=== PATIENT | female | born 1990 | race African-American/Black ===

== ENCOUNTER 2016-02-24 15:05 | Emergency (ER) | payer SELFPAY ==
--- NOTE | 2016-02-24 16:47 | ER Document Report ---
ED Medical Screen (RME) - General Chief Complaint: Lower Abdominal Pain Stated Complaint: MEDICATION REFILL Time seen by provider: 16:47 Mode of Arrival: Ambulatory Information source: Patient TRAVEL OUTSIDE OF THE [place] IN LAST 30 DAYS: No - HPI Patient complains to provider of: MED REFILLS Onset: Yesterday Onset/Duration: Sudden Context: STATES CIPRO, FLAGYL AND PERCOCET WERE STOLEN LAST NIGHT. THEY WERE HELPING. PT HERE FOR REFILLS. DID NOT CALL HER PCP, DR. ZAMUDIO FOR REFILLS. Quality of pain: Pressure Severity: Moderate Pain Level: 3 Associated Symptoms: Abdominal pain, Nausea, Vomiting Exacerbated by: Denies Relieved by: Denies Similar symptoms previously: Yes Recently seen / treated by doctor: Yes - Related Data Smoking: Non-smoker Frequency of alcohol use: None Drug Abuse: None Allergies/Adverse Reactions: iodine [Iodine] Allergy (Severe, Verified 02/24/16 15:18) throat swells peanut Allergy (Severe, Verified 02/24/16 15:18) rash Penicillins Allergy (Severe, Verified 02/24/16 15:18) throat swells Shellfish * [Shellfish] Allergy (Severe, Verified 02/24/16 15:18) Blisters hydrocodone Allergy (Verified 02/24/16 15:18) Pruritis Past Medical History - General Last Menstrual Period: 02/23/16 - Past Medical History Cardiac Medical History: Denies: Hx Congestive Heart Failure, Hx Coronary Artery Disease, Hx DVT, Hx Heart Attack, Hx Hypercholesterolemia, Hx Hypertension, Hx Pulmonary Embolism Pulmonary Medical History: Reports: Hx Asthma - inhalers Denies: Hx Bronchitis, Hx COPD, Hx Pneumonia Neurological Medical History: Denies: Hx Cerebrovascular Accident, Hx Seizures Endocrine Medical History: Denies: Hx Diabetes Mellitus Type 2, Hx Hyperthyroidism, Hx Hypothyroidism GI Medical History: Reports: Hx Diverticulitis. Denies: Hx Cirrhosis, Hx Hepatitis Musculoskeltal Medical History: Reports Hx Arthritis - RA Psychiatric Medical History: Reports: Hx Anxiety, Hx Bipolar Disorder, Hx Depression Infectious Medical History: Denies: Hx Hepatitis - Immunizations Immunizations up to date: Yes Hx Diphtheria, Pertussis, Tetanus Vaccination: Yes Physical Exam - Vital signs Vitals: Temp Pulse Resp BP Pulse Ox 98.4 F 108 H 18 143/79 H 100 02/24/16 15:12 02/24/16 15:12 02/24/16 15:12 02/24/16 15:12 02/24/16 15:12 Course - Vital Signs Vital signs: Temp Pulse Resp BP Pulse Ox 98.4 F 108 H 18 143/79 H 100 02/24/16 15:12 02/24/16 15:12 02/24/16 15:12 02/24/16 15:12 02/24/16 15:12
[2016-02-24 18:50] LABS: ABSOLUTE EOSINOPHILS # (AUTO) 0.1 10^3/uL (0.0-0.6); ABSOLUTE LYMPHOCYTES (AUTO) 2.4 10^3/uL (0.5-4.7); ABSOLUTE MONOCYTES (AUTO) 0.6 10^3/uL (0.1-1.4); ABSOLUTE NEUT (AUTO) 2.9 10^3/uL (1.7-8.2); BASOPHILS % (AUTO) 0.6 % (0-2); EOSINOPHILS % (AUTO) 0.9 % (0-6); HEMATOCRIT 30.6 % (36.0-47.0); HEMOGLOBIN 9.2 g/dL (12.0-15.5); LYMPHOCYTES % (AUTO) 39.4 % (13-45); MEAN CORPUSCULAR HGB CONC 30.2 g/dL (32.0-36.0); MONOCYTES % (AUTO) 10.5 % (3-13); RED BLOOD COUNT 4.87 10^6/uL (3.72-5.28); RED CELL DISTRIBUTION WIDTH 19.9 % (11.5-14.0); SEGMENTED NEUTROPHILS % (AUTO) 48.6 % (42-78)
[2016-02-24 19:11] LABS: ALANINE AMINOTRANSFERASE 49 U/L (9-52); ALBUMIN 3.7 g/dL (3.5-5.0); ALKALINE PHOSPHATASE 59 U/L (38-126); ANION GAP 7 (5-19); ASPARTATE AMINO TRANSFERASE 23 U/L (14-36); BILIRUBIN,TOTAL 0.5 mg/dL (0.2-1.3); BLOOD UREA NITROGEN 7 mg/dL (7-20); CALCIUM 9.2 mg/dL (8.4-10.2); CARBON DIOXIDE 28 mmol/L (22-30); CHLORIDE 104 mmol/L (98-107); CREATININE RESULT 0.72 mg/dL (0.52-1.25); GLUCOSE 72 mg/dL (75-110); LIPASE 43.8 U/L (23-300); POTASSIUM 4.1 mmol/L (3.6-5.0); SODIUM 139.3 mmol/L (137-145)
[2016-02-24 19:16] LABS: APPEARANCE,URINE SLIGHTLY-CLOUDY; BILIRUBIN,URINE NEGATIVE (NEGATIVE); GLUCOSE, URINE NEGATIVE (NEGATIVE); KETONES,URINE NEGATIVE (NEGATIVE); LEUKOCYTE ESTERASE,URINE LARGE (NEGATIVE); NITRITE,URINE NEGATIVE (NEGATIVE); PROTEIN,URINE NEGATIVE (NEGATIVE); URINE SPECIFIC GRAVITY 1.015
[2016-02-24 19:26] LABS: ANISOCYTOSIS 2+; HYPOCHROMASIA 3+; MICROCYTOSIS 3+; POIKILOCYTOSIS 1+; POLYCHROMASIA 1+
[2016-02-24 19:27] LABS: OVALOCYTES 1+; SCHISTOCYTES SLIGHT; TARGET CELLS 1+; TEAR DROP CELLS 1+
[2016-02-24 19:28] LABS: MEAN CORPUSCULAR VOLUME 63 fl (80-97)
[2016-02-24] MEDS ORDERED: NITROFURANTOIN MONOHYD/M-CRYST 100 MG CAPSULE PO ONE (19:38)
[2016-02-24] MEDS ORDERED: PHENAZOPYRIDINE HCL 200 MG TABLET PO ONE (19:38)
--- NOTE | 2016-02-24 19:38 | ER Document Report ---
ED General - General Chief Complaint: Lower Abdominal Pain Stated Complaint: MEDICATION REFILL Mode of Arrival: Ambulatory TRAVEL OUTSIDE OF THE [place] IN LAST 30 DAYS: No - HPI Onset: Last week Onset/Duration: Intermittent - 25-year-old female who presents to the emergency room today with approximately a one-week history of left lower quadrant discomfort she states that she does have a history of diverticulitis - Related Data Allergies/Adverse Reactions: iodine [Iodine] Allergy (Severe, Verified 02/24/16 15:18) throat swells peanut Allergy (Severe, Verified 02/24/16 15:18) rash Penicillins Allergy (Severe, Verified 02/24/16 15:18) throat swells Shellfish * [Shellfish] Allergy (Severe, Verified 02/24/16 15:18) Blisters hydrocodone Allergy (Verified 02/24/16 15:18) Pruritis Past Medical History - General Information source: Patient Last Menstrual Period: 02/23/16 - Social History Smoking Status: Current Every Day Smoker Cigarette use (# per day): Yes Chew tobacco use (# tins/day): No Frequency of alcohol use: None Drug Abuse: None Family History: Reviewed & Not Pertinent, Arthritis, CAD, DM, Hyperlipidemia, Hypertension Patient has suicidal ideation: No Patient has homicidal ideation: No - Past Medical History Cardiac Medical History: Denies: Hx Congestive Heart Failure, Hx Coronary Artery Disease, Hx DVT, Hx Heart Attack, Hx Hypercholesterolemia, Hx Hypertension, Hx Pulmonary Embolism Pulmonary Medical History: Reports: Hx Asthma - inhalers Denies: Hx Bronchitis, Hx COPD, Hx Pneumonia Neurological Medical History: Denies: Hx Cerebrovascular Accident, Hx Seizures Endocrine Medical History: Denies: Hx Diabetes Mellitus Type 2, Hx Hyperthyroidism, Hx Hypothyroidism GI Medical History: Reports: Hx Diverticulitis. Denies: Hx Cirrhosis, Hx Hepatitis Musculoskeltal Medical History: Reports Hx Arthritis - RA Psychiatric Medical History: Reports: Hx Anxiety, Hx Bipolar Disorder, Hx Depression Infectious Medical History: Denies: Hx Hepatitis - Immunizations Immunizations up to date: Yes Hx Diphtheria, Pertussis, Tetanus Vaccination: Yes Review of Systems - Review of Systems Constitutional: No symptoms reported EENT: No symptoms reported Cardiovascular: No symptoms reported Respiratory: No symptoms reported Gastrointestinal: No symptoms reported Genitourinary: No symptoms reported Female Genitourinary: No symptoms reported Musculoskeletal: No symptoms reported Skin: No symptoms reported Hematologic/Lymphatic: No symptoms reported Neurological/Psychological: No symptoms reported Physical Exam - Vital signs Vitals: Temp Pulse Resp BP Pulse Ox 98.4 F 108 H 18 143/79 H 100 02/24/16 15:12 02/24/16 15:12 02/24/16 15:12 02/24/16 15:12 02/24/16 15:12 Interpretation: Normal - General General appearance: Appears well, Alert - HEENT Head: Normocephalic, Atraumatic Eyes: Normal Pupils: PERRL - Respiratory Respiratory status: No respiratory distress Chest status: Nontender Breath sounds: Normal Chest palpation: Normal - Cardiovascular Rhythm: Regular Heart sounds: Normal auscultation Murmur: No - Abdominal Inspection: Normal Distension: No distension Bowel sounds: Normal Tenderness: Nontender Organomegaly: No organomegaly - Back Back: Normal, Nontender, CVA tenderness - Extremities General upper extremity: Normal inspection, Nontender, Normal color, Normal ROM , Normal temperature General lower extremity: Normal inspection, Nontender, Normal color, Normal ROM , Normal temperature, Normal weight bearing. No: Michael's sign - Neurological Neuro grossly intact: Yes Cognition: Normal Orientation: AAOx4 [place] Coma Scale Eye Opening: Spontaneous [place]ina Coma Scale Verbal: Oriented [place] Coma Scale Motor: Obeys Commands Lina Coma Scale Total: 15 Speech: Normal Motor strength normal: LUE, RUE, LLE, RLE Sensory: Normal - Psychological Associated symptoms: Normal affect, Normal mood - Skin Skin Temperature: Warm Skin Moisture: Dry Skin Color: Normal Course - Vital Signs Vital signs: Temp Pulse Resp BP Pulse Ox 98.4 F 108 H 18 143/79 H 100 02/24/16 15:12 02/24/16 15:12 02/24/16 15:12 02/24/16 15:12 02/24/16 15:12 - Laboratory Result Diagrams: 02/24/16 18:35 02/24/16 18:35 Laboratory results interpreted by me: 02/24/16 02/24/16 02/24/16 18:35 18:35 18:54 Hgb 9.2 L Hct 30.6 L MCV 63 L MCH 19.0 L MCHC 30.2 L RDW 19.9 H Glucose 72 L Urine Blood MODERATE H Urine Urobilinogen 2.0 H Ur Leukocyte Esterase LARGE H Discharge - Discharge Clinical Impression: UTI (urinary tract infection) Disposition: HOME, SELF-CARE Instructions: Nitrofurantoin ([facility]), Urinary Anesthetic Agent ([facility]), Urinary Tract Infection ([facility]) Additional Instructions: Follow-up with private doctor in 1 to 2 days for final radiology readings please return to the emergency room for any change worsening condition. Follow up with private M.D. for all other routine health care needs. Prescriptions: Nitrofurantoin/Nitrofuran Mac [Macrobid 100 mg Capsule] 1 tab PO BID #20 capsule Forms: Elevated Blood Pressure
[2016-02-24] MEDS ORDERED: TRAMADOL HCL 50 MG TABLET PO ONE (19:39)
[2016-02-24 19:50] VITALS: BP 132/90
== END 2016-02-24 19:50 | disposition home or self-care (01) ==
LOC: ER 15:05
DX: N39.0 Urinary tract infection, site not specified (principal); R10.32 Left lower quadrant pain; F17.210 Nicotine dependence, cigarettes, uncomplicated
CPT/HCPCS: 99282; 36415; 83690; 85025; 80053; 81001; 74022; J3490; J8499

== ENCOUNTER 2016-03-05 17:55 | Emergency (ER) | payer SELFPAY ==
--- NOTE | 2016-03-05 18:21 | ER Document Report ---
ED Medical Screen (RME) - General Stated Complaint: LEFT SIDE PAIN Mode of Arrival: Ambulatory Information source: Patient Notes: Patient presents to the ER with complaints of left-sided rib pain. She reports she's been coughing for one week and rib pain for the past 3 days. Denies fever vomiting diarrhea. Denies history of asthma COPD. Patient does smoke. I greeted and performed a rapid initial assessment of this patient. Comprehensive ED assessment and evaluation of the patient, analysis of test results and completion of the medical decision making process will be conducted by additional ED providers. TRAVEL OUTSIDE OF THE [place] IN LAST 30 DAYS: No - Related Data Allergies/Adverse Reactions: iodine [Iodine] Allergy (Severe, Verified 02/24/16 15:18) throat swells peanut Allergy (Severe, Verified 02/24/16 15:18) rash Penicillins Allergy (Severe, Verified 02/24/16 15:18) throat swells Shellfish * [Shellfish] Allergy (Severe, Verified 02/24/16 15:18) Blisters hydrocodone Allergy (Verified 02/24/16 15:18) Pruritis Past Medical History - Past Medical History Cardiac Medical History: Denies: Hx Congestive Heart Failure, Hx Coronary Artery Disease, Hx DVT, Hx Heart Attack, Hx Hypercholesterolemia, Hx Hypertension, Hx Pulmonary Embolism Pulmonary Medical History: Reports: Hx Asthma - inhalers Denies: Hx Bronchitis, Hx COPD, Hx Pneumonia Neurological Medical History: Denies: Hx Cerebrovascular Accident, Hx Seizures Endocrine Medical History: Denies: Hx Diabetes Mellitus Type 2, Hx Hyperthyroidism, Hx Hypothyroidism GI Medical History: Reports: Hx Diverticulitis. Denies: Hx Cirrhosis, Hx Hepatitis Musculoskeltal Medical History: Reports Hx Arthritis - RA Psychiatric Medical History: Reports: Hx Anxiety, Hx Bipolar Disorder, Hx Depression Infectious Medical History: Denies: Hx Hepatitis - Immunizations Immunizations up to date: Yes Hx Diphtheria, Pertussis, Tetanus Vaccination: Yes Physical Exam - Vital signs Vitals: Temp Pulse Resp BP Pulse Ox 98.0 F 87 20 120/81 100 03/05/16 18:03 03/05/16 18:03 03/05/16 18:03 03/05/16 18:03 03/05/16 18:03 Course - Vital Signs Vital signs: Temp Pulse Resp BP Pulse Ox 98.0 F 87 20 120/81 100 03/05/16 18:03 03/05/16 18:03 03/05/16 18:03 03/05/16 18:03 03/05/16 18:03
--- NOTE | 2016-03-05 18:58 | ER Document Report ---
ED General - General Chief Complaint: Rib Pain Stated Complaint: LEFT SIDE PAIN Mode of Arrival: Ambulatory Information source: Patient TRAVEL OUTSIDE OF THE [place] IN LAST 30 DAYS: No - HPI Onset: Other - Left lateral rib pain for approximately 3 weeks - Related Data Allergies/Adverse Reactions: iodine [Iodine] Allergy (Severe, Verified 02/24/16 15:18) throat swells peanut Allergy (Severe, Verified 02/24/16 15:18) rash Penicillins Allergy (Severe, Verified 02/24/16 15:18) throat swells Shellfish * [Shellfish] Allergy (Severe, Verified 02/24/16 15:18) Blisters hydrocodone Allergy (Verified 02/24/16 15:18) Pruritis Past Medical History - General Information source: Patient - Social History Smoking Status: Current Some Day Smoker Chew tobacco use (# tins/day): No Frequency of alcohol use: None Drug Abuse: None Family History: Reviewed & Not Pertinent, Arthritis, CAD, DM, Hyperlipidemia, Hypertension Patient has suicidal ideation: No Patient has homicidal ideation: No - Past Medical History Cardiac Medical History: Denies: Hx Congestive Heart Failure, Hx Coronary Artery Disease, Hx DVT, Hx Heart Attack, Hx Hypercholesterolemia, Hx Hypertension, Hx Pulmonary Embolism Pulmonary Medical History: Reports: Hx Asthma - inhalers Denies: Hx Bronchitis, Hx COPD, Hx Pneumonia Neurological Medical History: Denies: Hx Cerebrovascular Accident, Hx Seizures Endocrine Medical History: Denies: Hx Diabetes Mellitus Type 2, Hx Hyperthyroidism, Hx Hypothyroidism Renal/ Medical History: Denies: Hx Peritoneal Dialysis GI Medical History: Reports: Hx Diverticulitis. Denies: Hx Cirrhosis, Hx Hepatitis Musculoskeltal Medical History: Reports Hx Arthritis - RA Psychiatric Medical History: Reports: Hx Anxiety, Hx Bipolar Disorder, Hx Depression Infectious Medical History: Denies: Hx Hepatitis - Immunizations Immunizations up to date: Yes Hx Diphtheria, Pertussis, Tetanus Vaccination: Yes Review of Systems - Review of Systems Constitutional: No symptoms reported EENT: No symptoms reported Cardiovascular: No symptoms reported Respiratory: No symptoms reported Gastrointestinal: No symptoms reported Genitourinary: No symptoms reported Female Genitourinary: No symptoms reported Musculoskeletal: No symptoms reported Skin: No symptoms reported Hematologic/Lymphatic: No symptoms reported Neurological/Psychological: No symptoms reported Physical Exam - Vital signs Vitals: Temp Pulse Resp BP Pulse Ox 98.0 F 87 20 120/81 100 03/05/16 18:03 03/05/16 18:03 03/05/16 18:03 03/05/16 18:03 03/05/16 18:03 Interpretation: Normal - General General appearance: Appears well, Alert - HEENT Head: Normocephalic, Atraumatic Eyes: Normal Pupils: PERRL - Respiratory Respiratory status: No respiratory distress Chest status: Nontender Breath sounds: Normal Chest palpation: Normal - Cardiovascular Rhythm: Regular Heart sounds: Normal auscultation Murmur: No - Abdominal Inspection: Normal Distension: No distension Bowel sounds: Normal Tenderness: Nontender Organomegaly: No organomegaly - Back Back: Normal, Nontender - Extremities General upper extremity: Normal inspection, Nontender, Normal color, Normal ROM , Normal temperature General lower extremity: Normal inspection, Nontender, Normal color, Normal ROM , Normal temperature, Normal weight bearing. No: Michael's sign - Neurological Neuro grossly intact: Yes Cognition: Normal Orientation: AAOx4 [place] Coma Scale Eye Opening: Spontaneous Lina Coma Scale Verbal: Oriented [place] Coma Scale Motor: Obeys Commands Lina Coma Scale Total: 15 Speech: Normal Motor strength normal: LUE, RUE, LLE, RLE Sensory: Normal - Psychological Associated symptoms: Normal affect, Normal mood - Skin Skin Temperature: Warm Skin Moisture: Dry Skin Color: Normal Course - Vital Signs Vital signs: Temp Pulse Resp BP Pulse Ox 98.0 F 87 20 120/81 100 03/05/16 18:03 03/05/16 18:03 03/05/16 18:03 03/05/16 18:03 03/05/16 18:03 - Diagnostic Test Radiology reviewed: Reports reviewed Discharge - Discharge Clinical Impression: Bronchitis Disposition: HOME, SELF-CARE Additional Instructions: Follow-up with private doctor in 1 to 2 days for final radiology readings please return to the emergency room for any change worsening condition. Follow up with private M.D. for all other routine health care needs. Prescriptions: Naproxen Sodium [Naproxen Sodium ER] 500 mg PO Q12 PRN #20 tablet.sa PRN Reason:
[2016-03-05 19:02] VITALS: BP 137/94
== END 2016-03-05 19:10 | disposition home or self-care (01) ==
LOC: ER 17:55
DX: J40 Bronchitis, not specified as acute or chronic (principal); J45.909 Unspecified asthma, uncomplicated; R07.81 Pleurodynia; F17.200 Nicotine dependence, unspecified, uncomplicated; Z91.010 Allergy to peanuts; Z88.0 Allergy status to penicillin; Z91.013 Allergy to seafood; Z88.5 Allergy status to narcotic agent; Z88.3 Allergy status to other anti-infective agents
CPT/HCPCS: 99283

== ENCOUNTER 2016-05-21 21:22 | Observation (INO) | payer SELFPAY ==
--- NOTE | 2016-05-21 23:11 | ER Document Report ---
ED General - General Chief Complaint: Vaginal Bleeding Stated Complaint: BEEN ON PERIOD SINCE FIRST February Notes: Patient is a 26-year-old female presents with complaints of left knee pain. Patient says that she's had some gradual worsening pain in her left knee. She points to the medial aspect of her left knee. She says it's more when she bears weight. She does not murmur any injuries or trauma to the knee. No redness or swelling. No recent fevers or infections. Patient's second complaint is of having a prolonged menstrual period. She says she's had bleeding since February 21. She has been eating a lot of ice recently. She has felt a little bit more sleepy or tired than usual. She says she's make an appointment to see grain merchandiser. She tells me up front that she does not want a pelvic exam performed here because she wants to have it done by her physician when she sees him or her. TRAVEL OUTSIDE OF THE [place] IN LAST 30 DAYS: No - Related Data Allergies/Adverse Reactions: iodine [Iodine] Allergy (Severe, Verified 02/24/16 15:18) throat swells Penicillins Allergy (Severe, Verified 02/24/16 15:18) throat swells Shellfish * [Shellfish] Allergy (Severe, Verified 02/24/16 15:18) Blisters peanut Adverse Reaction (Severe, Verified 05/21/16 22:03) rash hydrocodone Adverse Reaction (Verified 05/21/16 22:03) Pruritis Past Medical History - Social History Smoking Status: Current Some Day Smoker Chew tobacco use (# tins/day): No Frequency of alcohol use: None Drug Abuse: None Family History: Reviewed & Not Pertinent, Arthritis, CAD, DM, Hyperlipidemia, Hypertension - Past Medical History Cardiac Medical History: Denies: Hx Congestive Heart Failure, Hx Coronary Artery Disease, Hx DVT, Hx Heart Attack, Hx Hypercholesterolemia, Hx Hypertension, Hx Pulmonary Embolism Pulmonary Medical History: Reports: Hx Asthma - inhalers Denies: Hx Bronchitis, Hx COPD, Hx Pneumonia Neurological Medical History: Denies: Hx Cerebrovascular Accident, Hx Seizures Endocrine Medical History: Denies: Hx Diabetes Mellitus Type 2, Hx Hyperthyroidism, Hx Hypothyroidism Renal/ Medical History: Denies: Hx Peritoneal Dialysis GI Medical History: Reports: Hx Diverticulitis. Denies: Hx Cirrhosis, Hx Hepatitis Musculoskeltal Medical History: Reports Hx Arthritis - RA Psychiatric Medical History: Reports: Hx Anxiety, Hx Bipolar Disorder, Hx Depression Infectious Medical History: Denies: Hx Hepatitis - Immunizations Immunizations up to date: Yes Hx Diphtheria, Pertussis, Tetanus Vaccination: Yes Review of Systems - Review of Systems Notes: My Normal Review Basic REVIEW OF SYSTEMS: CONSTITUTIONAL : Denies fever, chills, or sweats. Denies recent illness. EENT: Denies eye, ear, throat, or mouth pain or symptoms. Denies nasal or sinus congestion. RESPIRATORY: Denies cough, cold, or chest congestion. Denies shortness of breath, difficulty breathing, or wheezing. GASTROINTESTINAL: Denies abdominal pain. Denies nausea, vomiting, or diarrhea. Denies constipation. Last BM: GENITOURINARY: Denies difficulty urinating, painful urination, burning, frequency, or blood in urine. FEMALE GENITOURINARY: Prolonged menstrual bleeding MUSCULOSKELETAL: Left knee pain SKIN: Denies rash or skin lesions. HEMATOLOGIC : Denies easy bruising or bleeding. NEUROLOGICAL: Denies altered mental status or loss of consciousness. Denies headache. Denies weakness or paralysis or loss of use of either side. Denies problems with gait or speech. Denies sensory or motor loss.ssion. ALL OTHER SYSTEMS REVIEWED AND NEGATIVE. Physical Exam - Vital signs Vitals: Temp Pulse Resp BP Pulse Ox 98.8 F 118 H 16 149/94 H 100 05/21/16 21:44 05/21/16 21:44 05/21/16 21:44 05/21/16 21:44 05/21/16 21:44 - Notes Notes: General Appearance: Well nourished, alert, cooperative, no acute distress, no obvious discomfort. Well-appearing. Vitals: reviewed, See vital signs table. Eyes: PERRL, EOMI, Conjuctiva clear Mouth: No decreasd moisturexchange bilaterally. Heart: Normal rate, Regular rythm, No murmur, no rub Abdomen: Normal BS, soft, No rigidity, No abdominal tenderness, No guarding, no rebound, no abdominal masses, no organomegaly Pelvic exam: Small amount of blood in vaginal vault. Extremities: strength 5/5 in all extremities, good pulses in all extremities, mild pain to palpation of the medial aspect of the right knee. Remainder of knees nontender. His no swelling to the knee. Patient is able to keep the leg in full extension raise off the bed without difficulty. Warmth to the knee., no edema. Skin: warm, dry, appropriate color, no rash Neuro: speech clear, oriented x 3, normal affect, responds appropriately to questions. Course - Vital Signs Vital signs: Temp Pulse Resp BP Pulse Ox 98.8 F 118 H 16 149/94 H 100 05/21/16 21:44 05/21/16 21:44 05/21/16 21:44 05/21/16 21:44 05/21/16 21:44 - Laboratory Result Diagrams: 05/22/16 01:15 Laboratory results interpreted by me: 05/22/16 05/22/16 01:15 02:00 RBC 3.68 L Hgb 6.5 L Hct 22.1 L MCV 60 L MCH 17.6 L MCHC 29.3 L RDW 19.8 H Crossmatch See Detail - Transfer of Care Notes: 05/22/16 03:28 I did discuss the case with Dr. Baker, grain merchandiser, who agrees with the patient for further workup and treatment of her anemia and recurrent vaginal bleeding. I have ordered a ultrasound. She recommends Premarin. I have ordered this. I did speak with the patient is agreeable to admission and workup. Dictation of this chart was performed using voice recognition software; therefore, there may be some unintended grammatical errors. Discharge - Discharge Clinical Impression: Anemia, Vaginal bleeding Disposition: ADMITTED OBSERVATION Admitting Provider: [facility] Admitted: Post
[2016-05-22 01:29] LABS: ABSOLUTE BASOPHILS # (AUTO) 0.1 10^3/uL (0.0-0.2); ABSOLUTE EOSINOPHILS # (AUTO) 0.1 10^3/uL (0.0-0.6); ABSOLUTE LYMPHOCYTES (AUTO) 2.7 10^3/uL (0.5-4.7); ABSOLUTE MONOCYTES (AUTO) 0.5 10^3/uL (0.1-1.4); ABSOLUTE NEUT (AUTO) 3.3 10^3/uL (1.7-8.2); BASOPHILS % (AUTO) 1.5 % (0-2); EOSINOPHILS % (AUTO) 1.7 % (0-6); HEMATOCRIT 22.1 % (36.0-47.0); HGB HCT DIFFERENCE -2.6; LYMPHOCYTES % (AUTO) 40.4 % (13-45); MEAN CORPUSCULAR HEMOGLOBIN 17.6 pg (27.0-33.4); MEAN CORPUSCULAR HGB CONC 29.3 g/dL (32.0-36.0); MEAN CORPUSCULAR VOLUME 60 fl (80-97); MONOCYTES % (AUTO) 6.8 % (3-13); RED BLOOD COUNT 3.68 10^6/uL (3.72-5.28); RED CELL DISTRIBUTION WIDTH 19.8 % (11.5-14.0); SEGMENTED NEUTROPHILS % (AUTO) 49.6 % (42-78); WHITE BLOOD COUNT 6.7 10^3/uL (4.0-10.5)
[2016-05-22 01:49] LABS: ANISOCYTOSIS 2+; HYPOCHROMASIA 2+; MICROCYTOSIS 3+; OVALOCYTES 1+; POIKILOCYTOSIS 1+; POLYCHROMASIA SLIGHT; SCHISTOCYTES SLIGHT; TARGET CELLS 1+; TEAR DROP CELLS SLIGHT
[2016-05-22 01:50] LABS: PLATELET CLUMPS PRESENT
[2016-05-22 01:52] LABS: HEMOGLOBIN 6.5 g/dL (12.0-15.5)
[2016-05-22] MEDS ORDERED: NORMAL SALINE 250 ML IV PRN (01:54)
[2016-05-22] MEDS ORDERED: ESTROGENS,CONJUGATED 25 MG VIAL IV ONE (02:33)
[2016-05-22] MEDS ORDERED: IBUPROFEN 800 MG TABLET PO PRN (04:14)
[2016-05-22] MEDS ORDERED: ESTROGENS,CONJUGATED 25 MG VIAL ONE (04:18)
--- NOTE | 2016-05-22 08:00 | PDOC H&P ---
History of Present Illness Admission Date/PCP: 05/22/16 02:56 ARJUN ZAMUDIO DO Patient complains of: abnormal uterine bleeding History of Present Illness: KOBE WAYNE is a 26 year old female who states this mense has been ongoing for 4 months. Pt admits to being tired and dizzy. She has no pain in abd or pelvis. She has hx very heavy menses and was on ocp to control in the past. This is the first episode this bad Past Medical History LMP: 02/22/16 Cardiac Medical History: Denies: Congestive Heart Failure, Coronary Artery Disease, DVT, Myocardial Infarction, Hyperlipidema, Hypertension, Pulmonary Embolism Pulmonary Medical History: Reports: Asthma - inhalers Denies: Bronchitis, Chronic Obstructive Pulmonary Disease (COPD), Pneumonia Neurological Medical History: Denies: Seizures Endocrine Medical History: Denies: Diabetes Mellitus Type 2, Hyperthyroidism, Hypothyroidism GI Medical History: Reports: Diverticulitis Denies: Cirrhosis, Hepatitis Musculoskeltal Medical History: Reports: Arthritis - RA Psychiatric Medical History: Reports: Bipolar Disorder, Depression Social History Smoking Status: Current Some Day Smoker Frequency of Alcohol Use: None Hx Recreational Drug Use: No Drugs: None Hx Prescription Drug Abuse: No Family History Family History: Reviewed & Not Pertinent, Arthritis, CAD, DM, Hyperlipidemia, Hypertension Parental Family History Reviewed: Yes Children Family History Reviewed: Yes Sibling(s) Family History Reviewed.: Yes Medication/Allergy Home Medications: Albuterol Sulfate [Proair Respiclick] 1 puff PO 6XD PRN 12/19/15 Aripiprazole 10 mg PO DAILY 12/19/15 Ciprofloxacin HCl [Cipro 500 mg Tablet] 500 mg PO BID #10 tablet 12/19/15 Clonazepam [Klonopin] 0.5 mg PO Q12 12/19/15 Duloxetine HCl 30 mg PO DAILY 12/19/15 Epinephrine [Epipen 2-Lucio] 0.3 mg INJ PRN PRN 12/19/15 Fluticasone Propionate [Flonase Nasal [place] 50 Mcg/[place] 16 gm] 2 sprays IN DAILY 12/19/15 Ibuprofen [Motrin 800 mg Tablet] 800 mg PO TID 12/19/15 Metronidazole [Flagyl 500 mg Tablet] 500 mg PO Q6H #28 tablet 12/19/15 Oxycodone HCl/Acetaminophen [Percocet 5-325 mg Tablet] 1 tab PO ASDIR PRN #10 tablet 12/19/15 Nitrofurantoin/Nitrofuran Mac [Macrobid 100 mg Capsule] 1 tab PO BID #14 capsule 01/19/16 Oxycodone HCl/Acetaminophen [Percocet 5-325 mg Tablet] 1 - 2 tab PO Q4H PRN #10 tablet 01/19/16 Promethazine HCl [Phenergan 25 mg Tablet] 1 - 2 tab PO Q6H PRN #15 tablet Ciprofloxacin HCl [Cipro 500 mg Tablet] 500 mg PO BID #14 tablet 02/21/16 Metronidazole [Flagyl 500 mg Tablet] 500 mg PO Q6H #28 tablet 02/21/16 Oxycodone HCl/Acetaminophen [Percocet 10-325 Mg Tablet] 1 each PO Q4 PRN #24 tablet 02/21/16 Nitrofurantoin/Nitrofuran Mac [Macrobid 100 mg Capsule] 1 tab PO BID #20 capsule 02/24/16 Naproxen Sodium [Naproxen Sodium ER] 500 mg PO Q12 PRN #20 tablet.sa 03/05/16 Allergies/Adverse Reactions: iodine [Iodine] Allergy (Severe, Verified 02/24/16 15:18) throat swells Penicillins Allergy (Severe, Verified 02/24/16 15:18) throat swells Shellfish * [Shellfish] Allergy (Severe, Verified 02/24/16 15:18) Blisters peanut Adverse Reaction (Severe, Verified 05/21/16 22:03) rash hydrocodone Adverse Reaction (Verified 05/21/16 22:03) Pruritis Physical Exam - Physical Exam Vital Signs: Temp Pulse Resp BP Pulse Ox 98.1 F 88 16 132/70 H 99 05/22/16 07:10 05/22/16 07:10 05/22/16 07:10 05/22/16 07:10 05/22/16 07:10 Intake & Output 05/21/16 05/22/16 05/23/16 06:59 06:59 06:59 Intake Total 0 Balance 0 General appearance: PRESENT: no acute distress, cooperative Respiratory exam: PRESENT: clear to auscultation lissett Cardiovascular exam: PRESENT: RRR GI/Abdominal exam: PRESENT: normal bowel sounds, soft. ABSENT: distended, guarding, mass, organolmegaly, rebound, tenderness Result Impressions: Knee X-Ray 05/21/16 00:00 IMPRESSION: NEGATIVE STUDY OF THE LEFT KNEE. NO RADIOGRAPHIC EVIDENCE OF ACUTE INJURY. Transvaginal US 05/22/16 02:32 IMPRESSION: NORMAL TRANSVAGINAL PELVIC ULTRASOUND. Assessment & Plan - Diagnosis (1) Anemia Qualifiers: Iron deficiency anemia type: chronic blood loss Is this a current diagnosis for this admission?: Yes (2) Vaginal bleeding Is this a current diagnosis for this admission?: YesPlan: Single dose of premarin for now to decrease bleeding. if no relief, pt is npo for possible D&C. Transfusion ordered by ED.
[2016-05-22] MEDS ORDERED: ONDANSETRON 4 MG TAB.RAPDIS PO PRN (11:42)
[2016-05-22] MEDS ORDERED: FERROUS SULFATE 325 MG TABLET PO ONE (12:00)
[2016-05-22] MEDS: RINGERS SOLUTION,LACTATED 1,000 ML IV PRN ×2 (12:06→19:46)
[2016-05-22] MEDS ORDERED: MEDROXYPROGESTERONE ACET 10 MG TABLET PO ONE (12:30)
[2016-05-22 12:38] LABS: ABSOLUTE EOSINOPHILS # (AUTO) 0.1 10^3/uL (0.0-0.6); ABSOLUTE LYMPHOCYTES (AUTO) 2.4 10^3/uL (0.5-4.7); ABSOLUTE MONOCYTES (AUTO) 0.4 10^3/uL (0.1-1.4); ABSOLUTE NEUT (AUTO) 2.7 10^3/uL (1.7-8.2); BASOPHILS % (AUTO) 0.5 % (0-2); EOSINOPHILS % (AUTO) 1.7 % (0-6); HEMATOCRIT 27.3 % (36.0-47.0); HEMOGLOBIN 8.5 g/dL (12.0-15.5); HGB HCT DIFFERENCE -1.8; LYMPHOCYTES % (AUTO) 42.3 % (13-45); MEAN CORPUSCULAR HEMOGLOBIN 20.2 pg (27.0-33.4); MEAN CORPUSCULAR HGB CONC 31.1 g/dL (32.0-36.0); MONOCYTES % (AUTO) 7.7 % (3-13); RED CELL DISTRIBUTION WIDTH 24.2 % (11.5-14.0); SEGMENTED NEUTROPHILS % (AUTO) 47.8 % (42-78); WHITE BLOOD COUNT 5.7 10^3/uL (4.0-10.5)
[2016-05-22 12:45] LABS: PARTIAL THROMBOPLASTIN TIME 28.1 SEC (23.5-35.8); PROTHROMBIN TIME 13.3 SEC (11.4-15.4)
[2016-05-22 12:53] LABS: ANISOCYTOSIS 2+; HYPOCHROMASIA 3+; MICROCYTOSIS 3+; POLYCHROMASIA SLIGHT
[2016-05-22 12:54] LABS: OVALOCYTES 1+; POIKILOCYTOSIS 2+; TEAR DROP CELLS 1+
[2016-05-22 13:12] LABS: MEAN CORPUSCULAR VOLUME 65 fl (80-97)
[2016-05-22 13:29] LABS: FERRITIN 3.97 ng/mL (6.2-137.0)
--- NOTE | 2016-05-22 13:45 | PDOC CONSULTATION ---
Consultation Consult Date: 05/22/16 Attending physician:: BARBIE FAITH Consult reason:: Anemia, fatigue, bleeding History of Present Illness Admission Date/PCP: 05/22/16 02:56 ARJUN ZAMUDIO DO Patient complains of: Anemia, fatigue, bleeding History of Present Illness: 26 y/o F w/ longstanding hx of heavy menses, reviewed hospital records to 2010, has had multiple TVUS w/ no fibroids noted but heavy menses since onset of menarche, has been on OCPs in past but is concerned about wt gain with them. She has never had any surgeries or injuries. She had cbc done in ED was 6.5, MCV 60s, rest of labs unremarkable, received 2 units prbcs, repeat CBC after is 8.5 and appropriate. Iron studies, B12 levels and bleeding w/u now pending. Past Medical History Cardiac Medical History: Denies: Congestive Heart Failure, Coronary Artery Disease, DVT, Myocardial Infarction, Hyperlipidema, Hypertension, Pulmonary Embolism Pulmonary Medical History: Reports: Asthma Denies: Bronchitis, Chronic Obstructive Pulmonary Disease (COPD), Pneumonia Neurological Medical History: Denies: Seizures Endocrine Medical History: Denies: Diabetes Mellitus Type 2, Hyperthyroidism, Hypothyroidism GI Medical History: Reports: Diverticulitis Denies: Cirrhosis, Hepatitis Musculoskeltal Medical History: Reports: Arthritis - RA Psychiatric Medical History: Reports: Bipolar Disorder, Depression Hematology: Reports: Anemia Hematology History Note: Anemia: reviewed labs long standing microcytic anemia, hx of longstanding heavy menses, likely iron def Past Surgical History Past Surgical History: Reports: None Social History Smoking Status: Current Some Day Smoker Cigarettes Packs Per Day: 0.5 Number of Years Smokin Frequency of Alcohol Use: None Hx Recreational Drug Use: No Drugs: None Hx Prescription Drug Abuse: No Family History Family History: Reviewed & Not Pertinent, Arthritis, CAD, DM, Hyperlipidemia, Hypertension Parental Family History Reviewed: Yes Children Family History Reviewed: Yes Sibling(s) Family History Reviewed.: Yes Medication/Allergy Home Medications: No Home Medications 05/22/16 Allergies/Adverse Reactions: iodine [Iodine] Allergy (Severe, Verified 02/24/16 15:18) throat swells Penicillins Allergy (Severe, Verified 02/24/16 15:18) throat swells Shellfish * [Shellfish] Allergy (Severe, Verified 02/24/16 15:18) Blisters peanut Adverse Reaction (Severe, Verified 05/21/16 22:03) rash hydrocodone Adverse Reaction (Verified 05/21/16 22:03) Pruritis Review of Systems Constitutional: PRESENT: fatigue, weakness Cardiovascular: PRESENT: dyspnea on exertion Gastrointestinal: ABSENT: abdominal pain, constipation, diarrhea, hematemesis, hematochezia, nausea, vomiting Genitourinary: PRESENT: other - heavy menses Musculoskeletal: ABSENT: joint swelling Neurological: ABSENT: abnormal gait, abnormal speech, confusion, dizziness, focal weakness, syncope Physical Exam Vital Signs: Temp Pulse Resp BP Pulse Ox 98.5 F 74 20 123/72 100 05/22/16 11:25 05/22/16 11:25 05/22/16 11:25 05/22/16 11:25 05/22/16 11:25 Intake & Output 05/21/16 05/22/16 05/23/16 06:59 06:59 06:59 Intake Total 0 600 Balance 0 600 General appearance: PRESENT: no acute distress Eye exam: PRESENT: conjunctiva pale Mouth exam: PRESENT: other - OM pale Respiratory exam: PRESENT: clear to auscultation lissett. ABSENT: rales, rhonchi, wheezes Cardiovascular exam: PRESENT: RRR. ABSENT: diastolic murmur, rubs, systolic murmur GI/Abdominal exam: PRESENT: normal bowel sounds, soft. ABSENT: distended, guarding, mass, organolmegaly, rebound, tenderness Rectal exam: PRESENT: deferred Neurological exam: PRESENT: alert, awake, oriented to person, oriented to place , oriented to time, oriented to situation, CN II-XII grossly intact. ABSENT: motor sensory deficit Results Laboratory Results: 05/22/16 12:21 05/22/16 12:21 WBC 5.7 RBC 4.20 Hgb 8.5 L Hct 27.3 L MCV 65 L D MCH 20.2 L MCHC 31.1 L RDW 24.2 H Plt Count 347 Seg Neutrophils % 47.8 Lymphocytes % 42.3 Monocytes % 7.7 Eosinophils % 1.7 Basophils % 0.5 Absolute Neutrophils 2.7 Absolute Lymphocytes 2.4 Absolute Monocytes 0.4 Absolute Eosinophils 0.1 Absolute Basophils 0.0 Impressions: Knee X-Ray 05/21/16 00:00 IMPRESSION: NEGATIVE STUDY OF THE LEFT KNEE. NO RADIOGRAPHIC EVIDENCE OF ACUTE INJURY. Transvaginal US 05/22/16 02:32 IMPRESSION: NORMAL TRANSVAGINAL PELVIC ULTRASOUND. Assessment & Plan - Diagnosis (1) Anemia Qualifiers: Iron deficiency anemia type: chronic blood loss Is this a current diagnosis for this admission?: YesPlan: 2nd to heavy menses, we initiated iron, B12 and bleeding w/u, awaiting results, will give IV iron if ferritin is <100 as expected. Will need f/u as outpt and con't iron therapy and f./u of bleeding w/u which will take several days to come back (all w/u is send out testing). She would benefit from some sort of hormone manipulation as outpt ie: OCP, provera, depo shot, vs IUD? 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 - Time Time Spent: 50 to 70 Minutes Critical Time spent with patient: 25-34 minutes - Inpatient Certification Based on my medical assessment, after consideration of the patient's comorbidities, presenting symptoms, or acuity I expect that the services needed warrant INPATIENT care.: Yes I certify that my determination is in accordance with my understanding of Medicare's requirements for reasonable and necessary INPATIENT services [42 CFR 412.3e].: Yes Medical Necessity: Failure to Improve With Outpatient Therapy, Risk of Complication if Not Cared For in Hospital, Other - blood transfusion
[2016-05-22] MEDS: ACETAMINOPHEN 325 MG TABLET PO PRN (19:32)
[2016-05-23] MEDS: ACETAMINOPHEN 325 MG TABLET PO PRN (01:29)
[2016-05-23] MEDS ORDERED: FERUMOXYTOL (NESRD) 510 MG/17 ML VIAL IV ONE (08:00)
[2016-05-23] MEDS: RINGERS SOLUTION,LACTATED 1,000 ML IV PRN (08:12)
--- NOTE | 2016-05-23 09:58 | PDOC PROGRESS REPORT ---
Subjective Progress Note for:: 05/23/16 Subjective:: Pt feeling better. Vaginal Bleeding has resolved. was on low dose ocp in past which did not help Physical Exam - Physical Exam Vital Signs: Temp Pulse Resp BP Pulse Ox 98.1 F 59 L 20 108/54 L 100 05/23/16 08:10 05/23/16 08:10 05/23/16 08:10 05/23/16 08:10 05/23/16 08:10 Intake & Output 05/22/16 05/23/16 05/24/16 06:59 06:59 06:59 Intake Total 1000 Output Total 700 Balance 300 General appearance: PRESENT: no acute distress, cooperative Respiratory exam: PRESENT: clear to auscultation lissett Cardiovascular exam: PRESENT: RRR GI/Abdominal exam: PRESENT: normal bowel sounds, soft. ABSENT: distended, guarding, mass, organolmegaly, rebound, tenderness Extremities exam: PRESENT: full ROM. ABSENT: calf tenderness, clubbing, pedal edema Result Laboratory Results: 05/22/16 12:21 05/22/16 05/22/16 12:21 12:21 WBC 5.7 RBC 4.20 Hgb 8.5 L Hct 27.3 L MCV 65 L D MCH 20.2 L MCHC 31.1 L RDW 24.2 H Plt Count 347 Seg Neutrophils % 47.8 Lymphocytes % 42.3 Monocytes % 7.7 Eosinophils % 1.7 Basophils % 0.5 Absolute Neutrophils 2.7 Absolute Lymphocytes 2.4 Absolute Monocytes 0.4 Absolute Eosinophils 0.1 Absolute Basophils 0.0 Iron 103.3 TIBC 410 % Saturation 25 Ferritin 3.97 L Impressions: Knee X-Ray 05/21/16 00:00 IMPRESSION: NEGATIVE STUDY OF THE LEFT KNEE. NO RADIOGRAPHIC EVIDENCE OF ACUTE INJURY. Transvaginal US 05/22/16 02:32 IMPRESSION: NORMAL TRANSVAGINAL PELVIC ULTRASOUND. Assessment & Plan - Diagnosis (1) Anemia Qualifiers: Iron deficiency anemia type: chronic blood loss Is this a current diagnosis for this admission?: YesPlan: continue iron infusion as per Hematology. Labs still pending (2) Vaginal bleeding Is this a current diagnosis for this admission?: YesPlan: resolved for now. will give higher dose ocp on discharge - Inpatient Certification Based on my medical assessment, after consideration of the patient's comorbidities, presenting symptoms, or acuity I expect that the services needed warrant INPATIENT care.: Yes I certify that my determination is in accordance with my understanding of Medicare's requirements for reasonable and necessary INPATIENT services [42 CFR 412.3e].: Yes Medical Necessity: Need Close Monitoring Due to Risk of Patient Decompensation, Need For IV Fluids
[2016-05-23] MEDS ORDERED: MEDROXYPROGESTERONE ACET 10 MG TABLET PO SCH (10:00)
[2016-05-23] MEDS ORDERED: FERROUS SULFATE 325 MG TABLET PO SCH (10:00)
[2016-05-23] MEDS ORDERED: FERUMOXYTOL (NON-ESRD) 510 MG/NS 100 ML IV ONE ×2 (10:00)
--- NOTE | 2016-05-23 10:47 | PDOC PROGRESS REPORT ---
Subjective Progress Note for:: 05/23/16 Subjective:: Pt doing well this am, tolerated iron infusion well Physical Exam Vital Signs: Temp Pulse Resp BP Pulse Ox 98.1 F 59 L 20 108/54 L 100 05/23/16 08:10 05/23/16 08:10 05/23/16 08:10 05/23/16 08:10 05/23/16 08:10 Intake & Output 05/22/16 05/23/16 05/24/16 06:59 06:59 06:59 Intake Total 1000 Output Total 700 Balance 300 General appearance: PRESENT: no acute distress, well-developed, well-nourished Head exam: PRESENT: atraumatic, normocephalic Eye exam: PRESENT: conjunctiva pink, EOMI, PERRLA. ABSENT: scleral icterus Ear exam: PRESENT: normal external ear exam Mouth exam: PRESENT: moist, tongue midline Neck exam: ABSENT: carotid bruit, JVD, lymphadenopathy, thyromegaly Respiratory exam: PRESENT: clear to auscultation lissett. ABSENT: rales, rhonchi, wheezes Cardiovascular exam: PRESENT: RRR. ABSENT: diastolic murmur, rubs, systolic murmur Pulses: PRESENT: normal dorsalis pedis pul Vascular exam: PRESENT: normal capillary refill GI/Abdominal exam: PRESENT: normal bowel sounds, soft. ABSENT: distended, guarding, mass, organolmegaly, rebound, tenderness Rectal exam: PRESENT: deferred Extremities exam: PRESENT: full ROM. ABSENT: calf tenderness, clubbing, pedal edema Neurological exam: PRESENT: alert, awake, oriented to person, oriented to place , oriented to time, oriented to situation, CN II-XII grossly intact. ABSENT: motor sensory deficit Psychiatric exam: PRESENT: appropriate affect, normal mood. ABSENT: homicidal ideation, suicidal ideation Skin exam: PRESENT: dry, intact, warm. ABSENT: cyanosis, rash Results Laboratory Results: 05/22/16 12:21 05/22/16 05/22/16 12:21 12:21 WBC 5.7 RBC 4.20 Hgb 8.5 L Hct 27.3 L MCV 65 L D MCH 20.2 L MCHC 31.1 L RDW 24.2 H Plt Count 347 Seg Neutrophils % 47.8 Lymphocytes % 42.3 Monocytes % 7.7 Eosinophils % 1.7 Basophils % 0.5 Absolute Neutrophils 2.7 Absolute Lymphocytes 2.4 Absolute Monocytes 0.4 Absolute Eosinophils 0.1 Absolute Basophils 0.0 Iron 103.3 TIBC 410 % Saturation 25 Ferritin 3.97 L Impressions: Knee X-Ray 05/21/16 00:00 IMPRESSION: NEGATIVE STUDY OF THE LEFT KNEE. NO RADIOGRAPHIC EVIDENCE OF ACUTE INJURY. Transvaginal US 05/22/16 02:32 IMPRESSION: NORMAL TRANSVAGINAL PELVIC ULTRASOUND. Assessment & Plan - Diagnosis (1) Anemia Qualifiers: Iron deficiency anemia type: chronic blood loss Is this a current diagnosis for this admission?: YesPlan: Hb stable post tx, Iv iron given today. 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 - Time Time Spent with patient: 15-24 minutes Critical Time spent with patient: 15-24 minutes Anticipated discharge: Home
[2016-05-23 11:39] VITALS: BP 112/62
[2016-05-25 07:18] LABS: VON WILLEBRAND FACTOR ANTIGEN 186 % (50-200)
== END 2016-05-23 13:30 | disposition home or self-care (01) ==
LOC: ER 21:22 → EH 05-22 02:56 → UNDOADMOB 05-22 02:56 → EH 05-22 10:10 → 2S 05-22 11:28 → 2N 05-22 16:45
PROVIDERS: ADMIT Obstetrics & Gynecology; ATTEND Obstetrics & Gynecology
PROC: 3E033GC Introduction of Other Therapeutic Substance into Peripheral Vein, Percutaneous Approach (ICD-10-PCS; principal; 2016-05-21)
DX: N93.8 Other specified abnormal uterine and vaginal bleeding (principal); J45.909 Unspecified asthma, uncomplicated; D50.0 Iron deficiency anemia secondary to blood loss (chronic); F17.210 Nicotine dependence, cigarettes, uncomplicated
CPT/HCPCS: 99285; 96374; 86900; 86901; 36415; 85250; 36430; 85246; 86850; 82728; 83540; 83550; 84703; 85025; 85610; 85730; 86920; 85247; 73560; 76830; 93976; G0378 ×3; P9016; Q0138; S0119; J1410; J3490; J7120 ×2

== ENCOUNTER 2016-07-01 08:52 | Emergency (ER) | payer SELFPAY ==
[2016-07-01] MEDS ORDERED: DIPHENHYDRAMINE HCL 50 MG/ML VIAL IV ONE (09:20)
[2016-07-01] MEDS ORDERED: METHYLPREDNISOLONE INJ 125 MG/2 ML SDV IV ONE (09:20)
[2016-07-01] MEDS ORDERED: FAMOTIDINE INJ/PF 20 MG/2 ML SDV IV ONE ×2 (09:20→09:25)
--- NOTE | 2016-07-01 09:21 | ER Document Report ---
ED Medical Screen (RME) - General Mode of Arrival: Ambulatory Information source: Patient TRAVEL OUTSIDE OF THE [place] IN LAST 30 DAYS: No - HPI Patient complains to provider of: tongue swelling <LEO MENDEZ - Last Filed: 07/01/16 10:29> <SUZAN WEBSTER - Last Filed: 07/01/16 20:33> - General Chief Complaint: Swelling of Tongue Stated Complaint: POSSIBLE ALLERGIC REACTION,DIFFICULTY BREATHING Time Seen by Provider: 07/01/16 09:15 Notes: Patient presents with complaints of tongue swelling. Also complains of trouble swallowing, trouble mainlining salivations, complains of drooling, and an abscess on her tooth. Patient is not on medications. No family hx of angioedema. Patient has been here for face and hand swelling before. Patient denies lip swelling, sore throat. Patient last ate/drank yesterday. Non smoker , no alcohol, no drugs. (LEO MENDEZ) - Related Data Allergies/Adverse Reactions: iodine [Iodine] Allergy (Severe, Verified 07/01/16 09:11) throat swells Penicillins Allergy (Severe, Verified 07/01/16 09:11) throat swells Shellfish * [Shellfish] Allergy (Severe, Verified 07/01/16 09:11) Blisters peanut Adverse Reaction (Severe, Verified 07/01/16 09:11) rash hydrocodone Adverse Reaction (Verified 07/01/16 09:11) Pruritis Past Medical History - Social History Cigarette use (# per day): No Chew tobacco use (# tins/day): No Frequency of alcohol use: None Drug Abuse: None Family history: Reviewed & Not Pertinent - Past Medical History Cardiac Medical History: Denies: Hx Congestive Heart Failure, Hx Coronary Artery Disease, Hx DVT, Hx Heart Attack, Hx Hypercholesterolemia, Hx Hypertension, Hx Pulmonary Embolism Pulmonary Medical History: Reports: Hx Asthma Denies: Hx Bronchitis, Hx COPD, Hx Pneumonia Neurological Medical History: Denies: Hx Cerebrovascular Accident, Hx Seizures Endocrine Medical History: Denies: Hx Diabetes Mellitus Type 2, Hx Hyperthyroidism, Hx Hypothyroidism Renal/ Medical History: Denies: Hx Peritoneal Dialysis GI Medical History: Reports: Hx Diverticulitis. Denies: Hx Cirrhosis, Hx Hepatitis Musculoskeltal Medical History: Reports Hx Arthritis - RA Psychiatric Medical History: Reports: Hx Anxiety, Hx Bipolar Disorder, Hx Depression Infectious Medical History: Denies: Hx Hepatitis - Immunizations Immunizations up to date: Yes Hx Diphtheria, Pertussis, Tetanus Vaccination: Yes <LEO MENDEZ - Last Filed: 07/01/16 10:29> Review of Systems - Review of Systems EENT: See HPI, Mouth swelling <LEO MENDEZ - Last Filed: 07/01/16 10:29> Physical Exam - Vital signs Interpretation: Normal - HEENT Tympanic membrane: Normal Mouth/Lips: Angioedema, Other - gum growing on tongue right lower jaw between 1st and 3rd molar. Tongue edematous <LEO MENDEZ - Last Filed: 07/01/16 10:29> Course - Laboratory Result Diagrams: 07/01/16 09:37 07/01/16 09:37 <LEO MENDEZ - Last Filed: 07/01/16 10:29> - Laboratory Result Diagrams: 07/01/16 09:37 07/01/16 09:37 <SUZAN WEBSTER - Last Filed: 07/01/16 20:33> - Re-evaluation Re-evalutation: 07/01/16 09:33 patient upgraded to yellow, concerns of maintaining airway. (LEO MENDEZ) - Vital Signs Vital signs: Temp Pulse Resp BP Pulse Ox 98.4 F 74 18 134/80 H 97 07/01/16 08:56 07/01/16 08:56 07/01/16 15:01 07/01/16 15:01 07/01/16 15:01 - Laboratory Laboratory results interpreted by me: 07/01/16 09:37 WBC 10.9 H Hgb 10.3 L Hct 34.0 L MCV 75 L MCH 22.8 L MCHC 30.4 L RDW 29.3 H Doctor's Discharge <LEO MENDEZ - Last Filed: 07/01/16 10:29> <SUZAN WEBSTER - Last Filed: 07/01/16 20:33> - Discharge Clinical Impression: Angioedema Qualifiers: Encounter type: initial encounter Qualified Code(s): T78.3XXA - Angioneurotic edema, initial encounter Condition: Stable Disposition: HOME, SELF-CARE Instructions: Acute Allergic Reaction ([facility]), Angioedema ([facility]) Additional Instructions: Note: It is often difficult to distinguish between an acute allergic reaction and angioedema. The fact that you responded so well to today's medicine, points more to an allergic reaction. But given year history, angioedema still a possibility. 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 If you have any shortness of breath or swelling around the mouth, take the EpiPen and go right to the ER after that. Benadryl, prednisone and Pepcid for the next few days. Return to the ER for any problems. Prescriptions: Epinephrine [Epipen 2-Lucio] 0.3 mg IM ONCE PRN #2 ml PRN Reason: Famotidine [Pepcid 20 mg Tablet] 20 mg PO DAILY #12 tablet Prednisone [Deltasone 20 mg Tablet] 3 tab PO DAILY 5 Days Forms: Return to Work Referrals: BOWEN PAREKH MD [Primary Care Provider] - Follow up tomorrow Scribe Documentation - Scribe Written by Kerrie:: kerrie Schnieder, 07/01/16, 1029 acting as scribe for :: Sarah <LEO MENDEZ - Last Filed: 07/01/16 10:29>
[2016-07-01] MEDS ORDERED: EPINEPHRINE INJ/PF 1 MG/1 ML AMPULE IM ONE (09:22)
[2016-07-01] MEDS ORDERED: DIPHENHYDRAMINE HCL 50 MG/ML VIAL ONE (09:25)
[2016-07-01] MEDS ORDERED: METHYLPREDNISOLONE INJ 125 MG/2 ML SDV ONE (09:26)
[2016-07-01] MEDS ORDERED: EPINEPHRINE INJ/PF 1 MG/1 ML AMPULE ONE (09:26)
[2016-07-01] MEDS ORDERED: MAGNESIUM SULFATE/D5W 100 ML IV SCH (09:30)
[2016-07-01 10:06] LABS: ABSOLUTE BASOPHILS # (AUTO) 0.1 10^3/uL (0.0-0.2); ABSOLUTE EOSINOPHILS # (AUTO) 0.2 10^3/uL (0.0-0.6); ABSOLUTE LYMPHOCYTES (AUTO) 2.5 10^3/uL (0.5-4.7); ABSOLUTE NEUT (AUTO) 7.1 10^3/uL (1.7-8.2); BASOPHILS % (AUTO) 0.8 % (0-2); EOSINOPHILS % (AUTO) 1.5 % (0-6); HEMOGLOBIN 10.3 g/dL (12.0-15.5); HGB HCT DIFFERENCE -3.1; LYMPHOCYTES % (AUTO) 22.9 % (13-45); MEAN CORPUSCULAR HEMOGLOBIN 22.8 pg (27.0-33.4); MEAN CORPUSCULAR HGB CONC 30.4 g/dL (32.0-36.0); MEAN CORPUSCULAR VOLUME 75 fl (80-97); MONOCYTES % (AUTO) 9.5 % (3-13); RED BLOOD COUNT 4.54 10^6/uL (3.72-5.28); RED CELL DISTRIBUTION WIDTH 29.3 % (11.5-14.0); SEGMENTED NEUTROPHILS % (AUTO) 65.3 % (42-78); WHITE BLOOD COUNT 10.9 10^3/uL (4.0-10.5)
[2016-07-01 10:10] LABS: PROTHROMBIN TIME 13.4 SEC (11.4-15.4)
[2016-07-01 10:22] LABS: ALANINE AMINOTRANSFERASE 26 U/L (9-52); ALBUMIN 3.9 g/dL (3.5-5.0); ALKALINE PHOSPHATASE 68 U/L (38-126); ASPARTATE AMINO TRANSFERASE 33 U/L (14-36); BILIRUBIN,DIRECT 0.3 mg/dL (0.0-0.4); BILIRUBIN,TOTAL 0.5 mg/dL (0.2-1.3); BLOOD UREA NITROGEN 8 mg/dL (7-20); CALCIUM 9.1 mg/dL (8.4-10.2); CARBON DIOXIDE 28 mmol/L (22-30); CREATININE RESULT 0.71 mg/dL (0.52-1.25); GLUCOSE 99 mg/dL (75-110); POTASSIUM 3.7 mmol/L (3.6-5.0); SODIUM 140.8 mmol/L (137-145)
[2016-07-01 10:37] LABS: ANION GAP 10 (5-19); CHLORIDE 103 mmol/L (98-107)
[2016-07-01 10:41] LABS: ANISOCYTOSIS 3+; MICROCYTOSIS 1+; OVALOCYTES 1+; POIKILOCYTOSIS 2+; POLYCHROMASIA 1+; SCHISTOCYTES SLIGHT
[2016-07-01 10:42] LABS: TEAR DROP CELLS SLIGHT
[2016-07-01 10:43] LABS: HYPOCHROMASIA SLIGHT; TOXIC GRANULATION SLIGHT; TOXIC VACUOLATION PRESENT
--- NOTE | 2016-07-01 14:51 | ER Document Report ---
ED General - General Chief Complaint: Swelling of Tongue Stated Complaint: POSSIBLE ALLERGIC REACTION,DIFFICULTY BREATHING Time Seen by Provider: 07/01/16 09:15 Mode of Arrival: Ambulatory Information source: Patient Notes: This is a 26-year-old female with a history of episodes of extremity and facial swelling or presents with tongue swelling this morning. Patient denies any medicines. Patient denies any high blood pressure diabetes. TRAVEL OUTSIDE OF THE [place] IN LAST 30 DAYS: No - HPI Onset: Just prior to arrival Onset/Duration: Sudden Quality of pain: No pain Severity: None Pain Level: Denies Associated symptoms: denies: Chest pain, Fever, Shortness of breath Exacerbated by: Denies Relieved by: Denies Similar symptoms previously: No Recently seen / treated by doctor: No - Related Data Allergies/Adverse Reactions: iodine [Iodine] Allergy (Severe, Verified 07/01/16 09:11) throat swells Penicillins Allergy (Severe, Verified 07/01/16 09:11) throat swells Shellfish * [Shellfish] Allergy (Severe, Verified 07/01/16 09:11) Blisters peanut Adverse Reaction (Severe, Verified 07/01/16 09:11) rash hydrocodone Adverse Reaction (Verified 07/01/16 09:11) Pruritis Past Medical History - General Information source: Patient - Social History Smoking Status: Never Smoker Cigarette use (# per day): No Chew tobacco use (# tins/day): No Frequency of alcohol use: None Drug Abuse: None Lives with: Spouse/Significant other Family History: Reviewed & Not Pertinent, Arthritis, CAD, DM, Hyperlipidemia, Hypertension Patient has suicidal ideation: No Patient has homicidal ideation: No - Past Medical History Cardiac Medical History: Denies: Hx Congestive Heart Failure, Hx Coronary Artery Disease, Hx DVT, Hx Heart Attack, Hx Hypercholesterolemia, Hx Hypertension, Hx Pulmonary Embolism Pulmonary Medical History: Reports: Hx Asthma Denies: Hx Bronchitis, Hx COPD, Hx Pneumonia Neurological Medical History: Denies: Hx Cerebrovascular Accident, Hx Seizures Endocrine Medical History: Denies: Hx Diabetes Mellitus Type 2, Hx Hyperthyroidism, Hx Hypothyroidism Renal/ Medical History: Denies: Hx Peritoneal Dialysis GI Medical History: Reports: Hx Diverticulitis. Denies: Hx Cirrhosis, Hx Hepatitis Musculoskeltal Medical History: Reports Hx Arthritis - RA Psychiatric Medical History: Reports: Hx Anxiety, Hx Bipolar Disorder, Hx Depression Infectious Medical History: Denies: Hx Hepatitis - Immunizations Immunizations up to date: Yes Hx Diphtheria, Pertussis, Tetanus Vaccination: Yes Review of Systems - Review of Systems Constitutional: denies: Chills, Fever EENT: See HPI Cardiovascular: No symptoms reported Respiratory: See HPI Gastrointestinal: No symptoms reported Genitourinary: No symptoms reported Female Genitourinary: No symptoms reported Musculoskeletal: No symptoms reported Skin: No symptoms reported Hematologic/Lymphatic: No symptoms reported Neurological/Psychological: No symptoms reported Physical Exam - Vital signs Vitals: Temp Pulse Resp BP Pulse Ox 98.4 F 74 19 140/99 H 100 07/01/16 08:56 07/01/16 08:56 07/01/16 08:56 07/01/16 08:56 07/01/16 08:56 Notes: Physical exam: GENERAL: 26-year-old female, alert and oriented 3, no acute distress HEAD: Atraumatic, normocephalic. EYES: Pupils equal round and reactive to light, extraocular movements intact, sclera anicteric, conjunctiva are normal. ENT: TMs normal, nares patent, oropharynx reveals tongue swelling. She does not have stridor. Moist mucous membranes. Submental spaces and the neck is supple. There is no elevation of the buccal mucosa. NECK: Normal range of motion, supple without lymphadenopathy or JVD. LUNGS: Breath sounds clear to auscultation bilaterally and equal. No wheezes rales or rhonchi. HEART: Regular rate and rhythm without murmurs, rubs or gallops. ABDOMEN: Soft, normoactive bowel sounds. No tenderness to palpation. No guarding, no rebound. No masses appreciated. EXTREMITIES: Normal range of motion, no pitting or edema. No clubbing or cyanosis. NEUROLOGICAL: Cranial nerves II through XII grossly intact. Normal speech, normal gait. PSYCH: Normal mood, normal affect. SKIN: Warm, Dry, normal turgor, no rashes or lesions noted. Course - Re-evaluation Re-evalutation: 07/01/16 15:22 Patient was treated with IM epinephrine, IV Solu-Medrol, IV Pepcid, IV Benadryl , IV magnesium. She was observed several hours in the ER. Her symptoms significantly improved after a short period of time. She was observed longer and has not had any further recurrence. - Vital Signs Vital signs: Temp Pulse Resp BP Pulse Ox 98.4 F 74 18 134/80 H 97 07/01/16 08:56 07/01/16 08:56 07/01/16 15:01 07/01/16 15:01 07/01/16 15:01 - Laboratory Result Diagrams: 07/01/16 09:37 07/01/16 09:37 Laboratory results interpreted by me: 07/01/16 09:37 WBC 10.9 H Hgb 10.3 L Hct 34.0 L MCV 75 L MCH 22.8 L MCHC 30.4 L RDW 29.3 H Critical Care Note - Critical Care Note Total time excluding time spent on procedures (mins): 60 Discharge - Discharge Clinical Impression: Angioedema Qualifiers: Encounter type: initial encounter Qualified Code(s): T78.3XXA - Angioneurotic edema, initial encounter Condition: Stable Disposition: HOME, SELF-CARE Instructions: Angioedema ([facility]), Acute Allergic Reaction ([facility]) Additional Instructions: Note: It is often difficult to distinguish between an acute allergic reaction and angioedema. The fact that you responded so well to today's medicine, points more to an allergic reaction. But given year history, angioedema still a possibility. I would like you to follow-up with your primary care doctor: And get a referral to an drying rack changer. If you have any shortness of breath or swelling around the mouth, take the EpiPen and go right to the ER after that. Benadryl, prednisone and Pepcid for the next few days. Return to the ER for any problems. Prescriptions: Epinephrine [Epipen 2-Lucio] 0.3 mg IM ONCE PRN #2 ml PRN Reason: Famotidine [Pepcid 20 mg Tablet] 20 mg PO DAILY #12 tablet Prednisone [Deltasone 20 mg Tablet] 3 tab PO DAILY 5 Days Forms: Return to Work Referrals: BOWEN PAREKH MD [Primary Care Provider] - Follow up tomorrow
[2016-07-01 15:18] VITALS: BP 134/80
== END 2016-07-01 15:25 | disposition home or self-care (01) ==
LOC: ER 08:52
DX: T78.3XXA Angioneurotic edema, initial encounter (principal); R22.0 Localized swelling, mass and lump, head; R06.02 Shortness of breath
CPT/HCPCS: 99291; 96374; 96375; 36415; 84702; 85025; 85610; 80053; J2930; J3475; S0028

== ENCOUNTER 2016-08-01 22:59 | Day surgery (SDC) | payer SELFPAY ==
[2016-08-02 00:57] LABS: ABSOLUTE LYMPHOCYTES (AUTO) 1.4 10^3/uL (0.5-4.7); ABSOLUTE MONOCYTES (AUTO) 0.7 10^3/uL (0.1-1.4); ABSOLUTE NEUT (AUTO) 9.3 10^3/uL (1.7-8.2); BASOPHILS % (AUTO) 0.3 % (0-2); EOSINOPHILS % (AUTO) 0.4 % (0-6); HEMATOCRIT 36.1 % (36.0-47.0); HEMOGLOBIN 10.9 g/dL (12.0-15.5); HGB HCT DIFFERENCE -3.4; LYMPHOCYTES % (AUTO) 12.5 % (13-45); MEAN CORPUSCULAR HEMOGLOBIN 23.3 pg (27.0-33.4); MEAN CORPUSCULAR HGB CONC 30.3 g/dL (32.0-36.0); MEAN CORPUSCULAR VOLUME 77 fl (80-97); MONOCYTES % (AUTO) 6.2 % (3-13); RED BLOOD COUNT 4.69 10^6/uL (3.72-5.28); RED CELL DISTRIBUTION WIDTH 25.1 % (11.5-14.0); SEGMENTED NEUTROPHILS % (AUTO) 80.6 % (42-78); WHITE BLOOD COUNT 11.5 10^3/uL (4.0-10.5)
[2016-08-02 01:08] LABS: APPEARANCE,URINE SLIGHTLY-CLOUDY; BILIRUBIN,URINE NEGATIVE (NEGATIVE); GLUCOSE, URINE NEGATIVE (NEGATIVE); KETONES,URINE NEGATIVE (NEGATIVE); LEUKOCYTE ESTERASE,URINE NEGATIVE (NEGATIVE); NITRITE,URINE NEGATIVE (NEGATIVE); PROTEIN,URINE NEGATIVE (NEGATIVE); URINE SPECIFIC GRAVITY 1.026; UROBILINOGEN,URINE NEGATIVE mg/dL (<2.0)
[2016-08-02 01:13] LABS: ALANINE AMINOTRANSFERASE 43 U/L (9-52); ALBUMIN 4.2 g/dL (3.5-5.0); ALKALINE PHOSPHATASE 71 U/L (38-126); ANION GAP 12 (5-19); ASPARTATE AMINO TRANSFERASE 32 U/L (14-36); BILIRUBIN,DIRECT 0.4 mg/dL (0.0-0.4); BILIRUBIN,TOTAL 0.7 mg/dL (0.2-1.3); BLOOD UREA NITROGEN 9 mg/dL (7-20); CALCIUM 9.5 mg/dL (8.4-10.2); CARBON DIOXIDE 25 mmol/L (22-30); CHLORIDE 104 mmol/L (98-107); CREATININE RESULT 0.81 mg/dL (0.52-1.25); GLUCOSE 99 mg/dL (75-110); LIPASE 59.7 U/L (23-300); POTASSIUM 4.2 mmol/L (3.6-5.0); TOTAL PROTEIN 7.7 g/dL (6.3-8.2)
[2016-08-02 01:17] LABS: ANISOCYTOSIS 3+; HYPOCHROMASIA 1+; MICROCYTOSIS SLIGHT; POLYCHROMASIA SLIGHT
[2016-08-02 01:18] LABS: OVALOCYTES SLIGHT; POIKILOCYTOSIS SLIGHT; TARGET CELLS SLIGHT; TEAR DROP CELLS SLIGHT
[2016-08-02 01:19] LABS: PLATELET CLUMPS PRESENT
[2016-08-02 01:20] LABS: TOXIC GRANULATION SLIGHT
--- NOTE | 2016-08-02 02:09 | ER Document Report ---
ED GI/ - General Chief Complaint: Abdominal Pain Stated Complaint: ABDOMINAL PAIN Time Seen by Provider: 08/02/16 00:50 Notes: The patient is a 26-year-old female, past medical history diverticulitis, presents with worsening left and right lower quadrant abdominal pain and nausea for the past 2 days. She says that her pain feels similar to when she had diverticulitis. Last bowel movement was 4 days ago, which is not unusual for her. She denies vomiting, urinary symptoms, fevers, rash, flank pain, chest pain, shortness of breath or headache TRAVEL OUTSIDE OF THE [place] IN LAST 30 DAYS: No - Related Data Allergies/Adverse Reactions: iodine [Iodine] Allergy (Severe, Verified 07/01/16 09:11) throat swells Penicillins Allergy (Severe, Verified 07/01/16 09:11) throat swells Shellfish * [Shellfish] Allergy (Severe, Verified 07/01/16 09:11) Blisters peanut Adverse Reaction (Severe, Verified 07/01/16 09:11) rash hydrocodone Adverse Reaction (Verified 07/01/16 09:11) Pruritis Past Medical History - General Information source: Patient - Social History Smoking Status: Never Smoker Family History: Reviewed & Not Pertinent, Arthritis, CAD, DM, Hyperlipidemia, Hypertension Patient has suicidal ideation: No Patient has homicidal ideation: No - Past Medical History Cardiac Medical History: Denies: Hx Congestive Heart Failure, Hx Coronary Artery Disease, Hx DVT, Hx Heart Attack, Hx Hypercholesterolemia, Hx Hypertension, Hx Pulmonary Embolism Pulmonary Medical History: Reports: Hx Asthma Denies: Hx Bronchitis, Hx COPD, Hx Pneumonia Neurological Medical History: Denies: Hx Cerebrovascular Accident, Hx Seizures Endocrine Medical History: Denies: Hx Diabetes Mellitus Type 2, Hx Hyperthyroidism, Hx Hypothyroidism Renal/ Medical History: Denies: Hx Peritoneal Dialysis GI Medical History: Reports: Hx Diverticulitis. Denies: Hx Cirrhosis, Hx Hepatitis Musculoskeltal Medical History: Reports Hx Arthritis - RA Psychiatric Medical History: Reports: Hx Anxiety, Hx Bipolar Disorder, Hx Depression Infectious Medical History: Denies: Hx Hepatitis - Immunizations Immunizations up to date: Yes Hx Diphtheria, Pertussis, Tetanus Vaccination: Yes Review of Systems - Review of Systems Notes: REVIEW OF SYSTEMS: CONSTITUTIONAL: -fevers, -chills EENT: -eye pain, -difficulty swallowing, -nasal congestion CARDIOVASCULAR:-chest pain, -syncope. RESPIRATORY: -cough, -SOB GASTROINTESTINAL: +abdominal pain, +nausea, -vomiting, -diarrhea GENITOURINARY: -dysuria, -hematuria MUSCULOSKELETAL: -back pain, -neck pain SKIN: -rash or skin lesions. HEMATOLOGIC: -easy bruising or bleeding. LYMPHATIC: -swollen, enlarged glands. NEUROLOGICAL: -altered mental status or loss of consciousness, -headache, - neurologic symptoms PSYCHIATRIC: -anxiety, -depression. ALL OTHER SYSTEMS REVIEWED AND NEGATIVE. Physical Exam - Vital signs Vitals: Temp Pulse Resp BP Pulse Ox 97.7 F 66 18 120/76 100 08/01/16 23:17 08/01/16 23:17 08/01/16 23:17 08/01/16 23:17 08/01/16 23:17 - Notes Notes: PHYSICAL EXAMINATION: GENERAL: Well-appearing, well-nourished and in no acute distress. HEAD: Atraumatic, normocephalic. EYES: Pupils equal round and reactive to light, extraocular movements intact, sclera anicteric, conjunctiva are normal. ENT: nares patent, oropharynx clear without exudates. Moist mucous membranes. NECK: Normal range of motion, supple without lymphadenopathy LUNGS: Breath sounds clear to auscultation bilaterally and equal. No wheezes rales or rhonchi. HEART: Regular rate and rhythm without murmurs ABDOMEN: Soft, moderate RLQ and LLQ tenderness, normoactive bowel sounds. No guarding, no rebound. No masses appreciated. EXTREMITIES: Normal range of motion, no pitting or edema. No cyanosis. NEUROLOGICAL: Cranial nerves grossly intact. Normal speech, normal gait. Normal sensory and motor exams. PSYCH: Normal mood, normal affect. SKIN: Warm, Dry, normal turgor, no rashes or lesions noted. Course - Re-evaluation Re-evalutation: 08/02/16 02:53 Call from Radiology. Pt has acute appendicitis. 08/02/16 02:[address] Pak and will keep pt NPO, begin Cipro and Flagyl and he will be down to see patient. - Vital Signs Vital signs: Temp Pulse Resp BP Pulse Ox 97.7 F 66 18 120/76 100 08/01/16 23:17 08/01/16 23:17 08/01/16 23:17 08/01/16 23:17 08/01/16 23:17 - Laboratory Result Diagrams: 08/02/16 00:43 08/02/16 00:43 Laboratory results interpreted by me: 08/02/16 00:43 WBC 11.5 H Hgb 10.9 L MCV 77 L MCH 23.3 L MCHC 30.3 L RDW 25.1 H Seg Neutrophils % 80.6 H Lymphocytes % 12.5 L Absolute Neutrophils 9.3 H - Diagnostic Test Radiology reviewed: Image reviewed, Reports reviewed Radiology results interpreted by me: CT A/P: Acute appendicitis Discharge - Discharge Clinical Impression: Acute appendicitis Qualifiers: Acute appendicitis type: with generalized peritonitis Qualified Code(s): K35.2 - Acute appendicitis with generalized peritonitis Condition: Stable Disposition: ADMITTED INPATIENT Admitting Provider: Surgicalist - [facility] Unit Admitted: Surgical Floor
[2016-08-02] MEDS ORDERED: KETOROLAC TROMETHAMINE INJ/PF 30 MG/1 ML SDV IV ONE (02:55)
[2016-08-02] MEDS ORDERED: MORPHINE SULFATE 10 MG/ML INJ IV ONE (02:56)
[2016-08-02] MEDS ORDERED: ONDANSETRON HCL INJ/PF 4 MG/2 ML SDV IV ONE (02:56)
[2016-08-02] MEDS ORDERED: METRONIDAZOLE 500 MG/NS RTU 100 ML IV ONE (02:58)
[2016-08-02] MEDS ORDERED: CIPROFLOXACIN 400 MG/D5W RTU 200 ML IV ONE (02:58)
[2016-08-02] MEDS ORDERED: NORMAL SALINE 1000 ML 1,000 ML IV ONE (03:00)
--- NOTE | 2016-08-02 03:00 | RADIOLOGY REPORT (SQ) ---
EXAM DESCRIPTION: CT ABD/PELVIS WITH IV ONLY COMPLETED DATE/TIME: 08/02/2016 2:32 am REASON FOR STUDY: LLQ pain, Hx diverticulitis COMPARISON: 12/19/2015 TECHNIQUE: CT scan of the abdomen and pelvis performed using helical scanning technique with dynamic intravenous contrast injection. No oral contrast. Images reviewed with lung, soft tissue, and bone windows. Reconstructed coronal and sagittal MPR images reviewed. Delayed images for evaluation of the urinary system also acquired. All images stored on PACS. All CT scanners at this facility use dose modulation, iterative reconstruction, and/or weight based d osing when appropriate to reduce radiation dose to as low as reasonably achievable (ALARA). [facility]: Dose Right [facility]: CareDose [facility]: Dose Right [facility]: Teradose 4D [facility]: ticketstreet CONTRAST TYPE AND DOSE: 100 Isovue 370. Creatinine 0.8 RENAL FUNCTION: As above RADIATION DOSE: 2,251. LIMITATIONS: None. FINDINGS: LOWER CHEST: No significant findings. No nodules or infiltrates. LIVER: Normal size. No masses or dilated ducts. SPLEEN: Normal size. No focal lesions. PANCREAS: No masses. No significant calcifications. No adjacent inflammation or peripancreatic fluid collections. Pancreatic duct not dilated. GALLBLADDER: No identified stones by CT criteria. No inflammatory changes to suggest cholecystitis. ADRENAL GLANDS: No significant masses or asymmetry. RIGHT KIDNEY AND URETER: No solid masses. No significant calcifications. No hydronephrosis or hyd roureter. LEFT KIDNEY AND URETER: No solid masses. No significant calcifications. No hydronephrosis or hydr oureter. AORTA AND VESSELS: No aneurysm. No dissection. Renal arteries, SMA, celiac without stenosis. RETROPERITONEUM: No retroperitoneal adenopathy, hemorrhage or masses. BOWEL AND PERITONEAL CAVITY: No masses or inflammatory changes. No free fluid or peritoneal masses. APPENDIX: 1.4 cm diameter, fluid-filled, 0.5 cm mural thickening, 0.2 cm appendicolith, and mild erika stinct adjacent fat. PELVIS: No mass or free fluid. Normal bladder. ABDOMINAL WALL: No masses. No hernias. BONES: No significant or acute findings. OTHER: No other significant finding. IMPRESSION: Acute appendicitis. COMMENT: This report was called to JANET HINKLE MD at02:51 on 08/02/2016. TECHNICAL DOCUMENTATION: JOB ID: [id number] Quality ID # [id number]: Final reports with documentation of one or more dose reduction techniques (e.g., Au tomated exposure control, adjustment of the mA and/or kV according to patient size, use of iterative reconstruction technique) 2010 [employer]- All Rights Reserved
[2016-08-02] MEDS ORDERED: BUPIVACAINE HCL 0.25 % INJ/PF (2.5 MG/1 ML) 30 ML VIAL ONE (07:53)
--- NOTE | 2016-08-02 08:08 | HISTORY AND PHYSICAL E ---
History and Physical NAME: KOBE WAYNE : 1990 AGE: 26Y ADMITTED: 08/02/2016 ROOM: 211 CHIEF COMPLAINT: Abdominal pain. HISTORY OF PRESENT ILLNESS: This is a 26-year-old female who complained of periumbilical pains around 2 days ago. The pains moved to the left lower quadrant the next day and associated with nausea. Yesterday the pains were more on the right lower quadrant and went to the Emergency Room, where a CAT scan of the abdomen revealed an acute appendicitis. She denies any fever or chills. Admits to having constipation. No diarrhea. No vomiting. No chills nor fever. PAST HISTORY: Unremarkable. SOCIAL HISTORY: Used to smoke but stopped the past several months. Denies alcohol use or drug use. FAMILY HISTORY: Noncontributory. ALLERGIES: None known. PHYSICAL EXAMINATION: A 26-year-old female alert and oriented, complaining of abdominal pains. She claimed her pains were 5/5 when she came in last night and had took pain medications and this morning her pain is about 2/5. She is 5 feet 6 inches tall and weighs 320 pounds. HEENT: Neck is supple, no thyromegaly. LUNGS: Clear. HEART: Regular size and rhythm. ABDOMEN: Soft with tenderness in the left lower quadrant and more tender in the right lower quadrant. Some rebound tenderness on the right lower quadrant. EXTREMITIES: No edema. LABORATORY DATA: Her white count is 11.5 and afebrile. IMPRESSION: Acute appendicitis. PLAN: Started IV antibiotics and IV fluids for laparoscopic appendectomy today. DICTATING PHYSICIAN: FILI MONAE M.D. [id number] PHY#: [id number] ID: [id number] JOB#: [id number] ACCT: [id number] cc:FILI MONAE M.D. >
[2016-08-02] MEDS ORDERED: FENTANYL CITRATE INJ/PF 250 MCG/5 ML AMPULE ONE (08:35)
[2016-08-02] MEDS ORDERED: ACETAMINOPHEN 100 ML IV ONE (08:36)
[2016-08-02] MEDS ORDERED: MIDAZOLAM 2 MG/2 ML INJ ONE (08:36)
[2016-08-02] MEDS ORDERED: PROPOFOL INJ 200 MG/20 ML VIAL IV ONE (08:36)
[2016-08-02] MEDS ORDERED: MORPHINE SULFATE 10 MG/ML INJ ONE (08:37)
--- NOTE | 2016-08-02 10:13 | Operative Report ---
Operative Report DATE OF SURGERY: 08/02/16 PREOPERATIVE DIAGNOSIS: Acute appendicitis OPERATION: Laparoscopic appendectomy SURGEON: MARGARITO OSBORNE ANESTHESIA: GA TISSUE REMOVED OR ALTERED: Appendix COMPLICATIONS: None ESTIMATED BLOOD LOSS: Minimal INTRAOPERATIVE FINDINGS: See below see below below PROCEDURE: The patient was taken to the preop holding area the main operating room and general anesthesia was induced. A Awan catheter was inserted. Minimal urinary output was encountered. The abdomen was exposed, prepped draped sterile fashion. Surgical plan and surgical timeout conducted. A supraumbilical vertical incision was made with a knife, Veress needle was inserted peritoneal cavity, pneumoperitoneum was established. Veress needle was removed, 5 mm port was inserted a 5 mm flexible scope was inserted. Under direct visualization a supraumbilical 5 mm port was inserted and a 12 mm left lower quadrant port was inserted. Findings were significant for purulent discharge in the pelvis. The appendix was acutely inflamed without rupture.. Findings are significant for acute appendicitis, possible suppurative without phlegmon. Patient was placed in the work slight Trendelenburg position. The appendix and mesoappendix were milked into the wound using blunt dissection. The findings were significant also for a fairly normal appendix proximally towards the base. A suitable site for opening of the mesoappendix adjacent to the base was accomplished with the dissector. We then brought onto the field the Ethicon 45 mm Endo stapler, blue load. This was deployed at the base of the appendix thereby amputating the appendix. We then mobilized the mesoappendix and took it with a second firing of the 45 mm stapler. The specimen was placed in Endobag and brought the patient to the left lower quadrant port site after removing the port. We performed localized irrigation of the right lower quadrant and pelvis using saline. Staple line was intact along the cecum and a photo taken. We checked for bleeding and a port insertion site and there was none. No hematoma the abdominal wall and no evidence of visceral injury during port insertion This point felt the operation was complete. All ports removed under direct visualization, pneumoperitoneum evacuated, and wounds closed with 3-0 Vicryl benzoin and Steri-Strips Patient tolerated procedure well, extubated and taken to recovery in stable condition. Soft exam.
[2016-08-02] MEDS ORDERED: SUCCINYLCHOLINE CHLORIDE INJ 200 MG/10 ML VIAL ONE (11:33)
[2016-08-02] MEDS ORDERED: LIDOCAINE 2% INJ-PF (20 MG/ML) 10 ML AMPUL ONE (11:33)
[2016-08-02] MEDS ORDERED: NEOSTIGMINE METHYLSULFATE 10 MG/10 ML VIAL ONE (11:33)
[2016-08-02] MEDS ORDERED: DEXAMETHASONE SOD PHOSPHATE INJ 4 MG/1 ML VIAL ONE (11:33)
[2016-08-02] MEDS ORDERED: ROCURONIUM BROMIDE INJ 50 MG/5 ML VIAL IV ONE (11:33)
[2016-08-02] MEDS ORDERED: METOCLOPRAMIDE HCL INJ/PF 10 MG/2 ML SDV ONE (11:33)
[2016-08-02] MEDS ORDERED: ONDANSETRON HCL INJ/PF 4 MG/2 ML SDV ONE (11:33)
[2016-08-02] MEDS ORDERED: GLYCOPYRROLATE INJ 0.4 MG/2 ML VIAL ONE (11:33)
[2016-08-02] MEDS: MORPHINE SULFATE 10 MG/ML INJ IV PRN ×2 (12:37→17:08)
[2016-08-02 17:01] VITALS: BP 124/77
--- NOTE | 2016-08-04 14:23 | DISCHARGE SUMMARY E ---
Discharge Summary NAME: KOBE WAYNE : 1990 AGE: 26Y ADMITTED: 08/02/2016 DISCHARGED: 08/02/2016 REASON FOR ADMISSION: Acute appendicitis. SUMMARY OF HOSPITALIZATION: The patient is a 26-year-old, morbidly obese female who presented to the emergency department complaining of acute onset of abdominal pain. She was evaluated in the emergency department and found to have findings consistent with acute appendicitis on CT scanning. Surgery was consulted. The patient was admitted to the surgicalist service for definitive management. The patient was taken to the operating room by Dr. Rothman where she underwent laparoscopic appendectomy. She was found to have evidence of acute appendicitis and her path report returned showing acute suppurative appendicitis. The patient tolerated the procedure well, without complications, was taken to the floor. There, her diet was advanced, tolerated well and later that afternoon, she was felt ready for discharge home. FINAL DIAGNOSES: 1. Acute suppurative appendicitis status post laparoscopic appendectomy, Dr. Rothman. 2. Morbid obesity. DISPOSITION: The patient is discharged home to care of her family. Follow up with Dr. Rothman in approximately 1 to 2 weeks at [facility], take Percocet p.r.n. pain. DICTATING PHYSICIAN: MARGARITO ROTHMAN M.D. [id number] PHY#: [id number] ID: [id number] JOB#: [id number] ACCT: [id number] cc:Sebastian DELGADILLO M.D. >
== END 2016-08-02 17:22 | disposition home or self-care (01) ==
LOC: ER 22:59 → EH 08-02 03:14 → OROUT 08-02 03:14 → UNDOADMIN 08-02 03:14 → 2N 08-02 06:31 → EH 08-02 06:31 → UNDODISIN 08-02 17:22 → OROUT 08-02 17:22
PROVIDERS: ATTEND Surgery
PROC: 0DTJ4ZZ Resection of Appendix, Percutaneous Endoscopic Approach (ICD-10-PCS; principal; 2016-08-02 08:15)
DX: K35.80 Unspecified acute appendicitis (principal); J45.909 Unspecified asthma, uncomplicated; M19.90 Unspecified osteoarthritis, unspecified site; E66.01 Morbid (severe) obesity due to excess calories; F17.210 Nicotine dependence, cigarettes, uncomplicated; D64.9 Anemia, unspecified; Z68.42 Body mass index [BMI] 45.0-49.9, adult; Z79.51 Long term (current) use of inhaled steroids
CPT/HCPCS: 99285; 36415; 87040; 83690; 85025; 81025; 80053; 81001; 88304 ×2; 74177; 44970; J2250; J3490 ×2; J1100; J3010; J1885; J2765; J2270; J0330; J2405; J2704; J0131; 840

== ENCOUNTER 2016-08-12 03:22 | Observation (INO) | payer SELFPAY ==
[2016-08-12] MEDS ORDERED: DIPHENHYDRAMINE HCL 50 MG/ML VIAL IV ONE (04:12)
[2016-08-12] MEDS ORDERED: EPINEPHRINE INJ/PF 1 MG/1 ML AMPULE IM ONE (04:12)
[2016-08-12] MEDS ORDERED: METHYLPREDNISOLONE INJ 125 MG/2 ML SDV IV ONE (04:13)
[2016-08-12] MEDS ORDERED: FAMOTIDINE INJ/PF 20 MG/2 ML SDV IV ONE (04:13)
--- NOTE | 2016-08-12 04:16 | ER Document Report ---
ED Allergic Reaction <NADIYA CLARKE - Last Filed: 08/12/16 09:05> - General TRAVEL OUTSIDE OF THE [place] IN LAST 30 DAYS: No <LAYAKYLE GARCIA - Last Filed: 08/12/16 19:30> - General Chief Complaint: Allergic Reaction Stated Complaint: LIP SWELLING Time Seen by Provider: 08/12/16 04:08 Notes: Patient is a 26-year-old female that comes emergency department for chief complaint of lip swelling that started this afternoon, she states she took a Benadryl, fell asleep, woke up and noticed it was worse. She states she has had similar symptoms very recently with additional tongue swelling, states she was seen here about a month ago, treated with antihistamines, epinephrine, etc. and had resolution of her symptoms. She denies any daily medications other than a couple of days ago taking Toradol after her appendix was removed. Past medical history of asthma. LMP within the past month. (KYLE ROTH) - Related Data Allergies/Adverse Reactions: iodine [Iodine] Allergy (Severe, Verified 07/01/16 09:11) throat swells Penicillins Allergy (Severe, Verified 07/01/16 09:11) throat swells Shellfish * [Shellfish] Allergy (Severe, Verified 07/01/16 09:11) Blisters peanut Adverse Reaction (Severe, Verified 07/01/16 09:11) rash hydrocodone Adverse Reaction (Verified 07/01/16 09:11) Pruritis Home Medications: Current Home Medications No Home Medications 08/12/16 [History] Past Medical History - General Information source: Patient - Social History Smoking Status: Never Smoker Frequency of alcohol use: None Drug Abuse: None Lives with: Family Family History: Reviewed & Not Pertinent, Arthritis, CAD, DM, Hyperlipidemia, Hypertension Patient has suicidal ideation: No Patient has homicidal ideation: No - Past Medical History Cardiac Medical History: Denies: Hx Congestive Heart Failure, Hx Coronary Artery Disease, Hx DVT, Hx Heart Attack, Hx Hypercholesterolemia, Hx Hypertension, Hx Pulmonary Embolism Pulmonary Medical History: Reports: Hx Asthma Denies: Hx Bronchitis, Hx COPD, Hx Pneumonia Neurological Medical History: Denies: Hx Cerebrovascular Accident, Hx Seizures Endocrine Medical History: Denies: Hx Diabetes Mellitus Type 2, Hx Hyperthyroidism, Hx Hypothyroidism Renal/ Medical History: Denies: Hx Peritoneal Dialysis GI Medical History: Reports: Hx Diverticulitis. Denies: Hx Cirrhosis, Hx Hepatitis Musculoskeltal Medical History: Reports Hx Arthritis - RA Psychiatric Medical History: Reports: Hx Anxiety, Hx Bipolar Disorder, Hx Depression Infectious Medical History: Denies: Hx Hepatitis Past Surgical History: Reports: Hx Appendectomy - Immunizations Immunizations up to date: Yes Hx Diphtheria, Pertussis, Tetanus Vaccination: Yes <KYLE ROTH - Last Filed: 08/12/16 19:30> Review of Systems - Review of Systems Constitutional: No symptoms reported EENT: See HPI Cardiovascular: No symptoms reported Respiratory: No symptoms reported Gastrointestinal: No symptoms reported Genitourinary: No symptoms reported Female Genitourinary: No symptoms reported Musculoskeletal: No symptoms reported Skin: No symptoms reported Hematologic/Lymphatic: No symptoms reported Neurological/Psychological: No symptoms reported <TUEKYLE GARCIA - Last Filed: 08/12/16 19:30> Physical Exam - Vital signs Interpretation: Normal - General General appearance: Appears well In distress: None - HEENT Head: Normocephalic, Atraumatic Eyes: Normal Conjunctiva: Normal Extraocular movements intact: Yes Eyelashes: Normal Pupils: PERRL Ears: Normal Mouth/Lips: Angioedema - lower lip swelling, worse on the left side, minimal upper lip swelling Pharynx: Normal. No: Uvular edema, Potential airway comprom. Neck: Normal - Respiratory Respiratory status: No respiratory distress Chest status: Nontender Breath sounds: Normal Chest palpation: Normal - Cardiovascular Rhythm: Regular. No: Tachycardia Heart sounds: Normal auscultation, S1 appreciated, S2 appreciated Murmur: No - Abdominal Inspection: Normal Distension: No distension Bowel sounds: Normal Tenderness: Nontender. No: Tender - Back Back: Normal, Nontender - Extremities General upper extremity: Normal inspection, Nontender, Normal color, Normal ROM , Normal temperature General lower extremity: Normal inspection, Nontender, Normal color, Normal ROM , Normal temperature, Normal weight bearing. No: Michael's sign - Neurological Neuro grossly intact: Yes Cognition: Normal Orientation: AAOx4 Lina Coma Scale Eye Opening: Spontaneous Lina Coma Scale Verbal: Oriented [place] Coma Scale Motor: Obeys Commands Lina Coma Scale Total: 15 Speech: Normal Motor strength normal: LUE, RUE, LLE, RLE Sensory: Normal - Psychological Associated symptoms: Normal affect, Normal mood - Skin Skin Temperature: Warm Skin Moisture: Dry Skin Color: Normal <KYLE ROTH - Last Filed: 08/12/16 19:30> - Vital signs Vitals: Temp Pulse Resp BP Pulse Ox 97.8 F 103 H 18 136/95 H 100 08/12/16 03:26 08/12/16 03:26 08/12/16 03:26 08/12/16 03:26 08/12/16 03:26 Course - Laboratory Result Diagrams: 08/12/16 05:45 <NADIYA CLARKE - Last Filed: 08/12/16 09:05> - Laboratory Result Diagrams: 08/12/16 05:45 <KYLE ROTH - Last Filed: 08/12/16 19:30> - Re-evaluation Re-evalutation: 08/12/16 09:07 swelling to lips is not any better or worse at this time, Patient denies any difficulty breathing or swallowing her saliva, swelling to the tongue or airway that she feels. She states the swelling feels the same as when she came in. FFP was just finished approximately 10 minutes ago and no improvement at this time. Dr. Gonzalez, hospitalist agrees to admit patient for angioedema of the lips at this time. (NADIYA CLARKE) Patient with swollen lips, however no tongue involvement, no difficulty swallowing, no difficulty breathing or wheezing. Because of previous history I did discuss treatment for allergic reaction versus treatment for angioedema. Because of success recently in treating with epinephrine and antihistamines, patient was given a disease along with Solu-Medrol. Patient was monitored closely, reevaluated twice, noted to have no improvement. After this decision was made to treat patient with fresh frozen plasma for treatment of angioedema. Discussed with Dr. Sol. Patient states agreement with this plan. Lab work will be sent. 08/12/16 07:10 Introduced to Selma Clarke PA-C at bedside. (KYLE ROTH) - Vital Signs Vital signs: Temp Pulse Resp BP Pulse Ox 97.8 F 100 18 126/72 H 99 08/12/16 15:06 08/12/16 15:49 08/12/16 15:06 08/12/16 15:06 08/12/16 15:06 - Laboratory Laboratory results interpreted by me: 08/12/16 05:45 Hgb 10.7 L Hct 35.0 L MCV 76 L MCH 23.3 L MCHC 30.5 L RDW 22.9 H Plt Count 485 H Discharge - Discharge Admitting Provider: Hospitalist Unit Admitted: IMCU <NADIYA CLARKE - Last Filed: 08/12/16 09:05> <KYLE ROTH - Last Filed: 08/12/16 19:30> - Discharge Clinical Impression: Angioedema of lips Qualifiers: Encounter type: initial encounter Qualified Code(s): T78.3XXA - Angioneurotic edema, initial encounter Condition: Stable Disposition: ADMITTED OBSERVATION
[2016-08-12] MEDS ORDERED: NORMAL SALINE 250 ML IV PRN ×2 (05:42)
[2016-08-12 06:03] LABS: ABSOLUTE BASOPHILS # (AUTO) 0.1 10^3/uL (0.0-0.2); ABSOLUTE EOSINOPHILS # (AUTO) 0.1 10^3/uL (0.0-0.6); ABSOLUTE LYMPHOCYTES (AUTO) 2.9 10^3/uL (0.5-4.7); ABSOLUTE MONOCYTES (AUTO) 0.9 10^3/uL (0.1-1.4); ABSOLUTE NEUT (AUTO) 6.4 10^3/uL (1.7-8.2); BASOPHILS % (AUTO) 0.5 % (0-2); EOSINOPHILS % (AUTO) 1.2 % (0-6); HEMOGLOBIN 10.7 g/dL (12.0-15.5); HGB HCT DIFFERENCE -2.9; LYMPHOCYTES % (AUTO) 27.9 % (13-45); MEAN CORPUSCULAR HEMOGLOBIN 23.3 pg (27.0-33.4); MEAN CORPUSCULAR HGB CONC 30.5 g/dL (32.0-36.0); MEAN CORPUSCULAR VOLUME 76 fl (80-97); MONOCYTES % (AUTO) 8.7 % (3-13); RED BLOOD COUNT 4.59 10^6/uL (3.72-5.28); RED CELL DISTRIBUTION WIDTH 22.9 % (11.5-14.0); SEGMENTED NEUTROPHILS % (AUTO) 61.7 % (42-78); WHITE BLOOD COUNT 10.4 10^3/uL (4.0-10.5)
[2016-08-12 06:09] LABS: PROTHROMBIN TIME 12.9 SEC (11.4-15.4)
[2016-08-12 06:10] LABS: PARTIAL THROMBOPLASTIN TIME 33.1 SEC (23.5-35.8)
[2016-08-12] MEDS ORDERED: ONDANSETRON HCL INJ/PF 4 MG/2 ML SDV IV PRN (10:19)
[2016-08-12] MEDS ORDERED: DIPHENHYDRAMINE HCL 50 MG/ML VIAL IV SCH (10:30)
--- NOTE | 2016-08-12 10:37 | PDOC H&P ---
History of Present Illness Admission Date/PCP: 08/12/16 09:17 History of Present Illness: KOBE WAYNE is a 26 year old female with a past medical history of divertiulosis and asthma with a recent admission for for acute appendicitis status post appendectomy who presents with a one-day history of lower lip swelling. Patient reports that she was taking Toradol at home and that last evening she had some soup. She reports that she is quite careful given her food allergies to avoid peanuts and shellfish. She reports then that she began having some lip swelling. Patient has received in the emergency department FFP , epinephrine, Solu-Medrol, and Pepcid and continues to have ongoing lip swelling however it is not increasing in size. Patient reports an episode of tongue swelling approximately 1 month ago. I did review the ER visit at which time patient was responsive to steroids and discharged from the emergency department. Patient also reports intermittent episodes of hand and foot swelling. There is no family history of C1 esterase deficiency. Patient reports no chyt-lse-xcywigd medications and denies any other prescription medications at this time. She is referred to hospital service for angioedema. Past Medical History Cardiac Medical History: Denies: Congestive Heart Failure, Coronary Artery Disease, DVT, Myocardial Infarction, Hyperlipidema, Hypertension, Pulmonary Embolism Pulmonary Medical History: Reports: Asthma Denies: Bronchitis, Chronic Obstructive Pulmonary Disease (COPD), Pneumonia Neurological Medical History: Denies: Seizures Endocrine Medical History: Denies: Diabetes Mellitus Type 2, Hyperthyroidism, Hypothyroidism GI Medical History: Reports: Diverticulitis Denies: Cirrhosis, Hepatitis Psychiatric Medical History: Reports: Bipolar Disorder, Depression Hematology: Reports: Anemia Past Surgical History Past Surgical History: Reports: Appendectomy Social History Lives with: Family Smoking Status: Never Smoker Frequency of Alcohol Use: None Hx Recreational Drug Use: No Drugs: None Hx Prescription Drug Abuse: No - Advance Directive Resuscitation Status: Full Code Surrogate healthcare decision maker:: Mother, surrogate decision-maker Family History Family History: Reviewed & Not Pertinent, Arthritis, CAD, DM, Hyperlipidemia, Hypertension Parental Family History Reviewed: Yes Children Family History Reviewed: Yes Sibling(s) Family History Reviewed.: Yes Medication/Allergy Home Medications: No Home Medications 08/12/16 Allergies/Adverse Reactions: iodine [Iodine] Allergy (Severe, Verified 07/01/16 09:11) throat swells Penicillins Allergy (Severe, Verified 07/01/16 09:11) throat swells Shellfish * [Shellfish] Allergy (Severe, Verified 07/01/16 09:11) Blisters peanut Adverse Reaction (Severe, Verified 07/01/16 09:11) rash hydrocodone Adverse Reaction (Verified 07/01/16 09:11) Pruritis Review of Systems Constitutional: ABSENT: chills, fever(s), headache(s), weight gain, weight loss Eyes: ABSENT: visual disturbances Ears: ABSENT: hearing changes Nose, Mouth, and Throat: PRESENT: as per HPI Cardiovascular: ABSENT: chest pain, dyspnea on exertion, edema, orthropnea, palpitations Respiratory: ABSENT: cough, hemoptysis Gastrointestinal: ABSENT: abdominal pain, constipation, diarrhea, hematemesis, hematochezia, nausea, vomiting Genitourinary: ABSENT: dysuria, hematuria Musculoskeletal: ABSENT: joint swelling Integumentary: ABSENT: rash, wounds Neurological: ABSENT: abnormal gait, abnormal speech, confusion, dizziness, focal weakness, syncope Psychiatric: ABSENT: anxiety, depression, homidical ideation, suicidal ideation Endocrine: ABSENT: cold intolerance, heat intolerance, polydipsia, polyuria Hematologic/Lymphatic: ABSENT: easy bleeding, easy bruising Physical Exam Vital Signs: Temp Pulse Resp BP Pulse Ox 98.3 F 91 17 134/88 H 100 08/12/16 08:52 08/12/16 08:52 08/12/16 10:00 08/12/16 08:52 08/12/16 10:00 General appearance: PRESENT: mild distress, morbidly obese, well-developed, well -nourished Head exam: PRESENT: atraumatic, normocephalic Eye exam: PRESENT: conjunctiva pink, EOMI, PERRLA. ABSENT: scleral icterus Ear exam: PRESENT: normal external ear exam Mouth exam: PRESENT: moist, tongue midline, other - lower left labial swelling Neck exam: ABSENT: JVD, lymphadenopathy, thyromegaly, tracheal deviation Respiratory exam: PRESENT: clear to auscultation lissett, symmetrical, unlabored. ABSENT: crackles, rales, rhonchi, tachypnea, wheezes Cardiovascular exam: PRESENT: RRR, +S1, +S2. ABSENT: diastolic murmur, gallop, rubs, systolic murmur Pulses: PRESENT: normal dorsalis pedis pul Vascular exam: PRESENT: normal capillary refill GI/Abdominal exam: PRESENT: normal bowel sounds, soft. ABSENT: distended, guarding, mass, organolmegaly, rebound, tenderness Rectal exam: PRESENT: deferred Extremities exam: PRESENT: full ROM. ABSENT: calf tenderness, clubbing, pedal edema Neurological exam: PRESENT: alert, awake, oriented to person, oriented to place , oriented to time, oriented to situation, CN II-XII grossly intact. ABSENT: motor sensory deficit Psychiatric exam: PRESENT: appropriate affect, normal mood. ABSENT: homicidal ideation, suicidal ideation Skin exam: PRESENT: dry, intact, warm. ABSENT: cyanosis, rash Results Laboratory Results: 04/01/15 08/12/16 08/12/16 02:45 05:45 05:45 WBC 10.4 Hgb 10.7 L Hct 35.0 L Plt Count 485 H Serum HCG, Qual NEGATIVE Rheumatoid Factor NEGATIVE Assessment & Plan - Diagnosis (1) Angioedema of lips Qualifiers: Encounter type: initial encounter Qualified Code(s): T78.3XXA - Angioneurotic edema, initial encounter Is this a current diagnosis for this admission?: YesPlan: Concern at this time for C1 esterase deficiency. We will send a C1 esterase level. Place patient on Solu-Medrol 125 IV every 6, Pepcid, and scheduled Benadryl. Will place patient on clear liquids and monitor on IMCU. (2) Anemia Qualifiers: Iron deficiency anemia type: chronic blood loss Is this a current diagnosis for this admission?: YesPlan: Data chronic blood loss anemia due to heavy menses. (3) Morbid obesity with BMI of 50.0-59.9, adult Is this a current diagnosis for this admission?: YesPlan: Consult - Time Time Spent: 30 to 50 Minutes Medications reviewed and adjusted accordingly: Yes Anticipated discharge: Home Within: within 48 hours, within 72 hours - Inpatient Certification Based on my medical assessment, after consideration of the patient's comorbidities, presenting symptoms, or acuity I expect that the services needed warrant INPATIENT care.: Yes I certify that my determination is in accordance with my understanding of Medicare's requirements for reasonable and necessary INPATIENT services [42 CFR 412.3e].: Yes Medical Necessity: Risk of Complication if Not Cared For in Hospital Post Hospital Care: D/C Assisted Living Coordinator Documentation
[2016-08-12] MEDS: METHYLPREDNISOLONE INJ 125 MG/2 ML SDV IV SCH ×3 (11:16→23:19)
[2016-08-12] MEDS: FAMOTIDINE INJ/PF 20 MG/2 ML SDV IV SCH (22:01)
[2016-08-13] MEDS: METHYLPREDNISOLONE INJ 125 MG/2 ML SDV IV SCH (06:04)
[2016-08-13] MEDS: FAMOTIDINE INJ/PF 20 MG/2 ML SDV IV SCH (10:06)
[2016-08-13 11:29] VITALS: BP 117/71
--- NOTE | 2016-08-15 17:14 | PDOC DISCHARGE SUMMARY ---
General - Admit/Disc Date/PCP Admission Date/Primary Care Provider: 08/12/16 09:17 Discharge Date: 08/13/16 - Discharge Diagnosis (1) Angioedema of lips Is this a current diagnosis for this admission?: Yes (2) Anemia Is this a current diagnosis for this admission?: Yes (3) Morbid obesity with BMI of 50.0-59.9, adult Is this a current diagnosis for this admission?: Yes - Additional Information Resuscitation Status: Full Code Discharge Diet: Cardiac Discharge Activity: Activity As Tolerated, Balance Activity w/Rest Home Medications: Diphenhydramine HCl [Benadryl 25 mg Capsule] 1 cap PO Q6 #12 pkg 08/13/16 Famotidine [Pepcid 20 mg Tablet] 20 mg PO DAILY #12 tablet 08/13/16 Methylprednisolone [Medrol Dosepack (4 mg/Tab) 21 Tab/Dosepak] 4 mg PO ASDIR PRN #21 tab.ds.pk 08/13/16 History of Present Illness History of Present Illness: KOBE WAYNE is a 26 year old female with a past medical history of divertiulosis and asthma with a recent admission for for acute appendicitis status post appendectomy who presents with a one-day history of lower lip swelling. Patient reports that she was taking Toradol at home and that last evening she had some soup. She reports that she is quite careful given her food allergies to avoid peanuts and shellfish. She reports then that she began having some lip swelling. Patient has received in the emergency department FFP , epinephrine, Solu-Medrol, and Pepcid and continues to have ongoing lip swelling however it is not increasing in size. Patient reports an episode of tongue swelling approximately 1 month ago. I did review the ER visit at which time patient was responsive to steroids and discharged from the emergency department. Patient also reports intermittent episodes of hand and foot swelling. There is no family history of C1 esterase deficiency. Patient reports no iyoo-hpm-ntoicmd medications and denies any other prescription medications at this time. She is referred to hospital service for angioedema. Hospital Course Hospital Course: The following day, her lip had returned to normal. Patient was advised to avoid NSAIDs and to follow with PCP for results of C1 esterase testing. Given pepcid, medrol dose pack, and benadryl. Physical Exam Vital Signs: Temp Pulse Resp BP Pulse Ox 98.5 F 69 16 117/71 100 08/13/16 11:23 08/13/16 11:23 08/13/16 11:23 08/13/16 07:33 08/13/16 11:23 Exam: GENERAL: No acute distress, morbidly obese HEENT: Conjunctiva clear, nonicteric, moist mucous membranes, no JVD RESPIRATORY: CTAB CARDIAC: Regular rate and rhythm, no murmurs/gallops/rubs--limited by body habitus ABDOMEN: Soft, nondistended, nontender, positive bowel sounds, no rebound, no guarding EXTREMETIES: trace bilateral lower extremity edema NEUROLOGIC: Alert, oriented to person/place/time, CN's grossly intact, no focal deficits SKIN: Large abdominal pannus without erythema PSYCH: Normal mood, normal affect Results Laboratory Results: 08/12/16 08/12/16 08/12/16 05:45 05:45 05:45 Hgb 10.7 L INR 0.91 Serum HCG, Qual NEGATIVE C1 Esterase Inhibitor 08/12/16 11:03 Hgb INR Serum HCG, Qual C1 Esterase Inhibitor 35 Qualifiers PATEINT BEING DISCHARGED WITH ANY OF THE FOLLOWING DIAGNOSIS?: No Plan Time Spent: Less than 30 Minutes
== END 2016-08-13 12:36 | disposition home or self-care (01) ==
LOC: ER 03:22 → EH 09:17 → OBSVTOIN 10:19 → INTOOBSV 10:19 → 3W 14:41
PROVIDERS: ADMIT Family Medicine; ATTEND Family Medicine
DX: T78.3XXA Angioneurotic edema, initial encounter (principal); X58.XXXA Exposure to other specified factors, initial encounter; D50.0 Iron deficiency anemia secondary to blood loss (chronic); N92.0 Excessive and frequent menstruation with regular cycle; E66.01 Morbid (severe) obesity due to excess calories; Z68.43 Body mass index [BMI] 50.0-59.9, adult; Z90.49 Acquired absence of other specified parts of digestive tract; Z88.0 Allergy status to penicillin; Z91.013 Allergy to seafood; Z88.6 Allergy status to analgesic agent; Z91.041 Radiographic dye allergy status; Z91.010 Allergy to peanuts; Z87.09 Personal history of other diseases of the respiratory system; Z87.19 Personal history of other diseases of the digestive system
CPT/HCPCS: 96376; 99285; 96372; 96374; 96375; 86900; 86901; 36415; 36430; 86870; 86850; 84703; 85025; 85610; 85730; 86160; G0378 ×3; P9017; J1200 ×2; J0171; J2930 ×2; J3490 ×2; S0028 ×2

== ENCOUNTER 2016-09-28 07:46 | Emergency (ER) | payer SELFPAY ==
[2016-09-28 08:55] LABS: APPEARANCE,URINE CLOUDY; BILIRUBIN,URINE NEGATIVE (NEGATIVE); GLUCOSE, URINE NEGATIVE (NEGATIVE); KETONES,URINE NEGATIVE (NEGATIVE); LEUKOCYTE ESTERASE,URINE NEGATIVE (NEGATIVE); NITRITE,URINE NEGATIVE (NEGATIVE); PROTEIN,URINE 100 mg/dL (NEGATIVE); URINE SPECIFIC GRAVITY 1.029; UROBILINOGEN,URINE NEGATIVE mg/dL (<2.0)
[2016-09-28 08:58] LABS: ABSOLUTE EOSINOPHILS # (AUTO) 0.1 10^3/uL (0.0-0.6); ABSOLUTE LYMPHOCYTES (AUTO) 1.6 10^3/uL (0.5-4.7); ABSOLUTE MONOCYTES (AUTO) 0.5 10^3/uL (0.1-1.4); ABSOLUTE NEUT (AUTO) 1.6 10^3/uL (1.7-8.2); BASOPHILS % (AUTO) 0.9 % (0-2); EOSINOPHILS % (AUTO) 2.2 % (0-6); HEMATOCRIT 32.9 % (36.0-47.0); HEMOGLOBIN 10.4 g/dL (12.0-15.5); HGB HCT DIFFERENCE -1.7; LYMPHOCYTES % (AUTO) 42.5 % (13-45); MEAN CORPUSCULAR HEMOGLOBIN 23.7 pg (27.0-33.4); MEAN CORPUSCULAR HGB CONC 31.6 g/dL (32.0-36.0); MEAN CORPUSCULAR VOLUME 75 fl (80-97); MONOCYTES % (AUTO) 12.8 % (3-13); RED BLOOD COUNT 4.39 10^6/uL (3.72-5.28); RED CELL DISTRIBUTION WIDTH 18.9 % (11.5-14.0); SEGMENTED NEUTROPHILS % (AUTO) 41.6 % (42-78); WHITE BLOOD COUNT 3.9 10^3/uL (4.0-10.5)
[2016-09-28 09:12] LABS: ALANINE AMINOTRANSFERASE 39 U/L (9-52); ALKALINE PHOSPHATASE 55 U/L (38-126); ANION GAP 7 (5-19); ASPARTATE AMINO TRANSFERASE 28 U/L (14-36); BILIRUBIN,DIRECT 0.3 mg/dL (0.0-0.4); BILIRUBIN,TOTAL 0.6 mg/dL (0.2-1.3); BLOOD UREA NITROGEN 10 mg/dL (7-20); CALCIUM 9.3 mg/dL (8.4-10.2); CARBON DIOXIDE 25 mmol/L (22-30); CHLORIDE 106 mmol/L (98-107); CREATININE RESULT 0.68 mg/dL (0.52-1.25); GLUCOSE 99 mg/dL (75-110); POTASSIUM 4.4 mmol/L (3.6-5.0); SODIUM 138.4 mmol/L (137-145); TOTAL PROTEIN 7.1 g/dL (6.3-8.2)
--- NOTE | 2016-09-28 10:03 | RADIOLOGY REPORT (SQ) ---
EXAM DESCRIPTION: ACUTE ABDOMEN SERIES COMPLETED DATE/TIME: 09/28/2016 9:51 am REASON FOR STUDY: abdominal pain LLQ COMPARISON: CT abdomen and pelvis 01/18/2015, 08/02/2016 Three-way abdomen series 02/24/2016 NUMBER OF VIEWS: Three views. TECHNIQUE: Frontal chest, supine abdomen and upright abdomen radiographic images acquired. LIMITATIONS: Morbidly obese patient FINDINGS: CHEST: Lungs clear of infiltrates. FREE AIR: None. No abnormal gas collections. BOWEL GAS PATTERN: Nonobstructive pattern. No dilated loops or air fluid levels. CALCIFICATIONS: No suspicious calcifications. HARDWARE: None in the abdomen. SOFT TISSUES: No gross mass or suggestion of organomegaly. BONES: No acute fracture. No worrisome bone lesions. OTHER: No other significant finding. IMPRESSION: NO RADIOGRAPHIC EVIDENCE FOR ACUTE ABDOMINAL DISEASE. TECHNICAL DOCUMENTATION: JOB ID: [id number] [employer]- All Rights Reserved
[2016-09-28] MEDS ORDERED: ACETAMINOPHEN 325 MG TABLET PO ONE (10:22)
--- NOTE | 2016-09-28 10:55 | RADIOLOGY REPORT (SQ) ---
EXAM DESCRIPTION: U/S NON OB PEL TV W/DOPPLER COMPLETED DATE/TIME: 09/28/2016 10:31 am REASON FOR STUDY: vaginal bleeding LMP uncertain. COMPARISON: None. TECHNIQUE: Dynamic and static grayscale images acquired of the pelvis via transvaginal approach and recorded on PACS. Additional selected color Doppler and spectral images recorded. LIMITATIONS: None. FINDINGS: UTERUS: Contour normal. No mass. ENDOMETRIAL STRIPE: The endometrium is heterogeneous in the lower uterine segment and cervix. CERVIX: No nabothian cysts. RIGHT OVARY: No abnormal masses. RIGHT OVARY DOPPLER: Normal arterial vascular flow without evidence for torsion. LEFT OVARY: No abnormal masses. LEFT OVARY DOPPLER: Normal arterial vascular flow without evidence for torsion. FREE FLUID: None noted. OTHER: No other significant finding. MEASUREMENTS: UTERUS: 7.7 x 4.1 x 3.6 cm. ENDOMETRIAL STRIPE: 6 mm. RIGHT OVARY: 3.6 x 2.1 x 2.9 cm. LEFT OVARY: 3.2 x 2.5 x 2.4 cm. IMPRESSION: The endometrium is prominent in the lower uterine segment cervix and quite heterogeneous in appearance with the junction between the endometrium and myometrium indistinct. The findings are concerning for adenomyosis. TECHNICAL DOCUMENTATION: JOB ID: [id number] [employer]- All Rights Reserved
[2016-09-28] MEDS ORDERED: MEDROXYPROGESTERONE ACET 10 MG TABLET PO ONE (11:16)
--- NOTE | 2016-09-28 11:22 | ER Document Report ---
ED GI/ - General Chief Complaint: Abdominal Pain Stated Complaint: ABDOMINAL PAIN Time Seen by Provider: 09/28/16 07:56 Notes: Patient is a 26-year-old female presents emergency department complaining of vaginal bleeding for 4 weeks. Patient states that she has a similar presentation such as this requiring hospital admission and blood transfusions in May of this year. Patient states that she only sees her COURTESY CLERK once a year for regular follow-up and Pap smear. Patient states that she has previously been put on control multiple times but states that it does not work for her and denies taking it currently. Patient otherwise states she is sexually active with one partner and denies any vaginal discharge, pelvic pain. Admits to intermittent pelvic cramping which she states is gotten better since she started passing heavy clots. Otherwise she denies any dizziness, lightheadedness, nausea, vomiting, diarrhea or constipation. Past medical history significant for appendectomy 2 months ago. Patient having regular bowel movement tolerating p.o. without any difficulty. TRAVEL OUTSIDE OF THE [place] IN LAST 30 DAYS: No - Related Data Allergies/Adverse Reactions: iodine [Iodine] Allergy (Severe, Verified 09/28/16 07:49) throat swells Penicillins Allergy (Severe, Verified 09/28/16 07:49) throat swells Shellfish * [Shellfish] Allergy (Severe, Verified 09/28/16 07:49) Blisters peanut Adverse Reaction (Severe, Verified 09/28/16 07:49) rash hydrocodone Adverse Reaction (Verified 09/28/16 07:49) Pruritis Home Medications: Current Home Medications Epinephrine [Epipen 2-Lucio] 1 insert DAILY PRN 09/28/16 [History] Past Medical History - Social History Smoking Status: Former Smoker Frequency of alcohol use: None Drug Abuse: None Family History: Reviewed & Not Pertinent, Arthritis, CAD, DM, Hyperlipidemia, Hypertension Patient has suicidal ideation: No Patient has homicidal ideation: No - Past Medical History Cardiac Medical History: Denies: Hx Congestive Heart Failure, Hx Coronary Artery Disease, Hx DVT, Hx Heart Attack, Hx Hypercholesterolemia, Hx Hypertension, Hx Pulmonary Embolism Pulmonary Medical History: Reports: Hx Asthma Denies: Hx Bronchitis, Hx COPD, Hx Pneumonia Neurological Medical History: Denies: Hx Cerebrovascular Accident, Hx Seizures Endocrine Medical History: Denies: Hx Diabetes Mellitus Type 2, Hx Hyperthyroidism, Hx Hypothyroidism Renal/ Medical History: Denies: Hx Peritoneal Dialysis GI Medical History: Reports: Hx Diverticulitis. Denies: Hx Cirrhosis, Hx Hepatitis Musculoskeltal Medical History: Reports Hx Arthritis - RA Psychiatric Medical History: Reports: Hx Anxiety, Hx Bipolar Disorder, Hx Depression Infectious Medical History: Denies: Hx Hepatitis Past Surgical History: Reports: Hx Appendectomy - Immunizations Immunizations up to date: Yes Hx Diphtheria, Pertussis, Tetanus Vaccination: Yes Review of Systems - Review of Systems Constitutional: No symptoms reported Gastrointestinal: See HPI Genitourinary: See HPI Female Genitourinary: See HPI -: Yes All other systems reviewed and negative Physical Exam - Vital signs Vitals: Temp Pulse Resp BP Pulse Ox 98.3 F 65 20 119/78 99 09/28/16 07:52 09/28/16 07:52 09/28/16 07:52 09/28/16 07:52 09/28/16 07:52 - Notes Notes: PHYSICAL EXAM GENERAL: Alert, interacts well. HEAD: Normocephalic, atraumatic. EYES: Pupils equal, round, and reactive to light. Extraocular movements intact. ENT: Oral mucosa moist, tongue midline. NECK: Full range of motion. Supple. Trachea midline. LUNGS: Clear to auscultation bilaterally, no wheezes, rales, or rhonchi. No respiratory distress. HEART: Regular rate and rhythm. No murmurs, gallops, or rubs. ABDOMEN: Soft, nondistended, nontender. No guarding, rebound, or rigidity.. Bowel sounds present in all 4 quadrants. FEMALE : Normal external exam. No evidence of lesions, lacerations, bruising or vesicles. Speculum exam normal cervix closed. No evidence of vaginal discharge with odor. No evidence of lesions. Moderate dark blood within the vaginal vault. bimanual exam normal no cervical motion tenderness. No adnexal mass or adnexal tenderness. EXTREMITIES: Moves all 4 extremities spontaneously. No edema, radial and dorsalis pedis pulses 2/4 bilaterally. No cyanosis. NEUROLOGICAL: Alert and oriented x4. Normal speech. PSYCH: Normal affect, normal mood. SKIN: Warm, dry, normal turgor. No rashes or lesions noted. Course - Re-evaluation Re-evalutation: 09/28/16 11:19 Patient is a 26-year-old female who is hemodynamically stable, no acute distress afebrile. H&H is stable without any evidence of new onset anemia. Patient tolerating p.o. without any difficulty. Ultrasound shows evidence for concerns of endometriosis. Case discussed with patient's COURTESY CLERK Dr. [facility]. He recommends starting her on Provera and have her follow-up this week. Plan discussed with patient who is agreeable. Stable for discharge home After performing a Medical Screening Examination, I estimate there is LOW risk for ACUTE APPENDICITIS, BOWEL OBSTRUCTION, ACUTE CHOLECYSTITIS, PERFORATED DIVERTICULITIS, INCARCERATED HERNIA, PANCREATITIS, PELVIC INFLAMMATORY DISEASE, PERFORATED ULCER, ECTOPIC , or TUBO-OVARIAN ABSCESS, thus I consider the discharge disposition reasonable. Also, there is no evidence or peritonitis , sepsis, or toxicity. I have reevaluated this patient multiple times and no significant life threatening changes are noted. The patient and I have discussed the diagnosis and risks, and we agree with discharging home with close follow-up with the understanding that symptoms and presentations can change. We also discussed returning to the Emergency Department immediately if new or worsening symptoms occur. We have discussed the symptoms which are most concerning (e.g., bloody stool, fever, changing or worsening pain, vomiting) that necessitate immediate return. - Vital Signs Vital signs: Temp Pulse Resp BP Pulse Ox 98.3 F 58 L 18 137/77 H 99 09/28/16 07:52 09/28/16 10:42 09/28/16 08:05 09/28/16 10:42 09/28/16 07:52 - Laboratory Result Diagrams: 09/28/16 08:41 09/28/16 08:41 Laboratory results interpreted by me: 09/28/16 09/28/16 08:20 08:41 WBC 3.9 L Hgb 10.4 L Hct 32.9 L MCV 75 L MCH 23.7 L MCHC 31.6 L RDW 18.9 H Seg Neutrophils % 41.6 L Absolute Neutrophils 1.6 L Urine Protein 100 H Urine Blood LARGE H - Diagnostic Test Radiology reviewed: Image reviewed, Reports reviewed Discharge - Discharge Clinical Impression: Menorrhagia with irregular cycle Condition: Good Disposition: HOME, SELF-CARE Additional Instructions: Dr. Lico Parsons [address], [place] [address] [phone] Please follow up with your OBGYN this week VAGINAL BLEEDING: You are having an episode of abnormal bleeding. Causes of abnormal vaginal bleeding can include miscarriage or tubal , tumors such as cancer or benign fibroids, medication effects, or hormone imbalance. Testing can eliminate unsuspected , tumors, or infection as a cause. "Dysfunctional uterine bleeding" is due to hormone imbalance, and is especially common at times when the normal cycle is disturbed -- whether by recent , use of control pills or hormones, or impending menopause. If the bleeding is innocent, most commonly a short course of hormones is given to restore the uterus to normal. Sometimes, the normal menstrual cycle corrects itself naturally. Sometimes , brief hormone therapy, or even a D&C is required. Your physician will advise you. Treatment for anemia may be required if bleeding is severe. You should rest and avoid intercourse until the bleeding is controlled. Call the doctor or return for re-examination if you feel faint, have increasing pain, or have a major increase in the amount of bleeding. NORMAL EXAM AND WORKUP: At this time, except for vaginal bleeding, your examination and workup show no significant abnormality. No significant abnormal physical findings were noted. All laboratory, EKG, and imaging (x-ray, CT scans, ultrasound) studies that were ordered show no significant abnormality. Although your examination and all studies that were ordered showed no significant abnormal finding, there are no examinations and no studies that are 100% accurate. There is always the possibility that some abnormality could exist and not be detected with physical examination or within the limits and capabilities of laboratory and other studies. You should return or follow up as you were instructed on your visit today for further evaluation if your symptoms do not resolve. PROVERA: Provera (medroxyprogesterone) is usually used to stop excessive uterine bleeding or to regulate the periods. Provera is a form of progesterone, the hormone that stimulates the uterus lining to mature during the second half of your cycle. High doses of Provera can usually stop uterine bleeding. It's most useful for the abnormal bleeding that occurs when periods are irregular, such as around menopause. Provera usually isn't helpful for bleeding that occurs after Depo-Provera or Norplant. There is often another heavy "period" when you finish the Provera. Afterwards, the periods usually return to normal within a month or two. Contact your doctor if bleeding becomes more severe, or if you develop abdominal pain, lightheadedness, fever, or other new symptoms. FOLLOW-UP CARE: If you have been referred to a physician for follow-up care, call the physician s office for an appointment as you were instructed or within the next two days. If you experience worsening or a significant change in your symptoms (very heavy bleeding with large clots of blood, passage of tissue, more severe abdominal / pelvic pain or cramping, feeling faint or severe weakness, fever, etc.), notify the physician immediately or return to the Emergency Department at any time for re-evaluation. Prescriptions: Medroxyprogesterone Acet [Provera 10 Mg Tablet] 10 mg PO DAILY #10 tablet Forms: Return to Work
[2016-09-28 12:10] VITALS: BP 122/78
== END 2016-09-28 11:55 | disposition home or self-care (01) ==
LOC: ER 07:46
DX: N92.1 Excessive and frequent menstruation with irregular cycle (principal); R10.2 Pelvic and perineal pain; Z88.0 Allergy status to penicillin; Z91.013 Allergy to seafood; Z91.010 Allergy to peanuts; Z87.891 Personal history of nicotine dependence
CPT/HCPCS: 99284; 36415; 84702; 85025; 80053; 81001; 74022; 76830; 93976; J3490

== ENCOUNTER 2016-11-10 13:56 | Emergency (ER) | payer SELFPAY ==
--- NOTE | 2016-11-10 16:33 | ER Document Report ---
ED Flu Like - General Chief Complaint: Flu Symptoms Stated Complaint: CHEST CONGESTION Time Seen by Provider: 11/10/16 16:29 Notes: Patient reports cough congestion mild abdominal pain as well as left hip and left knee pain. This is been going on for several days. It is intermittent. Nothing makes it better or worse. There is no significant radiation of the pain. No fever or chills. The pain has been mild to moderate and is an aching sensation. TRAVEL OUTSIDE OF THE [place] IN LAST 30 DAYS: No - Related Data Allergies/Adverse Reactions: iodine [Iodine] Allergy (Severe, Verified 11/10/16 14:18) throat swells Penicillins Allergy (Severe, Verified 11/10/16 14:18) throat swells Shellfish * [Shellfish] Allergy (Severe, Verified 11/10/16 14:18) Blisters peanut Adverse Reaction (Severe, Verified 11/10/16 14:18) rash hydrocodone Adverse Reaction (Verified 11/10/16 14:18) Pruritis Past Medical History - General Information source: Patient - Social History Smoking Status: Current Every Day Smoker Chew tobacco use (# tins/day): No Frequency of alcohol use: None Drug Abuse: None Family History: Reviewed & Not Pertinent, Arthritis, CAD, DM, Hyperlipidemia, Hypertension - Past Medical History Cardiac Medical History: Denies: Hx Congestive Heart Failure, Hx Coronary Artery Disease, Hx DVT, Hx Heart Attack, Hx Hypercholesterolemia, Hx Hypertension, Hx Pulmonary Embolism Pulmonary Medical History: Reports: Hx Asthma Denies: Hx Bronchitis, Hx COPD, Hx Pneumonia Neurological Medical History: Denies: Hx Cerebrovascular Accident, Hx Seizures Endocrine Medical History: Denies: Hx Diabetes Mellitus Type 2, Hx Hyperthyroidism, Hx Hypothyroidism Renal/ Medical History: Denies: Hx Peritoneal Dialysis GI Medical History: Reports: Hx Diverticulitis. Denies: Hx Cirrhosis, Hx Hepatitis Musculoskeltal Medical History: Reports Hx Arthritis - RA Psychiatric Medical History: Reports: Hx Anxiety, Hx Bipolar Disorder, Hx Depression Infectious Medical History: Denies: Hx Hepatitis Past Surgical History: Reports: Hx Appendectomy - Immunizations Immunizations up to date: Yes Hx Diphtheria, Pertussis, Tetanus Vaccination: Yes Review of Systems - Review of Systems Constitutional: Malaise. denies: Chills, Fever Cardiovascular: denies: Chest pain, Palpitations Respiratory: Cough. denies: Short of breath -: Yes All other systems reviewed and negative Physical Exam - Vital signs Vitals: Temp Pulse Resp BP Pulse Ox 98.5 F 89 20 146/83 H 100 11/10/16 14:16 11/10/16 14:16 11/10/16 14:16 11/10/16 14:16 11/10/16 14:16 Interpretation: Hypertensive - General General appearance: Appears well, Alert - HEENT Head: Normocephalic, Atraumatic Eyes: Normal Pupils: PERRL - Respiratory Respiratory status: No respiratory distress Chest status: Nontender Breath sounds: Normal Chest palpation: Normal - Cardiovascular Rhythm: Regular Heart sounds: Normal auscultation Murmur: No - Abdominal Inspection: Normal Distension: No distension Bowel sounds: Normal Tenderness: Nontender Organomegaly: No organomegaly - Back Back: Normal, Nontender - Extremities General upper extremity: Normal inspection, Nontender, Normal color, Normal ROM , Normal temperature General lower extremity: Normal inspection, Nontender, Normal color, Normal ROM , Normal temperature, Normal weight bearing. No: Michael's sign - Neurological Neuro grossly intact: Yes Cognition: Normal Orientation: AAOx4 Lina Coma Scale Eye Opening: Spontaneous [place]ina Coma Scale Verbal: Oriented [place] Coma Scale Motor: Obeys Commands Lina Coma Scale Total: 15 Speech: Normal Motor strength normal: LUE, RUE, LLE, RLE Sensory: Normal - Psychological Associated symptoms: Normal affect, Normal mood - Skin Skin Temperature: Warm Skin Moisture: Dry Skin Color: Normal Course - Vital Signs Vital signs: Temp Pulse Resp BP Pulse Ox 98.5 F 89 20 146/83 H 100 11/10/16 14:16 11/10/16 14:16 11/10/16 14:16 11/10/16 14:16 11/10/16 14:16 Discharge - Discharge Clinical Impression: URI (upper respiratory infection) Condition: Stable Disposition: HOME, SELF-CARE Instructions: Upper Respiratory Illness ([facility]) Additional Instructions: Please follow-up with your primary care physician as soon as possible Prescriptions: Doxycycline Hyclate 100 mg PO BID #14 capsule Forms: Return to Work
[2016-11-10 16:44] VITALS: BP 140/88
== END 2016-11-10 16:44 | disposition home or self-care (01) ==
LOC: ER 13:56
DX: J06.9 Acute upper respiratory infection, unspecified (principal); R09.89 Other specified symptoms and signs involving the circulatory and respiratory systems; R10.9 Unspecified abdominal pain; M25.552 Pain in left hip; M25.562 Pain in left knee; F17.200 Nicotine dependence, unspecified, uncomplicated
CPT/HCPCS: 99283

== ENCOUNTER 2016-12-07 10:14 | Emergency (ER) | payer SELFPAY ==
[2016-12-07] MEDS ORDERED: DIPHENHYDRAMINE HCL 50 MG/ML VIAL IV ONE (11:00)
[2016-12-07] MEDS ORDERED: EPINEPHRINE INJ/PF 1 MG/1 ML AMPULE IM ONE (11:00)
[2016-12-07] MEDS ORDERED: FAMOTIDINE INJ/PF 20 MG/2 ML SDV IV ONE (11:00)
[2016-12-07] MEDS ORDERED: METHYLPREDNISOLONE INJ 125 MG/2 ML SDV IV ONE (11:00)
--- NOTE | 2016-12-07 11:04 | ER Document Report ---
ED Allergic Reaction - General Chief Complaint: Allergic Reaction Stated Complaint: TONGUE AND THROAT SWELLING Time Seen by Provider: 12/07/16 10:46 Mode of Arrival: Ambulatory Information source: Patient Notes: Patient states that she woke up around 8 AM and noticed swelling to the left side of her tongue. Patient states initially she had some sore throat tenderness to the left posterior pharynx and difficulty breathing. Patient states that the breathing symptoms resolved but she is noticed continued increase in swelling to the left side of her tongue. Patient states she has had intermittent problems with swelling to the tongue, lips hands off and on in the past although has not received any formal diagnosis. Patient denies any new foods, medications, or detergents. TRAVEL OUTSIDE OF THE [place] IN LAST 30 DAYS: No - HPI Onset: This morning Onset/Duration: Worse Quality of pain: No pain Pain Level: Denies Swelling: Tongue Similar symptoms previously: Yes Recently seen / treated by doctor: No - Related Data Allergies/Adverse Reactions: iodine [Iodine] Allergy (Severe, Verified 12/07/16 10:20) throat swells Penicillins Allergy (Severe, Verified 12/07/16 10:20) throat swells Shellfish * [Shellfish] Allergy (Severe, Verified 12/07/16 10:20) Blisters peanut Adverse Reaction (Severe, Verified 12/07/16 10:20) rash hydrocodone Adverse Reaction (Verified 12/07/16 10:20) Pruritis Past Medical History - General Information source: Patient - Social History Smoking Status: Former Smoker Frequency of alcohol use: Occasional Drug Abuse: None Occupation: None Lives with: Family Family History: Reviewed & Not Pertinent, Arthritis, CAD, DM, Hyperlipidemia, Hypertension - Past Medical History Cardiac Medical History: Denies: Hx Congestive Heart Failure, Hx Coronary Artery Disease, Hx DVT, Hx Heart Attack, Hx Hypercholesterolemia, Hx Hypertension, Hx Pulmonary Embolism Pulmonary Medical History: Reports: Hx Asthma Denies: Hx Bronchitis, Hx COPD, Hx Pneumonia EENT Medical History: Reports: Other - Angioedema Neurological Medical History: Denies: Hx Cerebrovascular Accident, Hx Seizures Endocrine Medical History: Denies: Hx Diabetes Mellitus Type 2, Hx Hyperthyroidism, Hx Hypothyroidism Renal/ Medical History: Denies: Hx Peritoneal Dialysis GI Medical History: Reports: Hx Diverticulitis. Denies: Hx Cirrhosis, Hx Hepatitis Musculoskeltal Medical History: Reports Hx Arthritis - RA Psychiatric Medical History: Reports: Hx Anxiety, Hx Bipolar Disorder, Hx Depression Infectious Medical History: Denies: Hx Hepatitis Past Surgical History: Reports: Hx Appendectomy - Immunizations Immunizations up to date: Yes Hx Diphtheria, Pertussis, Tetanus Vaccination: Yes Review of Systems - Review of Systems Constitutional: No symptoms reported EENT: Other - Left side tongue swelling. denies: Throat swelling Cardiovascular: No symptoms reported. denies: Chest pain, Syncope, Dizziness Respiratory: No symptoms reported. denies: Cough, Short of breath Gastrointestinal: No symptoms reported. denies: Nausea, Vomiting Genitourinary: No symptoms reported Female Genitourinary: No symptoms reported Musculoskeletal: No symptoms reported. denies: Joint swelling Skin: No symptoms reported. denies: Rash Hematologic/Lymphatic: No symptoms reported Neurological/Psychological: No symptoms reported Physical Exam - Vital signs Vitals: Temp Pulse BP Pulse Ox 98.7 F 64 120/76 99 12/07/16 10:19 12/07/16 10:19 12/07/16 10:19 12/07/16 10:19 - General General appearance: Appears well, Alert In distress: None - HEENT Head: Normocephalic Eyes: Normal Nasal: Normal Mouth/Lips: Angioedema - Patient with left sided lingual swelling, patient able to talk without difficulty no posterior pharynx swelling Mucous membranes: Normal Pharynx: Normal. No: Tonsillar hypertrophy, Uvular edema, Potential airway comprom. Neck: Normal, Supple. No: Lymphadenopathy - Respiratory Respiratory status: No respiratory distress Chest status: Nontender Breath sounds: Normal. No: Rales, Rhonchi, Stridor, Wheezing Chest palpation: Normal - Cardiovascular Rhythm: Regular Heart sounds: S1 appreciated, S2 appreciated Murmur: No - Back Back: Normal, Nontender - Extremities General upper extremity: Normal inspection, Normal ROM. No: Edema General lower extremity: Normal inspection, Normal ROM. No: Edema - Neurological Neuro grossly intact: Yes Cognition: Normal [place] Coma Scale Eye Opening: Spontaneous [place] Coma Scale Verbal: Oriented Lina Coma Scale Motor: Obeys Commands [place] Coma Scale Total: 15 - Psychological Associated symptoms: Normal affect, Normal mood - Skin Skin Temperature: Warm Skin Moisture: Dry Skin Color: Normal Course - Re-evaluation Re-evalutation: 12/07/16 11:[address] Oliveira regarding patient diagnostic evaluation and management. Advises obtaining basic labs including CBC without differential as well as coags. 12/07/16 11:54 Patient reports that she feels as though her swelling is starting to decrease. Patient without any objective increase in swelling. Patient able to speak without difficulty. 12/07/16 13:43 Swelling to left side of tongue has almost completely resolved. Patient denies any difficulty breathing or swallowing. Speech clear. Patient is hoping to be discharged home. 12/07/16 14:17 Patient states that she is ready to be discharged. Consult with Dr. Oliveira who agrees with discharge plan of care at this time. Patient without any concern for airway compromise at this time. Discussed worsening symptoms that patient is to return immediately for or to call 911 for. Patient verbalized understanding. - Vital Signs Vital signs: Temp Pulse Resp BP Pulse Ox 98.4 F 74 18 128/71 H 100 12/07/16 14:15 12/07/16 14:15 12/07/16 14:15 12/07/16 14:15 12/07/16 14:15 - Laboratory Result Diagrams: 12/07/16 11:17 12/07/16 11:17 Laboratory results interpreted by me: 12/07/16 11:17 Hgb 11.4 L MCV 73 L MCH 23.0 L MCHC 31.5 L RDW 19.9 H Labs- Entire Visit 12/07/16 12/07/16 12/07/16 11:17 11:17 11:17 WBC 4.8 RBC 4.94 Hgb 11.4 L Hct 36.0 MCV 73 L MCH 23.0 L MCHC 31.5 L RDW 19.9 H Plt Count 406 PT 13.1 INR 0.93 Sodium 141.7 Potassium 5.0 Chloride 103 Carbon Dioxide 27 Anion Gap 12 BUN 10 Creatinine 0.69 Est GFR ( Amer) > 60 Est GFR (Non-Af Amer) > 60 Glucose 87 Calcium 9.9 Total Bilirubin 0.8 Direct Bilirubin 0.4 Indirect Bilirubin Not Reportable Neonat Total Bilirubin Not Reportable AST 25 ALT 24 Alkaline Phosphatase 56 Total Protein 7.3 Albumin 4.2 Discharge - Discharge Clinical Impression: Mild tongue swelling Condition: Stable Disposition: HOME, SELF-CARE Instructions: Angioedema ([facility]), Use of Diphenhydramine, Epinephrine, Steroid Medication Additional Instructions: Return immediately for any new or worsening symptoms Followup with your primary care provider, call tomorrow to make a followup appointment Continue to take Benadryl and Pepcid [id number] as directed to help with your symptoms Call 911 if you start to have worsening swelling, difficulty breathing or difficulty swallowing. Prescriptions: Epinephrine [Epipen 2-Lucio] 0.3 mg IM ASDIR PRN #1 unit PRN Reason: Famotidine [Pepcid 20 mg Tablet] 20 mg PO BID #12 tablet Prednisone [Deltasone 20 mg Tablet] 3 tab PO DAILY 4 Days tablet Referrals: BOWEN PAREKH MD [HONORARY] - Follow up tomorrow
[2016-12-07 11:32] LABS: HEMOGLOBIN 11.4 g/dL (12.0-15.5); HGB HCT DIFFERENCE -1.8; MEAN CORPUSCULAR HGB CONC 31.5 g/dL (32.0-36.0); MEAN CORPUSCULAR VOLUME 73 fl (80-97); RED BLOOD COUNT 4.94 10^6/uL (3.72-5.28); RED CELL DISTRIBUTION WIDTH 19.9 % (11.5-14.0); WHITE BLOOD COUNT 4.8 10^3/uL (4.0-10.5)
[2016-12-07 11:36] LABS: PROTHROMBIN TIME 13.1 SEC (11.4-15.4)
[2016-12-07 11:55] LABS: ALANINE AMINOTRANSFERASE 24 U/L (9-52); ALBUMIN 4.2 g/dL (3.5-5.0); ALKALINE PHOSPHATASE 56 U/L (38-126); ANION GAP 12 (5-19); ASPARTATE AMINO TRANSFERASE 25 U/L (14-36); BILIRUBIN,DIRECT 0.4 mg/dL (0.0-0.4); BILIRUBIN,TOTAL 0.8 mg/dL (0.2-1.3); BLOOD UREA NITROGEN 10 mg/dL (7-20); CALCIUM 9.9 mg/dL (8.4-10.2); CARBON DIOXIDE 27 mmol/L (22-30); CHLORIDE 103 mmol/L (98-107); CREATININE RESULT 0.69 mg/dL (0.52-1.25); GLUCOSE 87 mg/dL (75-110); SODIUM 141.7 mmol/L (137-145); TOTAL PROTEIN 7.3 g/dL (6.3-8.2)
[2016-12-07 14:20] VITALS: BP 128/71
== END 2016-12-07 14:29 | disposition home or self-care (01) ==
LOC: ER 10:14
DX: T78.3XXA Angioneurotic edema, initial encounter (principal); J45.909 Unspecified asthma, uncomplicated; Z88.0 Allergy status to penicillin; Z91.013 Allergy to seafood; Z87.891 Personal history of nicotine dependence
CPT/HCPCS: 99283; 96374; 96375; 36415; 85027; 85610; 80053; J1200; J0171; J2930; S0028

== ENCOUNTER 2017-01-09 10:46 | Emergency (ER) | payer SELFPAY ==
[2017-01-09] MEDS ORDERED: NORMAL SALINE 1000 ML 1,000 ML IV ONE (11:26)
[2017-01-09] MEDS ORDERED: KETOROLAC TROMETHAMINE INJ/PF 30 MG/1 ML SDV IV ONE (11:27)
--- NOTE | 2017-01-09 11:29 | ER Document Report ---
ED Medical Screen (RME) - General Chief Complaint: Abdominal Pain Stated Complaint: ABDOMINAL PAIN Time Seen by Provider: 01/09/17 11:26 Mode of Arrival: Wheelchair Information source: Patient TRAVEL OUTSIDE OF THE [place] IN LAST 30 DAYS: No - HPI Patient complains to provider of: abd pain Onset: This morning - pt. states she has h/o diverticulitis and had had severe abdominal pain since early this am. Had a BM [employer] LEAD[employer] but that has not improved the pain - Related Data Allergies/Adverse Reactions: iodine [Iodine] Allergy (Severe, Verified 01/09/17 10:58) throat swells Penicillins Allergy (Severe, Verified 01/09/17 10:58) throat swells Shellfish * [Shellfish] Allergy (Severe, Verified 01/09/17 10:58) Blisters peanut Adverse Reaction (Severe, Verified 01/09/17 10:58) rash hydrocodone Adverse Reaction (Verified 01/09/17 10:58) Pruritis Past Medical History - Social History Chew tobacco use (# tins/day): No Frequency of alcohol use: None Drug Abuse: None Family history: Reviewed & Not Pertinent - Past Medical History Cardiac Medical History: Denies: Hx Congestive Heart Failure, Hx Coronary Artery Disease, Hx DVT, Hx Heart Attack, Hx Hypercholesterolemia, Hx Hypertension, Hx Pulmonary Embolism Pulmonary Medical History: Reports: Hx Asthma Denies: Hx Bronchitis, Hx COPD, Hx Pneumonia Neurological Medical History: Denies: Hx Cerebrovascular Accident, Hx Seizures Endocrine Medical History: Denies: Hx Diabetes Mellitus Type 2, Hx Hyperthyroidism, Hx Hypothyroidism Renal/ Medical History: Denies: Hx Peritoneal Dialysis GI Medical History: Reports: Hx Diverticulitis. Denies: Hx Cirrhosis, Hx Hepatitis Musculoskeltal Medical History: Reports Hx Arthritis - RA Psychiatric Medical History: Reports: Hx Anxiety, Hx Bipolar Disorder, Hx Depression Infectious Medical History: Denies: Hx Hepatitis Past Surgical History: Reports: Hx Appendectomy - Immunizations Immunizations up to date: Yes Hx Diphtheria, Pertussis, Tetanus Vaccination: Yes History of Influenza Vaccine for 11/2016 - 04/2017 Season: No Physical Exam - Vital signs Vitals: Temp Pulse Resp BP Pulse Ox 98.4 F 54 L 16 141/89 H 100 01/09/17 10:57 01/09/17 10:57 01/09/17 10:57 01/09/17 10:57 01/09/17 10:57 Course - Vital Signs Vital signs: Temp Pulse Resp BP Pulse Ox 98.4 F 54 L 16 141/89 H 100 01/09/17 10:57 01/09/17 10:57 01/09/17 10:57 01/09/17 10:57 01/09/17 10:57
[2017-01-09 12:11] LABS: ABSOLUTE BASOPHILS # (AUTO) 0.1 10^3/uL (0.0-0.2); ABSOLUTE EOSINOPHILS # (AUTO) 0.1 10^3/uL (0.0-0.6); ABSOLUTE MONOCYTES (AUTO) 0.6 10^3/uL (0.1-1.4); ABSOLUTE NEUT (AUTO) 1.9 10^3/uL (1.7-8.2); BASOPHILS % (AUTO) 1.4 % (0-2); HEMATOCRIT 32.5 % (36.0-47.0); HEMOGLOBIN 10.1 g/dL (12.0-15.5); HGB HCT DIFFERENCE -2.2; LYMPHOCYTES % (AUTO) 43.4 % (13-45); MEAN CORPUSCULAR HEMOGLOBIN 22.6 pg (27.0-33.4); MEAN CORPUSCULAR VOLUME 73 fl (80-97); MONOCYTES % (AUTO) 12.7 % (3-13); RED BLOOD COUNT 4.46 10^6/uL (3.72-5.28); SEGMENTED NEUTROPHILS % (AUTO) 40.5 % (42-78); WHITE BLOOD COUNT 4.7 10^3/uL (4.0-10.5)
[2017-01-09 12:18] LABS: APPEARANCE,URINE SLIGHTLY-CLOUDY; BILIRUBIN,URINE NEGATIVE (NEGATIVE); GLUCOSE, URINE NEGATIVE (NEGATIVE); KETONES,URINE NEGATIVE (NEGATIVE); LEUKOCYTE ESTERASE,URINE NEGATIVE (NEGATIVE); NITRITE,URINE NEGATIVE (NEGATIVE); PROTEIN,URINE NEGATIVE (NEGATIVE); URINE SPECIFIC GRAVITY 1.034
--- NOTE | 2017-01-09 13:04 | RADIOLOGY REPORT (SQ) ---
EXAM DESCRIPTION: ACUTE ABDOMEN SERIES COMPLETED DATE/TIME: 01/09/2017 12:45 pm REASON FOR STUDY: abd pain COMPARISON: 09/28/2016. NUMBER OF VIEWS: Three views. TECHNIQUE: Frontal chest, supine abdomen and upright/decubitus abdomen radiographic images acquired. LIMITATIONS: None. FINDINGS: CHEST: Lungs clear of infiltrates. FREE AIR: None. No abnormal gas collections. BOWEL GAS PATTERN: Nonobstructive pattern. No dilated loops or air fluid levels. CALCIFICATIONS: No suspicious calcifications. HARDWARE: None in the abdomen. SOFT TISSUES: No gross mass or suggestion of organomegaly. BONES: No acute fracture. No worrisome bone lesions. OTHER: No other significant finding. IMPRESSION: NO RADIOGRAPHIC EVIDENCE FOR ACUTE ABDOMINAL DISEASE. TECHNICAL DOCUMENTATION: JOB ID: [id number] [employer]- All Rights Reserved
[2017-01-09] MEDS ORDERED: MAG HYDROX/AL HYDROX/SIMETH SUSP 30 ML UDCUP PO ONE (13:19)
[2017-01-09] MEDS ORDERED: LIDOCAINE 2% VISCOUS SOLN 20 ML UDCUP PO ONE (13:19)
[2017-01-09] MEDS ORDERED: METOCLOPRAMIDE HCL ORAL SOLN 10 MG/10 ML UDCUP PO ONE (13:19)
[2017-01-09 13:36] LABS: ALANINE AMINOTRANSFERASE 37 U/L (9-52); ALBUMIN 3.9 g/dL (3.5-5.0); ALKALINE PHOSPHATASE 79 U/L (38-126); ANION GAP 11 (5-19); ASPARTATE AMINO TRANSFERASE 19 U/L (14-36); BILIRUBIN,DIRECT 0.2 mg/dL (0.0-0.4); BILIRUBIN,TOTAL 0.4 mg/dL (0.2-1.3); BLOOD UREA NITROGEN 12 mg/dL (7-20); CARBON DIOXIDE 23 mmol/L (22-30); CHLORIDE 108 mmol/L (98-107); GLUCOSE 87 mg/dL (75-110); LIPASE 62.8 U/L (23-300); POTASSIUM 4.4 mmol/L (3.6-5.0); SODIUM 141.7 mmol/L (137-145); TOTAL PROTEIN 6.6 g/dL (6.3-8.2)
--- NOTE | 2017-01-09 14:35 | ER Document Report ---
ED General - General Chief Complaint: Abdominal Pain Stated Complaint: ABDOMINAL PAIN Time Seen by Provider: 01/09/17 11:26 Mode of Arrival: Wheelchair TRAVEL OUTSIDE OF THE [place] IN LAST 30 DAYS: No - HPI Patient complains to provider of: Burning abdominal pain Notes: Patient coming in for burning abdominal pain points to the epigastric and left upper quadrant. Patient states worse when eating. Patient states ongoing since 1:00 this morning. Patient denies any fevers chills nausea vomiting diarrhea denies any constipation. States patient states had a normal bowel movement today. Denies any abdominal trauma. Patient states past surgical history is only positive for recent appendix being removed. Patient is resting comfortably upon my evaluation per - Related Data Allergies/Adverse Reactions: iodine [Iodine] Allergy (Severe, Verified 01/09/17 10:58) throat swells Penicillins Allergy (Severe, Verified 01/09/17 10:58) throat swells Shellfish * [Shellfish] Allergy (Severe, Verified 01/09/17 10:58) Blisters peanut Adverse Reaction (Severe, Verified 01/09/17 10:58) rash hydrocodone Adverse Reaction (Verified 01/09/17 10:58) Pruritis Past Medical History - General Information source: Patient - Social History Smoking Status: Former Smoker Chew tobacco use (# tins/day): No Frequency of alcohol use: None Drug Abuse: None Family History: Reviewed & Not Pertinent, Arthritis, CAD, DM, Hyperlipidemia, Hypertension Patient has suicidal ideation: No Patient has homicidal ideation: No - Past Medical History Cardiac Medical History: Denies: Hx Congestive Heart Failure, Hx Coronary Artery Disease, Hx DVT, Hx Heart Attack, Hx Hypercholesterolemia, Hx Hypertension, Hx Pulmonary Embolism Pulmonary Medical History: Reports: Hx Asthma Denies: Hx Bronchitis, Hx COPD, Hx Pneumonia Neurological Medical History: Denies: Hx Cerebrovascular Accident, Hx Seizures Endocrine Medical History: Denies: Hx Diabetes Mellitus Type 2, Hx Hyperthyroidism, Hx Hypothyroidism Renal/ Medical History: Denies: Hx Peritoneal Dialysis GI Medical History: Reports: Hx Diverticulitis. Denies: Hx Cirrhosis, Hx Hepatitis Musculoskeltal Medical History: Reports Hx Arthritis - RA Psychiatric Medical History: Reports: Hx Anxiety, Hx Bipolar Disorder, Hx Depression Infectious Medical History: Denies: Hx Hepatitis Past Surgical History: Reports: Hx Appendectomy - Immunizations Immunizations up to date: Yes Hx Diphtheria, Pertussis, Tetanus Vaccination: Yes Review of Systems - Review of Systems Constitutional: No symptoms reported EENT: No symptoms reported Cardiovascular: No symptoms reported Respiratory: No symptoms reported Gastrointestinal: Abdominal pain Genitourinary: No symptoms reported Female Genitourinary: No symptoms reported Musculoskeletal: No symptoms reported Skin: No symptoms reported Hematologic/Lymphatic: No symptoms reported Neurological/Psychological: No symptoms reported Physical Exam - Vital signs Vitals: Temp Pulse Resp BP Pulse Ox 98.4 F 54 L 16 141/89 H 100 01/09/17 10:57 01/09/17 10:57 01/09/17 10:57 01/09/17 10:57 01/09/17 10:57 Interpretation: Normal - General General appearance: Appears well, Alert - HEENT Head: Normocephalic, Atraumatic Eyes: Normal Pupils: PERRL - Respiratory Respiratory status: No respiratory distress Chest status: Nontender Breath sounds: Normal Chest palpation: Normal - Cardiovascular Rhythm: Regular Heart sounds: Normal auscultation Murmur: No - Abdominal Inspection: Normal, Morbidly Obese Distension: No distension Bowel sounds: Normal Tenderness: Nontender Organomegaly: No organomegaly - Back Back: Normal, Nontender - Extremities General upper extremity: Normal inspection, Nontender, Normal color, Normal ROM , Normal temperature General lower extremity: Normal inspection, Nontender, Normal color, Normal ROM , Normal temperature, Normal weight bearing. No: Michael's sign - Neurological Neuro grossly intact: Yes Cognition: Normal Orientation: AAOx4 Mercer Coma Scale Eye Opening: Spontaneous Mercer Coma Scale Verbal: Oriented Mercer Coma Scale Motor: Obeys Commands Mercer Coma Scale Total: 15 Speech: Normal Motor strength normal: LUE, RUE, LLE, RLE Sensory: Normal - Psychological Associated symptoms: Normal affect, Normal mood - Skin Skin Temperature: Warm Skin Moisture: Dry Skin Color: Normal Course - Re-evaluation Re-evalutation: 01/09/17 14:34 The patient presents with abdominal pain without signs of peritonitis or other life-threatening or serious etiology. The patient appears stable for discharge and has been instructed to return immediately if the symptoms worsen in any way , or in 8-12hr if not improved for re-evaluation. The patient has been instructed to return if the symptoms worsen or change in any way. Patient complaining of epigastric left upper quadrant abdominal burning with food more likely underlying gastritis. Patient will be treated with Carafate Pepcid and Bentyl. Patient will be discharged home to follow-up with her PCP. - Vital Signs Vital signs: Temp Pulse Resp BP Pulse Ox 98.4 F 54 L 16 141/89 H 100 01/09/17 10:57 01/09/17 10:57 01/09/17 10:57 01/09/17 10:57 01/09/17 10:57 - Laboratory Result Diagrams: 01/09/17 11:48 01/09/17 12:50 Laboratory results interpreted by me: 01/09/17 01/09/17 01/09/17 11:48 12:00 12:50 Hgb 10.1 L Hct 32.5 L MCV 73 L MCH 22.6 L MCHC 31.0 L RDW 20.0 H Seg Neutrophils % 40.5 L Chloride 108 H Urine Urobilinogen 2.0 H Urine Ascorbic Acid 40 H Discharge - Discharge Clinical Impression: Abdominal pain Qualifiers: Abdominal location: unspecified location Qualified Code(s): R10.9 - Unspecified abdominal pain Condition: Good Disposition: HOME, SELF-CARE Instructions: Abdominal Pain ([facility]), Gastritis ([facility]) Additional Instructions: Please follow-up with your primary care provider. Your laboratory studies today did not show any signs of significant pathology. Your pain is more likely underlying gastritis however highly recommend following with a GI specialist for further testing. We will treat you today with omeprazole and Carafate and Bentyl. Prescriptions: Dicyclomine HCl [Bentyl 20 mg Tablet] 20 mg PO QID #20 tablet Omeprazole 20 mg PO DAILY #20 capsule. Sucralfate [Carafate 1 gm Tablet] 1 gm PO ACHS #120 tablet Referrals: BOWEN PAREKH MD [Primary Care Provider] - Follow up as needed
[2017-01-09] MEDS ORDERED: DICYCLOMINE HCL INJ 20 MG/2 ML AMPULE IM ONE (15:14)
[2017-01-09 15:24] VITALS: BP 142/84
== END 2017-01-09 15:25 | disposition home or self-care (01) ==
LOC: ER 10:46
DX: R10.9 Unspecified abdominal pain (principal); R10.13 Epigastric pain; R10.12 Left upper quadrant pain; Z87.891 Personal history of nicotine dependence
CPT/HCPCS: 99284; 96372; 36415; 83690; 85025; 81025; 80053; 81001; 74022; J0500; J3490

== ENCOUNTER 2017-01-25 10:29 | Emergency (ER) | payer SELFPAY ==
[2017-01-25] MEDS ORDERED: OXYCODONE-ACETAMINOPHEN 5-325 MG TABLET PO ONE (11:45)
[2017-01-25 12:20] LABS: APPEARANCE,URINE SLIGHTLY-CLOUDY; BILIRUBIN,URINE NEGATIVE (NEGATIVE); GLUCOSE, URINE NEGATIVE (NEGATIVE); KETONES,URINE NEGATIVE (NEGATIVE); LEUKOCYTE ESTERASE,URINE TRACE (NEGATIVE); NITRITE,URINE NEGATIVE (NEGATIVE); PROTEIN,URINE NEGATIVE (NEGATIVE); URINE SPECIFIC GRAVITY 1.024; UROBILINOGEN,URINE NEGATIVE mg/dL (<2.0)
[2017-01-25 12:34] LABS: RBC,URINE RARE /HPF; WBC,URINE RARE /HPF
[2017-01-25 12:35] LABS: BACTERIA,URINE 2+ /HPF
[2017-01-25 13:17] LABS: ABSOLUTE BASOPHILS # (AUTO) 0.1 10^3/uL (0.0-0.2); ABSOLUTE EOSINOPHILS # (AUTO) 0.1 10^3/uL (0.0-0.6); ABSOLUTE LYMPHOCYTES (AUTO) 2.4 10^3/uL (0.5-4.7); ABSOLUTE MONOCYTES (AUTO) 0.5 10^3/uL (0.1-1.4); ABSOLUTE NEUT (AUTO) 2.2 10^3/uL (1.7-8.2); EOSINOPHILS % (AUTO) 2.7 % (0-6); HEMATOCRIT 36.3 % (36.0-47.0); HEMOGLOBIN 11.2 g/dL (12.0-15.5); HGB HCT DIFFERENCE -2.7; LYMPHOCYTES % (AUTO) 45.1 % (13-45); MEAN CORPUSCULAR HEMOGLOBIN 22.1 pg (27.0-33.4); MEAN CORPUSCULAR HGB CONC 30.8 g/dL (32.0-36.0); MEAN CORPUSCULAR VOLUME 72 fl (80-97); MONOCYTES % (AUTO) 9.4 % (3-13); RED BLOOD COUNT 5.05 10^6/uL (3.72-5.28); RED CELL DISTRIBUTION WIDTH 19.9 % (11.5-14.0); SEGMENTED NEUTROPHILS % (AUTO) 41.8 % (42-78); WHITE BLOOD COUNT 5.3 10^3/uL (4.0-10.5)
[2017-01-25 13:50] LABS: ALANINE AMINOTRANSFERASE 42 U/L (9-52); ALBUMIN 4.1 g/dL (3.5-5.0); ALKALINE PHOSPHATASE 68 U/L (38-126); ANION GAP 10 (5-19); ASPARTATE AMINO TRANSFERASE 28 U/L (14-36); BILIRUBIN,DIRECT 0.3 mg/dL (0.0-0.4); BILIRUBIN,TOTAL 0.6 mg/dL (0.2-1.3); BLOOD UREA NITROGEN 8 mg/dL (7-20); CALCIUM 8.9 mg/dL (8.4-10.2); CARBON DIOXIDE 28 mmol/L (22-30); CHLORIDE 103 mmol/L (98-107); CREATININE RESULT 0.74 mg/dL (0.52-1.25); GLUCOSE 85 mg/dL (75-110); POTASSIUM 3.8 mmol/L (3.6-5.0); SODIUM 141.2 mmol/L (137-145); TOTAL PROTEIN 7.2 g/dL (6.3-8.2)
[2017-01-25] MEDS ORDERED: DIPHENHYDRAMINE HCL 50 MG/ML VIAL IV ONE (13:53)
--- NOTE | 2017-01-25 14:59 | RADIOLOGY REPORT (SQ) ---
EXAM DESCRIPTION: CT ABD/PELVIS WITH IV ORAL COMPLETED DATE/TIME: 01/25/2017 2:46 pm REASON FOR STUDY: low abd pain, rectal bleeding COMPARISON: 08/02/2016. TECHNIQUE: CT scan of the abdomen and pelvis performed with intravenous and oral contrast using evangelina nayeli scanning technique with dynamic intravenous contrast injection. Images reviewed with lung, soft t issue, and bone windows. Reconstructed coronal and sagittal MPR images reviewed. Delayed images for e valuation of the urinary system also acquired. All images stored on PACS. All CT scanners at this facility use dose modulation, iterative reconstruction, and/or weight based d osing when appropriate to reduce radiation dose to as low as reasonably achievable (ALARA). [facility]: Dose Right [facility]: CareDose [facility]: Dose Right [facility]: Teradose 4D [facility]: Preo CONTRAST TYPE AND DOSE: contrast/concentration: Isovue 370.00 mg/ml; Total Contrast Delivered: 100.0 ml; Total Saline Delivered: 70.1 ml RENAL FUNCTION: BUN 8 creatinine 0.74. RADIATION DOSE: . LIMITATIONS: None. FINDINGS: LOWER CHEST: No significant findings. No nodules or infiltrates. LIVER: Normal size. No masses. No dilated ducts. SPLEEN: Normal size. No focal lesions. PANCREAS: No masses. No significant calcifications. No adjacent inflammation or peripancreatic fluid collections. Pancreatic duct not dilated. GALLBLADDER: No identified stones by CT criteria. No inflammatory changes to suggest cholecystitis. ADRENAL GLANDS: No significant masses or asymmetry. RIGHT KIDNEY AND URETER: No solid masses. No significant calcification. No hydronephrosis or hydroure ter. LEFT KIDNEY AND URETER: No solid masses. No significant calcification. No hydronephrosis or hydrouret er. AORTA AND VESSELS: No aneurysm. No dissection. Renal arteries, SMA, celiac without stenosis. RETROPERITONEUM: No retroperitoneal adenopathy, hemorrhage or masses. BOWEL AND PERITONEAL CAVITY: No obstruction. No visualized masses. No free fluid. No inflammatory ch anges or thickening of bowel wall. APPENDIX: Surgically absent. PELVIS: No significant masses. Normal bladder. No free fluid. ABDOMINAL WALL: No masses. No hernias. BONES: No significant or acute findings. OTHER: No other significant finding. IMPRESSION: NO SIGNIFICANT OR ACUTE FINDINGS IN THE ABDOMEN OR PELVIS. TECHNICAL DOCUMENTATION: JOB ID: [id number] Quality ID # [id number]: Final reports with documentation of one or more dose reduction techniques (e.g., Au tomated exposure control, adjustment of the mA and/or kV according to patient size, use of iterative reconstruction technique) 2010 [email or web address]- All Rights Reserved
--- NOTE | 2017-01-25 15:31 | ER Document Report ---
ED GI Bleed / Rectal Pain - General Chief Complaint: Rectal Bleeding Stated Complaint: ABDOMINAL PAIN Time Seen by Provider: 01/25/17 11:32 Mode of Arrival: Ambulatory Information source: Patient Notes: Patient is a 26-year-old female who presents to the ER today for lower abdominal pain 3 days. Patient also complains of 1 day of bright red blood per rectum. Patient states that initially she just thought that she was on her period, however she started having bright red blood with bowel movements. she denies nausea, vomiting, diarrhea, abnormal vaginal discharge, dysuria. She states she does have a history of diverticulitis but denies that the pain is mostly on the left side. She states that it distributes across the lower abdomen evenly. TRAVEL OUTSIDE OF THE [place] IN LAST 30 DAYS: No - Related Data Allergies/Adverse Reactions: iodine [Iodine] Allergy (Severe, Verified 01/09/17 10:58) throat swells Penicillins Allergy (Severe, Verified 01/09/17 10:58) throat swells Shellfish * [Shellfish] Allergy (Severe, Verified 01/09/17 10:58) Blisters peanut Adverse Reaction (Severe, Verified 01/09/17 10:58) rash hydrocodone Adverse Reaction (Verified 01/09/17 10:58) Pruritis Past Medical History - General Information source: Patient - Social History Smoking Status: Unknown if Ever Smoked Chew tobacco use (# tins/day): No Frequency of alcohol use: None Drug Abuse: None Family History: Reviewed & Not Pertinent, Arthritis, CAD, DM, Hyperlipidemia, Hypertension Patient has suicidal ideation: No Patient has homicidal ideation: No - Past Medical History Cardiac Medical History: Denies: Hx Congestive Heart Failure, Hx Coronary Artery Disease, Hx DVT, Hx Heart Attack, Hx Hypercholesterolemia, Hx Hypertension, Hx Pulmonary Embolism Pulmonary Medical History: Reports: Hx Asthma Denies: Hx Bronchitis, Hx COPD, Hx Pneumonia Neurological Medical History: Denies: Hx Cerebrovascular Accident, Hx Seizures Endocrine Medical History: Denies: Hx Diabetes Mellitus Type 2, Hx Hyperthyroidism, Hx Hypothyroidism Renal/ Medical History: Denies: Hx Peritoneal Dialysis GI Medical History: Reports: Hx Diverticulitis. Denies: Hx Cirrhosis, Hx Hepatitis Musculoskeltal Medical History: Reports Hx Arthritis - RA Psychiatric Medical History: Reports: Hx Anxiety, Hx Bipolar Disorder, Hx Depression Infectious Medical History: Denies: Hx Hepatitis Past Surgical History: Reports: Hx Appendectomy - Immunizations Immunizations up to date: Yes Hx Diphtheria, Pertussis, Tetanus Vaccination: Yes Review of Systems - Review of Systems Constitutional: No symptoms reported EENT: No symptoms reported Cardiovascular: No symptoms reported Respiratory: No symptoms reported Gastrointestinal: See HPI Genitourinary: No symptoms reported Female Genitourinary: No symptoms reported Musculoskeletal: No symptoms reported Skin: No symptoms reported Hematologic/Lymphatic: No symptoms reported Neurological/Psychological: No symptoms reported Physical Exam - Vital signs Vitals: Temp Pulse Resp BP Pulse Ox 98.5 F 85 19 146/89 H 99 01/25/17 11:29 01/25/17 11:29 01/25/17 11:29 01/25/17 11:29 01/25/17 11:29 - Notes Notes: PHYSICAL EXAMINATION: GENERAL: Well-appearing and in no acute distress. HEAD: Atraumatic, normocephalic. EYES: Pupils equal round and reactive to light, extraocular movements intact, sclera anicteric, conjunctiva are normal. NECK: Normal range of motion, supple without lymphadenopathy LUNGS: CTAB and equal. No wheezes rales or rhonchi. HEART: Regular rate and rhythm without murmurs ABDOMEN: Soft, mild hypogastric, right lower quadrant and left lower quadrant tenderness. No guarding, no rebound BACK: no vertebral tenderness, normal ROM GI/: no CVA tenderness rectal: normal tone, internal and external hemorrhoids noted, no obvious blood on exam EXTREMITIES: Normal range of motion, no pitting edema. No cyanosis. NEUROLOGICAL: Cranial nerves grossly intact. Normal sensory/motor exams. PSYCH: Normal mood, normal affect. SKIN: Warm, Dry, normal turgor, no rashes or lesions noted Course - Re-evaluation Re-evalutation: 01/25/17 17:30 Lab work is unremarkable including a normal white blood cell count, urinalysis negative for infection, rectal exam does reveal internal and external hemorrhoids, CT of the abdomen with IV contrast was negative for any acute pathology. Patient's vital signs are all normal here. I will treat patient for hemorrhoids with hydrocortisone suppository and provide her hyoscyamine for abdominal pain. She is here in the ER a lot for abdominal pain, I believe this may be her chronic abdominal pain. - Vital Signs Vital signs: Temp Pulse Resp BP Pulse Ox 97.6 F 61 20 121/61 100 01/25/17 16:03 01/25/17 16:03 01/25/17 16:03 01/25/17 16:03 01/25/17 16:03 - Laboratory Result Diagrams: 01/25/17 13:00 01/25/17 13:00 Laboratory results interpreted by me: 01/25/17 01/25/17 12:00 13:00 Hgb 11.2 L MCV 72 L MCH 22.1 L MCHC 30.8 L RDW 19.9 H Seg Neutrophils % 41.8 L Lymphocytes % 45.1 H Urine Blood SMALL H Ur Leukocyte Esterase TRACE H Discharge - Discharge Clinical Impression: Internal hemorrhoids Abdominal pain Qualifiers: Abdominal location: lower abdomen, unspecified Qualified Code(s): R10.30 - Lower abdominal pain, unspecified Condition: Stable Disposition: HOME, SELF-CARE Additional Instructions: Return immediately for any new or worsening symptoms. Follow up with primary care provider, call tomorrow to make followup appointment. Prescriptions: Hydrocortisone Acetate 25 mg RC BID #28 supp.rect Hyoscyamine [Cystospaz] 0.15 mg PO Q4 PRN #15 tablet PRN Reason: Referrals: BOWEN PAREKH MD [Primary Care Provider] - Follow up as needed
[2017-01-25] MEDS ORDERED: HYOSCYAMINE SULFATE 0.125 MG TABLET PO ONE (15:47)
[2017-01-25 16:06] VITALS: BP 121/61
== END 2017-01-25 16:05 | disposition home or self-care (01) ==
LOC: ER 10:29
DX: R10.30 Lower abdominal pain, unspecified (principal); R10.813 Right lower quadrant abdominal tenderness; K64.8 Other hemorrhoids; R10.814 Left lower quadrant abdominal tenderness; K64.4 Residual hemorrhoidal skin tags; K62.5 Hemorrhage of anus and rectum; J45.909 Unspecified asthma, uncomplicated; Z87.19 Personal history of other diseases of the digestive system; Z88.0 Allergy status to penicillin; Z91.013 Allergy to seafood; Z90.49 Acquired absence of other specified parts of digestive tract
CPT/HCPCS: 99284; 96374; 36415; 84703; 85025; 80053; 81001; 74177; J1200; J3490

== ENCOUNTER 2017-04-17 15:18 | Emergency (ER) | payer SELFPAY ==
[2017-04-17 15:24] VITALS: BP 144/92
[2017-04-17] MEDS ORDERED: NORMAL SALINE 1000 ML 1,000 ML IV ONE (16:10)
--- NOTE | 2017-04-17 16:19 | ER Document Report ---
ED Medical Screen (RME) - General Chief Complaint: Abdominal Pain Stated Complaint: ABDOMINAL PAIN Time Seen by Provider: 04/17/17 15:56 Mode of Arrival: Ambulatory Information source: Patient Notes: 26 y.o female with a PMHx of dysmenorrhea presents to the ED with pelvic pain for the past 2 days. Pt reports that she has had her period since February 06 and normally has irregular cycles but not usualy this long. She states that she goes through 1 1/2 bags of large pads a day. She reports taking Iron for her prolonged bleeding. She denies any dysuria, concerns for infection or possibility of . TRAVEL OUTSIDE OF THE [place] IN LAST 30 DAYS: No - Related Data Allergies/Adverse Reactions: iodine [Iodine] Allergy (Severe, Verified 04/17/17 16:00) throat swells Penicillins Allergy (Severe, Verified 04/17/17 16:00) throat swells Shellfish * [Shellfish] Allergy (Severe, Verified 04/17/17 16:00) Blisters peanut Adverse Reaction (Severe, Verified 04/17/17 16:00) rash hydrocodone Adverse Reaction (Verified 04/17/17 16:00) Pruritis Past Medical History - General Information source: Patient Last Menstrual Period: 2016 to present - Social History Chew tobacco use (# tins/day): No Frequency of alcohol use: None Drug Abuse: None Family history: Reviewed & Not Pertinent - Past Medical History Cardiac Medical History: Denies: Hx Congestive Heart Failure, Hx Coronary Artery Disease, Hx DVT, Hx Heart Attack, Hx Hypercholesterolemia, Hx Hypertension, Hx Pulmonary Embolism Pulmonary Medical History: Reports: Hx Asthma Denies: Hx Bronchitis, Hx COPD, Hx Pneumonia Neurological Medical History: Denies: Hx Cerebrovascular Accident, Hx Seizures Endocrine Medical History: Denies: Hx Diabetes Mellitus Type 2, Hx Hyperthyroidism, Hx Hypothyroidism Renal/ Medical History: Denies: Hx Peritoneal Dialysis GI Medical History: Reports: Hx Diverticulitis. Denies: Hx Cirrhosis, Hx Hepatitis Musculoskeltal Medical History: Reports Hx Arthritis - RA Psychiatric Medical History: Reports: Hx Anxiety, Hx Bipolar Disorder, Hx Depression Infectious Medical History: Denies: Hx Hepatitis Past Surgical History: Reports: Hx Appendectomy - Immunizations Immunizations up to date: Yes Hx Diphtheria, Pertussis, Tetanus Vaccination: Yes History of Influenza Vaccine for 11/2016 - 04/2017 Season: No Review of Systems - Review of Systems Gastrointestinal: Abdominal pain - Pelvic pain Genitourinary: See HPI. denies: Dysuria Female Genitourinary: See HPI, Heavy/abnormal periods - more than baseline. denies: Physical Exam - Vital signs Vitals: Temp Pulse Resp BP Pulse Ox 98.6 F 111 H 16 144/92 H 100 04/17/17 15:23 04/17/17 15:23 04/17/17 15:23 04/17/17 15:23 04/17/17 15:23 - General General appearance: Alert In distress: None - Respiratory Respiratory status: No respiratory distress - Neurological Neuro grossly intact: Yes Cognition: Normal Orientation: AAOx4 - Psychological Associated symptoms: Normal affect, Normal mood - Skin Skin Temperature: Warm Skin Moisture: Dry Skin Color: Normal Course - Vital Signs Vital signs: Temp Pulse Resp BP Pulse Ox 98.6 F 84 18 144/92 H 100 04/17/17 15:23 04/17/17 16:15 04/17/17 16:15 04/17/17 15:23 04/17/17 16:15 Scribe Documentation - Scribe Written by Scribe:: Kassandra Fairbanks, [place] 04/17/17 [id number] acting as scribe for :: Donny
[2017-04-17 17:04] LABS: ABSOLUTE BASOPHILS # (AUTO) 0.1 10^3/uL (0.0-0.2); ABSOLUTE EOSINOPHILS # (AUTO) 0.2 10^3/uL (0.0-0.6); ABSOLUTE LYMPHOCYTES (AUTO) 2.2 10^3/uL (0.5-4.7); ABSOLUTE MONOCYTES (AUTO) 0.6 10^3/uL (0.1-1.4); ABSOLUTE NEUT (AUTO) 2.8 10^3/uL (1.7-8.2); BASOPHILS % (AUTO) 1.4 % (0-2); EOSINOPHILS % (AUTO) 3.3 % (0-6); HEMATOCRIT 31.5 % (36.0-47.0); HEMOGLOBIN 9.5 g/dL (12.0-15.5); LYMPHOCYTES % (AUTO) 37.8 % (13-45); MEAN CORPUSCULAR HEMOGLOBIN 21.1 pg (27.0-33.4); MEAN CORPUSCULAR HGB CONC 30.2 g/dL (32.0-36.0); MEAN CORPUSCULAR VOLUME 70 fl (80-97); MONOCYTES % (AUTO) 10.1 % (3-13); PLATELET COUNT 487 10^3/uL (150-450); RED CELL DISTRIBUTION WIDTH 19.2 % (11.5-14.0); SEGMENTED NEUTROPHILS % (AUTO) 47.4 % (42-78); TOTAL CELLS COUNTED % (AUTO) 100 %; WHITE BLOOD COUNT 5.8 10^3/uL (4.0-10.5)
[2017-04-17 17:22] LABS: ALANINE AMINOTRANSFERASE 35 U/L (9-52); ALBUMIN 3.9 g/dL (3.5-5.0); ALKALINE PHOSPHATASE 61 U/L (38-126); ANION GAP 12 (5-19); ASPARTATE AMINO TRANSFERASE 22 U/L (14-36); BILIRUBIN,DIRECT 0.4 mg/dL (0.0-0.4); BILIRUBIN,TOTAL 0.5 mg/dL (0.2-1.3); BLOOD UREA NITROGEN 10 mg/dL (7-20); CALCIUM 9.1 mg/dL (8.4-10.2); CARBON DIOXIDE 26 mmol/L (22-30); CHLORIDE 101 mmol/L (98-107); GLUCOSE 81 mg/dL (75-110); POTASSIUM 4.2 mmol/L (3.6-5.0); SODIUM 138.9 mmol/L (137-145); TOTAL PROTEIN 6.8 g/dL (6.3-8.2)
--- NOTE | 2017-04-17 17:47 | ER Document Report ---
ED GI/ - General Chief Complaint: Abdominal Pain Stated Complaint: ABDOMINAL PAIN Time Seen by Provider: 04/17/17 15:56 Mode of Arrival: Ambulatory Notes: The patient is a 26-year-old female, past medical history menomettorrhagia, presents with 2 months of heavy vaginal bleeding saying she is soaking through 1.5 packs of large pads a day. She has seen her embedded software architect and was started on OCPs without much relief of her symptoms. She is taking iron pills also. Patient denies syncope, lightheadedness, dysuria, flank pain, fevers, vaginal discharge, chest pain or shortness of breath. TRAVEL OUTSIDE OF THE [place] IN LAST 30 DAYS: No - Related Data Allergies/Adverse Reactions: iodine [Iodine] Allergy (Severe, Verified 04/17/17 16:00) throat swells Penicillins Allergy (Severe, Verified 04/17/17 16:00) throat swells Shellfish * [Shellfish] Allergy (Severe, Verified 04/17/17 16:00) Blisters peanut Adverse Reaction (Severe, Verified 04/17/17 16:00) rash hydrocodone Adverse Reaction (Verified 04/17/17 16:00) Pruritis Past Medical History - General Information source: Patient Last Menstrual Period: 2016 to present - Social History Smoking Status: Former Smoker Chew tobacco use (# tins/day): No Frequency of alcohol use: None Drug Abuse: None Family History: Reviewed & Not Pertinent, Arthritis, CAD, DM, Hyperlipidemia, Hypertension Patient has suicidal ideation: No Patient has homicidal ideation: No - Past Medical History Cardiac Medical History: Denies: Hx Congestive Heart Failure, Hx Coronary Artery Disease, Hx DVT, Hx Heart Attack, Hx Hypercholesterolemia, Hx Hypertension, Hx Pulmonary Embolism Pulmonary Medical History: Reports: Hx Asthma Denies: Hx Bronchitis, Hx COPD, Hx Pneumonia Neurological Medical History: Denies: Hx Cerebrovascular Accident, Hx Seizures Endocrine Medical History: Denies: Hx Diabetes Mellitus Type 2, Hx Hyperthyroidism, Hx Hypothyroidism Renal/ Medical History: Denies: Hx Peritoneal Dialysis GI Medical History: Reports: Hx Diverticulitis. Denies: Hx Cirrhosis, Hx Hepatitis Musculoskeltal Medical History: Reports Hx Arthritis - RA Psychiatric Medical History: Reports: Hx Anxiety, Hx Bipolar Disorder, Hx Depression Infectious Medical History: Denies: Hx Hepatitis Past Surgical History: Reports: Hx Appendectomy - Immunizations Immunizations up to date: Yes Hx Diphtheria, Pertussis, Tetanus Vaccination: Yes Review of Systems - Review of Systems Notes: REVIEW OF SYSTEMS: CONSTITUTIONAL: -fevers, -chills EENT: -eye pain, -difficulty swallowing, -nasal congestion CARDIOVASCULAR: -chest pain, -syncope. RESPIRATORY: -cough, -SOB GASTROINTESTINAL: -nausea, -vomiting, -diarrhea GENITOURINARY: -dysuria, -hematuria, +vaginal bleeding and crampiness MUSCULOSKELETAL: -back pain, -neck pain SKIN: -rash or skin lesions. HEMATOLOGIC: -easy bruising or bleeding. LYMPHATIC: -swollen, enlarged glands. NEUROLOGICAL: -altered mental status or loss of consciousness, -headache, - neurologic symptoms PSYCHIATRIC: -anxiety, -depression. ALL OTHER SYSTEMS REVIEWED AND NEGATIVE. Physical Exam - Vital signs Vitals: Temp Pulse Resp BP Pulse Ox 98.6 F 111 H 16 144/92 H 100 04/17/17 15:23 04/17/17 15:23 04/17/17 15:23 04/17/17 15:23 04/17/17 15:23 - Notes Notes: PHYSICAL EXAMINATION: GENERAL: Well-appearing, well-nourished and in no acute distress. HEAD: Atraumatic, normocephalic. EYES: Pupils equal round and reactive to light, extraocular movements intact, sclera anicteric, conjunctiva are normal. ENT: nares patent, oropharynx clear without exudates. Moist mucous membranes. NECK: Normal range of motion, supple without lymphadenopathy LUNGS: Breath sounds clear to auscultation bilaterally and equal. No wheezes rales or rhonchi. HEART: Regular rate and rhythm without murmurs ABDOMEN: Soft, nontender, normoactive bowel sounds. No guarding, no rebound. No masses appreciated. EXTREMITIES: Normal range of motion, no pitting or edema. No cyanosis. NEUROLOGICAL: Cranial nerves grossly intact. Normal speech, normal gait. Normal sensory and motor exams. PSYCH: Normal mood, normal affect. SKIN: Warm, Dry, normal turgor, no rashes or lesions noted. Course - Re-evaluation Re-evalutation: Patient is hemodynamically stable. Hemoglobin is 9.5 and she does not require any blood transfusion at this time. She has already been following with gynecology for these symptoms and has already tried OCPs without much relief. 04/17/17 17:[address] Connors (Truck Driver Instructor customer operations intern) and he recommends TXA 1300 mg 3 times daily for the next 5 days and follow-up at her embedded software architect. - Vital Signs Vital signs: Temp Pulse Resp BP Pulse Ox 98.6 F 84 18 144/92 H 100 04/17/17 15:23 04/17/17 16:15 04/17/17 16:15 04/17/17 15:23 04/17/17 16:15 - Laboratory Result Diagrams: 04/17/17 16:49 04/17/17 16:49 Laboratory results interpreted by me: 04/17/17 16:49 Hgb 9.5 L Hct 31.5 L MCV 70 L MCH 21.1 L MCHC 30.2 L RDW 19.2 H Plt Count 487 H Discharge - Discharge Clinical Impression: Dysmenorrhea Condition: Stable Additional Instructions: VAGINAL BLEEDING: You are having an episode of abnormal bleeding. Causes of abnormal vaginal bleeding can include miscarriage or tubal , tumors such as cancer or benign fibroids, medication effects, or hormone imbalance. Testing can eliminate unsuspected , tumors, or infection as a cause. "Dysfunctional uterine bleeding" is due to hormone imbalance, and is especially common at times when the normal cycle is disturbed -- whether by recent , use of control pills or hormones, or impending menopause. If the bleeding is innocent, most commonly a short course of hormones is given to restore the uterus to normal. Sometimes, the normal menstrual cycle corrects itself naturally. Sometimes , brief hormone therapy, or even a D&C is required. Your physician will advise you. Treatment for anemia may be required if bleeding is severe. You should rest and avoid intercourse until the bleeding is controlled. Call the doctor or return for re-examination if you feel faint, have increasing pain, or have a major increase in the amount of bleeding. NORMAL EXAM AND WORKUP: At this time, except for vaginal bleeding, your examination and workup show no significant abnormality. No significant abnormal physical findings were noted. All laboratory, EKG, and imaging (x-ray, CT scans, ultrasound) studies that were ordered show no significant abnormality. Although your examination and all studies that were ordered showed no significant abnormal finding, there are no examinations and no studies that are 100% accurate. There is always the possibility that some abnormality could exist and not be detected with physical examination or within the limits and capabilities of laboratory and other studies. You should return or follow up as you were instructed on your visit today for further evaluation if your symptoms do not resolve. FOLLOW-UP CARE: If you have been referred to a physician for follow-up care, call the physician s office for an appointment as you were instructed or within the next two days. If you experience worsening or a significant change in your symptoms (very heavy bleeding with large clots of blood, passage of tissue, more severe abdominal / pelvic pain or cramping, feeling faint or severe weakness, fever, etc.), notify the physician immediately or return to the Emergency Department at any time for re-evaluation. OBSTETRIC-GYNECOLOGIC (OB-HEAD FIELD HOCKEY COACH) PHYSICIANS IN ASSUMPTION: [facility] [address], [place] [phone] [facility] [address] [place] [address] [phone] Prescriptions: Tranexamic Acid [Lysteda] 1,300 mg PO TID 5 Days tablet Forms: Elevated Blood Pressure Referrals: ALHAJI OSULLIVAN MD [ACTIVE STAFF] - Follow up as needed
[2017-04-17] MEDS ORDERED: NAPROXEN 250 MG TABLET PO ONE (17:59)
[2017-04-17 18:29] LABS: APPEARANCE,URINE SLIGHTLY-CLOUDY; BILIRUBIN,URINE NEGATIVE (NEGATIVE); COLOR,URINE YELLOW; GLUCOSE, URINE NEGATIVE (NEGATIVE); KETONES,URINE NEGATIVE (NEGATIVE); LEUKOCYTE ESTERASE,URINE NEGATIVE (NEGATIVE); NITRITE,URINE NEGATIVE (NEGATIVE); PROTEIN,URINE 30 mg/dL (NEGATIVE); URINE SPECIFIC GRAVITY 1.026
== END 2017-04-17 19:02 | disposition home or self-care (01) ==
LOC: ER 15:18
DX: N94.6 Dysmenorrhea, unspecified (principal); R10.9 Unspecified abdominal pain; Z87.891 Personal history of nicotine dependence
CPT/HCPCS: 36415; 80053; 81001; 84703; 85025; 99284

== ENCOUNTER 2017-05-12 07:05 | Emergency (ER) | payer SELFPAY ==
[2017-05-12 07:13] VITALS: BP 114/71
[2017-05-12 08:02] LABS: APPEARANCE,URINE CLEAR; BILIRUBIN,URINE NEGATIVE (NEGATIVE); COLOR,URINE YELLOW; GLUCOSE, URINE NEGATIVE (NEGATIVE); KETONES,URINE NEGATIVE (NEGATIVE); LEUKOCYTE ESTERASE,URINE NEGATIVE (NEGATIVE); NITRITE,URINE NEGATIVE (NEGATIVE); PROTEIN,URINE NEGATIVE (NEGATIVE); URINE SPECIFIC GRAVITY 1.018; UROBILINOGEN,URINE NEGATIVE mg/dL (<2.0)
--- NOTE | 2017-05-12 08:02 | ER Document Report ---
ED General - General Chief Complaint: Pelvic Pain Stated Complaint: ABDOMINAL PAIN Time Seen by Provider: 05/12/17 07:22 Mode of Arrival: Ambulatory Information source: Patient, Relative - sister TRAVEL OUTSIDE OF THE [place] IN LAST 30 DAYS: No - HPI Notes: 26-year-old female presents today with complaints of right-sided, left- sided abdominal pain along with pelvic pain that started yesterday. Patient reports pain is constant, feels like pressure. Reports she has experienced it. Since January 27, 2017, reports she regularly has menorrhagia. Is not in any form of control or hormone therapy. Reports she was sexually active on January 27, denies being sexually active since that time. Patient states she did not have protected sex when she last had intercourse. Has not tried any bnep-ind-daygxgi medication for this pain. Reports pain is 6 out of 10, throbbing achy. Patient reports she has a history of diverticulitis 2 years ago and had an appendectomy last year. Denies any fevers or chills. Denies fevers, chills, chest pain,palpitations, shortness of breath, dyspnea, nausea , vomiting, diarrhea, hematuria,blurred vision, double vision, loss of vision, speech changes, LH, dizziness, syncope, headaches, wheezing, ST, URI, neck pain , weakness, bowel or bladder dysfunction, saddle anesthesia, numbness or tingling in bilateral upper or lower extremities equally, muscle paralysis, weakness in bilateral upper or lower extremities equally or rash. Denies IV drug use. - Related Data Allergies/Adverse Reactions: iodine [Iodine] Allergy (Severe, Verified 05/12/17 07:06) throat swells Penicillins Allergy (Severe, Verified 05/12/17 07:06) throat swells Shellfish * [Shellfish] Allergy (Severe, Verified 05/12/17 07:06) Blisters peanut Adverse Reaction (Severe, Verified 05/12/17 07:06) rash hydrocodone Adverse Reaction (Verified 05/12/17 07:06) Pruritis Past Medical History - General Information source: Patient, Relative - sister - Social History Smoking Status: Unknown if Ever Smoked Family History: Reviewed & Not Pertinent, Arthritis, CAD, DM, Hyperlipidemia, Hypertension Patient has suicidal ideation: No Patient has homicidal ideation: No - Past Medical History Cardiac Medical History: Denies: Hx Congestive Heart Failure, Hx Coronary Artery Disease, Hx DVT, Hx Heart Attack, Hx Hypercholesterolemia, Hx Hypertension, Hx Pulmonary Embolism Pulmonary Medical History: Reports: Hx Asthma Denies: Hx Bronchitis, Hx COPD, Hx Pneumonia Neurological Medical History: Denies: Hx Cerebrovascular Accident, Hx Seizures Endocrine Medical History: Denies: Hx Diabetes Mellitus Type 2, Hx Hyperthyroidism, Hx Hypothyroidism Renal/ Medical History: Denies: Hx Peritoneal Dialysis GI Medical History: Reports: Hx Diverticulitis. Denies: Hx Cirrhosis, Hx Hepatitis Musculoskeltal Medical History: Reports Hx Arthritis - RA Psychiatric Medical History: Reports: Hx Anxiety, Hx Bipolar Disorder, Hx Depression Infectious Medical History: Denies: Hx Hepatitis Past Surgical History: Reports: Hx Appendectomy - Immunizations Immunizations up to date: Yes Hx Diphtheria, Pertussis, Tetanus Vaccination: Yes Review of Systems - Review of Systems Notes: REVIEW OF SYSTEMS: CONSTITUTIONAL : Denies fever, chills, or sweats. Denies recent illness. EENT: Denies eye, ear, throat, or mouth pain or symptoms. Denies nasal or sinus congestion or discharge. Denies throat, tongue, or mouth swelling or difficulty swallowing. CARDIOVASCULAR: Denies chest pain. Denies palpitations or racing or irregular heart beat. Denies ankle edema. RESPIRATORY: Denies cough, cold, or chest congestion. Denies shortness of breath, difficulty breathing, or wheezing. GASTROINTESTINAL: + RUQ and LUQ pain. enies abdominal pain or distention. Denies nausea, vomiting, or diarrhea. Denies blood in vomitus, stools, or per rectum. Denies black, tarry stools. Denies constipation. GENITOURINARY: Denies difficulty urinating, painful urination, burning, frequency, blood in urine, or discharge. FEMALE GENITOURINARY: + pelvic pain. Denies vaginal bleeding, heavy or abnormal periods, irregular periods. Denies vaginal discharge or odor. MUSCULOSKELETAL: Denies back or neck pain or stiffness. Denies joint pain or swelling. SKIN: Denies rash, lesions or sores. HEMATOLOGIC : Denies easy bruising or bleeding. LYMPHATIC: Denies swollen, enlarged glands. NEUROLOGICAL: Denies confusion or altered mental status. Denies passing out or loss of consciousness. Denies dizziness or lightheadedness. Denies headache. Denies weakness or paralysis or loss of use of either side. Denies problems with gait or speech. Denies sensory loss, numbness, or tingling. Denies seizures. PSYCHIATRIC: Denies anxiety or stress. Denies depression, suicidal ideation, or homicidal ideation. ALL OTHER SYSTEMS REVIEWED AND NEGATIVE. PHYSICAL EXAMINATION: GENERAL: Well-appearing, well-nourished and in no acute distress. HEAD: Atraumatic, normocephalic. EYES: Pupils equal round and reactive to light, extraocular movements intact, conjunctiva are normal. ENT: Nares patent, oropharynx clear without exudates. Moist mucous membranes. NECK: Normal range of motion, supple without lymphadenopathy LUNGS: Breath sounds clear to auscultation bilaterally and equal. No wheezes rales or rhonchi. HEART: Regular rate and rhythm without murmurs ABDOMEN: Bowel sounds heard in all quadrants. Soft, nondistended abdomen. Tenderness to right lower quadrant and left lower quadrant on palpation, no rebound tenderness noticed, no CVA tenderness bilaterally. Suprapubic pain noted. No guarding, no rebound. No masses appreciated. Female Musculoskeletal: Normal range of motion, no pitting or edema. No cyanosis. NEUROLOGICAL: Cranial nerves grossly intact. Normal speech, normal gait. Normal sensory, motor exams PSYCH: Normal mood, normal affect. SKIN: Warm, Dry, normal turgor, no rashes or lesions noted. Dictation was performed using [employer] voice recognition software Physical Exam - Vital signs Vitals: Temp Pulse Resp BP Pulse Ox 99.2 F 95 18 114/71 100 05/12/17 07:13 05/12/17 07:13 05/12/17 07:13 05/12/17 07:13 05/12/17 07:13 Course - Re-evaluation Re-evalutation: 05/12/17 16:12 Appearing 26-year-old afebrile female presents today with complaints of right- sided, left-sided lower abdominal pain as well as pelvic pain. BC negative for any leukocytosis, patient does have anemia. CBC negative for any renal or hepatic dysfunction, electrolytes are within normal range. Urinalysis does show hematuria, no leukocytosis, urine was negative. Patient was negative for any Chlamydia gonorrhea. Wet mount does show the patient has bacterial vaginosis. Transvaginal ultrasound was normal, no noted ovarian cysts or torsion bilaterally. No free fluid. Endometrium is 15 mm in thickness , this could be the reason why patient was having prolonged menorrhagia. Patient still is bleeding lightly, this can explain his hematuria. CT abdomen pelvis with oral contrast find any acute findings. No diverticulitis, no hydronephrosis no masses, no cholecystitis, no noted calcifications no free fluid, appendix has been removed. Discussed with patient that her Flagyl, do not drink while taking this medication as this can make her very sick. Discussed with patient that she does need to follow-up with her QUANTITATIVE ASSOCIATE and possible hormone therapy. Likely her abdominal pain is related to menstruation however explained to patient to return to the emergency room if she is experiencing any but if not limited to Denies fevers, chills, chest pain, palpitations, shortness of breath, dyspnea, nausea, vomiting, diarrhea, worsening abdominal pain, hematuria,blurred vision, double vision, loss of vision, speech changes, LH, dizziness, syncope, headaches, bowel or bladder dysfunction, saddle anesthesia, numbness or tingling in bilateral upper or lower extremities equally, muscle paralysis, weakness in bilateral upper or lower extremities equally or rash. All questions and concerns answered by this provider. Patient verbalized understanding of plan of care and agreed with plan of care. Patient discharged home without incident. - Vital Signs Vital signs: Temp Pulse Resp BP Pulse Ox 99.2 F 95 18 114/71 100 05/12/17 07:13 05/12/17 07:13 05/12/17 07:45 05/12/17 07:13 05/12/17 07:13 - Laboratory Result Diagrams: 05/12/17 10:45 05/12/17 10:45 Laboratory results interpreted by me: 05/12/17 05/12/17 07:40 10:45 Hgb 10.2 L Hct 34.0 L MCV 70 L MCH 20.9 L MCHC 29.9 L RDW 19.7 H Urine Blood LARGE H Discharge - Discharge Clinical Impression: BV (bacterial vaginosis), Pelvic pain Condition: Good Disposition: HOME, SELF-CARE Instructions: Toradol Injection ([facility]), Ob-Bandage Wrapping Machine Operator Doctors, Pelvic Pain ([facility]), Metronidazole ([facility]), Abdominal Pain ([facility]) Additional Instructions: Vaginosis, Bacterial Your exam shows you have bacterial vaginosis. This condition is due to an overgrowth of bacteria in the vagina. Symptoms may include vaginal itching or pain, a smelly discharge, and sometimes burning with urination. Normally this is not transmitted by sexual contact. Vaginosis can be treated with oral or topical antibiotics. Metronidazole ( Flagyl) pills are usually effective. Topical vaginal creams include Cleocin and Metro-Gel. You should avoid sexual contact until your symptoms are all better. Call the doctor if you develop pelvic pain, fever, or problems with urination, or if you don't improve as expected. Pelvic Pain There are many causes of pain in the pelvic area. The cause could be the tubes, ovaries, uterus, intestines, appendix, pelvic muscles and connective tissue, or the urinary tract. The cause of your pelvic pain is not clear. However, it seems safe to treat you outside the hospital. If the pain sounds like a temporary problem, we sometimes wait to see if it goes away. Other patients may need additional tests, such as pelvic ultrasound or cultures. Conditions may change. Call us or come back for reexamination if any problems occur, such as: (1) Pain that becomes more severe, steady, or becomes concentrated in one specific area. Also, pain that is more severe with movement or coughing. (2) Vomiting that persists or becomes more frequent. (3) Blood in the vomitus, urine, or bowel movements. Blood in the stool may have a tarry or black appearance. (4) Shaking chills or fever greater than 100 degrees. (5) The abdomen becomes more distended or swollen. (6) Bowel movements cease. (7) Heavy vaginal bleeding. Abdominal Pain There are many causes of abdominal pain. Pain can mean a serious problem requiring surgery (such as appendicitis). It can also be an innocent problem that goes away on its own (such as a viral infection). Often, time must pass to determine the cause of pain. The physician does not feel that hospitalization is necessary, at present. Things may change within the next 24 hours. Call the doctor or come back for re- examination if any problems occur, such as: (1) Pain that becomes more severe, steady, or becomes concentrated in one specific area. Also, pain that is more severe with movement or coughing. (2) Vomiting that persists or becomes more frequent. (3) Blood in the vomitus, urine, or bowel movements. Blood in the stool may have a tarry or black appearance. (4) Shaking chills or fever greater than 100 degrees F. (5) The abdomen becomes more distended or swollen. (6) Bowel movements cease. (7) Failure to improve as expected. Abdominal CT and pelvis and transvaginal ultrasound negative for any acute findings. I am unsure what is causing her abdominal pain pelvic pain at this time. We did find that you have bacterial vaginosis. Follow-up up with QUANTITATIVE ASSOCIATE and primary care provider within 3 days. Take medication as directed. Return to the emergency room if you experience any worsening symptoms such as fever, nausea, vomiting, worsening abdominal pain,diarrhea, vaginal bleeding, pelvic pain, etc. Return immediately for any new or worsening symptoms. Follow up with primary care provider, call tomorrow to make followup appointment. Prescriptions: Metronidazole [Flagyl] 500 mg PO BID #14 tablet Forms: Return to Work Referrals: FRANKIE RAMON MD [ACTIVE STAFF] - Follow up in 3-5 days ELIANE BURCIAGA MD [NO LOCAL MD] - Follow up in 3-5 days
[2017-05-12] MEDS ORDERED: KETOROLAC TROMETHAMINE INJ/PF 30 MG/1 ML SDV IV ONE (09:51)
--- NOTE | 2017-05-12 09:58 | RADIOLOGY REPORT (SQ) ---
EXAM DESCRIPTION: U/S NON-OB PELVIS TV W/O DOP COMPLETED DATE/TIME: 05/12/2017 9:49 am REASON FOR STUDY: Acute pelvic pain x 1 day COMPARISON: CT abdomen pelvis 01/25/2017 Pelvic ultrasound 09/28/2016, 05/22/2016 TECHNIQUE: Dynamic and static grayscale images acquired of the pelvis via transvaginal approach and recorded on PACS. Additional selected color Doppler and spectral images recorded. LIMITATIONS: None. FINDINGS: UTERUS: Contour normal. No mass. Uterus measures 8 x 4 x 4 cm in size. ENDOMETRIAL STRIPE: No focal or generalized thickening. No masses. Endometrium 15 mm in thickness. CERVIX: Closed. Multiple small nabothian cysts. RIGHT OVARY: No abnormal masses. Right ovary 3.3 x 2.5 x 2.4 cm in size RIGHT OVARY DOPPLER: Normal arterial vascular flow without evidence for torsion. LEFT OVARY: No abnormal masses. Left ovary 3.3 x 2.3 x 1.9 cm in size LEFT OVARY DOPPLER: Normal arterial vascular flow without evidence for torsion. FREE FLUID: None noted. OTHER: No other significant finding. IMPRESSION: NORMAL TRANSVAGINAL PELVIC ULTRASOUND. TECHNICAL DOCUMENTATION: JOB ID: [id number] [employer]- All Rights Reserved Reading location - IP/workstation name: [email or web address]
[2017-05-12 10:12] LABS: EPITHELIALS (WET MOUNT) 3+ EPITHELIALS SEEN; WBCS (WET MOUNT) RARE WBCS SEEN; YEAST (WET MOUNT) NO YEAST SEEN
[2017-05-12 10:13] LABS: T.VAGINALIS (WET MOUNT) COULD NOT PERFORM
[2017-05-12] MEDS ORDERED: KETOROLAC TROMETHAMINE 60 MG/2 ML SDV IM ONE (10:48)
[2017-05-12 10:57] LABS: ABSOLUTE BASOPHILS # (AUTO) 0.1 10^3/uL (0.0-0.2); ABSOLUTE EOSINOPHILS # (AUTO) 0.1 10^3/uL (0.0-0.6); ABSOLUTE LYMPHOCYTES (AUTO) 1.7 10^3/uL (0.5-4.7); ABSOLUTE MONOCYTES (AUTO) 0.4 10^3/uL (0.1-1.4); ABSOLUTE NEUT (AUTO) 2.9 10^3/uL (1.7-8.2); BASOPHILS % (AUTO) 1.3 % (0-2); EOSINOPHILS % (AUTO) 2.2 % (0-6); HEMOGLOBIN 10.2 g/dL (12.0-15.5); LYMPHOCYTES % (AUTO) 32.2 % (13-45); MEAN CORPUSCULAR HEMOGLOBIN 20.9 pg (27.0-33.4); MEAN CORPUSCULAR HGB CONC 29.9 g/dL (32.0-36.0); MEAN CORPUSCULAR VOLUME 70 fl (80-97); MONOCYTES % (AUTO) 8.3 % (3-13); PLATELET COUNT 427 10^3/uL (150-450); RED BLOOD COUNT 4.85 10^6/uL (3.72-5.28); RED CELL DISTRIBUTION WIDTH 19.7 % (11.5-14.0); TOTAL CELLS COUNTED % (AUTO) 100 %; WHITE BLOOD COUNT 5.2 10^3/uL (4.0-10.5)
[2017-05-12 11:23] LABS: ALANINE AMINOTRANSFERASE 32 U/L (9-52); ALBUMIN 4.1 g/dL (3.5-5.0); ALKALINE PHOSPHATASE 58 U/L (38-126); ANION GAP 8 (5-19); ASPARTATE AMINO TRANSFERASE 17 U/L (14-36); BILIRUBIN,DIRECT 0.3 mg/dL (0.0-0.4); BILIRUBIN,TOTAL 0.3 mg/dL (0.2-1.3); BLOOD UREA NITROGEN 10 mg/dL (7-20); CALCIUM 9.4 mg/dL (8.4-10.2); CARBON DIOXIDE 26 mmol/L (22-30); CHLORIDE 104 mmol/L (98-107); GLUCOSE 92 mg/dL (75-110); POTASSIUM 4.5 mmol/L (3.6-5.0); SODIUM 138.2 mmol/L (137-145); TOTAL PROTEIN 7.3 g/dL (6.3-8.2)
--- NOTE | 2017-05-12 11:28 | RADIOLOGY REPORT (SQ) ---
EXAM DESCRIPTION: CT ABD/PELVIS ORAL ONLY COMPLETED DATE/TIME: 05/12/2017 11:00 am REASON FOR STUDY: RLQ, LLQ pain, sudden onset COMPARISON: 01/25/2017 TECHNIQUE: CT scan of the abdomen and pelvis performed without intravenous or oral contrast. Images reviewed with lung, soft tissue, and bone windows. Reconstructed coronal and sagittal MPR images revi ewed. All images stored on PACS. All CT scanners at this facility use dose modulation, iterative reconstruction, and/or weight based d osing when appropriate to reduce radiation dose to as low as reasonably achievable (ALARA). [facility]: Dose Right [facility]: CareDose [facility]: Dose Right [facility]: Teradose 4D [facility]: [employer] RADIATION DOSE: CT Rad equipment meets quality standard of care and radiation dose reduction techniq ues were employed. CTDIvol: 21.1 mGy. DLP: 1177 mGy-cm.mGy. LIMITATIONS: None. FINDINGS: LOWER CHEST: No significant findings. No nodules or infiltrates. NON-CONTRASTED LIVER, SPLEEN, ADRENALS: Evaluation limited by lack of IV contrast. No identified sign ificant masses. PANCREAS: No masses. No peripancreatic inflammatory changes. GALLBLADDER: No identified stones by CT criteria. No inflammatory changes to suggest cholecystitis. RIGHT KIDNEY AND URETER: No suspicious masses. Assessment limited by lack of IV contrast. No signif icant calcifications. No hydronephrosis or hydroureter. LEFT KIDNEY AND URETER: No suspicious masses. Assessment limited by lack of IV contrast. No signifi cant calcifications. No hydronephrosis or hydroureter. AORTA AND RETROPERITONEUM: No aneurysm. No retroperitoneal masses or adenopathy. BOWEL AND PERITONEAL CAVITY: No obvious masses or inflammatory changes. No free fluid. APPENDIX: Surgically absent. PELVIS, BLADDER, AND ABDOMINAL WALL:No abnormal masses. No free fluid. Bladder normal. BONES: No significant findings. OTHER: No other significant finding. IMPRESSION: NO SIGNIFICANT OR ACUTE PROCESS IN THE ABDOMEN OR PELVIS. COMMENT: Quality ID # [id number]: Final reports with documentation of one or more dose reduction techniques (e.g., Automated exposure control, adjustment of the mA and/or kV according to patient size, use of iterative reconstruction technique) TECHNICAL DOCUMENTATION: JOB ID: [id number] [employer]- All Rights Reserved Reading location - IP/workstation name: [email or web address]
[2017-05-12 11:40] LABS: CHLAM PCR NOT DETECTED (NOT DETECT); GON PCR NOT DETECTED (NOT DETECT)
== END 2017-05-12 12:26 | disposition home or self-care (01) ==
LOC: ER 07:05
DX: N76.0 Acute vaginitis (principal); B96.89 Other specified bacterial agents as the cause of diseases classified elsewhere; R10.2 Pelvic and perineal pain; R10.10 Upper abdominal pain, unspecified; Z88.0 Allergy status to penicillin; Z88.6 Allergy status to analgesic agent; Z91.010 Allergy to peanuts; Z91.013 Allergy to seafood
CPT/HCPCS: 99284; 96372; 36415; 87210; 85025; 81025; 80053; 81001; 87491; 87591; 76830; 74176; J1885

== ENCOUNTER 2017-06-25 09:14 | Observation (INO) | payer SELFPAY ==
[2017-06-25] MEDS ORDERED: DIPHENHYDRAMINE HCL 50 MG/ML VIAL IV ONE ×2 (10:00→12:39)
[2017-06-25] MEDS ORDERED: METHYLPREDNISOLONE INJ 125 MG/2 ML SDV IV ONE (10:00)
[2017-06-25] MEDS ORDERED: FAMOTIDINE INJ/PF 20 MG/2 ML SDV IV ONE (10:01)
--- NOTE | 2017-06-25 10:02 | ER Document Report ---
ED General - General Chief Complaint: Lip Swelling Stated Complaint: LIP SWELLING Time Seen by Provider: 06/25/17 09:40 Notes: 27-year-old female patient emergency department chief complaint of swelling to the lips and tongue. Patient states that she has had this happen multiple times. Has been hospitalized for it. Has never had to be intubated. Denies any use of medications. Does have significant allergies including iodine, penicillin, shellfish, peanuts and hydrocodone. Denies any difficulty breathing at this time. No difficulty swallowing. No chest pain. No other issues. Last time this happened it was swelling of her hands but has had swelling of the face in the past. TRAVEL OUTSIDE OF THE [place] IN LAST 30 DAYS: No - HPI Onset: Just prior to arrival - Related Data Allergies/Adverse Reactions: iodine [Iodine] Allergy (Severe, Verified 06/25/17 09:17) throat swells Penicillins Allergy (Severe, Verified 06/25/17 09:17) throat swells Shellfish * [Shellfish] Allergy (Severe, Verified 06/25/17 09:17) Blisters peanut Adverse Reaction (Severe, Verified 06/25/17 09:17) rash hydrocodone Adverse Reaction (Verified 06/25/17 09:17) Pruritis Past Medical History - General Information source: Patient - Social History Smoking Status: Never Smoker Cigarette use (# per day): No Frequency of alcohol use: None Drug Abuse: None Lives with: Family Family History: Reviewed & Not Pertinent, Arthritis, CAD, DM, Hyperlipidemia, Hypertension Patient has suicidal ideation: No Patient has homicidal ideation: No - Past Medical History Cardiac Medical History: Denies: Hx Congestive Heart Failure, Hx Coronary Artery Disease, Hx DVT, Hx Heart Attack, Hx Hypercholesterolemia, Hx Hypertension, Hx Pulmonary Embolism Pulmonary Medical History: Reports: Hx Asthma Denies: Hx Bronchitis, Hx COPD, Hx Pneumonia Neurological Medical History: Denies: Hx Cerebrovascular Accident, Hx Seizures Endocrine Medical History: Denies: Hx Diabetes Mellitus Type 2, Hx Hyperthyroidism, Hx Hypothyroidism Renal/ Medical History: Denies: Hx Peritoneal Dialysis GI Medical History: Reports: Hx Diverticulitis. Denies: Hx Cirrhosis, Hx Hepatitis Musculoskeltal Medical History: Reports Hx Arthritis - RA Psychiatric Medical History: Reports: Hx Anxiety, Hx Bipolar Disorder, Hx Depression Infectious Medical History: Denies: Hx Hepatitis Past Surgical History: Reports: Hx Appendectomy - Immunizations Immunizations up to date: Yes Hx Diphtheria, Pertussis, Tetanus Vaccination: Yes Review of Systems - Review of Systems Constitutional: No symptoms reported EENT: See HPI, Other - Facial edema, facial swelling, lip swelling Cardiovascular: No symptoms reported Respiratory: No symptoms reported Gastrointestinal: No symptoms reported Genitourinary: No symptoms reported Female Genitourinary: No symptoms reported Musculoskeletal: No symptoms reported Skin: No symptoms reported Hematologic/Lymphatic: No symptoms reported Neurological/Psychological: No symptoms reported Physical Exam - Vital signs Vitals: Resp Pulse Ox 17 100 06/25/17 09:34 06/25/17 09:34 Interpretation: Normal - General General appearance: Appears well, Alert - HEENT Head: Normocephalic, Atraumatic Eyes: Normal Pupils: PERRL Mouth/Lips: Angioedema, Other - Significant angioedema noted to the right side of the face and jaw as well as lower lip and half of the upper lip. No obvious edema noted to the tongue. Neck: Normal - Respiratory Respiratory status: No respiratory distress Chest status: Nontender Breath sounds: Normal Chest palpation: Normal - Cardiovascular Rhythm: Regular Heart sounds: Normal auscultation Murmur: No - Abdominal Inspection: Normal Distension: No distension Bowel sounds: Normal Tenderness: Nontender Organomegaly: No organomegaly - Back Back: Normal, Nontender - Extremities General upper extremity: Normal inspection, Nontender, Normal color, Normal ROM , Normal temperature General lower extremity: Normal inspection, Nontender, Normal color, Normal ROM , Normal temperature, Normal weight bearing. No: Michael's sign - Neurological Neuro grossly intact: Yes Cognition: Normal Orientation: AAOx4 Lina Coma Scale Eye Opening: Spontaneous Lina Coma Scale Verbal: Oriented Lina Coma Scale Motor: Obeys Commands Lina Coma Scale Total: 15 Speech: Normal Motor strength normal: LUE, RUE, LLE, RLE Sensory: Normal - Psychological Associated symptoms: Normal affect, Normal mood - Skin Skin Temperature: Warm Skin Moisture: Dry Skin Color: Normal Course - Re-evaluation Re-evalutation: 06/25/17 10:58 Patient has very obvious angioedema. Uncertain etiology. Will order some IgE testing on her which will obviously not come back immediately. Will give Solu- Medrol, Benadryl and Pepcid IV and reassess. 06/25/17 11:00 Review of previous labs show no significant deficiency of C1 esterase 06/25/17 13:45 Patient is not getting any better but not getting any worse at this time will consult with hospitalist for admission because I feel uncomfortable discharging her with excessively swollen lips. 06/25/17 13:45 Altered hospitalist, Dr. Montano. Will accept for admission at this time. - Vital Signs Vital signs: Temp Pulse Resp BP Pulse Ox 98.4 F 114 H 15 116/64 100 06/25/17 09:40 06/25/17 09:40 06/25/17 13:00 06/25/17 11:46 06/25/17 13:00 - Laboratory Result Diagrams: 06/25/17 09:37 06/25/17 09:37 Laboratory results interpreted by me: 06/25/17 09:37 Hgb 10.9 L Hct 35.7 L MCV 70 L MCH 21.4 L MCHC 30.5 L RDW 20.5 H Plt Count 465 H Seg Neutrophils % 33.6 L Lymphocytes % 50.9 H Critical Care Note - Critical Care Note Total time excluding time spent on procedures (mins): 35 Comments: Angioedema of the face and mouth, intravenous drug management. Discharge - Discharge Clinical Impression: Angioedema Qualifiers: Encounter type: initial encounter Qualified Code(s): T78.3XXA - Angioneurotic edema, initial encounter Condition: Good Disposition: ADMITTED OBSERVATION Admitting Provider: Hospitalist - [facility] Admitted: Telemetry
[2017-06-25 10:44] LABS: ABSOLUTE BASOPHILS # (AUTO) 0.1 10^3/uL (0.0-0.2); ABSOLUTE EOSINOPHILS # (AUTO) 0.2 10^3/uL (0.0-0.6); ABSOLUTE LYMPHOCYTES (AUTO) 2.8 10^3/uL (0.5-4.7); ABSOLUTE MONOCYTES (AUTO) 0.6 10^3/uL (0.1-1.4); ABSOLUTE NEUT (AUTO) 1.8 10^3/uL (1.7-8.2); BASOPHILS % (AUTO) 1.1 % (0-2); EOSINOPHILS % (AUTO) 3.5 % (0-6); HEMATOCRIT 35.7 % (36.0-47.0); HEMOGLOBIN 10.9 g/dL (12.0-15.5); LYMPHOCYTES % (AUTO) 50.9 % (13-45); MEAN CORPUSCULAR HEMOGLOBIN 21.4 pg (27.0-33.4); MEAN CORPUSCULAR HGB CONC 30.5 g/dL (32.0-36.0); MEAN CORPUSCULAR VOLUME 70 fl (80-97); MONOCYTES % (AUTO) 10.9 % (3-13); PLATELET COUNT 465 10^3/uL (150-450); RED BLOOD COUNT 5.09 10^6/uL (3.72-5.28); RED CELL DISTRIBUTION WIDTH 20.5 % (11.5-14.0); SEGMENTED NEUTROPHILS % (AUTO) 33.6 % (42-78); TOTAL CELLS COUNTED % (AUTO) 100 %; WHITE BLOOD COUNT 5.4 10^3/uL (4.0-10.5)
[2017-06-25 10:46] LABS: ALANINE AMINOTRANSFERASE 31 U/L (9-52); ALBUMIN 4.1 g/dL (3.5-5.0); ALKALINE PHOSPHATASE 60 U/L (38-126); ANION GAP 11 (5-19); ASPARTATE AMINO TRANSFERASE 27 U/L (14-36); BILIRUBIN,DIRECT 0.4 mg/dL (0.0-0.4); BILIRUBIN,TOTAL 0.6 mg/dL (0.2-1.3); BLOOD UREA NITROGEN 14 mg/dL (7-20); CALCIUM 9.8 mg/dL (8.4-10.2); CARBON DIOXIDE 26 mmol/L (22-30); CHLORIDE 104 mmol/L (98-107); GLUCOSE 97 mg/dL (75-110); POTASSIUM 4.5 mmol/L (3.6-5.0); SODIUM 140.8 mmol/L (137-145); TOTAL PROTEIN 7.2 g/dL (6.3-8.2)
[2017-06-25] MEDS ORDERED: CETIRIZINE 10 MG TABLET PO ONE (14:35)
[2017-06-25] MEDS ORDERED: ENOXAPARIN SODIUM INJ 40 MG/0.4 ML DISP.SYRIN SUBCUT ONE (16:00)
[2017-06-25] MEDS ORDERED: FAMOTIDINE INJ/PF 20 MG/2 ML SDV IV SCH (18:00)
[2017-06-25] MEDS: DIPHENHYDRAMINE HCL 50 MG/ML VIAL IV PRN ×2 (18:12→22:10)
--- NOTE | 2017-06-25 18:44 | HISTORY AND PHYSICAL E ---
History and Physical NAME: KOBE WAYNE : 1990 AGE: 27Y ADMITTED: 06/25/2017 ROOM: 331 CODE STATUS: Full code. PRIMARY CARE PROVIDER: Dr. Benoit. CHIEF COMPLAINT: Mouth swelling. HISTORY OF PRESENT ILLNESS: The patient is a 27-year-old -British female with a past medical history of super morbid obesity and multiple presentations for angioedema. The patient presented to the emergency department with a chief complaint of mouth swelling, that also included her lips and tongue. The patient stated that this happens multiple times in the past. She has had an EpiPen, however, at this time she is in-between primary care providers and will not be able to see her new provider for a week. The patient stated that she has been hospitalized for observation in the past but has never required intubation, has never been on an Epi drip. The symptoms appear to be controlled with what sounds to be H1 and H2 receptor blockers as well as classical antihistamines. Regardless, the patient denies any new medication use, no new foods. Denies iodine, penicillin, shellfish, peanuts, or hydrocodone. However, the patient is having a very difficult time given a 24 hour diet recall. At this time the patient denies any difficulty breathing. Denied wheezing. No difficulty swallowing. The patient denies any chest pain. The patient states that in the past it has gotten severe enough that both hands will swell as well as her entire face. However, that is not the case at this time. While in the emergency department the patient did receive a large dose of Benadryl as well as IV famotidine and a 1 time dose of Solu-Medrol. PAST MEDICAL HISTORY: 1. Asthma. 2. Prior presentations and admissions for angioedema. PAST SURGICAL HISTORY: Appendectomy. ALLERGIES: 1. IODINE. 2. PENICILLIN. 3. SHELLFISH. 4. PEANUTS. 5. HYDROCODONE. HOME MEDICATIONS: None. SOCIAL HISTORY: The patient currently resides at home. The patient's surrogate decision maker is her sibling, Selena Harding who may be reached at [phone]. The patient has no history of tobacco use or alcohol or illicit drug use. The patient is engaged. She denies having any children. The patient is employed at [employer] but denies any recent exposures at work. FAMILY MEDICAL HISTORY: The patient's father is alive without any medical problems, he is asthmatic. The patient's mother has coronary artery disease as well as hypertension. The patient does have 1 sister who is reported to be healthy. No children. REVIEW OF SYSTEMS: CONSTITUTIONAL: The patient denies any fevers, chills. No dizziness, weakness, loss of appetite. INTEGUMENTARY: The patient denies any diaphoresis, rashes, bruising, itching. HEENT: Denies any vision change, hearing loss, nasal drainage. Denies any headache. No sore throat. The patient does not feel as if her throat is closing. CARDIOVASCULAR: No chest pain, edema, but does admit to heart palpitations. RESPIRATORY: Denies any cough, sputum production, or hemoptysis. Denies any wheezing or shortness of breath. GASTROINTESTINAL: Denies any nausea, vomiting, diarrhea, abdominal pain, bloody hematemesis, constipation, melena, or hematochezia. GENITOURINARY: Denies any hematuria, polyuria, or dysuria. MUSCULOSKELETAL: The patient denies any joint pain. NEUROLOGIC: No seizures, tremors, or loss of consciousness. HEMATOLOGIC: Denies any pretty bleeding, easy bruising. ENDOCRINE: Denies any recent weight changes. PSYCHIATRIC: Denies any suicidal or homicidal ideation. The rest of the review of the other organ systems is negative. PHYSICAL EXAMINATION: GENERAL: On examination the patient is a well-developed, morbidly obese 27-year-old -British female who is awake, alert. She oriented to person, place, time, and situation. She is verbal, conversational. Does not appear to be in any acute distress. VITAL SIGNS: Temperature is 98.4, pulse 76, respirations 21, blood pressure 129/91, oxygen saturation is 100% on room air. SKIN: Warm and dry, no rash. She is not diaphoretic. HEENT: Pupils equal, round, reactive to light and accommodation. Conjunctivae are pink. Sclerae are nonicteric. There are no mouth lesions. The patient's uvula does not appear to be edematous neither does her tongue. Edema is involved with the patient's lower lip and chin. No evidence of Humberto's angina. NECK: No palpable lymphadenopathy or thyromegaly. CARDIOVASCULAR: Heart is regular. There is no murmur or rub. CHEST: Clear, symmetrical, unlabored. No wheezing. ABDOMEN: Obese, soft, unable to appreciate for organomegaly given body habitus. EXTREMITIES: No clubbing, cyanosis, edema. No peripheral signs of embolization. Two plus pedal pulses are noted bilaterally. PSYCHIATRIC: Appropriate affect, pleasant mood. DIAGNOSTICS: Lab values are as follows - hematology obtained of ; WBC 5.4, hemoglobin 10.9, hematocrit is 35.7, platelet count is 165,000. Chemistry obtained on 06/25/2017; sodium is 140, potassium 4.5, chloride is 104, carbon dioxide 26, BUN 14, creatinine 0.67, glucose 97, calcium is 9.8, bilirubin 0.6, AST 27, ALT 31, alk-phos 60, total protein 7.2, albumin 4.1. IMPRESSION AND PLAN: 1. Angioedema, uncertain of what the patient's trigger is at this point. Will observe the patient in telemetry and will cover with H1 and H2 receptor blockers as well as steroids. The patient's symptoms do appear improved. The patient is aware to alert nursing staff if she should develop wheezing, difficulty swallowing, and so forth. 2. Morbid obesity with a BMI 54. Have highly encouraged weight reduction. 3. Asthma. The patient is not on any long-term control medications. This does appear to be only intermittent. The patient has no evidence of wheezing at this time, but will monitor. CODE STATUS: The patient is a full code. DISPOSITION: Depending on the patient's symptomatology and diagnostic findings will reevaluate in the a.m. for discharge. Will be observed the patient on continuous telemetry as the patient's expected length of stay should not surpass 2 midnights. TIME SPENT: On this admission including assessment, plan, physical examination, patient education, review of previous records, and family meeting is 50 minutes. DICTATING PHYSICIAN: ENMANUEL CABAN NP [id number] PHY#: [id number] ID: [id number] JOB#: [id number] ACCT: [id number] cc:BRIDGETT CRUMP M.D. >
[2017-06-25 20:44] VITALS: BP 119/64
[2017-06-25] MEDS ORDERED: METHYLPREDNISOLONE INJ 40 MG/1 ML SDV IV SCH (22:00)
[2017-06-26] MEDS ORDERED: CETIRIZINE 10 MG TABLET PO SCH (10:00)
[2017-06-26] MEDS ORDERED: ENOXAPARIN SODIUM INJ 40 MG/0.4 ML DISP.SYRIN SUBCUT SCH (10:00)
== END 2017-06-25 22:55 | disposition left against medical advice (07) ==
LOC: ER 09:14 → EH 14:01 → UNDOADMOB 14:01 → 3S 16:06
PROVIDERS: ADMIT Family Medicine; ATTEND Family Medicine
DX: T78.3XXA Angioneurotic edema, initial encounter (principal); E66.01 Morbid (severe) obesity due to excess calories; Z68.43 Body mass index [BMI] 50.0-59.9, adult; J45.909 Unspecified asthma, uncomplicated; Z88.5 Allergy status to narcotic agent; Z88.0 Allergy status to penicillin; Z91.013 Allergy to seafood; Z91.010 Allergy to peanuts; Z91.041 Radiographic dye allergy status; Z90.49 Acquired absence of other specified parts of digestive tract
CPT/HCPCS: 96376; 99284; 96374; 96375; 36415; 85025; 80053; 86003 ×33; 82785; J1200; J2920; J2930; J1650; J3490; S0028

== ENCOUNTER 2017-06-27 22:33 | Emergency (ER) | payer SELFPAY ==
[2017-06-28 00:07] VITALS: BP 145/94
[2017-06-28] MEDS ORDERED: PREDNISONE 20 MG TABLET PO ONE (00:57)
--- NOTE | 2017-06-28 00:57 | ER Document Report ---
ED General - General Chief Complaint: Allergy Symptoms Stated Complaint: ALLERGIC REACTION Time Seen by Provider: 06/27/17 23:58 Mode of Arrival: Ambulatory Information source: Patient, [facility] Records Notes: 27-year-old female history of multiple episodes of swelling of hands, ness, lips, tongue presents with complaitns othat her tongue is swollen. pt states she has difficulty breahting, but is able ot breath with no difficulty. pt denies having seen crm solution architect. pt denies nay nausea vomiting. TRAVEL OUTSIDE OF THE [place] IN LAST 30 DAYS: No - HPI Onset: Just prior to arrival Onset/Duration: Sudden Quality of pain: No pain Severity: Mild Pain Level: Denies Associated symptoms: Other Exacerbated by: Denies Relieved by: Denies Similar symptoms previously: Yes Recently seen / treated by doctor: Yes - Related Data Allergies/Adverse Reactions: iodine [Iodine] Allergy (Severe, Verified 06/28/17 00:25) throat swells Penicillins Allergy (Severe, Verified 06/28/17 00:25) throat swells Shellfish * [Shellfish] Allergy (Severe, Verified 06/28/17 00:25) Blisters peanut Adverse Reaction (Severe, Verified 06/28/17 00:25) rash hydrocodone Adverse Reaction (Verified 06/28/17 00:25) Pruritis Past Medical History - Social History Smoking Status: Never Smoker Cigarette use (# per day): No Chew tobacco use (# tins/day): No Smoking Education Provided: No Family History: Reviewed & Not Pertinent, Arthritis, CAD, DM, Hyperlipidemia, Hypertension Patient has suicidal ideation: No Patient has homicidal ideation: No - Past Medical History Cardiac Medical History: Denies: Hx Congestive Heart Failure, Hx Coronary Artery Disease, Hx DVT, Hx Heart Attack, Hx Hypercholesterolemia, Hx Hypertension, Hx Pulmonary Embolism Pulmonary Medical History: Reports: Hx Asthma Denies: Hx Bronchitis, Hx COPD, Hx Pneumonia Neurological Medical History: Denies: Hx Cerebrovascular Accident, Hx Seizures Endocrine Medical History: Denies: Hx Diabetes Mellitus Type 2, Hx Hyperthyroidism, Hx Hypothyroidism Renal/ Medical History: Denies: Hx Peritoneal Dialysis GI Medical History: Reports: Hx Diverticulitis. Denies: Hx Cirrhosis, Hx Hepatitis Musculoskeltal Medical History: Reports Hx Arthritis - RA Psychiatric Medical History: Reports: Hx Anxiety, Hx Bipolar Disorder, Hx Depression Infectious Medical History: Denies: Hx Hepatitis Past Surgical History: Reports: Hx Appendectomy - Immunizations Immunizations up to date: Yes Hx Diphtheria, Pertussis, Tetanus Vaccination: Yes Review of Systems - Review of Systems Notes: REVIEW OF SYSTEMS: CONSTITUTIONAL : Denies fever, chills, or sweats. Denies recent illness. EENT: Admits to tongue swelling CARDIOVASCULAR: Denies chest pain. Denies palpitations or racing or irregular heart beat. Denies ankle edema. RESPIRATORY: Denies cough, cold, or chest congestion. Denies shortness of breath, difficulty breathing, or wheezing. GASTROINTESTINAL: Denies abdominal pain or distention. Denies nausea, vomiting , or diarrhea. Denies blood in vomitus, stools, or per rectum. Denies black, tarry stools. Denies constipation. GENITOURINARY: Denies difficulty urinating, painful urination, burning, frequency, blood in urine, or discharge. FEMALE GENITOURINARY: Denies vaginal bleeding, heavy or abnormal periods, irregular periods. Denies vaginal discharge or odor. MUSCULOSKELETAL: Denies back or neck pain or stiffness. Denies joint pain or swelling. SKIN: Denies rash, lesions or sores. HEMATOLOGIC : Denies easy bruising or bleeding. LYMPHATIC: Denies swollen, enlarged glands. NEUROLOGICAL: Denies confusion or altered mental status. Denies passing out or loss of consciousness. Denies dizziness or lightheadedness. Denies headache. Denies weakness or paralysis or loss of use of either side. Denies problems with gait or speech. Denies sensory loss, numbness, or tingling. Denies seizures. PSYCHIATRIC: Denies anxiety or stress. Denies depression, suicidal ideation, or homicidal ideation. ALL OTHER SYSTEMS REVIEWED AND NEGATIVE. PHYSICAL EXAMINATION: GENERAL: Well-appearing, well-nourished and in no acute distress. HEAD: Atraumatic, normocephalic. EYES: Pupils equal round and reactive to light, extraocular movements intact, conjunctiva are normal. ENT: Nares patent, oropharynx clear without exudates. Moist mucous membranes. NECK: Normal range of motion, supple without lymphadenopathy LUNGS: Breath sounds clear to auscultation bilaterally and equal. No wheezes rales or rhonchi. HEART: Regular rate and rhythm without murmurs ABDOMEN: Soft, nontender, nondistended abdomen. No guarding, no rebound. No masses appreciated. Female : deferred Musculoskeletal: Normal range of motion, no pitting or edema. No cyanosis. NEUROLOGICAL: Cranial nerves grossly intact. Normal speech, normal gait. Normal sensory, motor exams PSYCH: Normal mood, normal affect. SKIN: Warm, Dry, normal turgor, no rashes or lesions noted. Dictation was performed using [employer] voice recognition software Physical Exam - Vital signs Vitals: Temp Pulse Resp BP Pulse Ox 98.2 F 84 18 145/94 H 99 06/27/17 22:43 06/27/17 22:43 06/27/17 22:43 06/27/17 22:43 06/27/17 22:43 Course - Re-evaluation Re-evalutation: 06/28/17 02:19 Patient's examination is quite benign, his tongue is not edematous, there is no signs of a edema no respiratory distress no stridor no difficulty breathing, airway is patent, patient will be given medications for allergic reaction but will be given more importantly follow-up with crm solution architect for further testing care Patient wishes to be discharged immediately After performing a Medical Screening Examination, I estimate there is LOW risk for AIRWAY COMPROMISE, ANAPHYLAXIS, CELLULITIS, EPIGLOTTIS, or NECROTIZING FASCIITIS, thus I consider the discharge disposition reasonable. Also, there is no evidence or peritonitis, sepsis, or toxicity. I have reevaluated this patient multiple times and no significant life threatening changes are noted. The patient and I have discussed the diagnosis and risks, and we agree with discharging home with close follow-up with the understanding that symptoms and presentations can change. We also discussed returning to the Emergency Department immediately if new or worsening symptoms occur. We have discussed the symptoms which are most concerning (e.g., difficulty breathing or swallowing , fever, changing or worsening pain) that necessitate immediate return. - Vital Signs Vital signs: Temp Pulse Resp BP Pulse Ox 98.2 F 82 20 145/94 H 98 06/27/17 22:43 06/28/17 00:25 06/28/17 00:25 06/27/17 22:43 06/28/17 00:25 Discharge - Discharge Clinical Impression: Allergic reaction Qualifiers: Encounter type: initial encounter Qualified Code(s): T78.40XA - Allergy, unspecified, initial encounter Condition: Stable Disposition: HOME, SELF-CARE Instructions: Acute Allergic Reaction ([facility]) Prescriptions: Epinephrine [Epipen 2-Lucio] 0.3 mg IM ASDIR PRN #1 packet PRN Reason: Famotidine [Pepcid 20 mg Tablet] 20 mg PO DAILY #5 tablet Prednisone [Deltasone 20 mg Tablet] 3 tab PO DAILY 5 Days tablet [facility] - Follow up as needed
== END 2017-06-28 01:05 | disposition home or self-care (01) ==
LOC: ER 22:33
DX: T78.40XA Allergy, unspecified, initial encounter (principal); M79.89 Other specified soft tissue disorders; X58.XXXA Exposure to other specified factors, initial encounter; J45.909 Unspecified asthma, uncomplicated; Z88.0 Allergy status to penicillin; Z91.013 Allergy to seafood
CPT/HCPCS: 99283; J7512

== ENCOUNTER 2017-07-12 11:22 | Emergency (ER) | payer SELFPAY ==
--- NOTE | 2017-07-12 11:50 | ER Document Report ---
ED General - General Chief Complaint: Urinary Frequency Stated Complaint: URINARY ISSUE Time Seen by Provider: 07/12/17 11:40 Notes: 27-year-old female here with complaints of urinary frequency that started yesterday evening and has been persistent up to now. She has also had some intermittent bilateral hand numbness and blurry vision lasting 1-2 seconds before complete resolution. Of note, she is taking a new medication prednisone for "idiopathic angioedema". She denies any history of diabetes. She has not had increased thirst or appetite. She denies dysuria or fevers chills back/ abdominal/flank pain nausea vomiting. TRAVEL OUTSIDE OF THE [place] IN LAST 30 DAYS: No - Related Data Allergies/Adverse Reactions: iodine [Iodine] Allergy (Severe, Verified 07/12/17 11:29) throat swells Penicillins Allergy (Severe, Verified 07/12/17 11:29) throat swells Shellfish * [Shellfish] Allergy (Severe, Verified 07/12/17 11:29) Blisters peanut Adverse Reaction (Severe, Verified 07/12/17 11:29) rash hydrocodone Adverse Reaction (Verified 07/12/17 11:29) Pruritis Past Medical History - Social History Smoking Status: Unknown if Ever Smoked Family History: Reviewed & Not Pertinent, Arthritis, CAD, DM, Hyperlipidemia, Hypertension - Past Medical History Cardiac Medical History: Denies: Hx Congestive Heart Failure, Hx Coronary Artery Disease, Hx DVT, Hx Heart Attack, Hx Hypercholesterolemia, Hx Hypertension, Hx Pulmonary Embolism Pulmonary Medical History: Reports: Hx Asthma Denies: Hx Bronchitis, Hx COPD, Hx Pneumonia Neurological Medical History: Denies: Hx Cerebrovascular Accident, Hx Seizures Endocrine Medical History: Denies: Hx Diabetes Mellitus Type 2, Hx Hyperthyroidism, Hx Hypothyroidism Renal/ Medical History: Denies: Hx Peritoneal Dialysis GI Medical History: Reports: Hx Diverticulitis. Denies: Hx Cirrhosis, Hx Hepatitis Musculoskeltal Medical History: Reports Hx Arthritis - RA Psychiatric Medical History: Reports: Hx Anxiety, Hx Bipolar Disorder, Hx Depression Infectious Medical History: Denies: Hx Hepatitis Past Surgical History: Reports: Hx Appendectomy - Immunizations Immunizations up to date: Yes Hx Diphtheria, Pertussis, Tetanus Vaccination: Yes Review of Systems - Review of Systems Notes: See history of present illness for pertinent positive review of systems; otherwise all review of systems have been reviewed and are negative Physical Exam - Vital signs Vitals: Temp Pulse Resp BP Pulse Ox 98.8 F 85 20 136/89 H 100 07/12/17 11:29 07/12/17 11:29 07/12/17 11:07/12/17 11:07/12/17 11:29 - Notes Notes: PHYSICAL EXAMINATION: GENERAL: Well-appearing and in no acute distress. HEAD: Atraumatic, normocephalic. EYES: Pupils equal round and reactive to light, extraocular movements intact, sclera anicteric, conjunctiva are normal. ENT: nares patent, oropharynx clear without exudates. Moist mucous membranes. NECK: Normal range of motion, supple without lymphadenopathy LUNGS: CTAB and equal. No wheezes rales or rhonchi. HEART: Regular rate and rhythm without murmurs ABDOMEN: Soft, no tenderness. No facial grimacing/wincing upon palpation. No guarding, no rebound. EXTREMITIES: Normal range of motion, no pitting edema. No cyanosis. NEUROLOGICAL: Cranial nerves grossly intact. Normal sensory/motor exams left upper/lower extremity. Normal sensory exam right upper/lower extremity. Right upper/lower extremity 4+/5 strength (patient states this is baseline for her for many years). Peripheral tremors both hands (patient states this is baseline for her for many years) PSYCH: Normal mood, normal affect. SKIN: Warm, Dry, normal turgor, no rashes or lesions noted Course - Re-evaluation Re-evalutation: 07/12/17 13:01 MEDICAL DECISION MAKING: Urinalysis shows some leukocyte esterase and bacteria but UPT negative Will prescribe Macrobid and instructed follow-up PCP next day or few Patient understands and agrees to the plan of care - Vital Signs Vital signs: Temp Pulse Resp BP Pulse Ox 98.8 F 85 20 136/89 H 100 07/12/17 11:29 07/12/17 11:29 07/12/17 11:29 07/12/17 11:29 07/12/17 11:29 - Laboratory Laboratory results interpreted by me: 07/12/17 07/12/17 11:43 11:48 POC Glucose 117 H Ur Leukocyte Esterase TRACE H Discharge - Discharge Clinical Impression: Bacteriuria Condition: Good Disposition: HOME, SELF-CARE Additional Instructions: You were seen in the emergency department at [facility]. Finish the antibiotics for the bacteria in the urine. Please followup with your primary physician in the next few days for further management/evaluation. Please return to the emergency department for worsening of symptoms or any symptom that you deem to be concerning or life-threatening. Thank you for allowing us to be part of your care. Prescriptions: Nitrofurantoin/Nitrofuran Mac [Macrobid 100 mg Capsule] 1 tab PO BID #20 capsule
[2017-07-12 12:06] LABS: APPEARANCE,URINE SLIGHTLY-CLOUDY; BILIRUBIN,URINE NEGATIVE (NEGATIVE); COLOR,URINE YELLOW; GLUCOSE, URINE NEGATIVE (NEGATIVE); KETONES,URINE NEGATIVE (NEGATIVE); LEUKOCYTE ESTERASE,URINE TRACE (NEGATIVE); NITRITE,URINE NEGATIVE (NEGATIVE); PROTEIN,URINE NEGATIVE (NEGATIVE); URINE SPECIFIC GRAVITY 1.015; UROBILINOGEN,URINE NEGATIVE mg/dL (<2.0)
[2017-07-12 13:16] VITALS: BP 135/87
== END 2017-07-12 13:10 | disposition home or self-care (01) ==
LOC: ER 11:22
DX: R82.71 Bacteriuria (principal); R35.0 Frequency of micturition; H53.8 Other visual disturbances; R20.0 Anesthesia of skin; Z88.0 Allergy status to penicillin; Z88.6 Allergy status to analgesic agent; Z91.010 Allergy to peanuts; Z91.013 Allergy to seafood
CPT/HCPCS: 81001; 81025; 82962; 99283

== ENCOUNTER 2017-08-02 02:41 | Emergency (ER) | payer SELFPAY ==
[2017-08-02] MEDS ORDERED: DEXAMETHASONE SOD PHOS INJ 10 MG/1 ML VIAL IM ONE (03:23)
[2017-08-02] MEDS ORDERED: RANITIDINE HCL SYRUP 150 MG/10 ML UDCUP PO ONE (03:23)
[2017-08-02] MEDS ORDERED: DIPHENHYDRAMINE HCL 25 MG/10 ML UDC PO ONE (03:23)
--- NOTE | 2017-08-02 03:23 | ER Document Report ---
ED ENT - General Mode of Arrival: Ambulatory Information source: Patient TRAVEL OUTSIDE OF THE [place] IN LAST 30 DAYS: No - HPI Patient complains to provider of: Throat problem Onset: This evening - APPROX. 11 PM Onset/Duration: Sudden Quality of pain: Other - PRESSURE & SWELLING SENSATION Severity: Moderate Context: Allergies - ABOVE, Other - H/O ANGIOEDEMA. denies: Injury, Recent Illness Location of pain: Throat Associated symptoms: Difficulty swallowing, Sore throat. denies: Drooling, Face swelling, Hoarse voice Similar symptoms previously: No Recently seen / treated by doctor: No <COLBY REDD - Last Filed: 08/02/17 04:29> <TESSY SOL - Last Filed: 08/02/17 06:32> - General Chief Complaint: Sore Throat Stated Complaint: THROAT PAIN Time Seen by Provider: 08/02/17 03:07 - Related Data Allergies/Adverse Reactions: iodine [Iodine] Allergy (Severe, Verified 07/12/17 11:29) throat swells Penicillins Allergy (Severe, Verified 07/12/17 11:29) throat swells Shellfish * [Shellfish] Allergy (Severe, Verified 07/12/17 11:29) Blisters peanut Adverse Reaction (Severe, Verified 07/12/17 11:29) rash hydrocodone Adverse Reaction (Verified 07/12/17 11:29) Pruritis Past Medical History - General Information source: Patient - Social History Smoking Status: Never Smoker Cigarette use (# per day): No Chew tobacco use (# tins/day): No Frequency of alcohol use: Occasional Drug Abuse: None Lives with: Family Family History: Reviewed & Not Pertinent, Arthritis, CAD, DM, Hyperlipidemia, Hypertension Patient has suicidal ideation: No Patient has homicidal ideation: No - Past Medical History Cardiac Medical History: Denies: Hx Congestive Heart Failure, Hx Coronary Artery Disease, Hx DVT, Hx Heart Attack, Hx Hypercholesterolemia, Hx Hypertension, Hx Pulmonary Embolism Pulmonary Medical History: Reports: Hx Asthma Denies: Hx Bronchitis, Hx COPD, Hx Pneumonia EENT Medical History: Reports: Other - OROFACIAL ANGIOEDEMA, SEVERAL TIMES Neurological Medical History: Denies: Hx Cerebrovascular Accident, Hx Seizures Endocrine Medical History: Denies: Hx Diabetes Mellitus Type 2, Hx Hyperthyroidism, Hx Hypothyroidism Renal/ Medical History: Denies: Hx Peritoneal Dialysis GI Medical History: Reports: Hx Diverticulitis. Denies: Hx Cirrhosis, Hx Hepatitis Musculoskeltal Medical History: Reports Hx Arthritis - RA Psychiatric Medical History: Reports: Hx Anxiety, Hx Bipolar Disorder, Hx Depression Infectious Medical History: Denies: Hx Hepatitis Past Surgical History: Reports: Hx Appendectomy - Immunizations Immunizations up to date: Yes Hx Diphtheria, Pertussis, Tetanus Vaccination: Yes <AMBERBANDARCOLBY HO - Last Filed: 08/02/17 04:29> Review of Systems - Review of Systems Constitutional: No symptoms reported EENT: See HPI Cardiovascular: No symptoms reported Respiratory: No symptoms reported Gastrointestinal: No symptoms reported Genitourinary: No symptoms reported Female Genitourinary: denies: Musculoskeletal: No symptoms reported Skin: No symptoms reported. denies: Rash Neurological/Psychological: No symptoms reported <CRISTOGEORGIACOLBY Filed: 08/02/17 04:29> Physical Exam - Vital signs Interpretation: Hypertensive. No: Tachycardic, Tachypneic, Febrile - General General appearance: Appears well, Alert In distress: None - HEENT Head: Normocephalic Eyes: Normal Conjunctiva: Normal Ears: Normal Nasal: Normal Mouth/Lips: Normal Mucous membranes: Normal Pharynx: Normal. No: Erythema, Tonsillar hypertrophy, Uvular edema, Potential airway comprom. Neck: Other - ABUNDANT ADIPOSE TISSUE - Respiratory Respiratory status: No respiratory distress Breath sounds: Normal - Cardiovascular Rhythm: Regular Heart sounds: Normal auscultation Murmur: No - Abdominal Inspection: Morbidly Obese - Extremities General upper extremity: Normal inspection General lower extremity: Normal inspection - Neurological Neuro grossly intact: Yes Cognition: Normal Orientation: AAOx4 - Psychological Associated symptoms: Normal affect, Normal mood - Skin Skin Temperature: Warm Skin Moisture: Dry Skin Color: Normal Skin Turgor: Elastic Skin irregularity: negative: Rash <CRISTOGEORGIACOLBY - Last Filed: 08/02/17 04:29> - Vital signs Vitals: Temp Pulse Resp BP Pulse Ox 98.2 F 95 18 147/104 H 100 08/02/17 02:46 08/02/17 02:46 08/02/17 02:46 08/02/17 02:46 08/02/17 02:46 Course <IVANIACOLBY Last Filed: 08/02/17 04:29> - Laboratory Result Diagrams: 08/02/17 04:37 08/02/17 04:37 <TESSY SOL - Last Filed: 08/02/17 06:32> - Re-evaluation Re-evalutation: 08/02/17 04:29 Patient states she is about the same subjectively. Examination is unchanged. Discussed results of plain film radiographs. Inquired about history of allergy to iodine and shellfish, patient states she has had intravenous contrast in the past with no problem after being premedicated. Contrasted CT scan of the neck has been ordered. Patient care transferred to Dr. Sol. (COLBY REDD) 08/02/17 05:45 Reevaluate the patient. Patient's throat looks fine on exam. She says she X feels much improved. She looks well. She denies any itching or any medications. Her blood is hemolyzed. Patient says he does not want to go through any further blood sticks. She is 27 years old without any other chronic medical problems other than obesity. She says she sees her doctor and her yearly basis and has blood work done and her kidney function is always normal. We will not put her through repeat lab draw to check her kidney function as there is no reason to think that would be abnormal at this time. We will go forward with the CT scan. Patient is agreeable to this plan. 08/02/17 06:31 Patient clinically looks well and she has no difficulty breathing and no stridor and says that clinically she feels much improved. CT scan does show some pharyngitis with a little bit of phlegmonous changes. There is no abscess. I will place her on antibiotic. She still received Decadron. I informed the patient even though she is feeling better she must have a low threshold to return to ER immediately if she feels like she is having recurrence of swelling, difficulty breathing, difficulty swallowing, or she feels unwell. Patient agrees with plan will be discharged home. Dictation of this chart was performed using voice recognition software; therefore, there may be some unintended grammatical errors. (TESSY SOL) - Vital Signs Vital signs: Temp Pulse Resp BP Pulse Ox 98.2 F 95 18 147/104 H 100 08/02/17 02:46 08/02/17 02:46 08/02/17 02:46 08/02/17 02:46 08/02/17 02:46 - Laboratory Laboratory results interpreted by me: 08/02/17 04:37 Hgb 11.3 L Hct 35.5 L MCV 74 L MCH 23.5 L MCHC 31.7 L RDW 23.8 H Discharge <COLBY REDD - Last Filed: 08/02/17 04:29> <TESSY SOL - Last Filed: 08/02/17 06:32> - Discharge Clinical Impression: Dysphagia Qualifiers: Dysphagia type: unspecified Qualified Code(s): R13.10 - Dysphagia, unspecified Pharyngitis Qualifiers: Pharyngitis/tonsillitis etiology: unspecified etiology Qualified Code(s): J02.9 - Acute pharyngitis, unspecified Condition: Good Disposition: HOME, SELF-CARE Additional Instructions: Please take the antibiotics as prescribed. Please follow up with your doctor in 2-3 days for close reevaluation. you must return to the ER immediately if you develop recurrence of sensation of throat swelling, any difficulty breathing, difficulty swallowing, fevers, or feel unwell. Prescriptions: Clindamycin HCl 300 mg PO ASDIR #56 capsule Forms: Return to Work
[2017-08-02] MEDS ORDERED: RANITIDINE HCL SYRUP 150 MG/10 ML UDCUP ONE (03:57)
--- NOTE | 2017-08-02 04:01 | RADIOLOGY REPORT (SQ) ---
EXAM DESCRIPTION: XR NECK SOFT TISSUE COMPLETED DATE/TME: 08/02/2017 03:25 CLINICAL HISTORY: 27 years, Female, DYSPHAGIA, H/O ANGIOEDEMA COMPARISON: None. FINDINGS: 2 views of the neck soft tissues. Normal epiglottis. No ballooning of the hypopharynx. Mild prominence of the prevertebral soft tissues. No air identified. Mild steepling of the subglottic airway. No acute osseous abnormalities. IMPRESSION: 1. Mild prominence of the prevertebral/retropharyngeal soft tissues. This is a nonspecific finding but could be related to inflammatory or infectious abnormalities in the neck soft tissues. 2. Mild steepling of the subglottic airway. This is a nonspecific finding and can be seen with tracheobronchitis or other causes of airway inflammation. 2011 [employer]- All Rights Reserved
[2017-08-02 05:05] LABS: ABSOLUTE BASOPHILS # (AUTO) 0.1 10^3/uL (0.0-0.2); ABSOLUTE EOSINOPHILS # (AUTO) 0.2 10^3/uL (0.0-0.6); ABSOLUTE LYMPHOCYTES (AUTO) 2.6 10^3/uL (0.5-4.7); ABSOLUTE MONOCYTES (AUTO) 0.5 10^3/uL (0.1-1.4); EOSINOPHILS % (AUTO) 2.7 % (0-6); HEMATOCRIT 35.5 % (36.0-47.0); HEMOGLOBIN 11.3 g/dL (12.0-15.5); LYMPHOCYTES % (AUTO) 40.8 % (13-45); MEAN CORPUSCULAR HEMOGLOBIN 23.5 pg (27.0-33.4); MEAN CORPUSCULAR HGB CONC 31.7 g/dL (32.0-36.0); MEAN CORPUSCULAR VOLUME 74 fl (80-97); PLATELET COUNT 416 10^3/uL (150-450); RED CELL DISTRIBUTION WIDTH 23.8 % (11.5-14.0); SEGMENTED NEUTROPHILS % (AUTO) 47.5 % (42-78); TOTAL CELLS COUNTED % (AUTO) 100 %; WHITE BLOOD COUNT 6.4 10^3/uL (4.0-10.5)
--- NOTE | 2017-08-02 06:19 | RADIOLOGY REPORT (SQ) ---
EXAM DESCRIPTION: CT NECK CHEST WITH IV CONTRAST COMPLETED DATE/TME: 08/02/2017 04:23 CLINICAL HISTORY: 27 years, Female, DYSPHAGIA, RETROPHARYNGEAL FULLNESS ON PLAIN FILM COMPARISON: None. TECHNIQUE: Axial CT images of the neck soft tissues obtained following the uncomplicated intravenous administration of 75 mL Isovue-300. Coronal and sagittal reformatted images available DLP: 846.86mGycm All CT scanners at this facility use dose modulation, iterative reconstruction, and/or weight based dosing when appropriate to reduce radiation dose to as low as reasonably achievable (ALARA). [facility]: Dose Right [facility]: CareDose [facility]: Dose Right [facility]: Teradose 4D [facility]: CausePlay FINDINGS: Visualized orbits and globes are unremarkable. Minimal mucosal thickening of the left maxillary sinus. The remaining paranasal sinuses are well aerated. No facial bone fracture identified. The parotid and submandibular glands are unremarkable. No definite cervical lymphadenopathy. No definite abnormality of the carotid arteries or jugular veins. The tongue base is symmetric. Mild prominence of the faucial tonsils. Decreased density and thickening of the retropharyngeal soft tissues. No well-circumscribed fluid collection identified. No abnormalities in the parapharyngeal space. No abnormalities in the visceral space. Visualized thyroid gland is unremarkable. Visualized lung apices are clear. No acute abnormalities of the visualized cervical spine. Visualized aortic arch demonstrates no definite abnormalities. Great vessels have normal anatomic configuration IMPRESSION: 1. Findings suggestive of tonsillitis with adjacent inflammatory phlegmon/cellulitis of the retropharyngeal space. No well-circumscribed fluid collection to suggest abscess formation. 2. Tonsillar enlargement produces narrowing of the oropharynx. Edema of the retropharyngeal soft tissues produces mass effect on the hypopharynx and subglottic airway. TECHNICAL DOCUMENTATION: Quality ID # 436: Final reports with documentation of one or more dose reduction techniques (e.g., Automated exposure control, adjustment of the mA and/or kV according to patient size, use of iterative reconstruction technique) 2010 [employer]- All Rights Reserved
[2017-08-02] MEDS ORDERED: CLINDAMYCIN HCL 150 MG CAPSULE PO ONE (06:25)
[2017-08-02 06:34] VITALS: BP 130/95
[2017-08-02 06:34] LABS: ALANINE AMINOTRANSFERASE 35 U/L (9-52); ALBUMIN 3.9 g/dL (3.5-5.0); ALKALINE PHOSPHATASE 87 U/L (38-126); ANION GAP 9 (5-19); ASPARTATE AMINO TRANSFERASE 53 U/L (14-36); BILIRUBIN,DIRECT 0.2 mg/dL (0.0-0.4); BILIRUBIN,TOTAL 0.3 mg/dL (0.2-1.3); BLOOD UREA NITROGEN 11 mg/dL (7-20); CALCIUM 9.5 mg/dL (8.4-10.2); CARBON DIOXIDE 26 mmol/L (22-30); CHLORIDE 107 mmol/L (98-107); GLUCOSE 124 mg/dL (75-110); SODIUM 141.9 mmol/L (137-145); TOTAL PROTEIN 7.1 g/dL (6.3-8.2)
== END 2017-08-02 06:48 | disposition home or self-care (01) ==
LOC: ER 02:41
DX: R13.10 Dysphagia, unspecified (principal); J02.9 Acute pharyngitis, unspecified; E66.9 Obesity, unspecified; Z88.0 Allergy status to penicillin; Z91.010 Allergy to peanuts; Z91.013 Allergy to seafood
CPT/HCPCS: 99284; 96372; 36415; 85025; 80053; 70360; 70491; J3490 ×2; J1100

== ENCOUNTER 2017-08-16 07:51 | Observation (INO) | payer SELFPAY ==
[2017-08-16] MEDS ORDERED: METHYLPREDNISOLONE INJ 125 MG/2 ML SDV IV ONE (08:09)
[2017-08-16] MEDS ORDERED: DIPHENHYDRAMINE HCL 50 MG/ML VIAL IV ONE ×2 (08:09→10:23)
[2017-08-16] MEDS ORDERED: FAMOTIDINE INJ/PF 20 MG/2 ML SDV IV ONE (08:09)
--- NOTE | 2017-08-16 08:10 | ER Document Report ---
ED Allergic Reaction - General Chief Complaint: Lip Swelling Stated Complaint: FACIAL SWELLING Time Seen by Provider: 08/16/17 08:09 Mode of Arrival: Ambulatory Information source: Patient Notes: 27-year-old female with does not take any medications has intermittent episodes of angioedema of the lips and face with itching, onset 530 this morning.. Last episode was July 15. Has not taken any Benadryl. No chest pain shortness of breath or wheezing. No recent illness. No mouth pain. TRAVEL OUTSIDE OF THE [place] IN LAST 30 DAYS: No - Related Data Allergies/Adverse Reactions: iodine [Iodine] Allergy (Severe, Verified 07/12/17 11:29) throat swells Penicillins Allergy (Severe, Verified 07/12/17 11:29) throat swells Shellfish * [Shellfish] Allergy (Severe, Verified 07/12/17 11:29) Blisters peanut Adverse Reaction (Severe, Verified 07/12/17 11:29) rash hydrocodone Adverse Reaction (Verified 07/12/17 11:29) Pruritis Past Medical History - General Information source: Patient - Social History Smoking Status: Former Smoker Frequency of alcohol use: None Drug Abuse: None Lives with: Family Family History: Reviewed & Not Pertinent, Arthritis, CAD, DM, Hyperlipidemia, Hypertension Pulmonary Medical History: Reports: Hx Asthma GI Medical History: Reports: Hx Diverticulitis Musculoskeltal Medical History: Reports Hx Arthritis - RA Psychiatric Medical History: Reports: Hx Anxiety, Hx Bipolar Disorder, Hx Depression Past Surgical History: Reports: Hx Appendectomy - Immunizations Immunizations up to date: Yes Hx Diphtheria, Pertussis, Tetanus Vaccination: Yes Review of Systems - Review of Systems Constitutional: No symptoms reported EENT: See HPI Cardiovascular: No symptoms reported Respiratory: No symptoms reported Gastrointestinal: No symptoms reported Genitourinary: No symptoms reported Female Genitourinary: No symptoms reported Musculoskeletal: No symptoms reported Skin: No symptoms reported Hematologic/Lymphatic: No symptoms reported Neurological/Psychological: No symptoms reported Physical Exam - Vital signs Vitals: Temp Pulse Resp BP Pulse Ox 98.8 F 80 16 143/98 H 100 08/16/17 07:58 08/16/17 07:58 08/16/17 07:58 08/16/17 07:58 08/16/17 07:58 Interpretation: Normal - Notes Notes: Obese - General General appearance: Appears well, Alert - HEENT Head: Normocephalic, Atraumatic, Other - non tender swelling right mid to lower cheek/jaw Eyes: Normal Pupils: PERRL Mouth/Lips: Angioedema - right lower lip mostly Mucous membranes: Other - No edema, no dental abscess, no swelling under the tongue, no tongue swelling Pharynx: Normal - No edema Neck: Normal - Respiratory Respiratory status: No respiratory distress Chest status: Nontender Breath sounds: Normal Chest palpation: Normal - Cardiovascular Rhythm: Regular Heart sounds: Normal auscultation Murmur: No - Abdominal Inspection: Normal Distension: No distension Bowel sounds: Normal Tenderness: Nontender Organomegaly: No organomegaly - Back Back: Normal, Nontender - Extremities General upper extremity: Normal inspection, Nontender, Normal color, Normal ROM , Normal temperature General lower extremity: Normal inspection, Nontender, Normal color, Normal ROM , Normal temperature, Normal weight bearing. No: Michael's sign - Neurological Neuro grossly intact: Yes Cognition: Normal Orientation: AAOx4 [place] Coma Scale Eye Opening: Spontaneous Lina Coma Scale Verbal: Oriented Lina Coma Scale Motor: Obeys Commands Lina Coma Scale Total: 15 Speech: Normal Motor strength normal: LUE, RUE, LLE, RLE Sensory: Normal - Psychological Associated symptoms: Normal affect, Normal mood - Skin Skin Temperature: Warm Skin Moisture: Dry Skin Color: Normal Course - Re-evaluation Re-evalutation: 08/16/17 09:12 No itching and the swelling is slightly decreased. 08/16/17 10:23 Patient states her cheek is gone down but she feels like the right side of her lip is getting a little bit bigger. No swelling to the tongue. Patient has someone that can drive her home and I will give her 25 mg of Benadryl IV. She does not feel sleepy. 08/16/17 10:37 08/16/17 10:49 Dr. Childs/Goldie Keane will admit the patient to telemetry observation. - Vital Signs Vital signs: Temp Pulse Resp BP Pulse Ox 98.8 F 80 15 128/93 H 100 08/16/17 07:58 08/16/17 07:58 08/16/17 10:31 08/16/17 10:31 08/16/17 10:31 Discharge - Discharge Clinical Impression: Angioedema Condition: Stable Disposition: ADMITTED OBSERVATION Admitting Provider: Hospitalist Unit Admitted: Telemetry Additional Instructions: Return to the emergency room if symptoms worsen Take Benadryl 50 mg every 4-6 hours for several days Take Pepcid 20 mg twice a day for several days Steroids for 2 more days Prescriptions: Famotidine [Pepcid 20 mg Tablet] 20 mg PO BID #12 tablet Prednisone [Deltasone 20 mg Tablet] 40 mg PO DAILY #8 tablet Referrals: JANETTE HILL NP [Primary Care Provider] - Follow up as needed
[2017-08-16 11:29] LABS: ABSOLUTE BASOPHILS # (AUTO) 0.1 10^3/uL (0.0-0.2); ABSOLUTE EOSINOPHILS # (AUTO) 0.1 10^3/uL (0.0-0.6); ABSOLUTE LYMPHOCYTES (AUTO) 2.4 10^3/uL (0.5-4.7); ABSOLUTE MONOCYTES (AUTO) 0.6 10^3/uL (0.1-1.4); ABSOLUTE NEUT (AUTO) 2.3 10^3/uL (1.7-8.2); BASOPHILS % (AUTO) 1.2 % (0-2); EOSINOPHILS % (AUTO) 1.7 % (0-6); HEMATOCRIT 36.9 % (36.0-47.0); HEMOGLOBIN 11.2 g/dL (12.0-15.5); LYMPHOCYTES % (AUTO) 43.2 % (13-45); MEAN CORPUSCULAR HEMOGLOBIN 23.2 pg (27.0-33.4); MEAN CORPUSCULAR HGB CONC 30.3 g/dL (32.0-36.0); MEAN CORPUSCULAR VOLUME 77 fl (80-97); MONOCYTES % (AUTO) 11.4 % (3-13); PLATELET COUNT 454 10^3/uL (150-450); RED BLOOD COUNT 4.82 10^6/uL (3.72-5.28); RED CELL DISTRIBUTION WIDTH 24.4 % (11.5-14.0); SEGMENTED NEUTROPHILS % (AUTO) 42.5 % (42-78); TOTAL CELLS COUNTED % (AUTO) 100 %; WHITE BLOOD COUNT 5.5 10^3/uL (4.0-10.5)
[2017-08-16 11:34] LABS: ANION GAP 8 (5-19); BLOOD UREA NITROGEN 8 mg/dL (7-20); C-REACTIVE PROTEIN 5.7 mg/L (<10.0); CALCIUM 9.1 mg/dL (8.4-10.2); CARBON DIOXIDE 25 mmol/L (22-30); CHLORIDE 107 mmol/L (98-107); GLUCOSE 105 mg/dL (75-110); POTASSIUM 4.6 mmol/L (3.6-5.0); SODIUM 139.6 mmol/L (137-145)
[2017-08-16] MEDS: METHYLPREDNISOLONE INJ 40 MG/1 ML SDV IV SCH ×3 (11:42→23:00)
[2017-08-16 11:44] LABS: ANISOCYTOSIS 3+; HYPOCHROMASIA SLIGHT; OVALOCYTES 1+; PLATELET COMMENT INCREASED; POIKILOCYTOSIS 1+
[2017-08-16] MEDS: DIPHENHYDRAMINE HCL 50 MG/ML VIAL IV PRN ×2 (17:21→21:55)
--- NOTE | 2017-08-16 17:44 | PDOC H&P ---
History of Present Illness Admission Date/PCP: 08/16/17 11:12 JANETTE HILL NP Patient complains of: ANGIOEDEMA History of Present Illness: KOBE WAYNE is a 27 year old female who presented to the hospital with angioedema. She states she woke up this morning at 0530 and noted swelling to her R lip and R cheek. The patient denied shortness of breath, difficulty swallowing, dysarthria, dysphagia, or difficulty managing secretions. Of note, the patient frequently visits the ED for the same complaint (approximately 12 times per year) and she was treated 2 weeks ago for tonsillitis (states she completed the course of antibiotics). PMH includes asthma Upon evaluation in the ED, the R side of her lower lip is swollen and the sift tissue of her R cheek is swollen. There is no evidence of tonsillitis, no oral abscess. Lungs clear to auscultation. Vital signs stable. Treated with Solumedrol 125mg IV, Pepcid 20mg IV, and Benadryl 50mg IV. The swelling subsided for a few hours, but the patient began to experience rebound swelling within 4 hours of treatment. Plan to admit overnight for airway observation. Past Medical History Cardiac Medical History: Denies: Congestive Heart Failure, Coronary Artery Disease, DVT, Myocardial Infarction, Hyperlipidema, Hypertension, Pulmonary Embolism Pulmonary Medical History: Reports: Asthma Denies: Bronchitis, Chronic Obstructive Pulmonary Disease (COPD), Pneumonia Neurological Medical History: Denies: Seizures Endocrine Medical History: Denies: Diabetes Mellitus Type 2, Hyperthyroidism, Hypothyroidism GI Medical History: Reports: Diverticulitis Denies: Cirrhosis, Hepatitis Musculoskeltal Medical History: Reports: Arthritis - RA Psychiatric Medical History: Reports: Bipolar Disorder, Depression Hematology: Reports: Anemia Past Surgical History Past Surgical History: Reports: Appendectomy, Other - ASTHMA Social History Information Source: Patient Lives with: Family Smoking Status: Never Smoker Frequency of Alcohol Use: Occasional Hx Recreational Drug Use: No Drugs: None Hx Prescription Drug Abuse: No - Advance Directive Resuscitation Status: Full Code Family History Family History: Reviewed & Not Pertinent, Arthritis, CAD, DM, Hyperlipidemia, Hypertension Parental Family History Reviewed: Yes Children Family History Reviewed: Yes Sibling(s) Family History Reviewed.: Yes Medication/Allergy Home Medications: No Home Medications 08/16/17 Allergies/Adverse Reactions: iodine [Iodine] Allergy (Severe, Verified 07/12/17 11:29) throat swells Penicillins Allergy (Severe, Verified 07/12/17 11:29) throat swells Shellfish * [Shellfish] Allergy (Severe, Verified 07/12/17 11:29) Blisters peanut Adverse Reaction (Severe, Verified 07/12/17 11:29) rash hydrocodone Adverse Reaction (Verified 07/12/17 11:29) Pruritis Review of Systems All systems: reviewed and no additional remarkable complaints except as stated Physical Exam Vital Signs: Temp Pulse Resp BP Pulse Ox 97.4 F 96 18 136/74 H 100 08/16/17 15:10 08/16/17 15:10 08/16/17 15:10 08/16/17 15:10 08/16/17 15:34 Intake & Output 08/15/17 08/16/17 08/17/17 06:59 06:59 06:59 Weight 151.7 kg General appearance: PRESENT: no acute distress Eye exam: PRESENT: conjunctiva pink, PERRLA Mouth exam: PRESENT: moist, tongue midline, other - LIP SWELLING. R CHEEK SWELLING. NO ABSCESS Teeth exam: ABSENT: poor dentation Throat exam: ABSENT: tonsillar erythema, tonsillar exudate Neck exam: PRESENT: full ROM Respiratory exam: PRESENT: clear to auscultation lissett, symmetrical, unlabored Cardiovascular exam: PRESENT: +S1, +S2 Pulses: PRESENT: normal radial pulses, normal dorsalis pedis pul GI/Abdominal exam: PRESENT: normal bowel sounds, soft. ABSENT: tenderness Rectal exam: PRESENT: deferred Extremities exam: PRESENT: full ROM Musculoskeletal exam: PRESENT: ambulatory, full ROM Neurological exam: PRESENT: alert, awake, oriented to person, oriented to place , oriented to time, oriented to situation Psychiatric exam: PRESENT: appropriate affect Skin exam: PRESENT: dry, intact Results Status: Imported from PACS Assessment & Plan - Diagnosis (1) Angioedema Qualifiers: Encounter type: initial encounter Qualified Code(s): T78.3XXA - Angioneurotic edema, initial encounter Is this a current diagnosis for this admission?: Yes Plan: Patient presents with angioedema, specifically to R lip and R cheek No airway compromise No difficulty managing oral secretions Treated in the ER with benadryl, soluMedrol, and pepcid Continue scheduled soluMedrol, PRN benadryl, and scheduled pepcid Plan to discharge tomorrow - Time Time Spent: 30 to 50 Minutes Medications reviewed and adjusted accordingly: Yes Anticipated discharge: Home Within: within 24 hours - Inpatient Certification Based on my medical assessment, after consideration of the patient's comorbidities, presenting symptoms, or acuity I expect that the services needed warrant INPATIENT care.: Yes I certify that my determination is in accordance with my understanding of Medicare's requirements for reasonable and necessary INPATIENT services [42 CFR 412.3e].: Yes Medical Necessity: Risk of Complication if Not Cared For in Hospital - Plan Summary Plan Summary: ADMIT FOR OBSERVATION. NO PLAN FOR IMAGING AT THIS TIME
[2017-08-16] MEDS: FAMOTIDINE INJ/PF 20 MG/2 ML SDV IV SCH (21:59)
[2017-08-17] MEDS: DIPHENHYDRAMINE HCL 50 MG/ML VIAL IV PRN ×3 (02:42→15:47)
[2017-08-17 05:36] VITALS: BP 112/52
[2017-08-17] MEDS: METHYLPREDNISOLONE INJ 40 MG/1 ML SDV IV SCH ×2 (05:41→11:50)
[2017-08-17] MEDS ORDERED: IBUPROFEN 800 MG TABLET PO PRN (08:14)
[2017-08-17] MEDS: FAMOTIDINE INJ/PF 20 MG/2 ML SDV IV SCH (10:22)
== END 2017-08-17 16:57 | disposition home or self-care (01) ==
LOC: ER 07:51 → EH 11:12 → 5 16:46
PROVIDERS: ADMIT Internal Medicine; ATTEND Internal Medicine
DX: T78.3XXA Angioneurotic edema, initial encounter (principal); M06.9 Rheumatoid arthritis, unspecified; Z87.891 Personal history of nicotine dependence; Z88.5 Allergy status to narcotic agent; Z88.0 Allergy status to penicillin; Z91.013 Allergy to seafood; Z91.010 Allergy to peanuts; Z90.49 Acquired absence of other specified parts of digestive tract
CPT/HCPCS: 96376; 99284; 96374; 96375; 36415 ×2; 85025; 86160; 86140; 80048; J1200 ×2; J2920 ×2; J2930; S0028 ×2

== ENCOUNTER 2017-08-21 11:01 | Inpatient (IN) | payer SELFPAY ==
[2017-08-21] MEDS ORDERED: FAMOTIDINE INJ/PF 20 MG/2 ML SDV IV ONE ×2 (11:11)
[2017-08-21] MEDS ORDERED: DIPHENHYDRAMINE HCL 50 MG/ML VIAL IV ONE (11:11)
[2017-08-21] MEDS ORDERED: METHYLPREDNISOLONE INJ 125 MG/2 ML SDV IV ONE (11:11)
[2017-08-21] MEDS ORDERED: EPINEPHRINE INJ/PF 1 MG/1 ML AMPULE IM ONE (11:15)
--- NOTE | 2017-08-21 11:32 | ER Document Report ---
ED Allergic Reaction - General Chief Complaint: Allergic Reaction Stated Complaint: POSSIBLE ALLERGIC REACTION Time Seen by Provider: 08/21/17 11:10 Mode of Arrival: Ambulatory Information source: Patient Notes: Patient presents complaining of swelling of her tongue that started this morning around 930. Patient denies any new foods medications or detergents. Patient is currently on a taper dose of prednisone for angioedema. Patient states that she only took 20 mg of prednisone today. Patient states she was recently discharged on the for similar symptoms. TRAVEL OUTSIDE OF THE [place] IN LAST 30 DAYS: No - HPI Onset: This morning - 930 Onset/Duration: Worse Quality of pain: No pain Identified cause: No Swelling: Tongue Associated symptoms: None Similar symptoms previously: Yes Recently seen / treated by doctor: Yes - Related Data Allergies/Adverse Reactions: iodine [Iodine] Allergy (Severe, Verified 07/12/17 11:29) throat swells Penicillins Allergy (Severe, Verified 07/12/17 11:29) throat swells Shellfish * [Shellfish] Allergy (Severe, Verified 07/12/17 11:29) Blisters peanut Adverse Reaction (Severe, Verified 07/12/17 11:29) rash hydrocodone Adverse Reaction (Verified 07/12/17 11:29) Pruritis Past Medical History - General Information source: Patient - Social History Smoking Status: Never Smoker Frequency of alcohol use: None Drug Abuse: None Lives with: Family Family History: Reviewed & Not Pertinent, Arthritis, CAD, DM, Hyperlipidemia, Hypertension - Medical History Medical History: Other - Angioedema - Past Medical History Cardiac Medical History: Denies: Hx Congestive Heart Failure, Hx Coronary Artery Disease, Hx DVT, Hx Heart Attack, Hx Hypercholesterolemia, Hx Hypertension, Hx Pulmonary Embolism Pulmonary Medical History: Reports: Hx Asthma Denies: Hx Bronchitis, Hx COPD, Hx Pneumonia Neurological Medical History: Denies: Hx Cerebrovascular Accident, Hx Seizures Endocrine Medical History: Denies: Hx Diabetes Mellitus Type 2, Hx Hyperthyroidism, Hx Hypothyroidism Renal/ Medical History: Denies: Hx Peritoneal Dialysis GI Medical History: Reports: Hx Diverticulitis, Hx Gastroesophageal Reflux Disease. Denies: Hx Cirrhosis, Hx Hepatitis Musculoskeltal Medical History: Reports Hx Arthritis - RA Psychiatric Medical History: Reports: Hx Anxiety, Hx Bipolar Disorder, Hx Depression Infectious Medical History: Denies: Hx Hepatitis Past Surgical History: Reports: Hx Appendectomy, Other - ASTHMA - Immunizations Immunizations up to date: Yes Hx Diphtheria, Pertussis, Tetanus Vaccination: Yes Review of Systems - Review of Systems Constitutional: No symptoms reported. denies: Fever, Recent illness EENT: Difficulty swallowing, Other - Tongue swelling. denies: Throat swelling Cardiovascular: No symptoms reported. denies: Chest pain, Dizziness Respiratory: No symptoms reported. denies: Cough, Short of breath Gastrointestinal: No symptoms reported. denies: Abdominal pain, Nausea, Vomiting Genitourinary: No symptoms reported. denies: Dysuria Female Genitourinary: No symptoms reported. denies: Musculoskeletal: No symptoms reported. denies: Back pain, Neck pain Skin: No symptoms reported. denies: Rash Hematologic/Lymphatic: No symptoms reported Neurological/Psychological: No symptoms reported Physical Exam - Vital signs Vitals: Temp Pulse Resp Pulse Ox 98.5 F 83 20 100 08/21/17 11:05 08/21/17 11:05 08/21/17 11:05 08/21/17 11:05 - General General appearance: Appears well, Alert In distress: Mild - HEENT Head: Normocephalic Eyes: Normal Conjunctiva: Normal Ears: Normal Nasal: Normal Mouth/Lips: Angioedema - tongue swelling Mucous membranes: Normal Pharynx: Potential airway comprom.. No: Erythema, Peritonsillar abscess, Tonsillar hypertrophy, Uvular edema Neck: Normal, Supple. No: Lymphadenopathy - Respiratory Respiratory status: No respiratory distress Chest status: Nontender Breath sounds: Normal. No: Rales, Rhonchi, Stridor, Wheezing Chest palpation: Normal - Cardiovascular Rhythm: Regular Heart sounds: S1 appreciated, S2 appreciated Murmur: No - Back Back: Normal - Extremities General upper extremity: Normal inspection, Normal ROM General lower extremity: Normal inspection, Normal ROM - Neurological Neuro grossly intact: Yes Cognition: Normal Lian Coma Scale Eye Opening: Spontaneous Lina Coma Scale Verbal: Oriented [place] Coma Scale Motor: Obeys Commands Lina Coma Scale Total: 15 - Psychological Associated symptoms: Normal affect, Normal mood - Skin Skin Temperature: Warm Skin Moisture: Dry Skin Color: Normal Course - Re-evaluation Re-evalutation: 08/21/17 11:[address] Oliveira regarding patient presentation. 08/21/17 11:32 Patient receiving her medications at this time. Vital signs stable. No perceivable worsening of swelling of the tongue. 08/21/17 12:12 Patient denies any worsening or improvement of her symptoms at this time. 08/21/17 13:11 Swelling of tongue starting to improve. Patient's speech much more clear. Vital signs continue stable. Call placed to hospitalist. 08/21/17 13:[address] Pace regarding patient presentation, Dr. Pace is agreeable with admission, Dr. Pace advised that Goldie Keane W[employer] TH[employer]ER is familiar with the patient during her most recent hospitalization. Advises consulting with Goldie Keane for admission. - Vital Signs Vital signs: Temp Pulse Resp BP Pulse Ox 97.6 F 81 18 119/83 100 08/21/17 15:26 08/21/17 15:26 08/21/17 15:26 08/21/17 15:26 08/21/17 15:26 - Laboratory Result Diagrams: 08/21/17 11:28 08/21/17 11:28 Laboratory results interpreted by me: 08/21/17 11:28 Hgb 11.5 L MCV 75 L MCH 23.1 L MCHC 30.6 L RDW 23.6 H Seg Neutrophils % 41.7 L Lymphocytes % 48.6 H Labs- Entire Visit 08/21/17 08/21/17 11:28 11:28 WBC 6.4 RBC 4.96 Hgb 11.5 L Hct 37.4 MCV 75 L MCH 23.1 L MCHC 30.6 L RDW 23.6 H Plt Count 369 Seg Neutrophils % 41.7 L Lymphocytes % 48.6 H Monocytes % 7.2 Eosinophils % 2.0 Basophils % 0.5 Absolute Neutrophils 2.7 Absolute Lymphocytes 3.1 Absolute Monocytes 0.5 Absolute Eosinophils 0.1 Absolute Basophils 0.0 Platelet Comment ADEQUATE Hypochromasia 2+ Poikilocytosis SLIGHT Anisocytosis 3+ Microcytosis 1+ Ovalocytes SLIGHT Sodium 138.0 Potassium 4.5 Chloride 104 Carbon Dioxide 27 Anion Gap 7 BUN 12 Creatinine 0.68 Est GFR ( Amer) > 60 Est GFR (Non-Af Amer) > 60 Glucose 89 Calcium 9.3 Discharge - Discharge Clinical Impression: Angioedema Qualifiers: Encounter type: initial encounter Qualified Code(s): T78.3XXA - Angioneurotic edema, initial encounter Condition: Fair Disposition: ADMITTED OBSERVATION Unit Admitted: Medical Floor
[2017-08-21 12:24] LABS: ABSOLUTE EOSINOPHILS # (AUTO) 0.1 10^3/uL (0.0-0.6); ABSOLUTE LYMPHOCYTES (AUTO) 3.1 10^3/uL (0.5-4.7); ABSOLUTE MONOCYTES (AUTO) 0.5 10^3/uL (0.1-1.4); ABSOLUTE NEUT (AUTO) 2.7 10^3/uL (1.7-8.2); BASOPHILS % (AUTO) 0.5 % (0-2); HEMATOCRIT 37.4 % (36.0-47.0); HEMOGLOBIN 11.5 g/dL (12.0-15.5); LYMPHOCYTES % (AUTO) 48.6 % (13-45); MEAN CORPUSCULAR HEMOGLOBIN 23.1 pg (27.0-33.4); MEAN CORPUSCULAR HGB CONC 30.6 g/dL (32.0-36.0); MEAN CORPUSCULAR VOLUME 75 fl (80-97); MONOCYTES % (AUTO) 7.2 % (3-13); PLATELET COUNT 369 10^3/uL (150-450); RED BLOOD COUNT 4.96 10^6/uL (3.72-5.28); RED CELL DISTRIBUTION WIDTH 23.6 % (11.5-14.0); SEGMENTED NEUTROPHILS % (AUTO) 41.7 % (42-78); TOTAL CELLS COUNTED % (AUTO) 100 %; WHITE BLOOD COUNT 6.4 10^3/uL (4.0-10.5)
[2017-08-21 12:32] LABS: ANION GAP 7 (5-19); BLOOD UREA NITROGEN 12 mg/dL (7-20); CALCIUM 9.3 mg/dL (8.4-10.2); CARBON DIOXIDE 27 mmol/L (22-30); CHLORIDE 104 mmol/L (98-107); GLUCOSE 89 mg/dL (75-110); POTASSIUM 4.5 mmol/L (3.6-5.0)
[2017-08-21 12:47] LABS: ANISOCYTOSIS 3+; HYPOCHROMASIA 2+; OVALOCYTES SLIGHT; POIKILOCYTOSIS SLIGHT
[2017-08-21 12:48] LABS: PLATELET COMMENT ADEQUATE
[2017-08-21] MEDS ORDERED: ENOXAPARIN SODIUM INJ 40 MG/0.4 ML DISP.SYRIN SUBCUT ONE (15:30)
[2017-08-21] MEDS: DIPHENHYDRAMINE HCL 50 MG/ML VIAL IV SCH ×2 (16:45→20:08)
--- NOTE | 2017-08-21 16:51 | PDOC H&P ---
History of Present Illness Admission Date/PCP: 08/21/17 13:38 Patient complains of: TONGUE SWELLING History of Present Illness: KOBE WAYNE is a 27 year old female who presented to the hospital with angioedema. She states she woke up this morning around 0800 and noted swelling to tongue. The patient denied shortness of breath, difficulty swallowing, or difficulty managing secretions. She admits to some difficulty speaking due her her tongue swelling. Of note, the patient frequently visits the ED for angioedema (approximately 12 times per year) and she was treated 2-3 weeks ago for tonsillitis (states she completed the course of antibiotics). Her most recent admission was 08/16, she was admitted overnight and discharged home the next day with a steroid taper and BID Zyrtec. The patient states she has been taking her medication as directed. PMH includes asthma Upon evaluation in the ED, tongue is mildly swollen. Able to visualize the uvula. There is no evidence of tonsillitis, no oral abscess. Lungs clear to auscultation. Vital signs stable. Treated with Solumedrol 125mg IV, Pepcid 20mg IV, and Benadryl 50mg IV in the ED. Plan to admit overnight for airway observation. Past Medical History Cardiac Medical History: Denies: Congestive Heart Failure, Coronary Artery Disease, DVT, Myocardial Infarction, Hyperlipidema, Hypertension, Pulmonary Embolism Pulmonary Medical History: Reports: Asthma Denies: Bronchitis, Chronic Obstructive Pulmonary Disease (COPD), Pneumonia Neurological Medical History: Denies: Seizures Endocrine Medical History: Denies: Diabetes Mellitus Type 2, Hyperthyroidism, Hypothyroidism GI Medical History: Reports: Diverticulitis, Gastroesophageal Reflux Disease Denies: Cirrhosis, Hepatitis Musculoskeltal Medical History: Reports: Arthritis - RA Psychiatric Medical History: Reports: Bipolar Disorder, Depression Hematology: Reports: Anemia Past Surgical History Past Surgical History: Reports: Appendectomy, Other - ASTHMA Social History Information Source: Patient Lives with: Family Smoking Status: Never Smoker Frequency of Alcohol Use: Occasional Hx Recreational Drug Use: No Drugs: None Hx Prescription Drug Abuse: No - Advance Directive Resuscitation Status: Full Code Family History Family History: Reviewed & Not Pertinent, Arthritis, CAD, DM, Hyperlipidemia, Hypertension Parental Family History Reviewed: Yes Children Family History Reviewed: Yes Sibling(s) Family History Reviewed.: Yes Medication/Allergy Home Medications: Cetirizine HCl [Zyrtec 10 mg Tablet] 10 mg PO Q12 08/21/17 Prednisone 20 mg PO .TAPER 08/21/17 Vit 40/Iron/Folic/Dha [ Multi + Dha Softgel] 1 cap PO DAILY 03/10 Ranitidine HCl [Zantac] 150 mg PO DAILY 08/21/17 Allergies/Adverse Reactions: iodine [Iodine] Allergy (Severe, Verified 07/12/17 11:29) throat swells Penicillins Allergy (Severe, Verified 07/12/17 11:29) throat swells Shellfish * [Shellfish] Allergy (Severe, Verified 07/12/17 11:29) Blisters peanut Adverse Reaction (Severe, Verified 07/12/17 11:29) rash hydrocodone Adverse Reaction (Verified 07/12/17 11:29) Pruritis Review of Systems All systems: reviewed and no additional remarkable complaints except as stated Physical Exam Vital Signs: Temp Pulse Resp BP Pulse Ox 98.5 F 83 21 H 137/83 H 100 08/21/17 11:05 08/21/17 11:05 08/21/17 13:07 08/21/17 13:07 08/21/17 13:07 General appearance: PRESENT: no acute distress, morbidly obese Head exam: PRESENT: atraumatic, normocephalic Eye exam: PRESENT: conjunctiva pink, EOMI, PERRLA. ABSENT: scleral icterus Ear exam: PRESENT: normal external ear exam Mouth exam: PRESENT: moist, tongue midline, other - ABLE TO VISULIZE UVULA. TONGUE MILDLY SWOLLEN. PATIENT ABLE TO MANAGE SECRETIONS. VERY MILD DIFFICULTY WITH SPEECH Throat exam: ABSENT: post pharyngeal erythema, tonsillar erythema, tonsillar exudate, tonsillogmegaly Neck exam: ABSENT: carotid bruit, JVD, lymphadenopathy, thyromegaly Respiratory exam: PRESENT: clear to auscultation lissett. ABSENT: rales, rhonchi, wheezes Cardiovascular exam: PRESENT: RRR. ABSENT: diastolic murmur, rubs, systolic murmur Pulses: PRESENT: normal dorsalis pedis pul Vascular exam: PRESENT: normal capillary refill GI/Abdominal exam: PRESENT: normal bowel sounds, soft. ABSENT: distended, guarding, mass, organolmegaly, rebound, tenderness Rectal exam: PRESENT: deferred Extremities exam: PRESENT: full ROM. ABSENT: calf tenderness, clubbing, pedal edema Neurological exam: PRESENT: alert, awake, oriented to person, oriented to place , oriented to time, oriented to situation Psychiatric exam: PRESENT: normal mood Skin exam: PRESENT: dry, intact, warm. ABSENT: cyanosis, rash Results Status: Imported from PACS Assessment & Plan - Diagnosis (1) Angioedema Qualifiers: Encounter type: initial encounter Qualified Code(s): T78.3XXA - Angioneurotic edema, initial encounter Is this a current diagnosis for this admission?: Yes Plan: Unclear etiology Frequent visits to [facility] every month for the last 2-3 years for this same issue. Received Solu-Medrol 125 mg IV, Pepcid 20 mg IV, Benadryl 50 mg IV in the emergency department. Continue scheduled Solu-Medrol every 6 hours Continue Pepcid daily Continue scheduled Benadryl Will reach out to discharge planning about options available to get patient into see health communications specialist. - Time Time Spent: 30 to 50 Minutes Medications reviewed and adjusted accordingly: Yes Anticipated discharge: Home - Inpatient Certification Based on my medical assessment, after consideration of the patient's comorbidities, presenting symptoms, or acuity I expect that the services needed warrant INPATIENT care.: Yes I certify that my determination is in accordance with my understanding of Medicare's requirements for reasonable and necessary INPATIENT services [42 CFR 412.3e].: Yes
[2017-08-21] MEDS: METHYLPREDNISOLONE INJ 40 MG/1 ML SDV IV SCH ×2 (17:52→23:04)
[2017-08-22] MEDS: DIPHENHYDRAMINE HCL 50 MG/ML VIAL IV SCH ×2 (03:25→09:12)
[2017-08-22] MEDS: METHYLPREDNISOLONE INJ 40 MG/1 ML SDV IV SCH ×2 (06:31→12:39)
[2017-08-22] MEDS ORDERED: ENOXAPARIN SODIUM INJ 30 MG/0.3 ML DISP.SYRIN SUBCUT SCH (10:00)
[2017-08-22] MEDS ORDERED: ENOXAPARIN SODIUM INJ 40 MG/0.4 ML DISP.SYRIN SUBCUT SCH (10:00)
[2017-08-22] MEDS ORDERED: FAMOTIDINE INJ/PF 20 MG/2 ML SDV IV SCH (10:00)
[2017-08-22 13:43] VITALS: BP 119/83
--- NOTE | 2017-08-23 14:11 | PDOC DISCHARGE SUMMARY ---
General - Admit/Disc Date/PCP Admission Date/Primary Care Provider: 08/21/17 13:38 Discharge Date: 08/22/17 - Discharge Diagnosis (1) Angioedema Is this a current diagnosis for this admission?: Yes - Additional Information Resuscitation Status: Full Code Discharge Diet: As Tolerated Discharge Activity: Activity As Tolerated Prescriptions: Methylprednisolone 8 mg PO DAILY #18 tablet Home Medications: Cetirizine HCl [Zyrtec 10 mg Tablet] 10 mg PO Q12 08/21/17 Vit 40/Iron/Folic/Dha [ Multi-Dha Softgel] 1 cap PO DAILY 08/21 Methylprednisolone 8 mg PO DAILY #18 tablet 08/22/17 History of Present Illness History of Present Illness: KOBE WAYNE is a 27 year old female who presented to the hospital with angioedema. She states she woke up this morning around 0800 and noted swelling to tongue. The patient denied shortness of breath, difficulty swallowing, or difficulty managing secretions. She admits to some difficulty speaking due her her tongue swelling. Of note, the patient frequently visits the ED for angioedema (approximately 12 times per year) and she was treated 2-3 weeks ago for tonsillitis (states she completed the course of antibiotics). Her most recent admission was 08/16, she was admitted overnight and discharged home the next day with a steroid taper and BID Zyrtec. The patient states she has been taking her medication as directed. PMH includes asthma Upon evaluation in the ED, tongue is mildly swollen. Able to visualize the uvula. There is no evidence of tonsillitis, no oral abscess. Lungs clear to auscultation. Vital signs stable. Treated with Solumedrol 125mg IV, Pepcid 20mg IV, and Benadryl 50mg IV in the ED. Plan to admit overnight for airway observation. Hospital Course Hospital Course: The patient was admitted to the hospital for angioedema, specifically swelling of the tongue. She was treated in the ED with Solumedrol, Benadryl and pepcid. Of note, the patient was recently discharged from [facility] for angioedema. On 08/17 she was sent home with prescriptions for prednisone and instructed to take OTC zyrtec. When interviewed during this ER visit, the patient stated she was taking per prednisone and zyrtec as directed. The patient was admitted (again) for observation on scheduled steroids, daily pepcid, and prn benadryl. Her symptoms quickly resolved. The patient was re-evaluated hours later once she was moved to a room on the 5th floor, all symptoms of angioedema were gone. After extensive interviewing by nursing staff, it was discovered that the patient never took prednisone following her last discharge. The patient states that she purchased zyrtec but never filled her Prednisone prescription. The patient states that the only oral steroid that works for her angioedema is methylprednisolone. She was previously prescribed that medication when seen at an ER in [place]. The patient was instructed that her non-compliance is what landed her back in the hospital 4 days after her previous discharge. She was given a prescription for a methylprednisolone taper and instructed to continue taking her BID zyrtec. The patient was also instructed to follow up with an allergisy specialist, and that her angioedema would continue to return until she was able to do so. She stated full understanding of the instructions. Physical Exam Vital Signs: Temp Pulse Resp BP Pulse Ox 97.2 F 65 20 119/83 100 08/22/17 13:36 08/22/17 13:36 08/22/17 13:36 08/22/17 13:36 08/22/17 13:36 Intake & Output 08/22/17 08/23/17 08/24/17 06:59 06:59 06:59 Intake Total 4 563 Balance 2063 563 Weight 152.9 kg Results Status: Imported from PACS Qualifiers - * PATIENT BEING DISCHARGED WITH ANY OF THE FOLLOWING DIAGNOSIS: No Plan Discharge Plan: discharge home with methylprednisolone Time Spent: Less than 30 Minutes
== END 2017-08-22 14:09 | disposition home or self-care (01) | DRG 916 ==
LOC: ER 11:01 → EH 13:38 → 5 15:15
PROVIDERS: ADMIT Internal Medicine; ATTEND Internal Medicine
DX: T78.3XXA Angioneurotic edema, initial encounter (principal); M06.9 Rheumatoid arthritis, unspecified; T38.0X6A Underdosing of glucocorticoids and synthetic analogues, initial encounter; Y92.89 Other specified places as the place of occurrence of the external cause
CPT/HCPCS: 36415; 80048; 85025; 96372; 96374; 96375; 99284; J0171; J1200; J1650; J2920; J2930; S0028

== ENCOUNTER 2017-08-25 16:57 | Observation (INO) | payer SELFPAY ==
[2017-08-25] MEDS ORDERED: METHYLPREDNISOLONE 4 MG TABLET PO ONE (17:16)
[2017-08-25] MEDS ORDERED: DIPHENHYDRAMINE HCL 50 MG CAPSULE PO ONE (17:19)
[2017-08-25] MEDS ORDERED: FAMOTIDINE 20 MG TABLET PO ONE (17:19)
--- NOTE | 2017-08-25 17:21 | ER Document Report ---
ED Medical Screen (RME) - General Chief Complaint: Facial Swelling Stated Complaint: LIP SWELLING Time Seen by Provider: 08/25/17 17:09 Notes: 27-year-old female patient reports onset of lower lip and anterior neck swelling 1 hour prior to arrival. She has been seen here and admitted several times for this problem. She reports in the records confirm that the swelling resolves fairly quickly with steroids and antihistamines. She was most recently admitted on 08/21/2017 and discharged on 08/22/2017. She was discharged with prescription for Medrol Dosepak which she did not fill. In the past they tried to put her on prednisone and she stated it did not work but that the Medrol Dosepak medication did work. She has gross swelling to her lower lip, and swelling to the submental area. The tongue is not swollen and there is no swelling to the posterior pharynx. There is no respiratory compromise. I have greeted and performed a rapid initial assessment of this patient. A comprehensive ED assessment and evaluation of the patient, analysis of test results and completion of the medical decision making process will be conducted by additional ED providers. TRAVEL OUTSIDE OF THE [place] IN LAST 30 DAYS: No - Related Data Allergies/Adverse Reactions: iodine [Iodine] Allergy (Severe, Verified 08/25/17 16:57) throat swells Penicillins Allergy (Severe, Verified 08/25/17 16:57) throat swells Shellfish * [Shellfish] Allergy (Severe, Verified 08/25/17 16:57) Blisters peanut Adverse Reaction (Severe, Verified 08/25/17 16:57) rash hydrocodone Adverse Reaction (Verified 08/25/17 16:57) Pruritis Past Medical History - Social History Chew tobacco use (# tins/day): No Frequency of alcohol use: None Drug Abuse: None Family history: Reviewed & Not Pertinent - Past Medical History Cardiac Medical History: Denies: Hx Congestive Heart Failure, Hx Coronary Artery Disease, Hx DVT, Hx Heart Attack, Hx Hypercholesterolemia, Hx Hypertension, Hx Pulmonary Embolism Pulmonary Medical History: Reports: Hx Asthma Denies: Hx Bronchitis, Hx COPD, Hx Pneumonia Neurological Medical History: Denies: Hx Cerebrovascular Accident, Hx Seizures Endocrine Medical History: Denies: Hx Diabetes Mellitus Type 2, Hx Hyperthyroidism, Hx Hypothyroidism Renal/ Medical History: Denies: Hx Peritoneal Dialysis GI Medical History: Reports: Hx Diverticulitis, Hx Gastroesophageal Reflux Disease. Denies: Hx Cirrhosis, Hx Hepatitis Musculoskeltal Medical History: Reports Hx Arthritis - RA Psychiatric Medical History: Reports: Hx Anxiety, Hx Bipolar Disorder, Hx Depression Infectious Medical History: Denies: Hx Hepatitis Past Surgical History: Reports: Hx Appendectomy, Other - ASTHMA - Immunizations Immunizations up to date: Yes Hx Diphtheria, Pertussis, Tetanus Vaccination: Yes History of Influenza Vaccine for 11/2016 - 04/2017 Season: No Physical Exam - Vital signs Vitals: Pulse Resp BP Pulse Ox 106 H 20 145/98 H 99 08/25/17 17:04 08/25/17 17:04 08/25/17 17:04 08/25/17 17:04 Course - Vital Signs Vital signs: Temp Pulse Resp BP Pulse Ox 106 H 20 145/98 H 99 08/25/17 17:04 08/25/17 17:04 08/25/17 17:04 08/25/17 17:04
[2017-08-25] MEDS ORDERED: DIPHENHYDRAMINE HCL 50 MG/ML VIAL IV ONE (17:52)
[2017-08-25] MEDS ORDERED: FAMOTIDINE INJ/PF 20 MG/2 ML SDV IV ONE (17:53)
[2017-08-25] MEDS ORDERED: EPINEPHRINE INJ/PF 1 MG/1 ML AMPULE IM ONE (17:53)
[2017-08-25] MEDS ORDERED: METHYLPREDNISOLONE INJ 125 MG/2 ML SDV IV ONE (17:53)
--- NOTE | 2017-08-25 17:59 | ER Document Report ---
ED Allergic Reaction - General Chief Complaint: Facial Swelling Stated Complaint: LIP SWELLING Time Seen by Provider: 08/25/17 17:09 Notes: Patient is here because she is having swelling of her lower lip which began about 2 PM this afternoon. She has had many ED visits as well as several hospitalizations for the same condition. She was just in this hospital overnight on August 21, due to swelling of her tongue. She was discharged the next day, doing much better. Patient does not have any problems swallowing saliva. Voice is not abnormal. She does have swelling under the jaw. Denies any wheezes or difficulty breathing or shortness of breath. Patient has numerous allergies including penicillin, iodine, hydrocodone, peanuts and seafood. Does not recall ingesting any of these substances. TRAVEL OUTSIDE OF THE [place] IN LAST 30 DAYS: No - Related Data Allergies/Adverse Reactions: iodine [Iodine] Allergy (Severe, Verified 08/25/17 16:57) throat swells Penicillins Allergy (Severe, Verified 08/25/17 16:57) throat swells Shellfish * [Shellfish] Allergy (Severe, Verified 08/25/17 16:57) Blisters peanut Adverse Reaction (Severe, Verified 08/25/17 16:57) rash hydrocodone Adverse Reaction (Verified 08/25/17 16:57) Pruritis Past Medical History - Social History Smoking Status: Never Smoker Chew tobacco use (# tins/day): No Frequency of alcohol use: None Drug Abuse: None Family History: Reviewed & Not Pertinent, Arthritis, CAD, DM, Hyperlipidemia, Hypertension Patient has suicidal ideation: No Patient has homicidal ideation: No Pulmonary Medical History: Reports: Hx Asthma GI Medical History: Reports: Hx Diverticulitis Musculoskeltal Medical History: Reports Hx Arthritis - RA Psychiatric Medical History: Reports: Hx Anxiety, Hx Bipolar Disorder, Hx Depression Past Surgical History: Reports: Hx Appendectomy, Other - ASTHMA - Immunizations Immunizations up to date: Yes Hx Diphtheria, Pertussis, Tetanus Vaccination: Yes Review of Systems - Review of Systems Notes: REVIEW OF SYSTEMS: CONSTITUTIONAL : Denies fever. EENT: Denies eye, ear, nose, or tongue pain or other symptoms. See HPI regarding swollen, edematous lower lip and normal tongue and swelling of the submandibular region of the neck. CARDIOVASCULAR: Denies chest pain. RESPIRATORY: Denies cough, chest congestion, or shortness of breath. Denies wheezing. GASTROINTESTINAL: Denies abdominal pain or nausea, vomiting, or diarrhea. GENITOURINARY: Denies difficulty or painful urinating, urinary frequency, blood in urine. MUSCULOSKELETAL: Denies back or neck pain. Denies joint pain or swelling. SKIN: Denies rash or skin lesions. NEUROLOGICAL: Denies LOC or altered mental status. Denies headache. Denies sensory loss or motor deficits. ALL OTHER SYSTEMS REVIEWED AND NEGATIVE. Physical Exam - Vital signs Vitals: Pulse Resp BP Pulse Ox 106 H 20 145/98 H 99 08/25/17 17:04 08/25/17 17:04 08/25/17 17:04 08/25/17 17:04 Interpretation: Normal, Tachycardic - Mild - Notes Notes: PHYSICAL EXAMINATION: GENERAL: Well-appearing, in no acute distress. Obvious edema of the lower lip as well as swelling under the mandible diffusely. No impingement on the airway. Voice is normal. HEAD: Atraumatic, normocephalic. EYES: Pupils equal round and reactive to light, extraocular movements intact. ENT: Moist mucous membranes. Tongue normal size. NECK: Normal range of motion, supple. Palpable edema of the tissues under the mandible. LUNGS: Breath sounds clear and equal bilaterally. HEART: Regular rate and rhythm without murmurs. ABDOMEN: Soft, nontender. No guarding or rebound. No masses. BACK: No tenderness throughout entire back. EXTREMITIES: Normal range of motion without pain. NEUROLOGICAL: Normal speech, normal gait. Normal sensory, motor, and reflex exams. Awake, alert, and oriented x3. PSYCH: Normal mood, normal affect. SKIN: Warm, dry, no rashes. Course - Re-evaluation Re-evalutation: 08/25/17 18:00 Patient was initially given p.o. medications in triage, but they do not seem to be helping and an IV has been established by nursing so I am going to give her IV medications. 08/25/17 18:25 Patient's appearance is concerning and I do not think it is going to be romero to consider sending this patient home at any time this evening. Therefore, I contacted the hospitalist service to admit the patient overnight for observation. - Vital Signs Vital signs: Temp Pulse Resp BP Pulse Ox 106 H 20 145/98 H 99 08/25/17 17:04 08/25/17 17:04 08/25/17 17:04 08/25/17 17:04 Discharge - Discharge Clinical Impression: Angioedema Qualifiers: Encounter type: initial encounter Qualified Code(s): T78.3XXA - Angioneurotic edema, initial encounter Condition: Stable Disposition: ADMITTED OBSERVATION Admitting Provider: Hospitalist Unit Admitted: Medical Floor
--- NOTE | 2017-08-25 18:27 | PDOC H&P ---
History of Present Illness History of Present Illness: KOBE WAYNE is a 27 year old black female patient with past medical history of asthma presents with chief complaint of swelling of her lower lip which began abruptly this afternoon 2pm. Patient has history of recurrent angioedema and she has also multiple ED visiting in hospitalization her last admission was 5 days ago. Historically patient has history of allergy to iodine, penicillin, shellfish, peanut and hydrocodone. But she denied any contact with the above- mentioned allergens. She denies shortness of breath, skin break or hives. No chest pain, cough, palpitation or diaphoresis. Patient has been treated with his Solu-Medrol H2 blockers and epinephrine. Past Medical History Cardiac Medical History: Denies: Congestive Heart Failure, Coronary Artery Disease, DVT, Myocardial Infarction, Hyperlipidema, Hypertension, Pulmonary Embolism Pulmonary Medical History: Reports: Asthma Denies: Bronchitis, Chronic Obstructive Pulmonary Disease (COPD), Pneumonia Neurological Medical History: Denies: Seizures Endocrine Medical History: Denies: Diabetes Mellitus Type 2, Hyperthyroidism, Hypothyroidism GI Medical History: Reports: Diverticulitis, Gastroesophageal Reflux Disease Denies: Cirrhosis, Hepatitis Musculoskeltal Medical History: Reports: Arthritis - RA Psychiatric Medical History: Reports: Bipolar Disorder, Depression Hematology: Reports: Anemia Past Surgical History Past Surgical History: Reports: Appendectomy, Other - ASTHMA Social History Smoking Status: Never Smoker Frequency of Alcohol Use: Occasional Hx Recreational Drug Use: No Drugs: None Hx Prescription Drug Abuse: No - Advance Directive Resuscitation Status: Full Code Family History Family History: Reviewed & Not Pertinent, Arthritis, CAD, DM, Hyperlipidemia, Hypertension Parental Family History Reviewed: Yes Children Family History Reviewed: Yes Sibling(s) Family History Reviewed.: Yes Medication/Allergy Home Medications: Cetirizine HCl [Zyrtec 10 mg Tablet] 10 mg PO Q12 08/21/17 Vit 40/Iron/Folic/Dha [ Multi-Dha Softgel] 1 cap PO DAILY 08/21 Methylprednisolone 8 mg PO DAILY #18 tablet 08/22/17 Allergies/Adverse Reactions: iodine [Iodine] Allergy (Severe, Verified 08/25/17 16:57) throat swells Penicillins Allergy (Severe, Verified 08/25/17 16:57) throat swells Shellfish * [Shellfish] Allergy (Severe, Verified 08/25/17 16:57) Blisters peanut Adverse Reaction (Severe, Verified 08/25/17 16:57) rash hydrocodone Adverse Reaction (Verified 08/25/17 16:57) Pruritis Review of Systems Constitutional: PRESENT: as per HPI Ears: PRESENT: as per HPI Cardiovascular: PRESENT: as per HPI Respiratory: PRESENT: as per HPI Gastrointestinal: PRESENT: as per HPI Neurological: PRESENT: as per HPI Psychiatric: PRESENT: as per HPI Physical Exam Vital Signs: Temp Pulse Resp BP Pulse Ox 106 H 20 145/98 H 99 08/25/17 17:04 08/25/17 17:04 08/25/17 17:04 08/25/17 17:04 Intake & Output 08/24/17 08/25/17 08/26/17 06:59 06:59 06:59 Weight 150.8 kg General appearance: PRESENT: no acute distress Head exam: PRESENT: atraumatic Mouth exam: PRESENT: other - Grossly swollen lower lip Respiratory exam: PRESENT: clear to auscultation lissett. ABSENT: rales, rhonchi, wheezes Cardiovascular exam: PRESENT: RRR. ABSENT: diastolic murmur, rubs, systolic murmur GI/Abdominal exam: PRESENT: normal bowel sounds, soft, other - Morbidly obese abdomen. ABSENT: distended, guarding, mass, organolmegaly, rebound, tenderness Neurological exam: PRESENT: alert, awake, oriented to time, oriented to situation Psychiatric exam: PRESENT: normal mood Assessment & Plan - Diagnosis (1) Recurrent angioedema Is this a current diagnosis for this admission?: Yes Plan: I will keep her on a steroid 60 mg every 8 hours and famotidine 40 mg p.o. daily (2) Bipolar disorder Is this a current diagnosis for this admission?: Yes Plan: The patient is in remission. We will continue her home medications. (3) Asthma Qualifiers: Asthma complication type: unspecified Is this a current diagnosis for this admission?: Yes Plan: In remission (4) Morbid obesity Is this a current diagnosis for this admission?: Yes Plan: Lifestyle modification advised
[2017-08-25] MEDS ORDERED: FAMOTIDINE 20 MG TABLET PO SCH (22:00)
[2017-08-25] MEDS ORDERED: METHYLPREDNISOLONE INJ 40 MG/1 ML SDV IV SCH (22:00)
[2017-08-26] MEDS ORDERED: METHYLPREDNISOLONE INJ 40 MG/1 ML SDV IV SCH (02:00)
--- NOTE | 2017-08-26 07:56 | PDOC DISCHARGE SUMMARY ---
General - Admit/Disc Date/PCP Admission Date/Primary Care Provider: 08/25/17 18:45 Discharge Date: 08/26/17 - Discharge Diagnosis (1) Recurrent angioedema Is this a current diagnosis for this admission?: Yes (2) Bipolar disorder Is this a current diagnosis for this admission?: Yes (3) Asthma Is this a current diagnosis for this admission?: Yes (4) Morbid obesity Is this a current diagnosis for this admission?: Yes - Additional Information Resuscitation Status: Full Code Discharge Diet: As Tolerated Discharge Activity: Activity As Tolerated Home Medications: Cetirizine HCl [Zyrtec 10 mg Tablet] 10 mg PO Q12 08/21/17 Ranitidine HCl [Zantac 150 mg Tablet] 150 mg PO BID 08/25/17 History of Present Illness History of Present Illness: KOBE WAYNE is a 27 year old black female patient with past medical history of asthma presents with chief complaint of swelling of her lower lip which began abruptly this afternoon 2pm. Patient has history of recurrent angioedema and she has also multiple ED visiting in hospitalization her last admission was 5 days ago. Historically patient has history of allergy to iodine, penicillin, shellfish, peanut and hydrocodone. But she denied any contact with the above- mentioned allergens. She denies shortness of breath, skin break or hives. No chest pain, cough, palpitation or diaphoresis. Patient has been treated with his Solu-Medrol H2 blockers and epinephrine. Hospital Course Hospital Course: This is 27 years old black female patient admitted yesterday with left lower lip swelling. Patient has recurrent angioedema of unknown etiology. This is her third admission for the same problem. Patient has been managed with H2 nell Benadryl Solu-Medrol and epinephrine. The swelling has been subsiding. Her vital signs are within normal limits and patient does not have any wheezing or shortness of breath. I will discharge her with prednisone 40 mg p.o. daily for 5 days and patient advised to follow-up with her primary care physician. Physical Exam Vital Signs: Temp Pulse Resp BP Pulse Ox 97.4 F 61 18 121/54 L 100 08/26/17 03:56 08/26/17 03:56 08/26/17 03:56 08/26/17 03:56 08/26/17 03:56 Intake & Output 08/25/17 08/26/17 08/27/17 06:59 06:59 06:59 Intake Total 240 Output Total 2 Balance 238 Weight 151 kg General appearance: PRESENT: no acute distress Head exam: PRESENT: atraumatic Eye exam: PRESENT: conjunctiva pink, EOMI, PERRLA. ABSENT: scleral icterus Mouth exam: PRESENT: moist, other - Lower lip swelling Neck exam: ABSENT: carotid bruit, JVD, lymphadenopathy, thyromegaly Respiratory exam: PRESENT: clear to auscultation lissett. ABSENT: rales, rhonchi, wheezes Cardiovascular exam: PRESENT: RRR. ABSENT: diastolic murmur, rubs, systolic murmur GI/Abdominal exam: PRESENT: normal bowel sounds, soft. ABSENT: distended, guarding, mass, organolmegaly, rebound, tenderness Extremities exam: PRESENT: full ROM. ABSENT: calf tenderness, clubbing, pedal edema Neurological exam: PRESENT: alert, awake, oriented to person, oriented to place , oriented to time, oriented to situation. ABSENT: motor sensory deficit Psychiatric exam: PRESENT: appropriate affect, normal mood. ABSENT: homicidal ideation, suicidal ideation Qualifiers - * PATIENT BEING DISCHARGED WITH ANY OF THE FOLLOWING DIAGNOSIS: No
[2017-08-26 08:40] VITALS: BP 142/90
[2017-08-26] MEDS ORDERED: DIPHENHYDRAMINE HCL 25 MG CAPSULE ONE (09:56)
[2017-08-26] MEDS ORDERED: ENOXAPARIN SODIUM INJ 40 MG/0.4 ML DISP.SYRIN SUBCUT SCH (10:00)
== END 2017-08-26 10:04 | disposition home or self-care (01) ==
LOC: ER 16:57 → EH 18:45 → 2N 20:55
PROVIDERS: ADMIT Internal Medicine; ATTEND Internal Medicine
DX: T78.3XXA Angioneurotic edema, initial encounter (principal); J45.909 Unspecified asthma, uncomplicated; F31.9 Bipolar disorder, unspecified; E66.01 Morbid (severe) obesity due to excess calories; Z68.43 Body mass index [BMI] 50.0-59.9, adult; M06.9 Rheumatoid arthritis, unspecified; Z88.8 Allergy status to other drugs, medicaments and biological substances; Z88.5 Allergy status to narcotic agent; Z91.010 Allergy to peanuts; Z88.0 Allergy status to penicillin; Z91.013 Allergy to seafood
CPT/HCPCS: 99284; 96372; 96374; 96375; G0378 ×3; J1200; J0171; J7509; J2920; J2930; J3490; S0028

== ENCOUNTER 2017-09-24 16:54 | Emergency (ER) | payer SELFPAY ==
--- NOTE | 2017-09-24 17:07 | ER Document Report ---
HPI - HPI Patient complains to provider of: Left foot pain Onset: Yesterday Pain Level: 4 Context: 27-year-old morbidly obese nondiabetic female complaining of left foot pain and swelling since yesterday. It occurred in the right foot several days prior but did not last this long. She took Benadryl which she usually takes of body parts well. She has a chronic rash in bilateral feet. Associated Symptoms: None Exacerbated by: Walking Relieved by: Denies Similar symptoms previously: No Recently seen / treated by doctor: No - ROS ROS below otherwise negative: Yes Systems Reviewed and Negative: Yes All other systems reviewed and negative - REPRODUCTIVE Reproductive: DENIES: : Past Medical History - General Information source: Patient - Social History Smoking Status: Never Smoker Frequency of alcohol use: None Drug Abuse: None Lives with: Family Family History: Reviewed & Not Pertinent, Arthritis, CAD, DM, Hyperlipidemia, Hypertension Pulmonary Medical History: Reports: Hx Asthma Renal/ Medical History: Denies: Hx Peritoneal Dialysis GI Medical History: Reports: Hx Diverticulitis, Hx Gastroesophageal Reflux Disease Musculoskeletal Medical History: Reports Hx Arthritis Psychiatric Medical History: Reports: Hx Anxiety, Hx Bipolar Disorder, Hx Depression Past Surgical History: Reports: Hx Appendectomy, Other - ASTHMA - Immunizations Immunizations up to date: Yes Hx Diphtheria, Pertussis, Tetanus Vaccination: Yes Vertical Provider Document - CONSTITUTIONAL Agree With Documented VS: Yes - hypertensive, low grade fever, mild tachycardia General Appearance: No Apparent Distress - INFECTION CONTROL TRAVEL OUTSIDE OF THE [place] IN LAST 30 DAYS: No - NECK Neck: Supple - RESPIRATORY Respiratory: Breath Sounds Normal, No Respiratory Distress - CARDIOVASCULAR Cardiovascular: Regular Rate, Regular Rhythm, Tachycardia - MUSCULOSKELETAL/EXTREMETIES Musculoskeletal/Extremeties: MAEW, FROM, Tender, Edema Notes: red, warm plantar left foot and dorsal left distal foot, dry scaling rash plantar skin. - NEURO Level of Consciousness: Alert Motor/Sensory: No Motor Deficit, No Sensory Deficit - DERM Integumentary: Rash - See above Course - Re-evaluation Re-evalutation: 09/24/17 Dr. Velasco was consulted and he recommended getting a venous Doppler ultrasound. 09/24/17 20:31 Venous Doppler ultrasound is being done at this time labs were clotted and hemolyzed so we still need a redraw 09/24/17 21:02 Dr. Paulino Medina called and the venous Doppler ultrasound is negative - Vital Signs Vital signs: Temp Pulse Resp BP Pulse Ox 99.3 F 109 H 20 133/107 H 100 09/24/17 17:02 09/24/17 17:02 09/24/17 17:02 09/24/17 17:02 09/24/17 17:02 - Laboratory Result Diagrams: 09/24/17 21:05 09/24/17 21:05 Discharge - Discharge Clinical Impression: painful left foot, left foot rash Condition: Good Disposition: HOME, SELF-CARE Instructions: Acetaminophen, Cellulitis ([facility]), Clindamycin ([facility]), Use of Crutches ([facility]), Elevation & Warmth ([facility]), Ibuprofen (General) ([facility]), Rocephin ( [facility]), Topical Antifungal ([facility]) Additional Instructions: Warm compress to the foot Elevate your foot while reclined tomorrow Use crutches Return to the emergency room if foot does not improve tomorrow. If you develop a fever return to the emergency room Take the antibiotics as prescribed Motrin for inflammation antifundal cream between toes- over the counter Forms: Return to Work Referrals: SHANNON GENAO DPM [ACTIVE STAFF] - Follow up as needed JUSTINA LEI DPM [ACTIVE STAFF] - Follow up as needed
--- NOTE | 2017-09-24 19:00 | RADIOLOGY REPORT (SQ) ---
EXAM DESCRIPTION: FOOT LEFT COMPLETE COMPLETED DATE/TIME: 09/24/2017 5:55 pm REASON FOR STUDY: swollen no known injury, plantar foot pain COMPARISON: None. NUMBER OF VIEWS: Three views. TECHNIQUE: AP, lateral and oblique radiographic images acquired of the left foot. LIMITATIONS: None. FINDINGS: MINERALIZATION: Normal. BONES: No acute fracture or dislocation. No worrisome bone lesions. JOINTS: No effusions. SOFT TISSUES: No soft tissue swelling. No foreign body. OTHER: No other significant finding. IMPRESSION: NEGATIVE STUDY OF THE LEFT FOOT. NO RADIOGRAPHIC EVIDENCE OF ACUTE INJURY. TECHNICAL DOCUMENTATION: JOB ID: [id number] [employer]- All Rights Reserved Reading location - IP/workstation name: [email or web address]
[2017-09-24] MEDS ORDERED: CEFTRIAXONE INJ 1000 MG VIAL IM ONE (20:31)
[2017-09-24] MEDS ORDERED: LIDOCAINE 1% INJ-PF (10 MG/ML) 30 ML SDV INFIL ONE (20:31)
[2017-09-24 21:18] VITALS: BP 134/96
[2017-09-24 21:19] LABS: ABSOLUTE LYMPHOCYTES (AUTO) 2.4 10^3/uL (0.5-4.7); ABSOLUTE MONOCYTES (AUTO) 0.5 10^3/uL (0.1-1.4); ABSOLUTE NEUT (AUTO) 3.1 10^3/uL (1.7-8.2); BASOPHILS % (AUTO) 0.5 % (0-2); EOSINOPHILS % (AUTO) 0.7 % (0-6); HEMATOCRIT 38.8 % (36.0-47.0); HEMOGLOBIN 12.3 g/dL (12.0-15.5); LYMPHOCYTES % (AUTO) 39.9 % (13-45); MEAN CORPUSCULAR HEMOGLOBIN 24.8 pg (27.0-33.4); MEAN CORPUSCULAR HGB CONC 31.8 g/dL (32.0-36.0); MEAN CORPUSCULAR VOLUME 78 fl (80-97); MONOCYTES % (AUTO) 7.6 % (3-13); PLATELET COUNT 371 10^3/uL (150-450); RED BLOOD COUNT 4.97 10^6/uL (3.72-5.28); RED CELL DISTRIBUTION WIDTH 20.6 % (11.5-14.0); SEGMENTED NEUTROPHILS % (AUTO) 51.3 % (42-78); TOTAL CELLS COUNTED % (AUTO) 100 %; WHITE BLOOD COUNT 6.1 10^3/uL (4.0-10.5)
[2017-09-24] MEDS ORDERED: IBUPROFEN 800 MG TABLET PO ONE (21:26)
[2017-09-24 21:27] LABS: ALANINE AMINOTRANSFERASE 35 U/L (9-52); ALBUMIN 3.9 g/dL (3.5-5.0); ALKALINE PHOSPHATASE 67 U/L (38-126); ANION GAP 11 (5-19); ASPARTATE AMINO TRANSFERASE 23 U/L (14-36); BILIRUBIN,DIRECT 0.2 mg/dL (0.0-0.4); BILIRUBIN,TOTAL 0.4 mg/dL (0.2-1.3); BLOOD UREA NITROGEN 10 mg/dL (7-20); CALCIUM 9.6 mg/dL (8.4-10.2); CARBON DIOXIDE 23 mmol/L (22-30); CHLORIDE 106 mmol/L (98-107); GLUCOSE 94 mg/dL (75-110); POTASSIUM 4.3 mmol/L (3.6-5.0); SODIUM 140.2 mmol/L (137-145); TOTAL PROTEIN 6.9 g/dL (6.3-8.2)
[2017-09-24 21:32] LABS: INTERNATIONAL RATION (INR) 0.91; PROTHROMBIN TIME 12.8 SEC (11.4-15.4)
--- NOTE | 2017-09-25 15:03 | XCELERA REPORT ---
[address] [address] Lower Extremity Venous Evaluation Name: KOBE WAYNE Age: 27 yrs Gender: Female : 1990 Patient Status: Emergency Patient Location: ER Study Date: 09/24/2017 08:19 PM Procedure: Color flow and duplex imaging of the veins of the left lower extremity as well as the right Common Femoral vein. Reason For Study: left foot pain Ordering Physician: SURY HUI Performed By: Luke Billings Right Sided Venous Evaluation The right common femoral vein is fully compressible. Spontaneous and phasic flow is present in the right common femoral vein. Left Sided Venous Evaluation Normal vessel filling wall to wall, compression and augmentation as well as Colour flow down to the infrageniculate veins. Interpretation Summary No duplex evidence of DVT or obstruction in the left lower extremity nor in the right Common Femoral vein. : SURY HUI > Elkin Medina
== END 2017-09-24 21:50 | disposition home or self-care (01) ==
LOC: ER 16:54
DX: M79.672 Pain in left foot (principal); R21 Rash and other nonspecific skin eruption; M79.89 Other specified soft tissue disorders; E66.01 Morbid (severe) obesity due to excess calories; Z68.43 Body mass index [BMI] 50.0-59.9, adult; J45.909 Unspecified asthma, uncomplicated; R00.0 Tachycardia, unspecified; R50.9 Fever, unspecified; I10 Essential (primary) hypertension
CPT/HCPCS: 99284; 96372; 36415; 85025; 85610; 85730; 80053; 93971 ×2; 73630; J3490; J0696

== ENCOUNTER 2017-10-02 14:47 | Emergency (ER) | payer SELFPAY ==
[2017-10-02] MEDS ORDERED: DEXAMETHASONE SOD PHOS INJ 10 MG/1 ML VIAL IV ONE (15:07)
[2017-10-02] MEDS ORDERED: DIPHENHYDRAMINE HCL 50 MG/ML VIAL IV ONE (15:07)
[2017-10-02] MEDS ORDERED: FAMOTIDINE INJ/PF 20 MG/2 ML SDV IV ONE (15:07)
[2017-10-02] MEDS ORDERED: EPINEPHRINE INJ/PF 1 MG/1 ML AMPULE IM ONE (15:11)
--- NOTE | 2017-10-02 15:17 | ER Document Report ---
ED General - General Chief Complaint: Facial Swelling Stated Complaint: TONGUE SWELLING Time Seen by Provider: 10/02/17 15:00 TRAVEL OUTSIDE OF THE [place] IN LAST 30 DAYS: No - HPI Notes: 27-year-old morbidly obese female presents with acute onset swelling to the left side of her tongue prior to arrival. She has had multiple episodes of angioedema in the past requiring hospital admission. She has never seen an forest fire officer. She also has multiple allergies including iodine, penicillin, shellfish, peanut, hydrocodone, but again has never seen an forest fire officer for these either. Denies any throat swelling or difficulty swallowing or breathing. No vomiting or abdominal pain. Does not take any regular medications at this time. - Related Data Allergies/Adverse Reactions: iodine [Iodine] Allergy (Severe, Verified 10/02/17 14:49) throat swells Penicillins Allergy (Severe, Verified 10/02/17 14:49) throat swells Shellfish * [Shellfish] Allergy (Severe, Verified 10/02/17 14:49) Blisters peanut Adverse Reaction (Severe, Verified 10/02/17 14:49) rash hydrocodone Adverse Reaction (Verified 10/02/17 14:49) Pruritis Past Medical History - Social History Smoking Status: Unknown if Ever Smoked Family History: Reviewed & Not Pertinent, Arthritis, CAD, DM, Hyperlipidemia, Hypertension, Other - No history of angioedema - Past Medical History Cardiac Medical History: Denies: Hx Congestive Heart Failure, Hx Coronary Artery Disease, Hx DVT, Hx Heart Attack, Hx Hypercholesterolemia, Hx Hypertension, Hx Pulmonary Embolism Pulmonary Medical History: Reports: Hx Asthma Denies: Hx Bronchitis, Hx COPD, Hx Pneumonia Neurological Medical History: Denies: Hx Cerebrovascular Accident, Hx Seizures Endocrine Medical History: Denies: Hx Diabetes Mellitus Type 2, Hx Hyperthyroidism, Hx Hypothyroidism Renal/ Medical History: Denies: Hx Peritoneal Dialysis GI Medical History: Reports: Hx Diverticulitis, Hx Gastroesophageal Reflux Disease. Denies: Hx Cirrhosis, Hx Hepatitis Musculoskeletal Medical History: Reports Hx Arthritis Psychiatric Medical History: Reports: Hx Anxiety, Hx Bipolar Disorder, Hx Depression Infectious Medical History: Denies: Hx Hepatitis Past Surgical History: Reports: Hx Appendectomy, Other - ASTHMA - Immunizations Immunizations up to date: Yes Hx Diphtheria, Pertussis, Tetanus Vaccination: Yes Review of Systems - Review of Systems Notes: Constitutional: Negative for fever. HENT: Negative for sore throat. Positive for tongue swelling. Negative for throat swelling or trouble swallowing Eyes: Negative for visual changes. Cardiovascular: Negative for chest pain. Respiratory: Negative for shortness of breath. Gastrointestinal: Negative for abdominal pain, vomiting or diarrhea. Genitourinary: Negative for dysuria. Musculoskeletal: Negative for back pain. Skin: Negative for rash. Neurological: Negative for headaches, weakness or numbness. 10 point ROS negative except as marked above and in HPI. Physical Exam - Vital signs Vitals: Temp Pulse Resp BP Pulse Ox 98.8 F 78 16 151/95 H 100 10/02/17 14:53 10/02/17 14:53 10/02/17 14:53 10/02/17 14:53 10/02/17 14:53 - Notes Notes: PHYSICAL EXAMINATION: GENERAL: Well-appearing, well-nourished and in no acute distress. Morbidly obese HEAD: Atraumatic, normocephalic. EYES: Pupils equal round and reactive to light, extraocular movements intact, conjunctiva are normal. ENT: nares patent, oropharynx clear without exudates. Moist mucous membranes. Left tongue edema, no lip swelling. Obscured posterior pharynx NECK: Normal range of motion, supple without lymphadenopathy LUNGS: Breath sounds clear to auscultation bilaterally and equal. No wheezes rales or rhonchi. HEART: Regular rate and rhythm, no chest wall tenderness ABDOMEN: Soft, nontender, normoactive bowel sounds. No guarding, no rebound. No masses appreciated. EXTREMITIES: Normal range of motion, no pitting or edema. No cyanosis. NEUROLOGICAL: Cranial nerves grossly intact. Normal speech, normal gait. Normal sensory and motor exams. PSYCH: Normal mood, normal affect. SKIN: Warm, Dry, normal turgor, no rashes or lesions noted. Course - Re-evaluation Re-evalutation: 10/02/17 15:18 Patient has responded to epinephrine, steroids, histamine blockers in the past. Will administer these medications and monitor closely. 10/02/17 16:29 Patient reports some improvement in swelling. Stating "I am able to move my tongue now." No worsening of symptoms. Will continue to monitor. 10/02/17 18:40 Patient has significant improvement and is ready to go home. Will prescribe prednisone and Zyrtec daily. At this time will discharge with return precautions and follow-up recommendations. Verbal discharge instructions given a the bedside and opportunity for questions given. Medication warnings reviewed. Patient is in agreement with this plan and has verbalized understanding of return precautions and the need for primary care follow-up in the next 24-72 hours. - Vital Signs Vital signs: Temp Pulse Resp BP Pulse Ox 98.8 F 78 16 151/95 H 100 10/02/17 14:53 10/02/17 14:53 10/02/17 14:53 10/02/17 14:53 10/02/17 16:16 Discharge - Discharge Clinical Impression: Angioedema Qualifiers: Encounter type: initial encounter Qualified Code(s): T78.3XXA - Angioneurotic edema, initial encounter Condition: Good Disposition: HOME, SELF-CARE Additional Instructions: You must take a nonsedating antihistamine daily such as Zyrtec or Claritin to prevent further episodes. You must follow-up with an forest fire officer. You have been given a primary care doctor physician for follow-up. Please discuss forest fire officer referral. Take prednisone for the next several days. Return for worsening or concerning symptoms. Angioedema Angioedema is an allergic swelling of the soft tissues of the body. The lips and mouth are most commonly involved. Medicication allergy is a common cause, especially KIRBY inhibitor medicine (used for blood pressure control). Food, even something you've eaten frequently, can cause angioedema. In many cases it's not obvious what caused the swelling. Acute treatment may include adrenalin and antihistamines. If the cause is known, you must avoid this food or medicine in the future. If angioedema affects your air passages, it can be life-threatening. Return at once if you develop shortness of breath, faintness, severe pain, inability to swallow, or if swelling worsens.swelling worsens. Prescriptions: Cetirizine HCl [Zyrtec 10 mg Tablet] 1 tab PO BID #60 tablet Prednisone [Deltasone 20 mg Tablet] 3 tab PO DAILY 5 Days #15 tablet Referrals: OSMANY KELLER MD [ACTIVE STAFF] - Follow up in 3-5 days
[2017-10-02 19:02] VITALS: BP 124/63
== END 2017-10-02 19:02 | disposition home or self-care (01) ==
LOC: ER 14:47
DX: T78.3XXA Angioneurotic edema, initial encounter (principal); R22.0 Localized swelling, mass and lump, head; J45.909 Unspecified asthma, uncomplicated
CPT/HCPCS: 99283; 96372; 96374; 96375; J1200; J0171; S0028; J1100

== ENCOUNTER 2017-10-08 12:51 | Emergency (ER) | payer SELFPAY ==
--- NOTE | 2017-10-08 13:08 | ER Document Report ---
ED Medical Screen (RME) - General Chief Complaint: Hand Swelling Stated Complaint: HAND PAIN Time Seen by Provider: 10/08/17 13:07 Mode of Arrival: Ambulatory Information source: Patient Notes: This is a 27-year-old female with a history of hereditary angioedema that is multiple episodes of angioedema at different parts of her body. She reports that she has had a spot a response to the typical allergic medications ( sometimes she is responded and sometimes she is not). She presents with swelling of the hands and buttocks which she states she has had in the past. TRAVEL OUTSIDE OF THE [place] IN LAST 30 DAYS: No - Related Data Allergies/Adverse Reactions: iodine [Iodine] Allergy (Severe, Verified 10/08/17 12:53) throat swells Penicillins Allergy (Severe, Verified 10/08/17 12:53) throat swells Shellfish * [Shellfish] Allergy (Severe, Verified 10/08/17 12:53) Blisters peanut Adverse Reaction (Severe, Verified 10/08/17 12:53) rash hydrocodone Adverse Reaction (Verified 10/08/17 12:53) Pruritis Past Medical History - Social History Family history: Reviewed & Not Pertinent - Past Medical History Cardiac Medical History: Denies: Hx Congestive Heart Failure, Hx Coronary Artery Disease, Hx DVT, Hx Heart Attack, Hx Hypercholesterolemia, Hx Hypertension, Hx Pulmonary Embolism Pulmonary Medical History: Reports: Hx Asthma Denies: Hx Bronchitis, Hx COPD, Hx Pneumonia Neurological Medical History: Denies: Hx Cerebrovascular Accident, Hx Seizures Endocrine Medical History: Denies: Hx Diabetes Mellitus Type 2, Hx Hyperthyroidism, Hx Hypothyroidism Renal/ Medical History: Denies: Hx Peritoneal Dialysis GI Medical History: Reports: Hx Diverticulitis, Hx Gastroesophageal Reflux Disease. Denies: Hx Cirrhosis, Hx Hepatitis Musculoskeltal Medical History: Reports Hx Arthritis Psychiatric Medical History: Reports: Hx Anxiety, Hx Bipolar Disorder, Hx Depression Infectious Medical History: Denies: Hx Hepatitis Past Surgical History: Reports: Hx Appendectomy, Other - ASTHMA - Immunizations Immunizations up to date: Yes Hx Diphtheria, Pertussis, Tetanus Vaccination: Yes History of Influenza Vaccine for 11/2016 - 04/2017 Season: No Physical Exam - Vital signs Vitals: Temp Pulse Resp BP Pulse Ox 98.5 F 79 18 134/98 H 100 10/08/17 13:01 10/08/17 13:01 10/08/17 13:01 10/08/17 13:01 10/08/17 13:01 Course - Vital Signs Vital signs: Temp Pulse Resp BP Pulse Ox 98.5 F 79 18 134/98 H 100 10/08/17 13:01 10/08/17 13:01 10/08/17 13:01 10/08/17 13:01 10/08/17 13:01
[2017-10-08] MEDS ORDERED: METHYLPREDNISOLONE INJ 125 MG/2 ML SDV IV ONE (13:09)
[2017-10-08] MEDS ORDERED: MAGNESIUM SULFATE/D5W 1 GM/100 ML RTUPB IV ONE (13:09)
[2017-10-08] MEDS ORDERED: FAMOTIDINE INJ/PF 20 MG/2 ML SDV IV ONE (13:09)
[2017-10-08] MEDS ORDERED: DIPHENHYDRAMINE HCL 50 MG/ML VIAL IV ONE (13:09)
--- NOTE | 2017-10-08 14:59 | ER Document Report ---
ED General - General Mode of Arrival: Ambulatory Information source: Patient TRAVEL OUTSIDE OF THE [place] IN LAST 30 DAYS: No - General Chief Complaint: Hand Swelling Stated Complaint: HAND PAIN Time Seen by Provider: 10/08/17 13:07 Notes: Patient is a 27-year-old female that presents to the emergency department today with complaints of left hand swelling and buttock swelling. Patient states she has had multiple visits to the emergency department for swelling. Patient states she has a strong family history of angioedema. Patient denies any lip, tongue, or throat swelling now. Patient denies using lisinopril. (SAEED LEMOS ) - Related Data Allergies/Adverse Reactions: iodine [Iodine] Allergy (Severe, Verified 10/08/17 12:53) throat swells Penicillins Allergy (Severe, Verified 10/08/17 12:53) throat swells Shellfish * [Shellfish] Allergy (Severe, Verified 10/08/17 12:53) Blisters peanut Adverse Reaction (Severe, Verified 10/08/17 12:53) rash hydrocodone Adverse Reaction (Verified 10/08/17 12:53) Pruritis Past Medical History - General Information source: Patient - Social History Smoking Status: Former Smoker Cigarette use (# per day): No Frequency of alcohol use: None Drug Abuse: None Lives with: Family Family History: Reviewed & Not Pertinent, Arthritis, CAD, DM, Hyperlipidemia, Hypertension, Other - No history of angioedema Patient has suicidal ideation: No Patient has homicidal ideation: No Pulmonary Medical History: Reports: Hx Asthma GI Medical History: Reports: Hx Diverticulitis, Hx Gastroesophageal Reflux Disease Musculoskeletal Medical History: Reports Hx Arthritis Psychiatric Medical History: Reports: Hx Anxiety, Hx Bipolar Disorder, Hx Depression Past Surgical History: Reports: Hx Appendectomy, Other - ASTHMA - Immunizations Immunizations up to date: Yes Hx Diphtheria, Pertussis, Tetanus Vaccination: Yes Review of Systems - Review of Systems Constitutional: No symptoms reported EENT: No symptoms reported Cardiovascular: No symptoms reported Respiratory: No symptoms reported Gastrointestinal: No symptoms reported Genitourinary: No symptoms reported Female Genitourinary: No symptoms reported Musculoskeletal: No symptoms reported Skin: See HPI, Other - left hand swelling, buttock swelling, both subjective Hematologic/Lymphatic: No symptoms reported Neurological/Psychological: No symptoms reported -: Yes All other systems reviewed and negative Physical Exam - Vital signs Vitals: Temp Pulse Resp BP Pulse Ox 98.5 F 79 18 134/98 H 100 10/08/17 13:01 10/08/17 13:01 10/08/17 13:01 10/08/17 13:01 10/08/17 13:01 - Notes Notes: Physical Exam: General: Alert, appears well. HEENT: Normocephalic. Atraumatic. PERRL. Extraocular movements intact. Oropharynx clear. Neck: Supple. Non-tender. Respiratory: No respiratory distress. Clear and equal breath sounds bilaterally. Cardiovascular: Regular rate and rhythm. Abdominal: Normal Inspection. Non-tender. No distension. Normal Bowel Sounds. Back: Non-tender. No deformity or step off. Extremities: Moves all four extremities. Upper extremities: Normal inspection. Normal ROM. No hand erythema, induration , or swelling appreciated. Lower extremities: Normal inspection. No edema. Normal ROM. Neurological: Normal cognition. AAOx4. Normal speech. Psychological: Normal affect. Normal Mood. Skin: Warm. Dry. Normal color. No hand erythema, induration, or swelling appreciated. No buttock induration, erythema, or swelling appreciated. (SAEED LEMOS) Course - Re-evaluation Re-evalutation: 10/08/17 15:00 Patient has been to this hospital numerous times for similar conditions. Unusual presentation today is no apparent swelling of her bilateral hands but symptoms improved with medications provided she states. She also states that no recent traumas or falls no signs of infectious etiology she states that these symptoms are typical of her episodes of angioedema. Her last admission was due to tongue swelling was early August and she was discharged August 23 with Zyrtec and Solu-Medrol taper. Per hospitalist d/c note on 08/23 "After extensive interviewing by nursing staff, it was discovered that the patient never took prednisone following her last discharge. The patient states that she purchased zyrtec but never filled her Prednisone prescription. The patient states that the only oral steroid that works for her angioedema is methylprednisolone. She was previously prescribed that medication when seen at an ER in [place]. " "She was given a prescription for a methylprednisolone taper and instructed to continue taking her BID zyrtec. The patient was also instructed to follow up with an allergisy specialist" Upon questioning patient today she has not followed up with an inspector cold working specialist or her primary care physician in regards to further outpatient testing. Patient's symptoms have improved with medications provided in the emergency department. She never complained of any tongue or lip swelling in her oropharynx tongue and lips all appear normal. Will place patient on methylprednisolone for 5 days. She also states that Zantac is helped so we will prescribe a prescription of Zantac as well. I urged patient to follow-up outpatient testing as nothing will change if she does not have further testing. 10/08/17 15:11 I had a long discussion with patient regarding her outpatient follow-up. She states that she is working to get on insurance as well as funding with her fitrinidad who is in the and [place] in this town on the of this month. Also discussed with her the community care clinic is also an option in they can help her with further outpatient testing. Return precautions provided 10/08/17 15:12 10/08/17 15:14 (YAIR RAINEY) - Vital Signs Vital signs: Temp Pulse Resp BP Pulse Ox 98.4 F 75 18 151/90 H 100 10/08/17 15:28 10/08/17 15:28 10/08/17 15:28 10/08/17 15:28 10/08/17 15:28 Discharge - Discharge Clinical Impression: Bilateral hand swelling Condition: Good Disposition: HOME, SELF-CARE Instructions: Angioedema ([facility]) Additional Instructions: Please take all medications as prescribed per discussion please follow-up with have outpatient follow-up regarding her recurrent angioedema exacerbations. Prescriptions: Methylprednisolone [Medrol 4 mg Tablet] 4 mg PO ASDIR PRN 5 Days #20 tablet PRN Reason: Ranitidine HCl [Zantac] 150 mg PO BID #60 tablet Referrals: [facility] [Outside] - Follow up as needed Scribe Attestation: 10/15/17 09:31 I personally performed the services described in the documentation, reviewed and edited the documentation which was dictated to the scribe in my presence, and it accurately records my words and actions. (YAIR RAINEY) Scribe Documentation - Scribe Written by Chato:: Chato Sanchez, 10/08/2017 1523 acting as scribe for :: Donny
[2017-10-08 15:31] VITALS: BP 151/90
== END 2017-10-08 15:34 | disposition home or self-care (01) ==
LOC: ER 12:51
DX: M79.89 Other specified soft tissue disorders (principal); J45.909 Unspecified asthma, uncomplicated; Z88.0 Allergy status to penicillin; Z91.013 Allergy to seafood
CPT/HCPCS: 99283; 96374; 96375; J1200; J2930; S0028

== ENCOUNTER 2017-10-18 06:27 | Emergency (ER) | payer SELFPAY ==
[2017-10-18] MEDS ORDERED: FAMOTIDINE INJ/PF 20 MG/2 ML SDV IV ONE ×2 (06:40→07:08)
[2017-10-18] MEDS ORDERED: DIPHENHYDRAMINE HCL 50 MG/ML VIAL IV ONE ×2 (06:40→10:19)
[2017-10-18] MEDS ORDERED: METHYLPREDNISOLONE INJ 125 MG/2 ML SDV IV ONE (06:40)
[2017-10-18] MEDS ORDERED: EPINEPHRINE INJ/PF 1 MG/1 ML AMPULE IM ONE (06:40)
[2017-10-18] MEDS ORDERED: EPINEPHRINE INJ/PF 1 MG/1 ML AMPULE ONE (06:42)
--- NOTE | 2017-10-18 06:42 | ER Document Report ---
ED Medical Screen (RME) - General Chief Complaint: Facial Swelling Stated Complaint: FACIAL SWELLING Time Seen by Provider: 10/18/17 06:40 Notes: 27-year-old female with chief complaint of possible allergic reaction, reports swelling to the right side of her face, she woke up with us at about 5 AM, she states she has had this many times before, she has never been intubated but she has been admitted once for this, she states she is now on lisinopril, she states that epinephrine and similar medications have worked well with total resolution in the past. Denies difficulty swallowing or breathing. Past medical history of asthma. TRAVEL OUTSIDE OF THE [place] IN LAST 30 DAYS: No - Related Data Allergies/Adverse Reactions: iodine [Iodine] Allergy (Severe, Verified 10/08/17 12:53) throat swells Penicillins Allergy (Severe, Verified 10/08/17 12:53) throat swells Shellfish * [Shellfish] Allergy (Severe, Verified 10/08/17 12:53) Blisters peanut Adverse Reaction (Severe, Verified 10/08/17 12:53) rash hydrocodone Adverse Reaction (Verified 10/08/17 12:53) Pruritis Past Medical History - Social History Family history: Reviewed & Not Pertinent - Past Medical History Cardiac Medical History: Denies: Hx Congestive Heart Failure, Hx Coronary Artery Disease, Hx DVT, Hx Heart Attack, Hx Hypercholesterolemia, Hx Hypertension, Hx Pulmonary Embolism Pulmonary Medical History: Reports: Hx Asthma Denies: Hx Bronchitis, Hx COPD, Hx Pneumonia Neurological Medical History: Denies: Hx Cerebrovascular Accident, Hx Seizures Endocrine Medical History: Denies: Hx Diabetes Mellitus Type 2, Hx Hyperthyroidism, Hx Hypothyroidism Renal/ Medical History: Denies: Hx Peritoneal Dialysis GI Medical History: Reports: Hx Diverticulitis, Hx Gastroesophageal Reflux Disease. Denies: Hx Cirrhosis, Hx Hepatitis Musculoskeltal Medical History: Reports Hx Arthritis Psychiatric Medical History: Reports: Hx Anxiety, Hx Bipolar Disorder, Hx Depression Infectious Medical History: Denies: Hx Hepatitis Past Surgical History: Reports: Hx Appendectomy, Other - ASTHMA - Immunizations Immunizations up to date: Yes Hx Diphtheria, Pertussis, Tetanus Vaccination: Yes History of Influenza Vaccine for 11/2016 - 04/2017 Season: No Physical Exam - Vital signs Vitals: Temp Pulse Resp BP Pulse Ox 99.2 F 120 H 18 147/108 H 99 10/18/17 06:28 10/18/17 06:28 10/18/17 06:28 10/18/17 06:28 10/18/17 06:28 - HEENT Mouth/Lips: Other - Mild swelling of the right side of the face including lips especially lower lip and also of the right side of the face Course - Vital Signs Vital signs: Temp Pulse Resp BP Pulse Ox 99.2 F 120 H 18 147/108 H 99 10/18/17 06:28 10/18/17 06:28 10/18/17 06:28 10/18/17 06:28 10/18/17 06:28
--- NOTE | 2017-10-18 07:09 | ER Document Report ---
ED Allergic Reaction - General Mode of Arrival: Ambulatory Information source: Patient TRAVEL OUTSIDE OF THE [place] IN LAST 30 DAYS: No - General Chief Complaint: Facial Swelling Stated Complaint: FACIAL SWELLING Time Seen by Provider: 10/18/17 06:40 Notes: Patient is a 27 year old female that presents to the emergency department today with complaints of right-sided facial swelling. The swelling includes the face and upper/lower lips on the right. There is no tongue or posterior oropharynx involvement. Patient has been seen in this emergency department for allergic reactions and facial swelling on numerous occasions. Patient states she has never been able to figure out what triggers these reactions. Patient states it usually takes about 3 or 4 hours for the swelling to go down. Patient states that she usually gets epinephrine, Benadryl, and Pepcid which seems to bring down the swelling. Patient denies any shortness of breath. Patient is able to handle her secretions. (SAEED LEMOS) - Related Data Allergies/Adverse Reactions: iodine [Iodine] Allergy (Severe, Verified 10/08/17 12:53) throat swells Penicillins Allergy (Severe, Verified 10/08/17 12:53) throat swells Shellfish * [Shellfish] Allergy (Severe, Verified 10/08/17 12:53) Blisters peanut Adverse Reaction (Severe, Verified 10/08/17 12:53) rash hydrocodone Adverse Reaction (Verified 10/08/17 12:53) Pruritis Past Medical History - General Information source: Patient - Social History Smoking Status: Never Smoker Cigarette use (# per day): No Frequency of alcohol use: None Drug Abuse: None Lives with: Family Family History: Reviewed & Not Pertinent, Arthritis, CAD, DM, Hyperlipidemia, Hypertension, Other - No history of angioedema Pulmonary Medical History: Reports: Hx Asthma GI Medical History: Reports: Hx Diverticulitis, Hx Gastroesophageal Reflux Disease Musculoskeletal Medical History: Reports Hx Arthritis Psychiatric Medical History: Reports: Hx Anxiety, Hx Bipolar Disorder, Hx Depression Past Surgical History: Reports: Hx Appendectomy, Other - ASTHMA - Immunizations Immunizations up to date: Yes Hx Diphtheria, Pertussis, Tetanus Vaccination: Yes Review of Systems - Review of Systems Constitutional: See HPI, Other - allergic reaction EENT: See HPI, Other - lip and face swelling Cardiovascular: No symptoms reported Respiratory: denies: Short of breath Gastrointestinal: No symptoms reported Genitourinary: No symptoms reported Female Genitourinary: No symptoms reported Musculoskeletal: No symptoms reported Skin: No symptoms reported Hematologic/Lymphatic: No symptoms reported Neurological/Psychological: No symptoms reported -: Yes All other systems reviewed and negative Physical Exam - Vital signs Vitals: Temp Pulse Resp BP Pulse Ox 99.2 F 120 H 18 147/108 H 99 10/18/17 06:28 10/18/17 06:28 10/18/17 06:28 10/18/17 06:28 10/18/17 06:28 - Notes Notes: Physical Exam: General: Alert, appears well. HEENT: Normocephalic. Atraumatic. PERRL. Extraocular movements intact. Oropharynx clear. No posterior oropharynx involvement. No tongue involvement. Patent airway. Right periorbital/facial edema involving both the upper and lower lips on the right side. Area is slightly indurated and somewhat tender with palpation. Patient states the area does not itch. Neck: Supple. Non-tender. Respiratory: No respiratory distress. Clear and equal breath sounds bilaterally. Cardiovascular: Regular rate and rhythm. Abdominal: Morbidly obese. No distension. Normal Bowel Sounds. Back: Non-tender. No deformity or step off. Extremities: Moves all four extremities. Upper extremities: Normal inspection. Normal ROM. Lower extremities: Normal inspection. No edema. Normal ROM. Neurological: Normal cognition. AAOx4. Normal speech. Psychological: Normal affect. Normal Mood. Skin: Warm. Dry. Normal color. (SAEED LEMOS) Course - Re-evaluation Re-evalutation: 10/18/17 09:56 The patient's facial swelling has improved some at this point and the patient states she can feel until a significant difference. We will continue to observe her and provide additional antihistamines until the swelling has generally subsided. 10/18/17 12:28 Swelling is almost completely gone at this time. I discussed taking [id number] Benadryl and Pepcid at home as this seems always help, the patient states no one has ever told her before that she could take these medications on her own at home. She would very much like to try that the next time this happens, as it does seem to happen quite frequently. ( DONTRELL MORRIS) - Vital Signs Vital signs: Temp Pulse Resp BP Pulse Ox 99.2 F 120 H 18 146/105 H 100 10/18/17 06:28 10/18/17 06:28 10/18/17 11:00 10/18/17 11:00 10/18/17 11:00 Discharge - Discharge Clinical Impression: Swelling of right side of face, Recurrent angioedema Condition: Stable Disposition: HOME, SELF-CARE Additional Instructions: Angioedema Angioedema is an allergic swelling of the soft tissues of the body. The lips and mouth are most commonly involved. Medicication allergy is a common cause, especially KIRBY inhibitor medicine (used for blood pressure control). Food, even something you've eaten frequently, can cause angioedema. In many cases it's not obvious what caused the swelling. Acute treatment may include adrenalin and antihistamines. If the cause is known, you must avoid this food or medicine in the future. If angioedema affects your air passages, it can be life-threatening. Return at once if you develop shortness of breath, faintness, severe pain, inability to swallow, or if swelling worsens.swelling worsens. Try taking Benadryl 50 mg and Pepcid 40 mg the next time you start swelling. If there is any swelling of the tongue or the throat, you must come to the emergency room immediately. Follow-up with your doctor as needed. RETURN TO THE EMERGENCY ROOM IF ANY NEW OR WORSENING SYMPTOMS. Scribe Attestation: 10/18/17 07:18 I personally performed the services described in the documentation, reviewed and edited the documentation which was dictated to the scribe in my presence, and it accurately records my words and actions. (DONTRELL MORRIS) Scribe Documentation - Scribe Written by Chato:: Chato Sanchez, 10/18/2017 0747 acting as scribe for :: Lois
[2017-10-18 12:45] VITALS: BP 147/87
== END 2017-10-18 12:40 | disposition home or self-care (01) ==
LOC: ER 06:27
DX: T78.3XXA Angioneurotic edema, initial encounter (principal); J45.909 Unspecified asthma, uncomplicated; Z88.0 Allergy status to penicillin; Z91.013 Allergy to seafood
CPT/HCPCS: 96376; 99283; 96372; 96374; 96375; J1200; J0171; J2930; S0028

== ENCOUNTER 2018-04-17 09:26 | Emergency (ER) | payer SELFPAY ==
[2018-04-17] MEDS ORDERED: DIPHENHYDRAMINE HCL 50 MG/ML VIAL IV ONE ×2 (09:37→12:39)
[2018-04-17] MEDS ORDERED: FAMOTIDINE INJ/PF 20 MG/2 ML SDV IV ONE ×2 (09:37→12:39)
[2018-04-17] MEDS ORDERED: METHYLPREDNISOLONE INJ 125 MG/2 ML SDV IV ONE ×2 (09:37→12:39)
--- NOTE | 2018-04-17 09:39 | ER Document Report ---
ED Medical Screen (RME) - General Chief Complaint: Allergic Reaction Stated Complaint: POSSIBLE ALLERGIC REACTION Time Seen by Provider: 04/17/18 09:35 Mode of Arrival: Ambulatory Information source: Patient Notes: 27-year-old female with asthma presents with lip swelling that was present upon awakening. Patient states she has had prior similar symptoms. She denies any lisinopril use. Patient is allergic to penicillin, shellfish, peanuts and hydrocodone but denies any exposure to any of these. Patient denies difficulty swallowing, shortness of breath. I have greeted and performed a rapid initial assessment of this patient. A comprehensive ED assessment and evaluation of the patient, analysis of test results and completion of medical decision making process we will be contacted by additional ED providers. PHYSICAL EXAMINATION: Vital signs reviewed-hypertensive GENERAL: Significant lip swelling, well-nourished and in no acute distress. LUNGS: No respiratory distress, no stridor, no wheezing Musculoskeletal: Normal range of motion NEUROLOGICAL: Normal speech, normal gait. PSYCH: Normal mood, normal affect. SKIN: Warm, Dry, normal turgor, no rashes or lesions noted. TRAVEL OUTSIDE OF THE [place] IN LAST 30 DAYS: No - HPI Onset: This morning Onset/Duration: Sudden Quality of pain: No pain Severity: None Pain Level: Denies Associated Symptoms: denies: Chest pain, Diarrhea, Nausea, Shortness of breath Exacerbated by: Denies, Standing Similar symptoms previously: Yes Recently seen / treated by doctor: No - Related Data Smoking: Non-smoker Frequency of alcohol use: None Drug Abuse: None Allergies/Adverse Reactions: iodine [Iodine] Allergy (Severe, Verified 10/08/17 12:53) throat swells Penicillins Allergy (Severe, Verified 10/08/17 12:53) throat swells Shellfish * [Shellfish] Allergy (Severe, Verified 10/08/17 12:53) Blisters peanut Adverse Reaction (Severe, Verified 10/08/17 12:53) rash hydrocodone Adverse Reaction (Verified 10/08/17 12:53) Pruritis Past Medical History - Social History Frequency of alcohol use: None Drug Abuse: None Family history: Reviewed & Not Pertinent - Past Medical History Cardiac Medical History: Denies: Hx Congestive Heart Failure, Hx Coronary Artery Disease, Hx DVT, Hx Heart Attack, Hx Hypercholesterolemia, Hx Hypertension, Hx Pulmonary Embolism Pulmonary Medical History: Reports: Hx Asthma Denies: Hx Bronchitis, Hx COPD, Hx Pneumonia Neurological Medical History: Denies: Hx Cerebrovascular Accident, Hx Seizures Endocrine Medical History: Denies: Hx Diabetes Mellitus Type 2, Hx Hyperthyroidism, Hx Hypothyroidism Renal/ Medical History: Denies: Hx Peritoneal Dialysis GI Medical History: Reports: Hx Diverticulitis, Hx Gastroesophageal Reflux Disease. Denies: Hx Cirrhosis, Hx Hepatitis Musculoskeltal Medical History: Reports Hx Arthritis Psychiatric Medical History: Reports: Hx Anxiety, Hx Bipolar Disorder, Hx Depression Infectious Medical History: Denies: Hx Hepatitis Past Surgical History: Reports: Hx Appendectomy, Other - ASTHMA - Immunizations Immunizations up to date: Yes Hx Diphtheria, Pertussis, Tetanus Vaccination: Yes History of Influenza Vaccine for 11/2016 - 04/2017 Season: No Physical Exam - Vital signs Vitals: Temp Pulse Resp BP Pulse Ox 99.2 F 113 H 18 146/109 H 99 04/17/18 09:31 04/17/18 09:31 04/17/18 09:31 04/17/18 09:31 04/17/18 09:31 Course - Vital Signs Vital signs: Temp Pulse Resp BP Pulse Ox 99.2 F 113 H 18 146/109 H 99 04/17/18 09:31 04/17/18 09:31 04/17/18 09:31 04/17/18 09:31 04/17/18 09:31
[2018-04-17] MEDS ORDERED: DIPHENHYDRAMINE HCL 50 MG/ML VIAL IM ONE (10:05)
[2018-04-17] MEDS ORDERED: EPINEPHRINE INJ/PF 1 MG/1 ML AMPULE IM ONE ×2 (10:06→12:40)
[2018-04-17] MEDS ORDERED: DEXAMETHASONE SOD PHOS INJ 10 MG/1 ML VIAL IM ONE (10:06)
[2018-04-17] MEDS ORDERED: FAMOTIDINE 20 MG TABLET PO ONE (10:07)
[2018-04-17] MEDS ORDERED: PREDNISONE 20 MG TABLET PO ONE (10:07)
--- NOTE | 2018-04-17 10:21 | ER Document Report ---
ED Allergic Reaction - General Chief Complaint: Allergic Reaction Stated Complaint: POSSIBLE ALLERGIC REACTION Time Seen by Provider: 04/17/18 09:35 Mode of Arrival: Ambulatory Notes: Patient is complaining of swelling of her left lips this morning. She was fine last night when she went to bed. This is happened to her many times in the past. She is never been diagnosed with any particular medical condition, but h er father, brother, and sister all have hereditary angioedema. Patient denies any difficulty swallowing or swelling of the tongue. No difficulty airway. No shortness of breath or wheezing. No rash or hives. Patient has no other medical conditions. On no regular medications. No recent new or change in medications. TRAVEL OUTSIDE OF THE [place] IN LAST 30 DAYS: No - Related Data Allergies/Adverse Reactions: iodine [Iodine] Allergy (Severe, Verified 10/08/17 12:53) throat swells Penicillins Allergy (Severe, Verified 10/08/17 12:53) throat swells Shellfish * [Shellfish] Allergy (Severe, Verified 10/08/17 12:53) Blisters peanut Adverse Reaction (Severe, Verified 10/08/17 12:53) rash hydrocodone Adverse Reaction (Verified 10/08/17 12:53) Pruritis Past Medical History - General Information source: Patient - Social History Smoking Status: Never Smoker Frequency of alcohol use: None Drug Abuse: None Family History: Reviewed & Not Pertinent, Arthritis, CAD, DM, Hyperlipidemia, Hypertension, Other Patient has suicidal ideation: No Patient has homicidal ideation: No Pulmonary Medical History: Reports: Hx Asthma GI Medical History: Reports: Hx Diverticulitis, Hx Gastroesophageal Reflux Disease. Denies: Hx Cirrhosis, Hx Hepatitis Musculoskeletal Medical History: Reports Hx Arthritis Psychiatric Medical History: Reports: Hx Anxiety, Hx Bipolar Disorder, Hx Depression Past Surgical History: Reports: Hx Appendectomy, Other - ASTHMA - Immunizations Immunizations up to date: Yes Hx Diphtheria, Pertussis, Tetanus Vaccination: Yes Review of Systems - Review of Systems Notes: REVIEW OF SYSTEMS: CONSTITUTIONAL : Denies fever. EENT: Denies eye, ear, nose or mouth or throat pain or other symptoms. See HPI. CARDIOVASCULAR: Denies chest pain. RESPIRATORY: Denies cough, chest congestion, or shortness of breath. GASTROINTESTINAL: Denies abdominal pain or nausea, vomiting, or diarrhea. GENITOURINARY: Denies difficulty or painful urinating, urinary frequency, blood in urine. MUSCULOSKELETAL: Denies back or neck pain. Denies joint pain or swelling. SKIN: Denies rash or skin lesions. NEUROLOGICAL: Denies LOC or altered mental status. Denies headache. Denies sensory loss or motor deficits. ALL OTHER SYSTEMS REVIEWED AND NEGATIVE. Physical Exam - Vital signs Vitals: Temp Pulse Resp BP Pulse Ox 99.2 F 113 H 18 146/109 H 99 04/17/18 09:31 04/17/18 09:31 04/17/18 09:31 04/17/18 09:31 04/17/18 09:31 Interpretation: Hypertensive - Mild, Tachycardic - Mild. No: Febrile Notes: PHYSICAL EXAMINATION: GENERAL: Well-appearing, in no acute distress. HEAD: Atraumatic, normocephalic. EYES: Pupils equal round and reactive to light, extraocular movements intact. ENT: oropharynx clear without exudates. Moist mucous membranes. Edema of the lateral aspect of both the upper and lower left lips. Tongue not swollen. Voice normal. Good airflow. NECK: Normal range of motion, supple. LUNGS: Breath sounds clear and equal bilaterally. No wheezes heard. HEART: Regular rate and rhythm without murmurs. ABDOMEN: Soft, nontender. No guarding or rebound. No masses. BACK: No tenderness throughout entire back. EXTREMITIES: Normal range of motion without pain. NEUROLOGICAL: Normal speech, normal gait. Normal sensory, motor, and reflex exams. Awake, alert, and oriented x3. Cranial nerves normal. PSYCH: Normal mood, normal affect. SKIN: Warm, dry, no rashes. Course - Re-evaluation Re-evalutation: 04/17/18 10:20 Patient does not have any obvious veins for IV medications were obtaining any labs. I have opted to go ahead and treat the patient with IM meds when I can and then oral meds when I must. We will hold off on requiring IV at this time as the patient's condition is just in its earliest phases. 04/17/18 12:36 Swelling may have extended a little bit further to the patient's right lips now. Tongue is not swollen. Patient is having no trouble swallowing or breathing. Were able to get an IV started. We will give some IV medications. 04/17/18 15:27 Lip may be less swollen. I agree with the patient as it appears to me that the top lip is less swollen than it was before. I have indicated to the patient would like to watch her for another hour or so to make sure that were not going to send her home prematurely. 04/17/18 18:45 Patient's symptoms continue to improve. Her top lip is almost completely back to normal. Her lower lip is about 50% less swollen. No other symptoms. She complains of pain in her lips as there are swelling is decreasing. I offered the patient admission for observation tonight, and she wanted to see how she felt after a couple hours, but is now been that her symptoms continue to improve so she wishes to go home. She understands to return here immediately if she has worsening symptoms. - Vital Signs Vital signs: Temp Pulse Resp BP Pulse Ox 98.8 F 110 H 18 106/82 100 04/17/18 19:00 04/17/18 19:00 04/17/18 19:00 04/17/18 19:00 04/17/18 19:00 Critical Care Note - Critical Care Note Total time excluding time spent on procedures (mins): 90 Discharge - Discharge Clinical Impression: Acute allergic reaction, Angioedema Condition: Stable Disposition: HOME, SELF-CARE Additional Instructions: ACUTE ALLERGIC REACTION: Your symptoms are due to an allergic reaction. Allergy can cause hives, swelling of the hands, feet, and face, hoarseness, and difficulty swallowing or breathing. It may be due to exposure to medication, animal dander, foods, infection, or insect bites. Medication is a common cause, even when prior use of this same medication caused no problems. Acute treatment may include adrenalin and antihistamines. Usually, the specific allergic agent can't be identified unless repeated episodes occur. Home treatment includes the following: (1) Stop any suspicious medications. This will be discussed with you. (2) Oral antihistamines for the next four to five days. Example, diphenhydramine (Benadryl) every four hours. (3) You may also use cimetidine (Tagamet), ranitidine (Zantac), or famotidine (Pepcid) every four hours if diphenhydramine is not controlling itching and hives. (4) Avoid aspirin until the hives completely disappear. (5) Avoid hot baths or showers until the hives are completely gone. Call the doctor if faintness, difficulty swallowing, tightness in the chest, or wheezing occurs. EPINEPHRINE: An injection of epinephrine (also called adrenalin) is used to treat allergic reactions, asthma, and some other medical conditions. It is a stimulant medication that consticts blood vessels, relaxes smooth muscles such as in the bronchioles of the lung, elevates blood pressure, and increases heart rate. It can temporarily make you feel very nervous and shakey, but it's a ffects last only a short time, about 15 to 30 minutes at most. STEROID MEDICATION INJECTION: You have been given an injection of medicine of the cortisone/steroid class. This medication is used to control inflammation or allergy. It is often continued as a pill for a short period of time, until the acute process subsides. There are usually no side effects from short-term use of cortisone-like medications. Some persons feel an increased sense of well-being and are not sleepy at bedtime. Long-term use of cortisone medications is best avoided, unless required for a severe condition. If your condition does not remit, or relapses after the course of corticosteroid medication, you should consult your physician. STEROID MEDICATION: You have been given a medicine of the cortisone/steroid class. This medication is used to control inflammation or allergy. It is usually only given for a short period of time, until the acute process subsides. There are usually no side effects from short-term use of cortisone-like medications. Some persons feel an increased sense of well-being and are not sleepy at bedtime. Long-term use of cortisone medications is best avoided, unless required for a severe condition. If your condition does not remit, or relapses after the course of corticosteroid medication, you should consult your physician. ACID-SUPPRESSING MEDICATION: You have a prescription for medicine which reduces the stomach's secretion of acid. Examples include Zantac, Tagament, and Pepcid. These drugs are often used to allow healing of ulcers or esophagitis. They may be needed to prevent recurrence of ulcers in some patients, or to prevent damage from acid reflux in the esophagus. Take all medication as prescribed, even after the pain is gone. Regular antacids may be added as needed if you have symptoms while taking this medicine. These medications sometimes are prescribed for allergic reactions because they have anti-histaminic effects and relieve the rash and itching of the reaction. There are usually no side effects from this medication. But, in rare cases and particularly in the elderly, serious problems can occur. Contact your doctor if there is fever, rash, hallucinations, confusion, or unusual bruising. Contact your doctor at once if you develop lightheadedness, black or bloody stool, or bloody vomitus. ANTIHISTAMINES: An antihistamine has been given and/or prescribed to control your symptoms. Antihistamines are used for many reasons, including itching, watering eyes, runny nose, allergic swelling, hives, and insect stings. Antihistamines may cause drowsiness, especially with the first dose. Do not operate machinery or drive while under the effects of the medication. Other common side effects include dry mouth and eyes. In older persons, antihistamines can occasionally cause urinary retention, constipation, and trouble focusing the eyes. Do not combine the medication with alcohol, or with any other medication without talking to your doctor. USE OF DIPHENHYDRAMINE: The use of diphenhydramine (Benadryl) has been recommended to control allergic symptoms. The 25 mg strength is available over- the-counter, as well as the elixir. This antihistamine is used for many symptoms. It's useful for itching, watering eyes and nose, allergic swelling, hives, and insect stings. The medication can be repeated four times daily. Age Elixir (12.5 mg/tsp) 25 mg pill 2-3 yr 1/2 tsp 4-8 yr 1 tsp 9-14 yr 2 tsp one tab adult 1-2 tabs Antihistamines may cause drowsiness, especially with the first dose. Do not operate machinery or drive while under the effects of the medication. Do not combine the medication with alcohol, or with any other medication without talking to your doctor. Return at any time if your swelling seems to reverse and start to get worse again. FOLLOW-UP CARE: If you have been referred to a physician for follow-up care, call the physicians office for an appointment as you were instructed or within the next two days. If you experience worsening or a significant change in your symptoms, notify the physician immediately or return to the Emergency Department at any time for re-evaluation. Forms: Return to Work
[2018-04-17] MEDS ORDERED: OXYCODONE-ACETAMINOPHEN 5-325 MG TABLET PO ONE (18:23)
[2018-04-17 19:09] VITALS: BP 106/82
== END 2018-04-17 19:09 | disposition home or self-care (01) ==
LOC: ER 09:26
DX: T78.40XA Allergy, unspecified, initial encounter (principal); T78.3XXA Angioneurotic edema, initial encounter; J45.909 Unspecified asthma, uncomplicated
CPT/HCPCS: 99291; 99292; 96372; 96374; 96375; J1200; J0171; J2930; J7512; S0028; J1100

== ENCOUNTER 2018-06-03 12:42 | Emergency (ER) | payer SELFPAY ==
[2018-06-03] MEDS ORDERED: NORMAL SALINE 1000 ML 1,000 ML IV ONE (12:51)
--- NOTE | 2018-06-03 12:53 | ER Document Report ---
ED Medical Screen (RME) - General Chief Complaint: Vaginal Bleeding Stated Complaint: ABNORMAL VAGINAL BLEEDING Time Seen by Provider: 06/03/18 12:48 Mode of Arrival: Ambulatory Information source: Patient Notes: Patient is a 28-year-old female who presents to the emergency department with 1 month history of continuous vaginal bleeding. Patient states over the last 2 days her bleeding has become much worse, states she is going through at least 1- 2 pads per hour. She reports pain in the pelvis area. Denies any abnormal vaginal discharge. Patient does state that she has had irregular periods for many years and further states that she has had to have blood transfusions due to the amount of bleeding. Patient reports generalized weakness and headache. Exam: Patient is alert, oriented and appears anxious. Abdomen is soft and nontender. I have greeted and performed a rapid initial assessment of this patient. A comprehensive ED assessment and evaluation of the patient, analysis of test results and completion of the medical decision making process will be conducted by additional ED providers. Dictation of this chart was performed using voice recognition software; therefore, there may be some unintended grammatical errors. TRAVEL OUTSIDE OF THE [place] IN LAST 30 DAYS: No - Related Data Allergies/Adverse Reactions: iodine [Iodine] Allergy (Severe, Verified 06/03/18 12:43) throat swells Penicillins Allergy (Severe, Verified 06/03/18 12:43) throat swells Shellfish * [Shellfish] Allergy (Severe, Verified 06/03/18 12:43) Blisters peanut Adverse Reaction (Severe, Verified 06/03/18 12:43) rash hydrocodone Adverse Reaction (Verified 06/03/18 12:43) Pruritis Past Medical History - Social History Chew tobacco use (# tins/day): No Frequency of alcohol use: None Drug Abuse: None Family history: Reviewed & Not Pertinent - Past Medical History Cardiac Medical History: Denies: Hx Congestive Heart Failure, Hx Coronary Artery Disease, Hx DVT, Hx Heart Attack, Hx Hypercholesterolemia, Hx Hypertension, Hx Pulmonary Embolism Pulmonary Medical History: Reports: Hx Asthma Denies: Hx Bronchitis, Hx COPD, Hx Pneumonia Neurological Medical History: Denies: Hx Cerebrovascular Accident, Hx Seizures Endocrine Medical History: Denies: Hx Diabetes Mellitus Type 2, Hx Hyperthyroidism, Hx Hypothyroidism Renal/ Medical History: Denies: Hx Peritoneal Dialysis GI Medical History: Reports: Hx Diverticulitis, Hx Gastroesophageal Reflux Disease. Denies: Hx Cirrhosis, Hx Hepatitis Musculoskeltal Medical History: Reports Hx Arthritis Psychiatric Medical History: Reports: Hx Anxiety, Hx Bipolar Disorder, Hx Depression Infectious Medical History: Denies: Hx Hepatitis Past Surgical History: Reports: Hx Appendectomy, Other - ASTHMA - Immunizations Immunizations up to date: Yes Hx Diphtheria, Pertussis, Tetanus Vaccination: Yes History of Influenza Vaccine for 11/2016 - 04/2017 Season: No Physical Exam - Vital signs Vitals: Temp Pulse Resp BP Pulse Ox 98.5 F 120 H 18 143/109 H 99 06/03/18 12:46 06/03/18 12:46 06/03/18 12:46 06/03/18 12:46 06/03/18 12:46 Course - Vital Signs Vital signs: Temp Pulse Resp BP Pulse Ox 98.5 F 120 H 18 143/109 H 99 06/03/18 12:46 06/03/18 12:46 06/03/18 12:46 06/03/18 12:46 06/03/18 12:46
[2018-06-03 13:26] LABS: ABSOLUTE BASOPHILS # (AUTO) 0.1 10^3/uL (0.0-0.2); ABSOLUTE EOSINOPHILS # (AUTO) 0.2 10^3/uL (0.0-0.6); ABSOLUTE LYMPHOCYTES (AUTO) 2.3 10^3/uL (0.5-4.7); ABSOLUTE MONOCYTES (AUTO) 0.8 10^3/uL (0.1-1.4); ABSOLUTE NEUT (AUTO) 4.2 10^3/uL (1.7-8.2); BASOPHILS % (AUTO) 1.1 % (0-2); EOSINOPHILS % (AUTO) 2.4 % (0-6); HEMATOCRIT 29.4 % (36.0-47.0); LYMPHOCYTES % (AUTO) 30.7 % (13-45); MEAN CORPUSCULAR HEMOGLOBIN 20.7 pg (27.0-33.4); MEAN CORPUSCULAR HGB CONC 30.8 g/dL (32.0-36.0); MEAN CORPUSCULAR VOLUME 67 fl (80-97); MONOCYTES % (AUTO) 10.1 % (3-13); PLATELET COUNT 422 10^3/uL (150-450); RED BLOOD COUNT 4.36 10^6/uL (3.72-5.28); SEGMENTED NEUTROPHILS % (AUTO) 55.7 % (42-78); TOTAL CELLS COUNTED % (AUTO) 100 %; WHITE BLOOD COUNT 7.5 10^3/uL (4.0-10.5)
[2018-06-03 13:34] LABS: APPEARANCE,URINE SLIGHTLY-CLOUDY; BILIRUBIN,URINE NEGATIVE (NEGATIVE); COLOR,URINE YELLOW; GLUCOSE, URINE NEGATIVE (NEGATIVE); KETONES,URINE NEGATIVE (NEGATIVE); LEUKOCYTE ESTERASE,URINE NEGATIVE (NEGATIVE); NITRITE,URINE NEGATIVE (NEGATIVE); PROTEIN,URINE NEGATIVE (NEGATIVE); URINE SPECIFIC GRAVITY 1.009; UROBILINOGEN,URINE NEGATIVE mg/dL (<2.0)
[2018-06-03 13:40] LABS: ALANINE AMINOTRANSFERASE 34 U/L (9-52); ALBUMIN 3.9 g/dL (3.5-5.0); ALKALINE PHOSPHATASE 79 U/L (38-126); ANION GAP 10 (5-19); ASPARTATE AMINO TRANSFERASE 24 U/L (14-36); BILIRUBIN,DIRECT 0.3 mg/dL (0.0-0.4); BILIRUBIN,TOTAL 0.4 mg/dL (0.2-1.3); BLOOD UREA NITROGEN 7 mg/dL (7-20); CALCIUM 9.5 mg/dL (8.4-10.2); CARBON DIOXIDE 25 mmol/L (22-30); CHLORIDE 102 mmol/L (98-107); GLUCOSE 108 mg/dL (75-110); POTASSIUM 4.2 mmol/L (3.6-5.0); SODIUM 136.6 mmol/L (137-145); TOTAL PROTEIN 7.1 g/dL (6.3-8.2)
[2018-06-03 14:37] VITALS: BP 136/82
[2018-06-03] MEDS ORDERED: MORPHINE SULFATE 10 MG/ML INJ IV ONE (14:48)
[2018-06-03] MEDS ORDERED: ONDANSETRON HCL INJ/PF 4 MG/2 ML SDV IV ONE (14:48)
[2018-06-03] MEDS ORDERED: KETOROLAC TROMETHAMINE INJ/PF 30 MG/1 ML SDV IV ONE (14:48)
--- NOTE | 2018-06-03 15:28 | ER Document Report ---
ED General - General Chief Complaint: Vaginal Bleeding Stated Complaint: ABNORMAL VAGINAL BLEEDING Time Seen by Provider: 06/03/18 12:48 Mode of Arrival: Ambulatory TRAVEL OUTSIDE OF THE [place] IN LAST 30 DAYS: No - HPI Notes: Patient is a 28-year-old female who presents to the emergency department for abnormal vaginal bleeding. She states she has had heavy vaginal bleeding for about a month. This has happened to her in the past. 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 She states she tried multiple oral contraceptives, they were at the point of considering a hysterectomy. The patient states she is going through approximately 24 pads a day. She has iron at home, states she took that once a few days ago. She states that she thought it made her bleeding worse so she stopped it. She denies any dizziness, chest pain, difficulty breathing. She is having cramping, consistent with menstrual cramps, that are continuous and a 5 out of 5. - Related Data Allergies/Adverse Reactions: iodine [Iodine] Allergy (Severe, Verified 06/03/18 12:43) throat swells Penicillins Allergy (Severe, Verified 06/03/18 12:43) throat swells Shellfish * [Shellfish] Allergy (Severe, Verified 06/03/18 12:43) Blisters peanut Adverse Reaction (Severe, Verified 06/03/18 12:43) rash hydrocodone Adverse Reaction (Verified 06/03/18 12:43) Pruritis Past Medical History - General Information source: Patient - Social History Smoking Status: Former Smoker Chew tobacco use (# tins/day): No Frequency of alcohol use: None Drug Abuse: None Family History: Reviewed & Not Pertinent, Arthritis, CAD, DM, Hyperlipidemia, Hypertension, Other Patient has suicidal ideation: No Patient has homicidal ideation: No - Past Medical History Cardiac Medical History: Denies: Hx Congestive Heart Failure, Hx Coronary Artery Disease, Hx DVT, Hx Heart Attack, Hx Hypercholesterolemia, Hx Hypertension, Hx Pulmonary Embolism Pulmonary Medical History: Reports: Hx Asthma Denies: Hx Bronchitis, Hx COPD, Hx Pneumonia Neurological Medical History: Denies: Hx Cerebrovascular Accident, Hx Seizures Endocrine Medical History: Denies: Hx Diabetes Mellitus Type 2, Hx Hyperthyroidism, Hx Hypothyroidism Renal/ Medical History: Denies: Hx Peritoneal Dialysis GI Medical History: Reports: Hx Diverticulitis, Hx Gastroesophageal Reflux Disease. Denies: Hx Cirrhosis, Hx Hepatitis Musculoskeletal Medical History: Reports Hx Arthritis Psychiatric Medical History: Reports: Hx Anxiety, Hx Bipolar Disorder, Hx Depression Infectious Medical History: Denies: Hx Hepatitis Past Surgical History: Reports: Hx Appendectomy, Other - ASTHMA - Immunizations Immunizations up to date: Yes Hx Diphtheria, Pertussis, Tetanus Vaccination: Yes Review of Systems - Review of Systems Constitutional: No symptoms reported EENT: No symptoms reported Cardiovascular: No symptoms reported Respiratory: No symptoms reported Gastrointestinal: No symptoms reported Genitourinary: No symptoms reported Female Genitourinary: See HPI Musculoskeletal: No symptoms reported Skin: No symptoms reported Neurological/Psychological: No symptoms reported Physical Exam - Vital signs Vitals: Temp Pulse Resp BP Pulse Ox 98.5 F 120 H 18 143/109 H 99 06/03/18 12:46 06/03/18 12:46 06/03/18 12:46 06/03/18 12:46 06/03/18 12:46 - Notes Notes: Vital signs reviewed, please refer to chart. Patient is normocephalic, atraumatic. Pupils equal round, reactive to light. Neck is supple without meningismus. Heart is regular rate and rhythm. Lungs are clear to auscultation bilaterally. Abdomen is soft, nontender, normoactive bowel sounds throughout. Extremities without cyanosis, clubbing, edema. Peripheral pulses are equal. Skin is warm and dry. Patient is awake, alert, neurological exam is nonfocal. Course - Re-evaluation Re-evalutation: 06/03/18 15:25 Patient presents to the emergency department for evaluation of heavy vaginal bleeding. Her hemoglobin has indeed dropped. It is certainly not to the level of requiring transfusion at this time. I strongly urged the patient to restart her iron therapy. I told her I did not think it likely that it was making her bleeding worse. Ultimately she will need follow-up with gynecology. I will refer her to on-call gynecology here. Her pain here is treated, we will send her home on anti-inflammatories. She is to return to the ED with worsening or new concerning symptoms of any sort. - Vital Signs Vital signs: Temp Pulse Resp BP Pulse Ox 98.1 F 95 16 136/82 H 99 06/03/18 14:34 06/03/18 14:34 06/03/18 14:34 06/03/18 14:34 06/03/18 12:46 - Laboratory Result Diagrams: 06/03/18 13:04 06/03/18 13:04 Laboratory results interpreted by me: 06/03/18 06/03/18 06/03/18 13:04 13:04 13:04 Hgb 9.0 L Hct 29.4 L MCV 67 L MCH 20.7 L MCHC 30.8 L RDW 22.0 H Sodium 136.6 L Urine Blood LARGE H Discharge - Discharge Clinical Impression: Anemia, Morbid obesity with BMI of 50.0-59.9, adult Condition: Stable Disposition: HOME, SELF-CARE Instructions: Anemia ([facility]) Additional Instructions: Rest, stay well-hydrated. Follow-up with gynecology. Restart your iron supplements as previously prescribed. Return to the emergency department with worsening or new concerning symptoms of any sort. Forms: Elevated Blood Pressure Referrals: ROHAN HERNANDEZ DO [[facility]REED] - Follow up as needed
== END 2018-06-03 15:49 | disposition home or self-care (01) ==
LOC: ER 12:42
DX: D64.9 Anemia, unspecified (principal); E66.01 Morbid (severe) obesity due to excess calories; Z68.43 Body mass index [BMI] 50.0-59.9, adult; N93.9 Abnormal uterine and vaginal bleeding, unspecified; J45.909 Unspecified asthma, uncomplicated; Z88.0 Allergy status to penicillin; Z91.013 Allergy to seafood; Z87.891 Personal history of nicotine dependence
CPT/HCPCS: 99284; 96361; 96374; 96375; 86900; 86901; 36415; 86850; 84703; 85025; 80053; 81001; J1885; J2405; J7030

== ENCOUNTER 2018-06-28 23:55 | Observation (INO) | payer OTHER ==
[2018-06-29] MEDS ORDERED: DIPHENHYDRAMINE HCL 50 MG/ML VIAL ONE
[2018-06-29] MEDS ORDERED: EPINEPHRINE INJ/PF 1 MG/1 ML AMPULE ONE
[2018-06-29] MEDS ORDERED: METHYLPREDNISOLONE INJ 125 MG/2 ML SDV ONE
[2018-06-29] MEDS ORDERED: FAMOTIDINE INJ/PF 20 MG/2 ML SDV IV ONE ×2 (00:02→00:05)
[2018-06-29] MEDS ORDERED: EPINEPHRINE INJ/PF 1 MG/1 ML AMPULE IM ONE (00:03)
[2018-06-29] MEDS ORDERED: NORMAL SALINE 250 ML IV PRN (00:03)
[2018-06-29] MEDS ORDERED: DIPHENHYDRAMINE HCL 50 MG/ML VIAL IV ONE (00:04)
[2018-06-29] MEDS ORDERED: METHYLPREDNISOLONE INJ 125 MG/2 ML SDV IV ONE (00:04)
[2018-06-29 00:37] LABS: ABSOLUTE BASOPHILS # (AUTO) 0.1 10^3/uL (0.0-0.2); ABSOLUTE EOSINOPHILS # (AUTO) 0.3 10^3/uL (0.0-0.6); ABSOLUTE LYMPHOCYTES (AUTO) 2.5 10^3/uL (0.5-4.7); ABSOLUTE MONOCYTES (AUTO) 0.5 10^3/uL (0.1-1.4); ABSOLUTE NEUT (AUTO) 3.1 10^3/uL (1.7-8.2); BASOPHILS % (AUTO) 1.1 % (0-2); HEMATOCRIT 30.7 % (36.0-47.0); HEMOGLOBIN 9.3 g/dL (12.0-15.5); LYMPHOCYTES % (AUTO) 39.1 % (13-45); MEAN CORPUSCULAR HEMOGLOBIN 20.1 pg (27.0-33.4); MEAN CORPUSCULAR HGB CONC 30.2 g/dL (32.0-36.0); MEAN CORPUSCULAR VOLUME 66 fl (80-97); MONOCYTES % (AUTO) 8.2 % (3-13); PLATELET COUNT 388 10^3/uL (150-450); RED BLOOD COUNT 4.62 10^6/uL (3.72-5.28); RED CELL DISTRIBUTION WIDTH 20.1 % (11.5-14.0); SEGMENTED NEUTROPHILS % (AUTO) 47.6 % (42-78); TOTAL CELLS COUNTED % (AUTO) 100 %; WHITE BLOOD COUNT 6.4 10^3/uL (4.0-10.5)
[2018-06-29 00:54] LABS: ANION GAP 11 (5-19); BLOOD UREA NITROGEN 10 mg/dL (7-20); CALCIUM 9.4 mg/dL (8.4-10.2); CARBON DIOXIDE 26 mmol/L (22-30); CHLORIDE 104 mmol/L (98-107); GLUCOSE 128 mg/dL (75-110); POTASSIUM 4.3 mmol/L (3.6-5.0); SODIUM 141.4 mmol/L (137-145)
[2018-06-29] MEDS ORDERED: MORPHINE SULFATE 10 MG/ML INJ IV ONE ×2 (01:03→03:55)
--- NOTE | 2018-06-29 01:20 | ER Document Report ---
ED General - General Chief Complaint: Allergic Reaction Stated Complaint: ALLERGIC REACTION Time Seen by Provider: 06/29/18 00:03 Notes: Patient is a pleasant 28-year-old female presents with complaint of sudden onset of facial and lip swelling. Said this happened a few times in the past. The same thing sometimes happens to her father as well as her sister. She has an upcoming appointment with an allergy quality assurance director. She has not yet seen one but does have the upcoming appointment. She has not yet been diagnosed with hereditary angioedema. She denies any new foods or medications. She is not on any blood pressure medications. She denies any fevers or infections. She denies any itching or rash. She denies any difficulty breathing at this time. No other complaints at this time. TRAVEL OUTSIDE OF THE [place] IN LAST 30 DAYS: No - Related Data Allergies/Adverse Reactions: iodine [Iodine] Allergy (Severe, Verified 06/03/18 12:43) throat swells Penicillins Allergy (Severe, Verified 06/03/18 12:43) throat swells Shellfish * [Shellfish] Allergy (Severe, Verified 06/03/18 12:43) Blisters peanut Adverse Reaction (Severe, Verified 06/03/18 12:43) rash hydrocodone Adverse Reaction (Verified 06/03/18 12:43) Pruritis Past Medical History - Social History Smoking Status: Never Smoker Frequency of alcohol use: None Drug Abuse: None Family History: Reviewed & Not Pertinent, Arthritis, CAD, DM, Hyperlipidemia, Hypertension, Other - Past Medical History Cardiac Medical History: Denies: Hx Congestive Heart Failure, Hx Coronary Artery Disease, Hx DVT, Hx Heart Attack, Hx Hypercholesterolemia, Hx Hypertension, Hx Pulmonary Embolism Pulmonary Medical History: Reports: Hx Asthma Denies: Hx Bronchitis, Hx COPD, Hx Pneumonia Neurological Medical History: Denies: Hx Cerebrovascular Accident, Hx Seizures Endocrine Medical History: Denies: Hx Diabetes Mellitus Type 2, Hx Hyperthyroidism, Hx Hypothyroidism Renal/ Medical History: Denies: Hx Peritoneal Dialysis GI Medical History: Reports: Hx Diverticulitis, Hx Gastroesophageal Reflux Disease. Denies: Hx Cirrhosis, Hx Hepatitis Musculoskeletal Medical History: Reports Hx Arthritis Psychiatric Medical History: Reports: Hx Anxiety, Hx Bipolar Disorder, Hx Depression Infectious Medical History: Denies: Hx Hepatitis Past Surgical History: Reports: Hx Appendectomy, Other - ASTHMA - Immunizations Immunizations up to date: Yes Hx Diphtheria, Pertussis, Tetanus Vaccination: Yes Review of Systems - Review of Systems Notes: My Normal Review Basic REVIEW OF SYSTEMS: CONSTITUTIONAL : Denies fever, chills, or sweats. Denies recent illness. EENT: Facial swelling. Lip Swelling. RESPIRATORY: Denies cough, cold, or chest congestion. Denies shortness of breath, difficulty breathing, or wheezing. GASTROINTESTINAL: Denies abdominal pain. Denies nausea, vomiting, or diarrhea. MUSCULOSKELETAL: Denies neck or back pain or joint pain or swelling. SKIN: Denies rash or skin lesions. NEUROLOGICAL: Denies altered mental status or loss of consciousness. Denies headache. Denies weakness or paralysis or loss of use of either side. Denies problems with gait or speech. Denies sensory or motor loss. ALL OTHER SYSTEMS REVIEWED AND NEGATIVE. Physical Exam - Vital signs Vitals: Resp 21 H 06/29/18 00:43 - Notes Notes: General Appearance: Well nourished, alert, cooperative, no acute distress, no obvious discomfort. Vitals: reviewed, See vital signs table. Head: Large amount swelling to the right side of face and throughout both upper and lower lips. Eyes: PERRL, EOMI, Conjuctiva clear Mouth: No decreasd moisture. No swelling to tongue. Throat: No tonsillar inflammation, No airway obstruction, No lymphadenopathy Neck: Supple, no neck tenderness, No thyromegaly Lungs: No wheezing, No rales, No rhonci, No accessory muscle use, good air exchange bilaterally. Heart: Normal rate, Regular rythm, No murmur, no rub Extremities: strength 5/5 in all extremities, good pulses in all extremities, no swelling or tenderness in the extremities, no edema. Skin: warm, dry, appropriate color, no rash Neuro: speech clear, oriented x 3, normal affect, responds appropriately to questions. Course - Re-evaluation Re-evalutation: 06/29/18 01:19 Patient's lip swelling and facial swelling is getting worse. She is still tolerating secretions well. Still maintaining her airway well. Still able to open and close her mouth without difficulty. Tongue is not swollen. She does not need airway intervention at this time however I am concerned that despite FFP or swelling skin worse. 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 She is on her way and to mix the medication so that we can give it to the patient. 06/29/18 02:04 Pharmacy is now in house. She called me to inform you that they actually do have Berinert. The initially thought they did not but now they have found that they do. We will give her 2500 as of Berinert. Her swelling is not worsened. Her tongue remains normal without any swelling. This seems to have stabilized last hour and that is not worsening. Is not improving either. Patient still very uncomfortable. She is still maintaining earlier without difficulty. Her tongue again remains normal size and she is handling secretions well. 06/29/18 03:28 Infusion of Berinert has just completed. Patient continues to be doing okay with no worsening of swelling however she still has significant bilateral swelling to lips and face. Tongue is still not swelling. Still maintaining airway without any difficulty. 06/29/18 03:56 Swelling has decreased small amount. Patient continues to not have any evidence for compromise. We will continue to monitor the patient. 06/29/18 04:02 Due to the fact the patient swelling has not rapidly improved I feel is appropriate to admit her for observation. I did speak with Dr. Herrera, hospitalist, to agrees to evaluate her for admission. I strongly suspect that she has hereditary angioedema based on the fact that this is happened to her several times and also has occurred with both her father and her sister as well. Dictation of this chart was performed using voice recognition software; therefore, there may be some unintended grammatical errors. - Vital Signs Vital signs: Temp Pulse Resp BP Pulse Ox 98.9 F 28 H 139/91 H 100 06/29/18 01:16 06/29/18 01:16 06/29/18 01:16 06/29/18 01:16 - Laboratory Result Diagrams: 06/29/18 00:19 06/29/18 00:19 Laboratory results interpreted by me: 06/29/18 06/29/18 00:19 00:19 Hgb 9.3 L Hct 30.7 L MCV 66 L MCH 20.1 L MCHC 30.2 L RDW 20.1 H Glucose 128 H Discharge - Discharge Clinical Impression: Angioedema Qualifiers: Encounter type: initial encounter Qualified Code(s): T78.3XXA - Angioneurotic edema, initial encounter Condition: Stable Disposition: ADMITTED OBSERVATION Admitting Provider: Javier (Hospitalist) Unit Admitted: Telemetry
[2018-06-29] MEDS ORDERED: C1 ESTERASE INHIBITOR IV PRN (02:07)
[2018-06-29] MEDS ORDERED: DISPOSABLE IV PRN (02:07)
[2018-06-29] MEDS ORDERED: IPRATROPIUM/ALBUTEROL 0.5-2.5 MG/3 ML AMPUL NEB PRN (04:22)
[2018-06-29] MEDS ORDERED: DIPHENHYDRAMINE HCL 50 MG/ML VIAL IV PRN (05:34)
[2018-06-29] MEDS ORDERED: HEPARIN SOD (PORCINE) 5,000 UNIT/ML 1 ML SYRINGE SUBCUT SCH (06:00)
--- NOTE | 2018-06-29 06:41 | PDOC H&P ---
History of Present Illness Admission Date/PCP: 06/29/18 04:11 Patient complains of: Facial swelling History of Present Illness: KOBE WAYNE is a 28 year old female with a past medical history of morbid obesity, diverticulitis, asthma and nonhereditary angioedema. Patient presents with 4 hours of facial swelling mostly involving her lower lip without stridor, shortness of breath, nausea vomiting or the development of rash or urticaria. She has had several episodes in the past and a work-up for C1 esterase deficiency is negative. She does have elevated IgE and usually takes Benadryl on a daily basis however did not take her dose today. Previous admissions have been brief as she responds rapidly to Pepcid, Benadryl, Solu-Medrol. In the emergency room she gives a family history of angioedema prompting the administration of FFP without improvement following C1 esterase without improvement and is referred to the hospitalist for admission. Patient denies known trigger or exposure to food allergies. Past Medical History Cardiac Medical History: Denies: Congestive Heart Failure, Coronary Artery Disease, DVT, Myocardial Infarction, Hyperlipidema, Hypertension, Pulmonary Embolism Pulmonary Medical History: Reports: Asthma Denies: Bronchitis, Chronic Obstructive Pulmonary Disease (COPD), Pneumonia Neurological Medical History: Denies: Seizures Endocrine Medical History: Denies: Diabetes Mellitus Type 2, Hyperthyroidism, Hypothyroidism GI Medical History: Reports: Diverticulitis, Gastroesophageal Reflux Disease Denies: Cirrhosis, Hepatitis Musculoskeltal Medical History: Reports: Arthritis Psychiatric Medical History: Reports: Bipolar Disorder, Depression Hematology: Reports: Anemia Past Surgical History Past Surgical History: Reports: Appendectomy, Other - ASTHMA Social History Information Source: Patient, [facility] Lives with: Spouse/Significant other Smoking Status: Never Smoker Frequency of Alcohol Use: Occasional Hx Recreational Drug Use: No Drugs: None Hx Prescription Drug Abuse: No - Advance Directive Resuscitation Status: Full Code Family History Family History: Reviewed & Not Pertinent, Arthritis, CAD, DM, Hyperlipidemia, Hypertension Parental Family History Reviewed: Yes Children Family History Reviewed: Yes Sibling(s) Family History Reviewed.: Yes Medication/Allergy Allergies/Adverse Reactions: iodine [Iodine] Allergy (Severe, Verified 06/03/18 12:43) throat swells Penicillins Allergy (Severe, Verified 06/03/18 12:43) throat swells Shellfish * [Shellfish] Allergy (Severe, Verified 06/03/18 12:43) Blisters peanut Adverse Reaction (Severe, Verified 06/03/18 12:43) rash hydrocodone Adverse Reaction (Verified 06/03/18 12:43) Pruritis Review of Systems Constitutional: ABSENT: chills, fever(s), headache(s), weight gain, weight loss Eyes: ABSENT: visual disturbances Ears: ABSENT: hearing changes Cardiovascular: ABSENT: chest pain, dyspnea on exertion, edema, orthropnea, palpitations Respiratory: ABSENT: cough, hemoptysis Gastrointestinal: ABSENT: abdominal pain, constipation, diarrhea, hematemesis, hematochezia, nausea, vomiting Genitourinary: ABSENT: dysuria, hematuria Musculoskeletal: ABSENT: joint swelling Integumentary: ABSENT: rash, wounds Neurological: ABSENT: abnormal gait, abnormal speech, confusion, dizziness, focal weakness, syncope Psychiatric: ABSENT: anxiety, depression, homidical ideation, suicidal ideation Endocrine: ABSENT: cold intolerance, heat intolerance, polydipsia, polyuria Hematologic/Lymphatic: ABSENT: easy bleeding, easy bruising Physical Exam Vital Signs: Temp Pulse Resp BP Pulse Ox 98.9 F 16 120/73 100 06/29/18 01:16 06/29/18 05:00 06/29/18 04:01 06/29/18 05:00 Intake & Output 06/27/18 06/28/18 06/29/18 11:59 11:59 11:59 Intake Total 312 Balance 312 General appearance: PRESENT: cooperative, mild distress, morbidly obese, well-developed, well-nourished Head exam: PRESENT: atraumatic, normocephalic Eye exam: PRESENT: conjunctiva pink, EOMI, PERRLA. ABSENT: scleral icterus Ear exam: PRESENT: normal external ear exam Mouth exam: PRESENT: moist, tongue midline, other - Marketed upper and lower lip edema without tongue swelling. No stridor or shortness of breath Neck exam: ABSENT: carotid bruit, JVD, lymphadenopathy, thyromegaly Respiratory exam: PRESENT: clear to auscultation lissett. ABSENT: rales, rhonchi, wheezes Cardiovascular exam: PRESENT: RRR. ABSENT: diastolic murmur, rubs, systolic murmur Pulses: PRESENT: normal dorsalis pedis pul Vascular exam: PRESENT: normal capillary refill GI/Abdominal exam: PRESENT: normal bowel sounds, soft. ABSENT: distended, guarding, mass, organolmegaly, rebound, tenderness Rectal exam: PRESENT: deferred Extremities exam: PRESENT: full ROM. ABSENT: calf tenderness, clubbing, pedal edema Neurological exam: PRESENT: alert, awake, oriented to person, oriented to place, oriented to time, oriented to situation, CN II-XII grossly intact. ABSENT: motor sensory deficit Psychiatric exam: PRESENT: appropriate affect, normal mood. ABSENT: homicidal ideation, suicidal ideation Skin exam: PRESENT: dry, intact, warm. ABSENT: cyanosis, rash Results Laboratory Results: 06/29/18 00:19 06/29/18 00:19 06/29/18 06/29/18 06/29/18 00:18 00:19 00:19 WBC 6.4 RBC 4.62 Hgb 9.3 L Hct 30.7 L MCV 66 L MCH 20.1 L MCHC 30.2 L RDW 20.1 H Plt Count 388 Seg Neutrophils % 47.6 Lymphocytes % 39.1 Monocytes % 8.2 Eosinophils % 4.0 Basophils % 1.1 Absolute Neutrophils 3.1 Absolute Lymphocytes 2.5 Absolute Monocytes 0.5 Absolute Eosinophils 0.3 Absolute Basophils 0.1 Sodium 141.4 Potassium 4.3 Chloride 104 Carbon Dioxide 26 Anion Gap 11 BUN 10 Creatinine 0.78 Est GFR ( Amer) > 60 Est GFR (Non-Af Amer) > 60 Glucose 128 H Calcium 9.4 Iron Blood Type O POSITIVE Antibody Screen NEGATIVE 06/29/18 00:19 WBC RBC Hgb Hct MCV MCH MCHC RDW Plt Count Seg Neutrophils % Lymphocytes % Monocytes % Eosinophils % Basophils % Absolute Neutrophils Absolute Lymphocytes Absolute Monocytes Absolute Eosinophils Absolute Basophils Sodium Potassium Chloride Carbon Dioxide Anion Gap BUN Creatinine Est GFR ( Amer) Est GFR (Non-Af Amer) Glucose Calcium Iron 21.7 L Blood Type Antibody Screen Assessment and Plan - Diagnosis (1) Angioedema Qualifiers: Encounter type: initial encounter Qualified Code(s): T78.3XXA - Angioneurotic edema, initial encounter Is this a current diagnosis for this admission?: Yes Plan: Nonhereditary as C1 esterase formally checked as normal, observation for Benadryl, Pepcid, Solu-Medrol. Supportive care and education (2) Anemia Is this a current diagnosis for this admission?: Yes Plan: Microcytic likely iron deficient follow-up labs. - Time Time Spent with patient: 35 or more minutes - Inpatient Certification Medical Necessity: Need Close Monitoring Due to Risk of Patient Decompensation
[2018-06-29] MEDS ORDERED: METHYLPREDNISOLONE INJ 125 MG/2 ML SDV IV SCH (10:00)
[2018-06-29] MEDS ORDERED: FAMOTIDINE INJ/PF 20 MG/2 ML SDV IV SCH (10:00)
--- NOTE | 2018-06-29 11:56 | PDOC DISCHARGE SUMMARY ---
General - Admit/Disc Date/PCP Admission Date/Primary Care Provider: 06/29/18 04:11 Discharge Date: 06/29/18 - Additional Information Resuscitation Status: Full Code Home Medications: No Home Medications 06/29/18 History of Present Illness History of Present Illness: KOBE WAYNE is a 28 year old femalewith a past medical history of morbid obesity, diverticulitis, asthma and nonhereditary angioedema. Patient presents with 4 hours of facial swelling mostly involving her lower lip without stridor, shortness of breath, nausea vomiting or the development of rash or urticaria. She has had several episodes in the past and a work-up for C1 esterase deficiency is negative. She does have elevated IgE and usually takes Benadryl on a daily basis however did not take her dose today. Previous admissions have been brief as she responds rapidly to Pepcid, Benadryl, Solu-Medrol. In the emergency room she gives a family history of angioedema prompting the administration of FFP without improvement following C1 esterase without improvement and is referred to the hospitalist for admission. Patient denies known trigger or exposure to food allergies. Hospital Course Hospital Course: KOBE WAYNE is a 28 year old female with a past medical history of morbid obesity, diverticulitis, asthma and nonhereditary angioedema. Patient presents with 4 hours of facial swelling mostly involving her lower lip without stridor, shortness of breath, nausea vomiting or the development of rash or urticaria. Patient has history of recurrent similar attacks in the past. She takes Benadryl on a regular basis but yesterday she omits because she has vomiting. She has been treated with IV fluid C1 esterase, Benadryl, Pepcid, and Solu- Medrol. Her swelling markedly subsided. I seen patient sitting on chair. He is awake alert oriented. States she has swelling of her lip. She does not have any swelling of the tongue or any hoarseness of voice. Patient reports he feels much better and she wants to go home. Her vital signs and blood works are stable. She is stable enough to go home. Physical Exam Vital Signs: Temp Pulse Resp BP Pulse Ox 98.3 F 94 18 144/95 H 100 06/29/18 10:55 06/29/18 10:55 06/29/18 10:55 06/29/18 10:55 06/29/18 09:41 Intake & Output 06/28/18 06/29/18 06/30/18 06:59 06:59 06:59 Intake Total 312 Balance 312 General appearance: PRESENT: morbidly obese Head exam: PRESENT: atraumatic, normocephalic Eye exam: PRESENT: conjunctiva pink, EOMI, PERRLA. ABSENT: scleral icterus Ear exam: PRESENT: normal external ear exam Mouth exam: PRESENT: other - Mildly swollen lips Neck exam: ABSENT: carotid bruit, JVD, lymphadenopathy, thyromegaly Respiratory exam: PRESENT: clear to auscultation lissett. ABSENT: rales, rhonchi, wheezes Cardiovascular exam: PRESENT: RRR. ABSENT: diastolic murmur, rubs, systolic murmur Pulses: PRESENT: normal dorsalis pedis pul Vascular exam: PRESENT: normal capillary refill GI/Abdominal exam: PRESENT: normal bowel sounds, soft. ABSENT: distended, guarding, mass, organolmegaly, rebound, tenderness Rectal exam: PRESENT: deferred Extremities exam: PRESENT: full ROM. ABSENT: calf tenderness, clubbing, pedal edema Neurological exam: PRESENT: alert, awake, oriented to person, oriented to place, oriented to time, oriented to situation, CN II-XII grossly intact. ABSENT: motor sensory deficit Psychiatric exam: PRESENT: appropriate affect, normal mood. ABSENT: homicidal ideation, suicidal ideation Skin exam: PRESENT: dry, intact, warm. ABSENT: cyanosis, rash Results Laboratory Results: 06/29/18 00:19 06/29/18 00:19 06/29/18 06/29/18 06/29/18 00:18 00:19 00:19 WBC 6.4 RBC 4.62 Hgb 9.3 L Hct 30.7 L MCV 66 L MCH 20.1 L MCHC 30.2 L RDW 20.1 H Plt Count 388 Seg Neutrophils % 47.6 Lymphocytes % 39.1 Monocytes % 8.2 Eosinophils % 4.0 Basophils % 1.1 Absolute Neutrophils 3.1 Absolute Lymphocytes 2.5 Absolute Monocytes 0.5 Absolute Eosinophils 0.3 Absolute Basophils 0.1 Sodium 141.4 Potassium 4.3 Chloride 104 Carbon Dioxide 26 Anion Gap 11 BUN 10 Creatinine 0.78 Est GFR ( Amer) > 60 Est GFR (Non-Af Amer) > 60 Glucose 128 H Calcium 9.4 Iron Blood Type O POSITIVE Antibody Screen NEGATIVE 06/29/18 00:19 WBC RBC Hgb Hct MCV MCH MCHC RDW Plt Count Seg Neutrophils % Lymphocytes % Monocytes % Eosinophils % Basophils % Absolute Neutrophils Absolute Lymphocytes Absolute Monocytes Absolute Eosinophils Absolute Basophils Sodium Potassium Chloride Carbon Dioxide Anion Gap BUN Creatinine Est GFR ( Amer) Est GFR (Non-Af Amer) Glucose Calcium Iron 21.7 L Blood Type Antibody Screen Qualifiers - * PATIENT BEING DISCHARGED WITH ANY OF THE FOLLOWING DIAGNOSIS: No Acute Heart Failure Is this a Heart Failure Patient?: No
[2018-06-29 13:18] VITALS: BP 144/55
[2018-07-01] MEDS ORDERED: [UNRECOGNIZED DRUG - OTHER] IV ONE ×2 (16:30)
[2018-07-01] MEDS ORDERED: DISPOSABLE IV ONE ×2 (16:30)
[2018-07-01] MEDS ORDERED: C1 ESTERASE INHIBITOR IV ONE ×2 (16:30)
[2018-07-02 12:23] LABS: COMPLEMENT C4 43 mg/dL (14-44)
[2018-07-05 08:34] LABS: COMPLEMENT C1Q QUANTITATIVE 16.2 mg/dL (11.8-24.4)
[2018-07-05 13:18] LABS: COMPLEMENT C2 2.7 mg/dL (1.6-4.0)
== END 2018-06-30 13:15 | disposition home or self-care (01) ==
LOC: ER 23:55 → EH 06-29 04:11 → 3N 06-30 11:30 → EH 06-30 11:34
PROVIDERS: ADMIT Internal Medicine; ATTEND Internal Medicine
PROC: 30233K1 Transfusion of Nonautologous Frozen Plasma into Peripheral Vein, Percutaneous Approach (ICD-10-PCS; principal; 2018-06-29)
DX: T78.3XXA Angioneurotic edema, initial encounter (principal); E66.01 Morbid (severe) obesity due to excess calories; I10 Essential (primary) hypertension; D50.9 Iron deficiency anemia, unspecified; D82.4 Hyperimmunoglobulin E [IgE] syndrome; Z84.89 Family history of other specified conditions; Z90.49 Acquired absence of other specified parts of digestive tract; Z88.8 Allergy status to other drugs, medicaments and biological substances; Z91.010 Allergy to peanuts; Z88.0 Allergy status to penicillin; Z91.013 Allergy to seafood
CPT/HCPCS: 96376; 99285; 96372; 96361; 96374 ×2; 96375; 86900; 86901; 36415; 36430; 86850; 86160 ×6; 83540; 85025; 82784; 80048; 86161; P9017; J1644; J1200; J0171; J2930; J2270; J7050; J3490; S0028; J0597

== ENCOUNTER 2018-07-01 13:31 | Emergency (ER) | payer SELFPAY ==
--- NOTE | 2018-07-01 13:43 | ER Document Report ---
ED General - General Chief Complaint: Swelling of Tongue Stated Complaint: VOMITTING, SWOLLEN TONGUE Time Seen by Provider: 07/01/18 13:40 Primary Care Provider: GOLDY SHAW MD [ACTIVE STAFF] - Follow up in 3-5 days (or your primary care. ) Notes: Patient is a 28-year-old female with hereditary angioedema that presents to the emergency department for chief complaint of tongue swelling. Patient states that she started having tongue swelling this morning, and the right side of her tongue, she has a history of hereditary and edema, she recently was admitted and observed overnight on Tuesday for having lip swelling, she did receive FFP, and Berinert, she states that she still has some lip swelling, but was slightly improved at discharge. She did not have any issues with breathing. She states she has been having nausea and vomiting some abdominal discomfort this time around as well, she states that usually she gets bursts of episodes one after the other when she does have flareups of her hereditary angioedema. She denies having any difficulty breathing at this time, denies feeling any throat closing, or throat itching. She currently rates her pain as a 2 out of 10 and diffusely in her abdomen. Past Medical History: Hereditary angioedema Past Surgical History: Denies recent or pertinent surgical history Social History: Admits to smoking cigarettes, denies alcohol or drug use. Family History: Reviewed and noncontributory for presenting illness Allergies: Reviewed, see documented allergy list. REVIEW OF SYSTEMS: Other than noted above, the 12 point review of systems was reviewed with the gia back and were negative, all pertinent findings are included in the HPI. PHYSICAL EXAMINATION: Vital signs reviewed, nursing noted reviewed. GENERAL: Patient's morbidly obese, no acute distress at this time, but appears anxious HEAD: Atraumatic, normocephalic. EYES: Eyes appear normal, extraocular movements intact, sclera anicteric, conjunctiva are normal. ENT: nares patent, oropharynx clear without exudates. Moist mucous membranes. The anterior right side of the tongue, is edematous, the uvula is visualized, nonedematous. NECK: Normal range of motion, supple without lymphadenopathy, no stridor LUNGS: Breath sounds clear to auscultation bilaterally and equal. No wheezes rales or rhonchi. HEART: Regular rate and rhythm without murmurs ABDOMEN: Soft, obese, mild abdominal discomfort with palpation, normoactive bowel sounds. No rebound, guarding, or rigidity. No masses appreciated. EXTREMITIES: Nontender, good range of motion, no pitting or edema. NEUROLOGICAL: No focal neurological deficits. Moves all extremities spontaneously Motor and sensory grossly intact on exam. PSYCH: Normal mood, normal affect. SKIN: Warm, Dry, normal turgor, no rashes or lesions noted on exposed skin TRAVEL OUTSIDE OF THE [place] IN LAST 30 DAYS: No - Related Data Allergies/Adverse Reactions: iodine [Iodine] Allergy (Severe, Verified 07/01/18 13:33) throat swells Penicillins Allergy (Severe, Verified 07/01/18 13:33) throat swells Shellfish * [Shellfish] Allergy (Severe, Verified 07/01/18 13:33) Blisters peanut Adverse Reaction (Severe, Verified 07/01/18 13:33) rash hydrocodone Adverse Reaction (Verified 07/01/18 13:33) Pruritis Past Medical History - Social History Smoking Status: Current Every Day Smoker Family History: Reviewed & Not Pertinent, Arthritis, CAD, DM, Hyperlipidemia, Hypertension - Past Medical History Cardiac Medical History: Denies: Hx Congestive Heart Failure, Hx Coronary Artery Disease, Hx DVT, Hx Heart Attack, Hx Hypercholesterolemia, Hx Hypertension, Hx Pulmonary Embolism Pulmonary Medical History: Reports: Hx Asthma Denies: Hx Bronchitis, Hx COPD, Hx Pneumonia Neurological Medical History: Denies: Hx Cerebrovascular Accident, Hx Seizures Endocrine Medical History: Denies: Hx Diabetes Mellitus Type 2, Hx Hyperthyroidism, Hx Hypothyroidism Renal/ Medical History: Denies: Hx Peritoneal Dialysis GI Medical History: Reports: Hx Diverticulitis, Hx Gastroesophageal Reflux Disease. Denies: Hx Cirrhosis, Hx Hepatitis Musculoskeletal Medical History: Reports Hx Arthritis Psychiatric Medical History: Reports: Hx Anxiety, Hx Bipolar Disorder, Hx Depression Infectious Medical History: Denies: Hx Hepatitis Past Surgical History: Reports: Hx Appendectomy, Other - ASTHMA - Immunizations Immunizations up to date: Yes Hx Diphtheria, Pertussis, Tetanus Vaccination: Yes Physical Exam - Vital signs Vitals: Temp Pulse Resp BP Pulse Ox 98.9 F 103 H 20 150/112 H 100 07/01/18 13:35 07/01/18 13:35 07/01/18 13:35 07/01/18 13:35 07/01/18 13:35 Course - Re-evaluation Re-evalutation: Patient seen and examined, vital signs reviewed, patient was noted to have right tongue swelling, and angioedema, was complaining of nausea vomiting and abdominal discomfort, which is consistent with the patient's history of hereditary angioedema. Patient was ordered 3 units of FFP, we did not have Berinert in-house, we did have the recombinant C1 esterase inhibitor, but had to receive this from [facility], therefore FFP was ordered expeditiously, patient was also given IV Pepcid, Benadryl and Solu-Medrol. After initial unit of FFP, the patient's tongue swelling, did start to come down, her breathing had been maintained, there is no stridor. After third unit of FFP, the patient did start having some facial itching, she is given additional dose of 25 mg of IV Benadryl for this. Patient was given the recombinant C1 esterase inhibitor, to further reduce the patient's angioedema. Patient continued to be monitored, frequent re-evaluations, her tongue swelling had reduced completely, she did not have any issues with breathing, she is still having some nausea, which is part of the patient's angioedema that she gets, she was given additional dose of Zofran, I did consult with the hospitalist, who has seen this patient on numerous occasions, and they feel that they are at their baseline, and suggested monitoring for an additional hour, I do think this is reasonable, discussed with the patient, and she agreed, will give her steroid, prednisone 50 mg, for an additional 5 days, and have her follow-up with her primary care, I did advised her that she should have Berinert at her home, in case she has a flareup of her angioedema, and needs treatment that she can bring it into the hospital with her. She states that she will discuss this with her primary care. Laboratory 07/01/18 07/01/18 07/01/18 13:40 13:40 13:40 WBC 9.7 RBC 4.96 Hgb 9.7 L Hct 32.8 L MCV 66 L MCH 19.6 L MCHC 29.7 L RDW 20.6 H Plt Count 451 H Seg Neutrophils % 52.0 Lymphocytes % 36.1 Monocytes % 8.7 Eosinophils % 1.6 Basophils % 1.6 Absolute Neutrophils 5.1 Absolute Lymphocytes 3.5 Absolute Monocytes 0.8 Absolute Eosinophils 0.2 Absolute Basophils 0.2 Sodium 143.3 Potassium 4.0 Chloride 104 Carbon Dioxide 29 Anion Gap 10 BUN 14 Creatinine 0.91 Est GFR ( Amer) > 60 Est GFR (Non-Af Amer) > 60 Glucose 90 Calcium 9.3 Blood Type O POSITIVE - Vital Signs Vital signs: Temp Pulse Resp BP Pulse Ox 98.1 F 75 18 159/96 H 100 07/01/18 15:08 07/01/18 16:10 07/01/18 16:01 07/01/18 16:01 07/01/18 16:10 - Laboratory Result Diagrams: 07/01/18 13:40 07/01/18 13:40 Laboratory results interpreted by me: 07/01/18 13:40 Hgb 9.7 L Hct 32.8 L MCV 66 L MCH 19.6 L MCHC 29.7 L RDW 20.6 H Plt Count 451 H Critical Care Note - Critical Care Note Total time excluding time spent on procedures (mins): 37 Comments: Critical care time 37 minutes exclusive from separate billable procedures for a patient requiring complex medical decision making, and high potential for clin ical deterioration. In a patient with hereditary angioedema, requiring immediate intervention, and treatment, with high potential for airway compromise. Time spent obtaining history from patient or surrogate, discussions with consultants, development of treatment plan with patient or surrogate, goldy arguetaation of patient's response to treatment, examination of patient, ordering and performing treatments and interventions, ordering and review of laboratory studies, re-evaluation of patient's condition, ordering and review of radiographic studies and review of old charts Discharge - Discharge Clinical Impression: Recurrent angioedema Anemia Qualifiers: Anemia type: unspecified type Qualified Code(s): D64.9 - Anemia, unspecified Condition: Stable Disposition: HOME, SELF-CARE Instructions: Angioedema ([facility]) Additional Instructions: I recommend you continue taking Benadryl, 3 times daily, to keep your angioedema at bay, and these complete the entire course of steroids as prescribed. Please follow-up with primary care, and at your appointment I would ask if you could have a prescription for Berinert, in case you have a flareup again and you need to bring it to the hospital if this occurs. Prescriptions: Prednisone 50 mg PO DAILY #5 tablet Referrals: GOLDY SHAW MD [ACTIVE STAFF] - Follow up in 3-5 days (or your primary care. )
[2018-07-01] MEDS ORDERED: NORMAL SALINE 250 ML IV PRN (13:45)
[2018-07-01] MEDS ORDERED: ONDANSETRON HCL INJ/PF 4 MG/2 ML SDV IV ONE ×2 (13:50→16:58)
[2018-07-01] MEDS ORDERED: FAMOTIDINE INJ/PF 20 MG/2 ML SDV IV ONE (13:51)
[2018-07-01] MEDS ORDERED: DIPHENHYDRAMINE HCL 50 MG/ML VIAL IV ONE ×2 (13:51→15:40)
[2018-07-01] MEDS ORDERED: METHYLPREDNISOLONE INJ 125 MG/2 ML SDV IV ONE (13:52)
[2018-07-01 14:07] LABS: ABSOLUTE BASOPHILS # (AUTO) 0.2 10^3/uL (0.0-0.2); ABSOLUTE EOSINOPHILS # (AUTO) 0.2 10^3/uL (0.0-0.6); ABSOLUTE LYMPHOCYTES (AUTO) 3.5 10^3/uL (0.5-4.7); ABSOLUTE MONOCYTES (AUTO) 0.8 10^3/uL (0.1-1.4); ABSOLUTE NEUT (AUTO) 5.1 10^3/uL (1.7-8.2); BASOPHILS % (AUTO) 1.6 % (0-2); EOSINOPHILS % (AUTO) 1.6 % (0-6); HEMATOCRIT 32.8 % (36.0-47.0); HEMOGLOBIN 9.7 g/dL (12.0-15.5); LYMPHOCYTES % (AUTO) 36.1 % (13-45); MEAN CORPUSCULAR HEMOGLOBIN 19.6 pg (27.0-33.4); MEAN CORPUSCULAR HGB CONC 29.7 g/dL (32.0-36.0); MEAN CORPUSCULAR VOLUME 66 fl (80-97); MONOCYTES % (AUTO) 8.7 % (3-13); PLATELET COUNT 451 10^3/uL (150-450); RED BLOOD COUNT 4.96 10^6/uL (3.72-5.28); RED CELL DISTRIBUTION WIDTH 20.6 % (11.5-14.0); TOTAL CELLS COUNTED % (AUTO) 100 %; WHITE BLOOD COUNT 9.7 10^3/uL (4.0-10.5)
[2018-07-01 14:14] LABS: ANION GAP 10 (5-19); BLOOD UREA NITROGEN 14 mg/dL (7-20); CALCIUM 9.3 mg/dL (8.4-10.2); CARBON DIOXIDE 29 mmol/L (22-30); CHLORIDE 104 mmol/L (98-107); GLUCOSE 90 mg/dL (75-110); SODIUM 143.3 mmol/L (137-145)
[2018-07-01] MEDS ORDERED: METOCLOPRAMIDE HCL INJ/PF 10 MG/2 ML SDV IV ONE (14:18)
[2018-07-01] MEDS ORDERED: C1 ESTERASE INHIBITOR IV ONE ×2 (16:30)
[2018-07-01] MEDS ORDERED: [UNRECOGNIZED DRUG - OTHER] IV ONE ×2 (16:30)
[2018-07-01] MEDS ORDERED: DISPOSABLE IV ONE ×2 (16:30)
[2018-07-01 18:27] VITALS: BP 174/118
== END 2018-07-01 18:42 | disposition home or self-care (01) ==
LOC: ER 13:31
DX: T78.3XXA Angioneurotic edema, initial encounter (principal); D64.9 Anemia, unspecified; R11.2 Nausea with vomiting, unspecified; R10.9 Unspecified abdominal pain; F17.210 Nicotine dependence, cigarettes, uncomplicated; Z88.0 Allergy status to penicillin; Z91.010 Allergy to peanuts; Z91.013 Allergy to seafood
CPT/HCPCS: 96376; 99291; 96374; 96375; 86900; 86901; 36415; 36430; 85025; 80048; P9017; J1200; J2930; J2765; J2405; J3490; S0028; J0596

== ENCOUNTER 2018-10-29 04:37 | Emergency (ER) | payer OTHER ==
[2018-10-29] MEDS ORDERED: METHYLPREDNISOLONE INJ 125 MG/2 ML SDV IV ONE (05:06)
[2018-10-29] MEDS ORDERED: DIPHENHYDRAMINE HCL 50 MG/ML VIAL IV ONE (05:06)
[2018-10-29] MEDS ORDERED: FAMOTIDINE INJ/PF 20 MG/2 ML SDV IV ONE (05:06)
[2018-10-29] MEDS ORDERED: NORMAL SALINE 250 ML IV PRN ×3 (05:09→06:50)
[2018-10-29] MEDS ORDERED: EPINEPHRINE INJ/PF 1 MG/1 ML AMPULE IM ONE (05:10)
[2018-10-29] MEDS ORDERED: TRANEXAMIC ACID INJ/PF 1,000 MG/10 ML SDV IV ONE (05:13)
[2018-10-29 05:37] LABS: ABSOLUTE BASOPHILS # (AUTO) 0.1 10^3/uL (0.0-0.2); ABSOLUTE EOSINOPHILS # (AUTO) 0.2 10^3/uL (0.0-0.6); ABSOLUTE MONOCYTES (AUTO) 0.6 10^3/uL (0.1-1.4); ABSOLUTE NEUT (AUTO) 4.2 10^3/uL (1.7-8.2); BASOPHILS % (AUTO) 1.4 % (0-2); EOSINOPHILS % (AUTO) 2.1 % (0-6); HEMATOCRIT 23.7 % (36.0-47.0); INTERNATIONAL RATION (INR) 1.05; LYMPHOCYTES % (AUTO) 36.7 % (13-45); MEAN CORPUSCULAR HEMOGLOBIN 17.4 pg (27.0-33.4); MEAN CORPUSCULAR HGB CONC 29.3 g/dL (32.0-36.0); MEAN CORPUSCULAR VOLUME 59 fl (80-97); MONOCYTES % (AUTO) 7.7 % (3-13); PLATELET COUNT 345 10^3/uL (150-450); PROTHROMBIN TIME 13.7 SEC (11.4-15.4); RED CELL DISTRIBUTION WIDTH 20.9 % (11.5-14.0); SEGMENTED NEUTROPHILS % (AUTO) 52.1 % (42-78); TOTAL CELLS COUNTED % (AUTO) 100 %; WHITE BLOOD COUNT 8.1 10^3/uL (4.0-10.5)
[2018-10-29 05:38] LABS: PARTIAL THROMBOPLASTIN TIME 29.7 SEC (23.5-35.8)
[2018-10-29 05:43] LABS: ALBUMIN 3.9 g/dL (3.5-5.0); ALKALINE PHOSPHATASE 64 U/L (38-126); ANION GAP 8 (5-19); ASPARTATE AMINO TRANSFERASE 18 U/L (14-36); BILIRUBIN,DIRECT 0.1 mg/dL (0.0-0.4); BILIRUBIN,TOTAL 0.3 mg/dL (0.2-1.3); BLOOD UREA NITROGEN 11 mg/dL (7-20); CALCIUM 9.2 mg/dL (8.4-10.2); CARBON DIOXIDE 27 mmol/L (22-30); CHLORIDE 103 mmol/L (98-107); GLUCOSE 91 mg/dL (75-110); POTASSIUM 3.8 mmol/L (3.6-5.0); TOTAL PROTEIN 6.7 g/dL (6.3-8.2)
[2018-10-29 05:52] LABS: HEMOGLOBIN 6.9 g/dL (12.0-15.5)
--- NOTE | 2018-10-29 06:09 | ER Document Report ---
ED Medical Screen (RME) - General Chief Complaint: Swelling of Tongue Stated Complaint: TONGUE SWELLING Time Seen by Provider: 10/29/18 05:09 Primary Care Provider: ENMANUEL LEUNG PA-C [Primary Care Provider] - Follow up as needed Mode of Arrival: Ambulatory Information source: Patient Notes: 28-year-old female with known hereditary angioedema presents with complaint of tongue swelling that started last night. Patient denies any shortness of breath, difficulty swallowing. She states that she has not had an incidence of angioedema and several months. I have greeted and performed a rapid initial assessment of this patient. A comprehensive ED assessment and evaluation of the patient, analysis of test results and completion of medical decision making process we will be contacted by additional ED providers. PHYSICAL EXAMINATION: Vital signs reviewed GENERAL: Well-appearing, well-nourished and in no acute distress. LUNGS: No respiratory distress Musculoskeletal: Normal range of motion NEUROLOGICAL: Normal speech, normal gait. PSYCH: Normal mood, normal affect. SKIN: Warm, Dry, normal turgor, no rashes or lesions noted. TRAVEL OUTSIDE OF THE [place] IN LAST 30 DAYS: No - Related Data Allergies/Adverse Reactions: iodine [Iodine] Allergy (Severe, Verified 07/01/18 13:33) throat swells Penicillins Allergy (Severe, Verified 07/01/18 13:33) throat swells Shellfish * [Shellfish] Allergy (Severe, Verified 07/01/18 13:33) Blisters peanut Adverse Reaction (Severe, Verified 07/01/18 13:33) rash hydrocodone Adverse Reaction (Verified 07/01/18 13:33) Pruritis Past Medical History - Social History Family history: Reviewed & Not Pertinent - Past Medical History Cardiac Medical History: Denies: Hx Congestive Heart Failure, Hx Coronary Artery Disease, Hx DVT, Hx Heart Attack, Hx Hypercholesterolemia, Hx Hypertension, Hx Pulmonary Embolism Pulmonary Medical History: Reports: Hx Asthma Denies: Hx Bronchitis, Hx COPD, Hx Pneumonia Neurological Medical History: Denies: Hx Cerebrovascular Accident, Hx Seizures Endocrine Medical History: Denies: Hx Diabetes Mellitus Type 2, Hx Hyperthyroid ism, Hx Hypothyroidism Renal/ Medical History: Denies: Hx Peritoneal Dialysis GI Medical History: Reports: Hx Diverticulitis, Hx Gastroesophageal Reflux Disease. Denies: Hx Cirrhosis, Hx Hepatitis Musculoskeltal Medical History: Reports Hx Arthritis Psychiatric Medical History: Reports: Hx Anxiety, Hx Bipolar Disorder, Hx Depression Infectious Medical History: Denies: Hx Hepatitis Past Surgical History: Reports: Hx Appendectomy, Other - ASTHMA - Immunizations Immunizations up to date: Yes Hx Diphtheria, Pertussis, Tetanus Vaccination: Yes History of Influenza Vaccine for 11/2016 - 04/2017 Season: No Physical Exam - Vital signs Vitals: Temp Pulse Resp BP Pulse Ox 98.2 F 90 18 147/103 H 100 10/29/18 04:46 10/29/18 04:46 10/29/18 04:46 10/29/18 04:46 10/29/18 04:46 Course - Vital Signs Vital signs: Temp Pulse Resp BP Pulse Ox 98.2 F 90 18 147/103 H 100 10/29/18 04:46 10/29/18 04:46 10/29/18 04:46 10/29/18 04:46 10/29/18 04:46 - Laboratory Result Diagrams: 10/29/18 05:10 10/29/18 05:10 Doctor's Discharge - Discharge Referrals: ENMANUEL LEUNG PA-C [Primary Care Provider] - Follow up as needed
[2018-10-29 06:27] LABS: ANISOCYTOSIS 3+
[2018-10-29 06:28] LABS: HYPOCHROMASIA 3+; PLATELET COMMENT ADEQUATE
--- NOTE | 2018-10-29 06:53 | ER Document Report ---
ED General - General Chief Complaint: Swelling of Tongue Stated Complaint: TONGUE SWELLING Time Seen by Provider: 10/29/18 05:09 Primary Care Provider: ENMANUEL LEUNG PA-C [Primary Care Provider] - Follow up as needed Mode of Arrival: Ambulatory TRAVEL OUTSIDE OF THE [place] IN LAST 30 DAYS: No - HPI Notes: Patient is a 28-year-old female with a history of hereditary angioedema who presents to the emergency department for evaluation of tongue swelling. She states that started around 930 last evening. She states it gradually worsened until she presented to the ER. She is been taking her Benadryl as prescribed. She denies any other pain. No fevers or chills, no nausea or vomiting. She does describe very heavy menses. She is required blood transfusions as a result of this. She states they tried oral contraceptives and they did not seem to sl ow anything, no other medication trials have been done. The patient states she has had some improvement with her symptoms overall after medication treatment here, but continues to feel as if her tongue is swollen. - Related Data Allergies/Adverse Reactions: iodine [Iodine] Allergy (Severe, Verified 07/01/18 13:33) throat swells Penicillins Allergy (Severe, Verified 07/01/18 13:33) throat swells Shellfish * [Shellfish] Allergy (Severe, Verified 07/01/18 13:33) Blisters peanut Adverse Reaction (Severe, Verified 07/01/18 13:33) rash hydrocodone Adverse Reaction (Verified 07/01/18 13:33) Pruritis Home Medications: Benadryl Past Medical History - General Information source: Patient - Social History Smoking Status: Former Smoker Family History: Reviewed & Not Pertinent, Arthritis, CAD, DM, Hyperlipidemia, Hypertension Patient has suicidal ideation: No Patient has homicidal ideation: No - Past Medical History Cardiac Medical History: Denies: Hx Congestive Heart Failure, Hx Coronary Artery Disease, Hx DVT, Hx Heart Attack, Hx Hypercholesterolemia, Hx Hypertension, Hx Pulmonary Embolism Pulmonary Medical History: Reports: Hx Asthma Denies: Hx Bronchitis, Hx COPD, Hx Pneumonia Neurological Medical History: Denies: Hx Cerebrovascular Accident, Hx Seizures Endocrine Medical History: Denies: Hx Diabetes Mellitus Type 2, Hx Hyperthyroidism, Hx Hypothyroidism Renal/ Medical History: Denies: Hx Peritoneal Dialysis GI Medical History: Reports: Hx Diverticulitis, Hx Gastroesophageal Reflux Disease. Denies: Hx Cirrhosis, Hx Hepatitis Musculoskeletal Medical History: Reports Hx Arthritis Psychiatric Medical History: Reports: Hx Anxiety, Hx Bipolar Disorder, Hx Depression Infectious Medical History: Denies: Hx Hepatitis Past Surgical History: Reports: Hx Appendectomy, Other - ASTHMA - Immunizations Immunizations up to date: Yes Hx Diphtheria, Pertussis, Tetanus Vaccination: Yes Review of Systems - Review of Systems Constitutional: No symptoms reported EENT: See HPI Cardiovascular: No symptoms reported Respiratory: No symptoms reported Gastrointestinal: No symptoms reported Genitourinary: No symptoms reported Musculoskeletal: No symptoms reported Skin: No symptoms reported Neurological/Psychological: No symptoms reported Physical Exam - Vital signs Vitals: Temp Pulse Resp BP Pulse Ox 98.2 F 90 18 147/103 H 100 10/29/18 04:46 10/29/18 04:46 10/29/18 04:46 10/29/18 04:46 10/29/18 04:46 - Notes Notes: Vital signs reviewed, please refer to chart. Head is normocephalic, atraumatic. Pupils equal round, reactive to light. There is moderate swelling of the tongue. She does not appear to have any facial edema, no posterior pharyngeal edema is noted. Neck is supple without meningismus. Heart is regular rate and rhythm. Lungs are clear to auscultation bilaterally. Abdomen is soft, nonte nder, normoactive bowel sounds throughout. Extremities without cyanosis, clubbing. Posterior calves are nontender. Peripheral pulses are equal. Skin is warm and dry. Patient is awake, alert, neurological exam is nonfocal. Course - Re-evaluation Re-evalutation: 10/29/18 06:52 Patient presents emergency department for evaluation. She had initial treatment and laboratory investigations ordered prior to my arrival. Patient had moderate improvement, but continued to have tongue swelling. Giving this information, I did go ahead and place the order for Berinert. The patient also significantly anemic. The likely etiology is her heavy menstruation. 2 units of blood were ordered to be transfused. We will continue to monitor. 10/29/18 08:49 Patient states that her tongue is back to normal and she does not want to wait for blood. We discussed this at length. I discussed the fact that she needs to follow-up with gynecology and be evaluated for another possible treatment for her menorrhagia. She voiced understanding to this. I will have the patient leave AGAINST MEDICAL ADVICE. She is morbidly obese. She has a JVD. Significant anemia with these comorbidities puts her at risk for multiple adverse outcomes, including . She voiced understanding to this. She still does not wish to stay. She understands that she can change her mind at any time. She signed out AGAINST MEDICAL ADVICE. - Vital Signs Vital signs: Temp Pulse Resp BP Pulse Ox 98.6 F 88 24 H 112/72 100 10/29/18 07:50 10/29/18 07:50 10/29/18 07:50 10/29/18 07:01 10/29/18 07:50 - Laboratory Result Diagrams: 10/29/18 05:10 10/29/18 05:10 Laboratory results interpreted by me: 10/29/18 10/29/18 05:10 05:10 Hgb 6.9 L Hct 23.7 L MCV 59 L MCH 17.4 L MCHC 29.3 L RDW 20.9 H Crossmatch See Detail Discharge - Discharge Clinical Impression: Recurrent angioedema, Anemia Condition: Stable Disposition: AGAINST MEDICAL ADVICE Instructions: Anemia ([facility]), Angioedema ([facility]) Additional Instructions: You have elected to leave AGAINST MEDICAL ADVICE. Potential outcomes of this decision have been explained, including but certainly not limited to heart attack, stroke, loss of lifestyle, . At any point if you change your mind regarding further treatment please return immediately to the emergency d epartment for evaluation. Otherwise, please follow-up with gynecology for treatment of your heavy menstruation. Referrals: ENMANUEL LEUNG PA-C [Primary Care Provider] - Follow up as needed
[2018-10-29 09:07] VITALS: BP 145/96
== END 2018-10-29 09:00 | disposition left against medical advice (07) ==
LOC: ER 04:37
DX: T78.3XXA Angioneurotic edema, initial encounter (principal); D64.9 Anemia, unspecified; R22.0 Localized swelling, mass and lump, head
CPT/HCPCS: 99283; 96374; 96375; 86900; 86901; 36415; 36430; 86850; 86922; 84703; 85025; 85610; 85730; 80053; 86920; P9017; J1200; J0171; J2930; S0028; J3490

== ENCOUNTER 2019-02-26 06:29 | Emergency (ER) | payer OTHER ==
--- NOTE | 2019-02-26 07:05 | ER Document Report ---
ED GI/ - General TRAVEL OUTSIDE OF THE [place] IN LAST 30 DAYS: No <KYLE ROTH - Last Filed: 02/26/19 07:49> <ANAMIKA GARCIA - Last Filed: 02/26/19 10:23> - General Chief Complaint: Vaginal Bleeding Stated Complaint: HEAVY BLEEDING/ABDOMINAL PAIN Time Seen by Provider: 02/26/19 06:57 Primary Care Provider: ENMANUEL LEUNG PA-C [COMMUNITY BASED STAFF] - Follow up as needed Notes: Patient is a 28-year-old female that comes to the emergency department for chief complaint of heavy vaginal bleeding. She states that she has been bleeding for 4 months now, daily, she states she has worsened over the past 2 days with cramping worse on the right side and now she is bleeding almost through 2 pads an hour with passage of clots. She denies dizziness or passing out. She denies flank pain, vomiting, fever, vaginal discharge. She states she has had this problem in the past with intermittent bleeding and very heavy bleeding at times, she has required intermittent hormones, she is waiting for an RECOVERY COLLECTOR referral for her primary care which is about 2 weeks from now. She is not currently on control or any daily medications. She denies any surgeries or medical history other than angioedema. (KYLE ROTH) - Related Data Allergies/Adverse Reactions: iodine [Iodine] Allergy (Severe, Verified 07/01/18 13:33) throat swells Penicillins Allergy (Severe, Verified 07/01/18 13:33) throat swells Shellfish * [Shellfish] Allergy (Severe, Verified 07/01/18 13:33) Blisters peanut Adverse Reaction (Severe, Verified 07/01/18 13:33) rash hydrocodone Adverse Reaction (Verified 07/01/18 13:33) Pruritis Past Medical History - General Information source: Patient - Social History Smoking Status: Former Smoker Frequency of alcohol use: None Drug Abuse: None Lives with: Family Family History: Reviewed & Not Pertinent, Arthritis, CAD, DM, Hyperlipidemia, Hypertension Patient has suicidal ideation: No Patient has homicidal ideation: No - Past Medical History Cardiac Medical History: Denies: Hx Congestive Heart Failure, Hx Coronary Artery Disease, Hx DVT, Hx Heart Attack, Hx Hypercholesterolemia, Hx Hypertension, Hx Pulmonary Embolism Pulmonary Medical History: Reports: Hx Asthma Denies: Hx Bronchitis, Hx COPD, Hx Pneumonia Neurological Medical History: Denies: Hx Cerebrovascular Accident, Hx Seizures Endocrine Medical History: Denies: Hx Diabetes Mellitus Type 2, Hx Hyperthyroidism, Hx Hypothyroidism Renal/ Medical History: Denies: Hx Peritoneal Dialysis GI Medical History: Reports: Hx Diverticulitis, Hx Gastroesophageal Reflux Disease. Denies: Hx Cirrhosis, Hx Hepatitis Musculoskeletal Medical History: Reports Hx Arthritis Psychiatric Medical History: Reports: Hx Anxiety, Hx Bipolar Disorder, Hx Depression Infectious Medical History: Denies: Hx Hepatitis Past Surgical History: Reports: Hx Appendectomy, Other - ASTHMA - Immunizations Immunizations up to date: Yes Hx Diphtheria, Pertussis, Tetanus Vaccination: Yes <KYLE ROTH - Last Filed: 02/26/19 07:49> Review of Systems - Review of Systems Constitutional: No symptoms reported EENT: No symptoms reported Cardiovascular: No symptoms reported Respiratory: No symptoms reported Gastrointestinal: See HPI Genitourinary: See HPI Female Genitourinary: See HPI Musculoskeletal: No symptoms reported Skin: No symptoms reported Hematologic/Lymphatic: No symptoms reported Neurological/Psychological: No symptoms reported <GONZALEZKYLE - Last Filed: 02/26/19 07:49> Physical Exam <GONZALEZKYLE - Filed: 02/26/19 07:49> - Vital signs Vitals: Temp Pulse Resp BP Pulse Ox 98.1 F 90 20 126/89 H 100 02/26/19 06:43 02/26/19 06:43 02/26/19 06:43 02/26/19 06:43 02/26/19 06:43 - Notes Notes: GENERAL: Alert, interacts well. No acute distress. HEAD: Normocephalic, atraumatic. EYES: Pupils equal, round, and reactive to light. Extraocular movements intact. ENT: Oral mucosa moist, tongue midline. Oropharynx unremarkable. Airway patent. LUNGS: Clear to auscultation bilaterally, no wheezes, rales, or rhonchi. No res piratory distress. HEART: Regular rate and rhythm. No murmur ABDOMEN: Soft, non-tender. Non-distended. Bowel sounds present in all 4 quadrants. No guarding or rigidity. GENITOURINARY: Very slow bleeding on speculum exam, no noted heavy bleeding, no lesions, no discharge, no cervical motion tenderness. No concerning findings externally. Exam performed with Rani BERKOWITZ at bedside. EXTREMITIES: Moves all 4 extremities spontaneously. No edema, normal radial and dorsalis pedis pulses bilaterally. No cyanosis. BACK: no cervical, thoracic, lumbar midline tenderness. No saddle anesthesia, normal distal neurovascular exam. Moves all extremities in full range of motion. NEUROLOGICAL: Alert and oriented x3. Normal speech. Cranial nerves II through XII grossly intact. PSYCH: Normal affect, normal mood. SKIN: Warm, dry, normal turgor. No rashes or lesions noted. (KYLE ROTH) Course <KYLE ROTH - Last Filed: 02/26/19 07:49> - Laboratory Result Diagrams: 02/26/19 08:02 02/26/19 08:02 <ANAMIKA GARCIA - Last Filed: 02/26/19 10:23> - Re-evaluation Re-evalutation: Patient is alert, well-appearing, denies dizziness, she does not have tachycardia, she is not hypotensive. Abdomen is soft and benign. Speculum exam shows minimal bleeding, no heavy bleeding or concerning findings. Work-up pending. (KYLE ROTH) 02/26/19 08:23 Report received on patient, patient evaluated, awaiting labs, disposition 02/26/19 10:15 Ultrasound does not show acute emergent abnormalities. Patient's lab work shows a mild anemia with a hemoglobin of 8.1. On review of the patient's chart patient has been much lower previously when she was transfused. She does not have any symptomatic dizziness or lightheadedness with standing that would suggest symptomatic anemia or need for blood transfusion at this time. She has iron tablets at home but has not been taking them. She will take 1 twice a day with orange juice. I did discuss use of Provera with the patient and she is in agreement to have this. She does not have an RECOVERY COLLECTOR for follow-up at this time, has an appointment with her PCP in 2 weeks to obtain RECOVERY COLLECTOR follow-up. Will provide patient with OB referral. She will return for any concerns we did discuss bleeding precautions. (ANAMIKA GARCIA) - Vital Signs Vital signs: Temp Pulse Resp BP Pulse Ox 98.1 F 90 20 126/89 H 100 02/26/19 06:43 02/26/19 06:43 02/26/19 06:43 02/26/19 06:43 02/26/19 06:43 - Laboratory Laboratory results interpreted by me: 02/26/19 02/26/19 02/26/19 07:13 08:02 08:02 Hgb 8.1 L Hct 28.0 L MCV 60 L MCH 17.4 L MCHC 28.9 L RDW 22.0 H Sodium 136.9 L Urine Protein 100 H Urine Blood LARGE H Discharge <KYLE ROTH - Last Filed: 02/26/19 07:49> <ANAMIKA GARCIA - Last Filed: 02/26/19 10:23> - Discharge Clinical Impression: Abnormal vaginal bleeding Anemia Qualifiers: Anemia type: iron deficiency Iron deficiency anemia type: chronic blood loss Qualified Code(s): D50.0 - Iron deficiency anemia secondary to blood loss (chronic) Condition: Good Disposition: HOME, SELF-CARE Additional Instructions: Take your iron tablets twice daily with orange juice. Take the Provera as prescribed. Follow-up with RECOVERY COLLECTOR and your primary care provider for reevaluation of your abnormal vaginal bleeding as discussed. Return for more significant bleeding or concerns. Prescriptions: Ketorolac Tromethamine [Toradol 10 mg Tablet] 10 mg PO Q6HP PRN #20 tablet PRN Reason: Medroxyprogesterone Acet [Provera 10 Mg Tablet] 10 mg PO DAILY #10 tablet Referrals: FRANKIE RAMON MD [ACTIVE STAFF] - Follow up as needed
[2019-02-26] MEDS ORDERED: KETOROLAC TROMETHAMINE INJ/PF 30 MG/1 ML SDV IV ONE (07:29)
[2019-02-26 07:37] LABS: RBCS (WET MOUNT) 4+ RBCS SEEN; T.VAGINALIS (WET MOUNT) NO TRICHOMONAS SEEN; WBCS (WET MOUNT) RARE WBCS SEEN; YEAST (WET MOUNT) NO YEAST SEEN
[2019-02-26 07:43] LABS: APPEARANCE,URINE SLIGHTLY-CLOUDY; BILIRUBIN,URINE NEGATIVE (NEGATIVE); COLOR,URINE PINK; GLUCOSE, URINE NEGATIVE (NEGATIVE); KETONES,URINE NEGATIVE (NEGATIVE); LEUKOCYTE ESTERASE,URINE NEGATIVE (NEGATIVE); NITRITE,URINE NEGATIVE (NEGATIVE); PROTEIN,URINE 100 mg/dL (NEGATIVE); URINE SPECIFIC GRAVITY 1.005; UROBILINOGEN,URINE NEGATIVE mg/dL (<2.0)
--- NOTE | 2019-02-26 08:20 | RADIOLOGY REPORT (SQ) ---
EXAM DESCRIPTION: U/S NON OB PEL TV W/DOPPLER COMPLETED DATE/TIME: 02/26/2019 7:52 am REASON FOR STUDY: Right-sided pelvic pain, heavy vaginal bleeding COMPARISON: 05/12/2017 TECHNIQUE: Dynamic and static grayscale images acquired of the pelvis via transvaginal approach and recorded on PACS. Additional selected color Doppler and spectral images recorded. LIMITATIONS: None. FINDINGS: UTERUS: A Contour normal. No mass. ENDOMETRIAL STRIPE: No focal or generalized thickening. No masses. CERVIX: No nabothian cysts. RIGHT OVARY AND DOPPLER: Normal size. No worrisome masses. Normal arterial vascular flow without evid ence for torsion. LEFT OVARY AND DOPPLER: Normal size. No worrisome masses. Normal arterial vascular flow without evide nce for torsion. FREE FLUID: None noted. OTHER: No other significant finding. MEASUREMENTS: UTERUS: 8.1 x 4.3 x 3.9 cm ENDOMETRIAL STRIPE: 1.8 mm RIGHT OVARY: 3.6 x 2.3 x 2.7 cm LEFT OVARY: 2.9 x 2.2 x 2.4 cm IMPRESSION: 1. A complex fluid collection in the lower uterine segment. In view of the patient's gi rigoberto history, considerations for this finding includes possible blood clot, as well as other etiologie s. Clinical correlation and correlation with physically directed examination suggested. TECHNICAL DOCUMENTATION: JOB ID: [id number] [employer]- All Rights Reserved Rev-07/08 Reading location - IP/workstation name: [email or web address]
[2019-02-26 08:31] LABS: HEMOGLOBIN 8.1 g/dL (12.0-15.5); MEAN CORPUSCULAR HEMOGLOBIN 17.4 pg (27.0-33.4); MEAN CORPUSCULAR HGB CONC 28.9 g/dL (32.0-36.0); PLATELET COUNT 387 10^3/uL (150-450); RED BLOOD COUNT 4.66 10^6/uL (3.72-5.28); WHITE BLOOD COUNT 6.2 10^3/uL (4.0-10.5)
[2019-02-26 08:45] LABS: ANION GAP 8 (5-19); BLOOD UREA NITROGEN 9 mg/dL (7-20); CALCIUM 9.5 mg/dL (8.4-10.2); CARBON DIOXIDE 27 mmol/L (22-30); CHLORIDE 102 mmol/L (98-107); GLUCOSE 94 mg/dL (75-110); POTASSIUM 4.6 mmol/L (3.6-5.0)
[2019-02-26 09:12] LABS: MEAN CORPUSCULAR VOLUME 60 fl (80-97)
[2019-02-26 09:14] LABS: ABSOLUTE MONOCYTES # (MANUAL) 0.5 10^3/uL (0.1-1.4); BASOPHILS % (MANUAL) 0 % (0-2); EOSINOPHILS % (MANUAL) 2 % (0-6); LYMPHOCYTES % (MANUAL) 33 % (13-45); MONOCYTES % (MANUAL) 8 % (3-13); NUCLEATED RED BLOOD CELLS 2 /100 WBC (0); SEGMENTED NEUTROPHILS % (MAN) 57 % (42-78); TOTAL CELLS COUNTED 100
[2019-02-26 09:15] LABS: CHLAM PCR NOT DETECTED (NOT DETECT)
[2019-02-26 09:17] LABS: TOXIC GRANULATION 1+
[2019-02-26 09:18] LABS: ANISOCYTOSIS 3+; PLATELET COMMENT ADEQUATE; POIKILOCYTOSIS 1+; POLYCHROMASIA 1+; TEAR DROP CELLS SLIGHT
[2019-02-26 10:43] VITALS: BP 136/89
[2019-02-27 11:44] LABS: PATH REVIEW PATHOLOGIST REVIEWED
== END 2019-02-26 10:44 | disposition home or self-care (01) ==
LOC: ER 06:29
DX: N93.9 Abnormal uterine and vaginal bleeding, unspecified (principal); D50.0 Iron deficiency anemia secondary to blood loss (chronic); R10.9 Unspecified abdominal pain; J45.909 Unspecified asthma, uncomplicated; Z87.891 Personal history of nicotine dependence; Z88.0 Allergy status to penicillin; Z91.013 Allergy to seafood
CPT/HCPCS: 99284; 96374; 36415; 87086; 87210; 85025; 81025; 87088; 80048; 81001; 87186; 87491; 87591; 76830; 93976; J1885

== ENCOUNTER 2019-03-09 06:18 | Emergency (ER) | payer OTHER ==
[2019-03-09 07:22] LABS: APPEARANCE,URINE CLOUDY; BILIRUBIN,URINE NEGATIVE (NEGATIVE); GLUCOSE, URINE NEGATIVE (NEGATIVE); KETONES,URINE NEGATIVE (NEGATIVE); LEUKOCYTE ESTERASE,URINE NEGATIVE (NEGATIVE); NITRITE,URINE POSITIVE (NEGATIVE); PROTEIN,URINE 100 mg/dL (NEGATIVE); UROBILINOGEN,URINE NEGATIVE mg/dL (<2.0)
[2019-03-09 07:23] LABS: COLOR,URINE BROWN
--- NOTE | 2019-03-09 08:19 | ER Document Report ---
ED General - General Chief Complaint: Vaginal Bleeding Stated Complaint: ABDOMINAL PAIN Time Seen by Provider: 03/09/19 08:01 Primary Care Provider: JUAN VAZQUEZ MD [Primary Care Provider] - Follow up as needed Notes: 28-year-old female presents with continued vaginal bleeding that is ongoing since before December. Patient was seen on the sixth of this month in this ER and was given a prescription for Provera which she states increased her bleeding. Patient states she has been going through 24 pads in 24 hours. Patient states she is passing half-dollar size clots. Patient has associated lower abdominal cramping. Patient denies any chest pain, dyspnea, dizziness, nausea/vomiting, abdominal pain. Patient has required blood transfusions in the past. Patient was also seen in May of this past year for same. Patient states she just got in May. Pt states the Provera is the first time she has taken control. Pt's hemoglobin was 8.1 on 02/26 and 9 in May. Patient also states she has been having urinary frequency but denies dysuria. Patient states she has had problems with increased vaginal bleeding in the past. TRAVEL OUTSIDE OF THE [place] IN LAST 30 DAYS: No - Related Data Allergies/Adverse Reactions: iodine [Iodine] Allergy (Severe, Verified 07/01/18 13:33) throat swells Penicillins Allergy (Severe, Verified 07/01/18 13:33) throat swells Shellfish * [Shellfish] Allergy (Severe, Verified 07/01/18 13:33) Blisters peanut Adverse Reaction (Severe, Verified 07/01/18 13:33) rash hydrocodone Adverse Reaction (Verified 07/01/18 13:33) Pruritis Home Medications: toradol prn. iron tabs Past Medical History - General Last Menstrual Period: Dec 2018 - Social History Smoking Status: Former Smoker Family History: Reviewed & Not Pertinent, Arthritis, CAD, DM, Hyperlipidemia, Hypertension Patient has suicidal ideation: No Patient has homicidal ideation: No - Past Medical History Cardiac Medical History: Denies: Hx Congestive Heart Failure, Hx Coronary Artery Disease, Hx DVT, Hx Heart Attack, Hx Hypercholesterolemia, Hx Hypertension, Hx Pulmonary Embolism Pulmonary Medical History: Reports: Hx Asthma Denies: Hx Bronchitis, Hx COPD, Hx Pneumonia Neurological Medical History: Denies: Hx Cerebrovascular Accident, Hx Seizures Endocrine Medical History: Denies: Hx Diabetes Mellitus Type 2, Hx Hyperthyroidism, Hx Hypothyroidism Renal/ Medical History: Denies: Hx Peritoneal Dialysis GI Medical History: Reports: Hx Diverticulitis, Hx Gastroesophageal Reflux Disease. Denies: Hx Cirrhosis, Hx Hepatitis Musculoskeletal Medical History: Reports Hx Arthritis Psychiatric Medical History: Reports: Hx Anxiety, Hx Bipolar Disorder, Hx Depression Infectious Medical History: Denies: Hx Hepatitis Past Surgical History: Reports: Hx Appendectomy, Other - ASTHMA - Immunizations Immunizations up to date: Yes Hx Diphtheria, Pertussis, Tetanus Vaccination: Yes Review of Systems - Review of Systems Notes: Constitutional: Negative for fever. HENT: Negative for sore throat. Eyes: Negative for visual changes. Cardiovascular: Negative for chest pain. Respiratory: Negative for shortness of breath. Gastrointestinal: Negative for abdominal pain, vomiting or diarrhea. Genitourinary: Positive for frequency and vaginal bleeding. Negative for dysuria. Musculoskeletal: Negative for back pain. Skin: Negative for rash. Neurological: Negative for headaches, weakness or numbness. 10 point ROS negative except as marked above and in HPI. Physical Exam - Vital signs Vitals: Temp Pulse Resp BP Pulse Ox 98 F 85 20 147/88 H 100 03/09/19 06:23 03/09/19 06:23 03/09/19 06:23 03/09/19 06:23 03/09/19 06:23 - Notes Notes: GENERAL: Well-appearing, well-nourished and in no acute distress. HEAD: Atraumatic, normocephalic. EYES: Pupils equal round and reactive to light, extraocular movements intact, sclera anicteric, conjunctiva are normal. NECK: Normal range of motion, supple without lymphadenopathy or JVD. LUNGS: Breath sounds clear to auscultation bilaterally and equal. No wheezes rales or rhonchi. HEART: Regular rate and rhythm without murmurs, rubs or gallops. ABDOMEN: Soft, mild tenderness to lower abdomen. No guarding, no rebound. No masses appreciated. PELVIC: Mild bleeding. No blood clots. EXTREMITIES: Normal range of motion, no pitting or edema. No clubbing or cyanosis. NEUROLOGICAL: Cranial nerves II through XII grossly intact. Normal speech, normal gait. PSYCH: Normal mood, normal affect. SKIN: Warm, Dry, normal turgor, no rashes or lesions noted. Course - Re-evaluation Re-evalutation: 03/09/19 28 y/o female presents for continued vaginal bleeding. Associated lower abdominal cramping. Denies dyspnea, chest pain, dizziness. Pt states she goes through 24 pads in 24 hours period. Pt had labwork done on 02/26 which showed hemoglobin of 8.1 which was a drop from 9 on May 2018. Pt also had transvaginal US which did not show any emergent findings on 02/26. Pt was also given provera which she states made the bleeding worse. 03/09/19 09:40 Pelvic done. Pt declined pelvic cultures due to pt having them done on 02/26. MIld bleeding noted without blood clot. Discussed hemoglobin drop to 7.[address] Chan who recommended IV fluids and no transfusion at this time. Pt has follow up with obgyn on 03/16. 03/09/19 11:09 Discussed all results with pt. Will switch control to ano ther OCP. Pt encouraged to continue iron tablets and keep appointment with obgyn on 03/16. Pt also given strict return precautions. Pt also given Macrobid for UTI. Pt voices understanding and agrees with plan of care. - Vital Signs Vital signs: Temp Pulse Resp BP Pulse Ox 98.0 F 75 18 130/78 H 100 03/09/19 10:06 03/09/19 10:06 03/09/19 10:06 03/09/19 10:06 03/09/19 10:06 - Laboratory Result Diagrams: 03/09/19 08:26 03/09/19 08:26 Laboratory results interpreted by me: 03/09/19 03/09/19 07:00 08:26 Hgb 7.8 L Hct 26.9 L MCV 60 L MCH 17.3 L MCHC 29.0 L RDW 22.5 H Plt Count 486 H Urine Protein 100 H Urine Blood LARGE H Urine Nitrite POSITIVE H Discharge - Discharge Clinical Impression: Dysfunctional uterine bleeding, Acute UTI Condition: Stable Disposition: HOME, SELF-CARE Instructions: Urinary Tract Infection ([facility]), Vaginal Bleeding ([facility]) Additional Instructions: Please take control as prescribed. Please try to take it at the same time every day. Please take naproxen as prescribed for pain. Take Lincoln as needed for breakthrough pain. Do not drink or drive while taking Lincoln as it may make you drowsy. Please take Macrobid as prescribed and finish all doses unless we call you to change it based off your urine culture. Please keep your appointment with your [facility] on the . Return to the ER for any worsening sy mptoms, including dizziness, shortness of breath, chest pain, increased bleeding, passing out, nausea/vomiting, abdominal pain, or any other symptoms that are concerning to you. Prescriptions: Norethindrone-E.estradiol-Iron [Lo Loestrin Fe 1-10 Tablet] 1 each PO DAILY #30 tablet Nitrofurantoin/Nitrofuran Mac [Macrobid 100 mg Capsule] 1 tab PO BID #14 capsule Naproxen 500 mg PO BID PRN #14 tablet PRN Reason: Referrals: JUAN VAZQUEZ MD [Primary Care Provider] - Follow up in 3-5 days
[2019-03-09] MEDS ORDERED: KETOROLAC TROMETHAMINE INJ/PF 30 MG/1 ML SDV IV ONE (08:24)
[2019-03-09 08:47] LABS: ABSOLUTE EOSINOPHILS # (AUTO) 0.2 10^3/uL (0.0-0.6); ABSOLUTE LYMPHOCYTES (AUTO) 2.3 10^3/uL (0.5-4.7); ABSOLUTE MONOCYTES (AUTO) 0.4 10^3/uL (0.1-1.4); ABSOLUTE NEUT (AUTO) 2.9 10^3/uL (1.7-8.2); BASOPHILS % (AUTO) 0.7 % (0-2); HEMATOCRIT 26.9 % (36.0-47.0); LYMPHOCYTES % (AUTO) 38.8 % (13-45); MEAN CORPUSCULAR HEMOGLOBIN 17.3 pg (27.0-33.4); MEAN CORPUSCULAR VOLUME 60 fl (80-97); MONOCYTES % (AUTO) 7.4 % (3-13); PLATELET COUNT 486 10^3/uL (150-450); RED BLOOD COUNT 4.49 10^6/uL (3.72-5.28); RED CELL DISTRIBUTION WIDTH 22.5 % (11.5-14.0); SEGMENTED NEUTROPHILS % (AUTO) 50.1 % (42-78); TOTAL CELLS COUNTED % (AUTO) 100 %; WHITE BLOOD COUNT 5.9 10^3/uL (4.0-10.5)
[2019-03-09 09:03] LABS: ALKALINE PHOSPHATASE 53 U/L (38-126); ANION GAP 9 (5-19); ASPARTATE AMINO TRANSFERASE 18 U/L (14-36); BILIRUBIN,DIRECT 0.3 mg/dL (0.0-0.4); BILIRUBIN,TOTAL 0.4 mg/dL (0.2-1.3); BLOOD UREA NITROGEN 12 mg/dL (7-20); CALCIUM 9.4 mg/dL (8.4-10.2); CARBON DIOXIDE 25 mmol/L (22-30); CHLORIDE 106 mmol/L (98-107); GLUCOSE 86 mg/dL (75-110); POTASSIUM 4.6 mmol/L (3.6-5.0); TOTAL PROTEIN 7.2 g/dL (6.3-8.2)
[2019-03-09 09:23] LABS: HEMOGLOBIN 7.8 g/dL (12.0-15.5)
[2019-03-09 09:24] LABS: ANISOCYTOSIS 3+; POIKILOCYTOSIS 1+; POLYCHROMASIA SLIGHT; TEAR DROP CELLS SLIGHT; TOXIC GRANULATION 1+
[2019-03-09 09:25] LABS: PLATELET COMMENT INCREASED
[2019-03-09] MEDS ORDERED: NORMAL SALINE 1000 ML 1,000 ML IV ONE (09:30)
[2019-03-09] MEDS ORDERED: MORPHINE SULFATE 10 MG/ML INJ IV ONE (10:02)
[2019-03-09] MEDS ORDERED: HYDROCODONE/ACETAMINOPHEN 5-325 MG (6 TAB/ER DISP) PO PRN (11:30)
[2019-03-09 11:59] VITALS: BP 142/86
== END 2019-03-09 11:59 | disposition home or self-care (01) ==
LOC: ER 06:18
DX: N93.8 Other specified abnormal uterine and vaginal bleeding (principal); N39.0 Urinary tract infection, site not specified; R10.9 Unspecified abdominal pain; R10.30 Lower abdominal pain, unspecified; R35.0 Frequency of micturition; Z87.891 Personal history of nicotine dependence; Z79.899 Other long term (current) drug therapy; J45.909 Unspecified asthma, uncomplicated
CPT/HCPCS: 99284; 96361; 96374; 96375; 36415; 87086; 84703; 85025; 87088; 80053; 81001; 87186; J1885; J2270; J7030

== ENCOUNTER 2019-03-16 07:50 | Inpatient (IN) | payer OTHER ==
--- NOTE | 2019-03-16 08:23 | ER Document Report ---
ED General - General Chief Complaint: Vaginal Bleeding Stated Complaint: VAGINAL BLEEDING Time Seen by Provider: 03/16/19 08:17 TRAVEL OUTSIDE OF THE [place] IN LAST 30 DAYS: No - HPI Notes: 28-year-old female with history of hereditary angioedema, asthma, abnormal uterine bleeding to the emergency department with complaints of persistent dark and heavy vaginal bleeding since December that has gotten worse and she was started on Provera on February 26 and now in the past 3 days symptoms of chest pain, shortness of breath, lightheadedness especially when she is up and exerting herself. She states that she is seen by Dr. Narayanan and has a plan to follow-up with [facility], Dr. Soto, but has not gotten her follow-up chest yet. She states that when she went to the restroom upon arrival here that she only had mild spotting but that is atypical. She denies any abdominal pain, nausea, vomiting, diarrhea. She denies any concern for STD. She states that she has had to have a transfusion in the past. She notes pertinent family medical history that both her grandmother and her aunt had to have h ysterectomies because they continued to have dysfunctional and abnormal uterine bleeding. She states that her last transfusion was over a year ago. She is never had a transfusion reaction. - Related Data Allergies/Adverse Reactions: iodine [Iodine] Allergy (Severe, Verified 03/16/19 08:32) throat swells Penicillins Allergy (Severe, Verified 03/16/19 08:32) throat swells Shellfish * [Shellfish] Allergy (Severe, Verified 03/16/19 08:32) Blisters peanut Adverse Reaction (Severe, Verified 03/16/19 08:32) rash hydrocodone Adverse Reaction (Verified 03/16/19 08:32) Pruritis Past Medical History - General Information source: Patient - Social History Smoking Status: Never Smoker Frequency of alcohol use: None Drug Abuse: None Family History: Reviewed & Not Pertinent, Arthritis, CAD, DM, Hyperlipidemia, Hypertension, Other - Dysfunctional uterine bleeding - Past Medical History Cardiac Medical History: Denies: Hx Congestive Heart Failure, Hx Coronary Artery Disease, Hx DVT, Hx Heart Attack, Hx Hypercholesterolemia, Hx Hypertension, Hx Pulmonary Embolism Pulmonary Medical History: Reports: Hx Asthma Denies: Hx Bronchitis, Hx COPD, Hx Pneumonia Neurological Medical History: Denies: Hx Cerebrovascular Accident, Hx Seizures Endocrine Medical History: Denies: Hx Diabetes Mellitus Type 2, Hx Hyperthyroidism, Hx Hypothyroidism Renal/ Medical History: Denies: Hx Peritoneal Dialysis GI Medical History: Reports: Hx Diverticulitis, Hx Gastroesophageal Reflux Disease. Denies: Hx Cirrhosis, Hx Hepatitis Musculoskeletal Medical History: Reports Hx Arthritis Psychiatric Medical History: Reports: Hx Anxiety, Hx Bipolar Disorder, Hx Depression Infectious Medical History: Denies: Hx Hepatitis Past Surgical History: Reports: Hx Appendectomy, Other - ASTHMA - Immunizations Immunizations up to date: Yes Hx Diphtheria, Pertussis, Tetanus Vaccination: Yes Review of Systems - Review of Systems Constitutional: Weakness. denies: Chills, Fever EENT: No symptoms reported Cardiovascular: See HPI, Chest pain, Palpitations, Heart racing, Lightheaded. denies: Syncope Respiratory: See HPI, Short of breath. denies: Cough Gastrointestinal: denies: Abdominal pain, Diarrhea, Nausea, Vomiting Genitourinary: denies: Frequency Female Genitourinary: See HPI, Heavy/abnormal periods, Vaginal bleeding Musculoskeletal: No symptoms reported Skin: No symptoms reported Hematologic/Lymphatic: No symptoms reported Neurological/Psychological: No symptoms reported -: Yes All other systems reviewed and negative Physical Exam - Vital signs Vitals: Temp Pulse Resp BP Pulse Ox 98.1 F 113 H 20 151/96 H 100 03/16/19 07:55 03/16/19 07:55 03/16/19 07:55 03/16/19 07:55 03/16/19 07:55 Interpretation: Hypertensive, Tachycardic - General General appearance: Appears well, Alert In distress: None - HEENT Head: Normocephalic, Atraumatic Eyes: Normal Pupils: PERRL - Respiratory Respiratory status: No respiratory distress Chest status: Nontender Breath sounds: Normal. No: Rales, Rhonchi, Wheezing Chest palpation: Normal - Cardiovascular Rhythm: Regular Heart sounds: Normal auscultation Murmur: No - Abdominal Inspection: Morbidly Obese Distension: No distension Bowel sounds: Normal Tenderness: Nontender. 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 No: Pronator drift Sensory: Normal - Psychological Associated symptoms: Normal affect, Normal mood - Skin Skin Temperature: Warm Skin Moisture: Dry Skin Color: Normal Course - Re-evaluation Re-evalutation: 03/16/[address] Torres, ER attending. He agrees that patient should obtain blood transfusion for symptomatic anemia and be admitted. Pending the rest of the lab work but will call Dr. Narayanan for admission. 03/16/19 10:[address] Narayanan, patient's primary care physician. He would like for the patient to be admitted to the [facility] service. I have placed a page. 03/16/19 11:[address] Lay, [facility] on-call. She will accept the patient onto her service but would very much like for Dr. Narayanan to consult on the patient to follow along with the symptoms of her anemiachest pain, shortness of breath. I placed a phone call back to Dr. Narayanan to ensure that he does consult on the patient. Patient to go to medical floor. Dr. Lay is aware of the 2 units of blood antibody ordered for the patient. She has ordered coagulation factors and wants to make sure that those labs get done before she has transfusion. Updated nursing staff and they agree. 03/16/19 11:[address] Lay again. After further review of the chart she feels like the patient should really go to medicine with her consulting. I have a page out to Dr. Narayanan and awaiting his phone call. If further concern about admitting physician is expressed, I will have Dr. Narayanan and Dr. Lay discussed together. 03/16/19 12:[address] Narayanan and he further stated that he believed that Dr. Lay should admit the patient. I advised that I would have Dr. Lay call Dr. Narayanan. I heard back from Dr. Lay after she spoke with Dr. Narayanan and Dr. Narayanan will admit the patient. Dr. Lay will be down in the emergency department to come see the patient. Impression: Symptomatic anemia with vaginal bleeding. Patient to be admitted to Dr. Narayanan and to [facility]. Patient currently getting transfused. 13:25 Dr. Lay spoke with me again. Patient added to her history that she has been having difficulty with constipation and is not sure if she is seeing blood in her stool or not because she cannot differentiate between the blood from her va amanda from her rectum. She attempted to have a bowel movement last night but was not successful. She does note that she has a history of external hemorrhoids and sometimes they do bleed. I performed a Hemoccult on the patient. There was pretty bright red blood from the vagina. I cleansed the area until cleansing cough did not show any bleeding. Rectal exam showed brown stool but still was positive on Hemoccult. Updated Dr. Lay. We will also update Dr. Narayanan. - Vital Signs Vital signs: Temp Pulse Resp BP Pulse Ox 98 F 87 18 123/73 100 03/16/19 14:32 03/16/19 14:43 03/16/19 14:32 03/16/19 14:32 03/16/19 14:32 - Laboratory Result Diagrams: 03/16/19 09:05 03/16/19 09:05 Laboratory results interpreted by me: 03/16/19 03/16/19 03/16/19 09:05 09:50 11:27 RBC 3.21 L Hgb 5.7 L Hct 19.2 L MCV 60 L MCH 17.6 L MCHC 29.5 L RDW 21.4 H Iron 16.2 L Ferritin 3.51 L AST Total Protein Crossmatch See Detail 03/16/19 11:27 RBC Hgb Hct MCV MCH MCHC RDW Iron Ferritin AST 51 H Total Protein 6.0 L Crossmatch - Diagnostic Test Radiology reviewed: Image reviewed, Reports reviewed Discharge - Discharge Clinical Impression: Shortness of breath Anemia Qualifiers: Anemia type: iron deficiency Iron deficiency anemia type: chronic blood loss Qualified Code(s): D50.0 - Iron deficiency anemia secondary to blood loss (chronic) Chest pain Qualifiers: Chest pain type: unspecified Qualified Code(s): R07.9 - Chest pain, unspecified Condition: Stable Disposition: ADMITTED INPATIENT Admitting Provider: Nishnc Unit Admitted: [facility]
[2019-03-16 09:21] LABS: ABSOLUTE EOSINOPHILS # (AUTO) 0.1 10^3/uL (0.0-0.6); ABSOLUTE LYMPHOCYTES (AUTO) 1.7 10^3/uL (0.5-4.7); ABSOLUTE MONOCYTES (AUTO) 0.4 10^3/uL (0.1-1.4); ABSOLUTE NEUT (AUTO) 3.3 10^3/uL (1.7-8.2); BASOPHILS % (AUTO) 0.7 % (0-2); EOSINOPHILS % (AUTO) 1.1 % (0-6); HEMATOCRIT 19.2 % (36.0-47.0); LYMPHOCYTES % (AUTO) 31.3 % (13-45); MEAN CORPUSCULAR HEMOGLOBIN 17.6 pg (27.0-33.4); MEAN CORPUSCULAR HGB CONC 29.5 g/dL (32.0-36.0); MEAN CORPUSCULAR VOLUME 60 fl (80-97); PLATELET COUNT 430 10^3/uL (150-450); RED BLOOD COUNT 3.21 10^6/uL (3.72-5.28); RED CELL DISTRIBUTION WIDTH 21.4 % (11.5-14.0); SEGMENTED NEUTROPHILS % (AUTO) 58.9 % (42-78); TOTAL CELLS COUNTED % (AUTO) 100 %; WHITE BLOOD COUNT 5.6 10^3/uL (4.0-10.5)
[2019-03-16 09:38] LABS: HEMOGLOBIN 5.7 g/dL (12.0-15.5)
[2019-03-16] MEDS ORDERED: NORMAL SALINE 250 ML IV PRN ×2 (09:39)
[2019-03-16 09:44] LABS: ANION GAP 10 (5-19); BLOOD UREA NITROGEN 7 mg/dL (7-20); CALCIUM 9.2 mg/dL (8.4-10.2); CARBON DIOXIDE 25 mmol/L (22-30); CHLORIDE 103 mmol/L (98-107); GLUCOSE 97 mg/dL (75-110); POTASSIUM 4.3 mmol/L (3.6-5.0)
--- NOTE | 2019-03-16 10:01 | RADIOLOGY REPORT (SQ) ---
EXAM DESCRIPTION: CHEST 2 VIEWS COMPLETED DATE/TIME: 03/16/2019 8:37 am REASON FOR STUDY: palpitations COMPARISON: 03/05/2016 EXAM PARAMETERS: NUMBER OF VIEWS: two views TECHNIQUE: Digital Frontal and Lateral radiographic views of the chest acquired. RADIATION DOSE: NA LIMITATIONS: none FINDINGS: LUNGS AND PLEURA: No opacities, masses or pneumothorax. No pleural effusion. MEDIASTINUM AND HILAR STRUCTURES: No masses or contour abnormalities. HEART AND VASCULAR STRUCTURES: Heart normal size. No evidence for failure. BONES: No acute findings. HARDWARE: None in the chest. OTHER: No other significant finding. IMPRESSION: NO ACUTE RADIOGRAPHIC FINDING IN THE CHEST. TECHNICAL DOCUMENTATION: JOB ID: [id number]- All Rights Reserved Reading location - IP/workstation name: [email or web address]
[2019-03-16 10:07] LABS: HYPOCHROMASIA 1+; POLYCHROMASIA SLIGHT
[2019-03-16 10:08] LABS: ANISOCYTOSIS 3+; OVALOCYTES 1+; PLATELET COMMENT ADEQUATE; POIKILOCYTOSIS 1+; TEAR DROP CELLS SLIGHT
[2019-03-16 10:44] LABS: FREE T4 (FREE THYROXINE) 0.89 ng/dL (0.78-2.19)
[2019-03-16 10:58] LABS: THYROID STIMULATING HORMONE 2.04 uIU/mL (0.47-4.68)
--- NOTE | 2019-03-16 11:16 | EKG REPORT ---
SEVERITY:- NORMAL ECG - SINUS RHYTHM : Confirmed by: Leon Booth MD 16-Mar-2019 11:16:05
[2019-03-16 11:47] LABS: ABSOLUTE RETICS # 0.081 10^6/uL (0.028-0.122); RETICULOCYTE COUNT (AUTO) 2.67 % (0.66-2.85)
[2019-03-16] MEDS ORDERED: ACETAMINOPHEN 325 MG TABLET PO ONE (12:01)
[2019-03-16 12:20] LABS: IRON(TIBC) 16.2 ug/dL (37-170)
[2019-03-16] MEDS ORDERED: ONDANSETRON HCL INJ/PF 4 MG/2 ML SDV IV ONE (13:07)
[2019-03-16 13:14] LABS: FERRITIN 3.51 ng/mL (6.2-137.0)
[2019-03-16 13:24] LABS: ALBUMIN 3.6 g/dL (3.5-5.0); ALKALINE PHOSPHATASE 65 U/L (38-126); ASPARTATE AMINO TRANSFERASE 51 U/L (14-36); BILIRUBIN,TOTAL 0.5 mg/dL (0.2-1.3)
[2019-03-16] MEDS: MEDROXYPROGESTERONE ACET 10 MG TABLET PO SCH ×4 (13:25→20:01)
[2019-03-16 13:44] LABS: FOLATE 9.29 ng/mL (>2.76)
[2019-03-16 14:11] LABS: APPEARANCE,URINE SLIGHTLY-CLOUDY; BILIRUBIN,URINE NEGATIVE (NEGATIVE); COLOR,URINE YELLOW; GLUCOSE, URINE NEGATIVE (NEGATIVE); KETONES,URINE NEGATIVE (NEGATIVE); LEUKOCYTE ESTERASE,URINE TRACE (NEGATIVE); NITRITE,URINE NEGATIVE (NEGATIVE); PROTEIN,URINE 100 mg/dL (NEGATIVE); URINE SPECIFIC GRAVITY 1.019
--- NOTE | 2019-03-16 14:16 | PDOC CONSULTATION ---
Consultation Consult Date: 03/16/19 Attending physician:: VIJAY MCDONALD Provider Consulted: FRANKIE RAMON Consult reason:: vaginal bleeding, anemia History of Present Illness Admission Date/PCP: 03/16/19 11:41 VIJAY MCDONALD MD Patient complains of: Chest pain, SOB, vaginal bleeding History of Present Illness: KOBE ROBERTSON is a pleasant 28 year old G0 with multiple medical problems who presents to the ER with Chest pain and tachycardia and hypertension. Hypertension and tachycardia is now somewheat improved with IVF and PRBCs. Pt reports chest pain is still present and is now complaining of epigastric pain as well as continued SOB. Patient seen and examined with present. She does not wish to have a pelvic exam since she has significantly improved vaginal bleeding over the last few days and presented today due to Chest pain and SOB. She reports that her Vaginal Bleeding (this current episode) began on 01/16 and was very heavy with a bag of pads per day in the begining. Now finally over the last week her bleeding is scant until she voids at which time she has golf ball clots and some smaller - now dark blood. In December when she began bleeding it was bright red. She also reports that she has constipation and blood in stool - ER provider did rectal exam after cleaning perineum/rectal area and noted positive hemoccult - which should be evaluated (either as outpatient or inpatient). She reports that she has always had irregular bleeding and before bleeding in Nov that her last menses was in April (seen in ER May 2018). Her mother had to have a hysterectomy for similar issues. She used to see Dr. Silvestre ([facility]) but does not remember when she had a pap smear last and reports that she has high blood pressure in the past (review of records consistent with diagnosis of HTN) but has not been on meds. After Dr. Silvestre passed she is now a patient of Dr. Mcdonald (medicine). She has a consult in to Dr. Soto ([facility]) for evaluation but was not scheduled to see him until March. Review of records with history of multiple visits for vaginal bleeding and angioedema. She reports that she has been taking Iron for a very long time but "it doesn't seem to help" Past Medical History LMP: 01/16/2019 Menses: irregular Gynecological Infection: No Cardiac Medical History: Reports: Hypertension - denies official dx but review of records notes many episodes of HTN Denies: Congestive Heart Failure, Coronary Artery Disease, DVT, Myocardial Infarction, Hyperlipidema, Pulmonary Embolism Pulmonary Medical History: Reports: Asthma Denies: Bronchitis, Chronic Obstructive Pulmonary Disease (COPD), Pneumonia Neurological Medical History: Denies: Seizures Endocrine Medical History: Denies: Diabetes Mellitus Type 2, Hyperthyroidism, Hypothyroidism Renal/ Medical History: Reports: None Malignancy Medical History: Reports: None GI Medical History: Reports: Diverticulitis, Gastroesophageal Reflux Disease Denies: Cirrhosis, Hepatitis Musculoskeltal Medical History: Reports: Arthritis Skin Medical History: Reports: None Psychiatric Medical History: Reports: Bipolar Disorder, Depression Traumatic Medical History: Reports: None Infectious Medical History: Reports: None Social History Information Source: Patient, Relative Lives with: Family Smoking Status: Never Smoker Electronic Cigarette use?: No Frequency of Alcohol Use: Occasional Hx Recreational Drug Use: No Drugs: None Hx Prescription Drug Abuse: No - Advance Directive Resuscitation Status: Full Code Family History Family History: Reviewed & Not Pertinent, Arthritis, CAD, DM, Hyperlipidemia, Hypertension, Other - Dysfunctional uterine bleeding Parental Family History Reviewed: No Children Family History Reviewed: NA Sibling(s) Family History Reviewed.: NA Medication/Allergy Home Medications: Nitrofurantoin/Nitrofuran Mac [Macrobid 100 mg Capsule] 1 tab PO BID #14 capsule 03/09/19 Norethindrone-E.estradiol-Iron [Lo Loestrin Fe 1-10 Tablet] 1 each PO DAILY #30 tablet 03/09/19 Albuterol Sulfate [Proair Hfa Inhalation Aerosol 8.5 gm Mdi] 2 puff IH Q4HP PRN 03/16/19 Ferrous Sulfate [Iron] 325 mg PO DAILY 03/16/19 Allergies/Adverse Reactions: iodine [Iodine] Allergy (Severe, Verified 03/16/19 08:32) throat swells Penicillins Allergy (Severe, Verified 03/16/19 08:32) throat swells Shellfish * [Shellfish] Allergy (Severe, Verified 03/16/19 08:32) Blisters peanut Adverse Reaction (Severe, Verified 03/16/19 08:32) rash hydrocodone Adverse Reaction (Verified 03/16/19 08:32) Pruritis Review of Systems Constitutional: PRESENT: as per HPI, fatigue, weakness Cardiovascular: PRESENT: chest pain, dyspnea on exertion, palpitations Respiratory: PRESENT: as per HPI Gastrointestinal: PRESENT: constipation, hematochezia, nausea, other. ABSENT: abdominal pain, bloating, coffee ground emesis, diarrhea, hematemesis, vomiting Integumentary: ABSENT: rash, wounds Neurological: ABSENT: abnormal gait, abnormal speech, confusion, dizziness, focal weakness, syncope Psychiatric: PRESENT: as per HPI Hematologic/Lymphatic: ABSENT: easy bleeding, easy bruising Allergic/Immunologic: PRESENT: other - recurrent angioedema - no symptoms currently Physical Exam - Physical Exam Vital Signs: Temp Pulse Resp BP Pulse Ox 98.5 F 94 19 122/75 100 03/16/19 12:17 03/16/19 12:08 03/16/19 12:17 03/16/19 12:17 03/16/19 12:17 Intake & Output 03/15/19 03/16/19 03/17/19 06:59 06:59 06:59 Intake Total 0 Balance 0 Weight 144.4 kg - Gynecological Exam Labia: other - declines exam since bleeding is better at this time. will defer until patient is feeling better Result Laboratory Results: 03/16/19 09:05 03/16/19 09:05 03/16/19 03/16/19 03/16/19 09:05 09:05 09:05 WBC 5.6 RBC 3.21 L Hgb 5.7 L Hct 19.2 L MCV 60 L MCH 17.6 L MCHC 29.5 L RDW 21.4 H Plt Count 430 Seg Neutrophils % 58.9 Retic Count (auto) Sodium 137.5 Potassium 4.3 Chloride 103 Carbon Dioxide 25 Anion Gap 10 BUN 7 Creatinine 0.79 Est GFR ( Amer) > 60 Glucose 97 Calcium 9.2 TSH 2.04 Free T4 0.89 Blood Type Antibody Screen 03/16/19 03/16/19 09:50 11:27 WBC RBC Hgb Hct MCV MCH MCHC RDW Plt Count Seg Neutrophils % Retic Count (auto) 2.67 Sodium Potassium Chloride Carbon Dioxide Anion Gap BUN Creatinine Est GFR ( Amer) Glucose Calcium TSH Free T4 Blood Type O POSITIVE Antibody Screen NEGATIVE 03/16/19 09:05 Troponin I < 0.012 Impressions: Chest X-Ray 03/16/19 09:18 IMPRESSION: NO ACUTE RADIOGRAPHIC FINDING IN THE CHEST. Status: Imported from PACS Assessment & Plan - Diagnosis (1) Anemia Qualifiers: Anemia type: iron deficiency Iron deficiency anemia type: chronic blood loss Qualified Code(s): D50.0 - Iron deficiency anemia secondary to blood loss (chronic) Is this a current diagnosis for this admission?: Yes Plan: Transfusion 2 units of PRBCs. Pt reports that she has been on Iron for a long time but does not feel that it helps. Chronic anemia due to DUB likely precipitated by PCOS (needs w/u to rule out endometrial hyperplasia etc as other causes). She also has a positive Hemoccult - which will need to be evaluated. Anemia labs ordered. vWF also ordered since patient reports always very heavy menses. THis blood work was completed prior to transfusion. Hematology consulted as this patient would very much benefit from Iron infusions both inpatient and outpatient. Very much appreciate Dr. Collazo's assistance with this very nice patient. (2) Dysfunctional uterine bleeding Is this a current diagnosis for this admission?: Yes Plan: Pt has tried COCPs - which I would avoid at this time estrogen containing meds due to CP/SOB, morbidly obese relatively sedentary patient. Avoid NSAIDs for now. Would consider trexanemic acid - however bleeding has improved to only when voiding and o/w scant bleeding and Trexanemic Acid would also increase risk of coagulopathy etc. At this time would recommend High dose provera 20mg po TID for at least three days and then may consider 20mg po daily. Patient needs a w/u for her DUB - to include TSH (normal in ER today) and Endometrial Biopsy (or D&C). Due to currently symptomatic anemia and CP would not recommend surgical evaluation and would recommend outpatient EMBx (endometrial biopsy) and pap smear. Reviewed with patient causes of DUB: polyp, hormonal, PCOS/annovulatory bleeding, Endometrial hyperplasia/Endometrial cancer, Cervical dysplasia/Cancer. She and her verbalized understanding and will keep f/u appts. Will follow with admitting provider daily and would recommend consultation to [facility] for her f/u and continued management when she is discharged. Appreciate the consultation. Thank you. (3) Chest pain Qualifiers: Chest pain type: unspecified Qualified Code(s): R07.9 - Chest pain, unspecified Is this a current diagnosis for this admission?: Yes Plan: Defer to PCM (4) Shortness of breath Is this a current diagnosis for this admission?: Yes Plan: Defer to PCM (5) Recurrent angioedema Is this a current diagnosis for this admission?: Yes Plan: defer to PCM (6) Morbid obesity with BMI of 50.0-59.9, adult Is this a current diagnosis for this admission?: Yes Plan: Morbid obesity. Obesity management and nutrition per PCM Pt is aware that weight loss and appropriate diet is recommended for improved health especially since she desires to have a baby at some point. Body habitus and presentation and appearance is consistent with likely PCOS (or possibly metabolic syndrome based on morbid obesity with remainder of w/u pending) (7) Hematochezia Is this a current diagnosis for this admission?: Yes Plan: Defer to PCM for either eval here or as outpatient. (8) Asthma Qualifiers: Asthma severity: unspecified severity Asthma complication type: uncomplicated Is this a current diagnosis for this admission?: No Plan: Defer to PCM (9) Hypertension Qualifiers: Hypertension type: essential hypertension Qualified Code(s): I10 - Essential (primary) hypertension Is this a current diagnosis for this admission?: Yes Plan: defer to PCM for management as needed. - Time Time Spent: 50 to 70 Minutes Medications reviewed and adjusted accordingly: Yes Within: within 72 hours - Inpatient Certification Based on my medical assessment, after consideration of the patient's comorbidities, presenting symptoms, or acuity I expect that the services needed warrant INPATIENT care.: Yes I certify that my determination is in accordance with my understanding of Medicare's requirements for reasonable and necessary INPATIENT services [42 CFR 412.3e].: Yes Medical Necessity: Failure to Improve With Outpatient Therapy, Significant Comorbidiites Make Outpatient Treatment Too Risky, Need For IV Fluids Post Hospital Care: D/C Primary Special Education Teacher Documentation
[2019-03-16 16:19] LABS: INTERNATIONAL RATION (INR) 0.98
[2019-03-16 16:20] LABS: PARTIAL THROMBOPLASTIN TIME 26.3 SEC (23.5-35.8)
[2019-03-16 16:32] LABS: NT PRO BNP 39 pg/mL (<125)
[2019-03-16 16:33] LABS: TROPONIN I < 0.012 ng/mL
[2019-03-16 16:37] LABS: FREE T4 (FREE THYROXINE) 0.9 ng/dL (0.78-2.19)
[2019-03-16 16:51] LABS: THYROID STIMULATING HORMONE 1.55 uIU/mL (0.47-4.68)
[2019-03-16] MEDS ORDERED: INFLUENZA QUAD (6MOS+) 2019-20 VAC 0.5 ML SYR IM ONE (17:14)
[2019-03-16] MEDS ORDERED: FERRIC CARBOXYMALTOSE INJ 750 MG/15 ML VIAL IV SCH (18:15)
--- NOTE | 2019-03-16 18:16 | PDOC CONSULTATION ---
Consultation Consult Date: 03/16/19 Provider Consulted: CONG MEDINA Consult reason:: Hematology/Oncology consultation was requested for patient with severe iron deficiency anemia History of Present Illness Admission Date/PCP: 03/16/19 11:41 VIJAY SIDHU MD History of Present Illness: KOBE ROBERTSON is a 28 year old obese, female who states that she has always been told she has had low iron. She has been on iron pills most of her life, but they do not work. She has dysfunctional uterine bleeding and has severe bleeding about every 2-3 months. She has had plasma infusions in the past, but no IV iron. She presented to the hospital with chest pain, dyspnea, very sleepy. She loves to chew ice. She was found to have HGB 5 and ferritin if <5. She is receiving her 2nd unit of pRBCs now. She states that she is already feeling better. She has not seen hematology in the past. Unknown if she has been tested for hemoglobinopathy. Past Medical History Cardiac Medical History: Denies: Congestive Heart Failure, Coronary Artery Disease, DVT, Myocardial Infarction, Hyperlipidema, Hypertension, Pulmonary Embolism Pulmonary Medical History: Reports: Asthma Denies: Bronchitis, Chronic Obstructive Pulmonary Disease (COPD), Pneumonia Neurological Medical History: Denies: Seizures Endocrine Medical History: Denies: Diabetes Mellitus Type 2, Hyperthyroidism, Hypothyroidism Renal/ Medical History: Reports: None Malignancy Medical History: Reports: None GI Medical History: Reports: Diverticulitis, Gastroesophageal Reflux Disease Denies: Cirrhosis, Hepatitis Musculoskeltal Medical History: Reports: Arthritis Skin Medical History: Reports: None Psychiatric Medical History: Reports: Bipolar Disorder, Depression Traumatic Medical History: Reports: None Hematology: Reports: Anemia Infectious Medical History: Reports: None Past Surgical History Past Surgical History: Reports: Appendectomy, Other - ASTHMA Social History Lives with: Family Smoking Status: Former Smoker Cigarettes Packs Per Day: 0.2 Electronic Cigarette use?: No Number of Years Smokin Last Time Smoked: 2019 Frequency of Alcohol Use: Rare Hx Recreational Drug Use: No Drugs: None Hx Prescription Drug Abuse: No - Advance Directive Resuscitation Status: Full Code Family History Family History: Reviewed & Not Pertinent, Arthritis, CAD, DM, Hyperlipidemia, Hypertension, Other - Dysfunctional uterine bleeding Parental Family History Reviewed: Yes Children Family History Reviewed: No Sibling(s) Family History Reviewed.: Yes Medication/Allergy Home Medications: Nitrofurantoin/Nitrofuran Mac [Macrobid 100 mg Capsule] 1 tab PO BID #14 capsule 03/09/19 Norethindrone-E.estradiol-Iron [Lo Loestrin Fe 1-10 Tablet] 1 each PO DAILY #30 tablet 03/09/19 Albuterol Sulfate [Proair Hfa Inhalation Aerosol 8.5 gm Mdi] 2 puff IH Q4HP PRN 03/16/19 Ferrous Sulfate [Iron] 325 mg PO DAILY 03/16/19 Allergies/Adverse Reactions: iodine [Iodine] Allergy (Severe, Verified 03/16/19 08:32) throat swells Penicillins Allergy (Severe, Verified 03/16/19 08:32) throat swells Shellfish * [Shellfish] Allergy (Severe, Verified 03/16/19 08:32) Blisters peanut Adverse Reaction (Severe, Verified 03/16/19 08:32) rash hydrocodone Adverse Reaction (Verified 03/16/19 08:32) Pruritis Review of Systems Constitutional: ABSENT: fever(s), headache(s) Eyes: ABSENT: visual disturbances Ears: ABSENT: hearing changes Nose, Mouth, and Throat: ABSENT: sore throat Cardiovascular: PRESENT: chest pain, dyspnea on exertion Respiratory: PRESENT: dyspnea Gastrointestinal: ABSENT: constipation, nausea Genitourinary: ABSENT: dysuria Musculoskeletal: PRESENT: back pain Integumentary: ABSENT: rash Neurological: PRESENT: weakness Hematologic/Lymphatic: PRESENT: easy bleeding Physical Exam Vital Signs: Temp Pulse Resp BP Pulse Ox 98.2 F 88 16 109/95 H 100 03/16/19 17:13 03/16/19 17:13 03/16/19 17:13 03/16/19 17:13 03/16/19 17:13 Intake & Output 03/15/19 03/16/19 03/17/19 06:59 06:59 06:59 Intake Total 300 Balance 300 Weight 144.4 kg General appearance: PRESENT: no acute distress, morbidly obese Exam: 28 year old female. Family is at bedside Head exam: PRESENT: atraumatic, normocephalic Eye exam: PRESENT: EOMI Mouth exam: PRESENT: tongue midline Neck exam: ABSENT: lymphadenopathy, tenderness Respiratory exam: PRESENT: clear to auscultation lissett, unlabored Cardiovascular exam: PRESENT: RRR, tachycardia GI/Abdominal exam: PRESENT: soft. ABSENT: tenderness Extremities exam: ABSENT: pedal edema Musculoskeletal exam: PRESENT: normal inspection Neurological exam: PRESENT: alert, awake Psychiatric exam: PRESENT: appropriate affect Skin exam: PRESENT: normal color Results Laboratory Results: 03/16/19 09:05 03/16/19 09:05 03/16/19 03/16/19 03/16/19 09:05 09:05 09:05 WBC 5.6 RBC 3.21 L Hgb 5.7 L Hct 19.2 L MCV 60 L MCH 17.6 L MCHC 29.5 L RDW 21.4 H Plt Count 430 Seg Neutrophils % 58.9 Retic Count (auto) Sodium 137.5 Potassium 4.3 Chloride 103 Carbon Dioxide 25 Anion Gap 10 BUN 7 Creatinine 0.79 Est GFR ( Amer) > 60 Glucose 97 Calcium 9.2 Magnesium Iron TIBC % Saturation Ferritin Total Bilirubin AST Alkaline Phosphatase Ammonia Total Protein Albumin Amylase Lipase Vitamin B12 Folate TSH 2.04 Free T4 0.89 Urine Color Urine Appearance Urine pH Ur Specific [place] Urine Protein Urine Glucose (UA) Urine Ketones Urine Blood Urine Nitrite Ur Leukocyte Esterase Urine WBC (Auto) Urine RBC (Auto) Blood Type Antibody Screen 03/16/19 03/16/19 03/16/19 09:50 11:27 11:27 WBC RBC Hgb Hct MCV MCH MCHC RDW Plt Count Seg Neutrophils % Retic Count (auto) 2.67 Sodium Potassium Chloride Carbon Dioxide Anion Gap BUN Creatinine Est GFR ( Amer) Glucose Calcium Magnesium Iron 16.2 L TIBC 374 % Saturation 4 Ferritin 3.51 L Total Bilirubin AST Alkaline Phosphatase Ammonia Total Protein Albumin Amylase Lipase Vitamin B12 354.0 Folate 9.29 TSH Free T4 Urine Color Urine Appearance Urine pH Ur Specific [place] Urine Protein Urine Glucose (UA) Urine Ketones Urine Blood Urine Nitrite Ur Leukocyte Esterase Urine WBC (Auto) Urine RBC (Auto) Blood Type O POSITIVE Antibody Screen NEGATIVE 03/16/19 03/16/19 03/16/19 11:27 13:40 15:46 WBC RBC Hgb Hct MCV MCH MCHC RDW Plt Count Seg Neutrophils % Retic Count (auto) Sodium Potassium Chloride Carbon Dioxide Anion Gap BUN Creatinine Est GFR ( Amer) Glucose Calcium Magnesium 2.0 Iron TIBC % Saturation Ferritin Total Bilirubin 0.5 AST 51 H Alkaline Phosphatase 65 Ammonia Total Protein 6.0 L Albumin 3.6 Amylase 46 Lipase 39.4 36.0 Vitamin B12 Folate TSH Free T4 Urine Color YELLOW Urine Appearance SLIGHTLY-CLOUDY Urine pH 6.0 Ur Specific [place] 1.019 Urine Protein 100 H Urine Glucose (UA) NEGATIVE Urine Ketones NEGATIVE Urine Blood LARGE H Urine Nitrite NEGATIVE Ur Leukocyte Esterase TRACE H Urine WBC (Auto) 9 Urine RBC (Auto) >182 Blood Type Antibody Screen 03/16/19 03/16/19 15:46 15:46 WBC RBC Hgb Hct MCV MCH MCHC RDW Plt Count Seg Neutrophils % Retic Count (auto) Sodium Potassium Chloride Carbon Dioxide Anion Gap BUN Creatinine Est GFR ( Amer) Glucose Calcium Magnesium Iron TIBC % Saturation Ferritin Total Bilirubin AST Alkaline Phosphatase Ammonia 9.2 Total Protein Albumin Amylase Lipase Vitamin B12 Folate TSH 1.55 Free T4 0.90 Urine Color Urine Appearance Urine pH Ur Specific [place] Urine Protein Urine Glucose (UA) Urine Ketones Urine Blood Urine Nitrite Ur Leukocyte Esterase Urine WBC (Auto) Urine RBC (Auto) Blood Type Antibody Screen 03/16/19 03/16/19 03/16/19 09:05 15:46 15:46 Creatine Kinase 99 CK-MB (CK-2) Troponin I < 0.012 < 0.012 NT-Pro-B Natriuret Pep 39 03/16/19 15:46 Creatine Kinase CK-MB (CK-2) < 0.22 Troponin I NT-Pro-B Natriuret Pep Impressions: Chest X-Ray 03/16/19 09:18 IMPRESSION: NO ACUTE RADIOGRAPHIC FINDING IN THE CHEST. Assessment & Plan - Diagnosis (1) Anemia Qualifiers: Anemia type: iron deficiency Iron deficiency anemia type: chronic blood loss Qualified Code(s): D50.0 - Iron deficiency anemia secondary to blood loss (chronic) Is this a current diagnosis for this admission?: Yes Plan: She is receiving blood now. I will order Injectafer x 1 dose. I have explained that she will need more IV iron, but I will arrange this as an outpatient. I do not believe the oral iron is helping. She may stop this. I will also check HGB electropharesis. If anemia continues after iron has normalized, may also check for another cause of anemia. (2) Dysfunctional uterine bleeding Is this a current diagnosis for this admission?: Yes Plan: I agree with von Willebrand screen. Otherwise, per MANAGER FREELANCE. - Plan Summary Plan Summary: She should have DVT prophylaxis if possible, but would avoid blood thinners due to the DUB. I was told she has hemoccult + stools as well. Consider GI work-up as well as an outpatient. I will follow her with you. I spoke with Dr. Lay and Abiola concerning the patient.
--- NOTE | 2019-03-16 19:48 | PDOC H&P ---
History of Present Illness Admission Date/PCP: 03/16/19 11:41 VIJAY SIDHU MD History of Present Illness: KOBE ROBERTSON is a 28 year old female, She came to the emergency room for e valuation of symptomatic very severe iron deficiency anemia due to chronic vaginal blood loss.Patient with came to the office for the first time on Tuesday to establish with our office, she told me she has a history of hereditary angioedema she also complained of vaginal blood loss since she was prescribed combined estrogen- progesterone pill for the condition which she is taking ,she used to see Dr. mae, labour market economist now but she has not recently seen any labour market economist for evaluation of the vaginal bleeding. My office immediately made arrangement with [facility] for her to see a labour market economist for evaluation we also took her blood for hemogram evaluation. She is very obese as well ,she told me that the obesity was from using prednisone for the angioedema chronically. The hemogram came back demonstrating very low hemoglobin of 5 , My office tried to reach this patient without success but apparently she went to the emergency room on her own because she was very symp tomatic with shortness of breath and chest pain, in the emergency room she was evaluated because of the severity of the anemia and because she symptomatic it was felt that patient needed to be admitted to the hospital Past Medical History Pulmonary Medical History: Reports: Asthma Renal/ Medical History: Reports: None Malignancy Medical History: Reports: None GI Medical History: Reports: Diverticulitis, Gastroesophageal Reflux Disease Musculoskeltal Medical History: Reports: Arthritis Skin Medical History: Reports: None Psychiatric Medical History: Reports: Bipolar Disorder, Depression Traumatic Medical History: Reports: None Hematology: Reports: Anemia, Other Infectious Medical History: Reports: None Past Surgical History Past Surgical History: Reports: Appendectomy, Other - ASTHMA Social History Lives with: Family Smoking Status: Former Smoker Cigarettes Packs Per Day: 0.2 Electronic Cigarette use?: No Number of Years Smokin Last Time Smoked: 2019 Frequency of Alcohol Use: Rare Hx Recreational Drug Use: No Drugs: None Hx Prescription Drug Abuse: No - Advance Directive Resuscitation Status: Full Code Family History Family History: Reviewed & Not Pertinent, Arthritis, CAD, DM, Hyperlipidemia, Hypertension, Other - Dysfunctional uterine bleeding Parental Family History Reviewed: Yes Children Family History Reviewed: Yes Sibling(s) Family History Reviewed.: Yes Medication/Allergy Home Medications: Nitrofurantoin/Nitrofuran Mac [Macrobid 100 mg Capsule] 1 tab PO BID #14 capsule 03/09/19 Norethindrone-E.estradiol-Iron [Lo Loestrin Fe 1-10 Tablet] 1 each PO DAILY #30 tablet 03/09/19 Albuterol Sulfate [Proair Hfa Inhalation Aerosol 8.5 gm Mdi] 2 puff IH Q4HP PRN 03/16/19 Ferrous Sulfate [Iron] 325 mg PO DAILY 03/16/19 Allergies/Adverse Reactions: iodine [Iodine] Allergy (Severe, Verified 03/16/19 08:32) throat swells Penicillins Allergy (Severe, Verified 03/16/19 08:32) throat swells Shellfish * [Shellfish] Allergy (Severe, Verified 03/16/19 08:32) Blisters peanut Adverse Reaction (Severe, Verified 03/16/19 08:32) rash hydrocodone Adverse Reaction (Verified 03/16/19 08:32) Pruritis Review of Systems Constitutional: ABSENT: chills, fever(s), headache(s), weight gain, weight loss Eyes: ABSENT: visual disturbances Ears: ABSENT: hearing changes Cardiovascular: PRESENT: dyspnea on exertion. ABSENT: chest pain, edema, orthropnea, palpitations Respiratory: ABSENT: cough, hemoptysis Gastrointestinal: ABSENT: abdominal pain, constipation, diarrhea, hematemesis, hematochezia, nausea, vomiting Genitourinary: ABSENT: dysuria, hematuria Musculoskeletal: ABSENT: joint swelling Integumentary: ABSENT: rash, wounds Neurological: ABSENT: abnormal gait, abnormal speech, confusion, dizziness, f ocal weakness, syncope Psychiatric: ABSENT: anxiety, depression, homidical ideation, suicidal ideation Endocrine: ABSENT: cold intolerance, heat intolerance, menstrual abnormalities, polydipsia, polyuria Hematologic/Lymphatic: ABSENT: easy bleeding, easy bruising, lymphadenopathy Physical Exam Vital Signs: Temp Pulse Resp BP Pulse Ox 98.1 F 88 18 141/76 H 100 03/16/19 18:09 03/16/19 18:09 03/16/19 18:09 03/16/19 18:09 03/16/19 18:09 Intake & Output 03/15/19 03/16/19 03/17/19 06:59 06:59 06:59 Intake Total 300 Balance 300 Weight 144.4 kg General appearance: PRESENT: obese Head exam: PRESENT: atraumatic, normocephalic Eye exam: PRESENT: PERRLA Ear exam: PRESENT: normal external ear exam Mouth exam: PRESENT: moist, tongue midline Neck exam: PRESENT: full ROM Respiratory exam: PRESENT: clear to auscultation lissett Cardiovascular exam: PRESENT: RRR, +S1, +S2 Vascular exam: PRESENT: normal capillary refill GI/Abdominal exam: PRESENT: normal bowel sounds, soft Rectal exam: PRESENT: deferred Neurological exam: PRESENT: alert, CN II-XII grossly intact Psychiatric exam: PRESENT: appropriate affect, normal mood Skin exam: PRESENT: dry, intact, warm Results Laboratory Results: 03/16/19 09:05 03/16/19 09:05 03/16/19 03/16/19 03/16/19 09:05 09:05 09:05 WBC 5.6 RBC 3.21 L Hgb 5.7 L Hct 19.2 L MCV 60 L MCH 17.6 L MCHC 29.5 L RDW 21.4 H Plt Count 430 Seg Neutrophils % 58.9 Retic Count (auto) Sodium 137.5 Potassium 4.3 Chloride 103 Carbon Dioxide 25 Anion Gap 10 BUN 7 Creatinine 0.79 Est GFR ( Amer) > 60 Glucose 97 Calcium 9.2 Magnesium Iron TIBC % Saturation Ferritin Total Bilirubin AST Alkaline Phosphatase Ammonia Total Protein Albumin Amylase Lipase Vitamin B12 Folate TSH 2.04 Free T4 0.89 Urine Color Urine Appearance Urine pH Ur Specific [place] Urine Protein Urine Glucose (UA) Urine Ketones Urine Blood Urine Nitrite Ur Leukocyte Esterase Urine WBC (Auto) Urine RBC (Auto) Blood Type Antibody Screen 03/16/19 03/16/19 03/16/19 09:50 11:27 11:27 WBC RBC Hgb Hct MCV MCH MCHC RDW Plt Count Seg Neutrophils % Retic Count (auto) 2.67 Sodium Potassium Chloride Carbon Dioxide Anion Gap BUN Creatinine Est GFR ( Amer) Glucose Calcium Magnesium Iron 16.2 L TIBC 374 % Saturation 4 Ferritin 3.51 L Total Bilirubin AST Alkaline Phosphatase Ammonia Total Protein Albumin Amylase Lipase Vitamin B12 354.0 Folate 9.29 TSH Free T4 Urine Color Urine Appearance Urine pH Ur Specific [place] Urine Protein Urine Glucose (UA) Urine Ketones Urine Blood Urine Nitrite Ur Leukocyte Esterase Urine WBC (Auto) Urine RBC (Auto) Blood Type O POSITIVE Antibody Screen NEGATIVE 03/16/19 03/16/19 03/16/19 11:27 13:40 15:46 WBC RBC Hgb Hct MCV MCH MCHC RDW Plt Count Seg Neutrophils % Retic Count (auto) Sodium Potassium Chloride Carbon Dioxide Anion Gap BUN Creatinine Est GFR ( Amer) Glucose Calcium Magnesium 2.0 Iron TIBC % Saturation Ferritin Total Bilirubin 0.5 AST 51 H Alkaline Phosphatase 65 Ammonia Total Protein 6.0 L Albumin 3.6 Amylase 46 Lipase 39.4 36.0 Vitamin B12 Folate TSH Free T4 Urine Color YELLOW Urine Appearance SLIGHTLY-CLOUDY Urine pH 6.0 Ur Specific [place] 1.019 Urine Protein 100 H Urine Glucose (UA) NEGATIVE Urine Ketones NEGATIVE Urine Blood LARGE H Urine Nitrite NEGATIVE Ur Leukocyte Esterase TRACE H Urine WBC (Auto) 9 Urine RBC (Auto) >182 Blood Type Antibody Screen 03/16/19 03/16/19 15:46 15:46 WBC RBC Hgb Hct MCV MCH MCHC RDW Plt Count Seg Neutrophils % Retic Count (auto) Sodium Potassium Chloride Carbon Dioxide Anion Gap BUN Creatinine Est GFR ( Amer) Glucose Calcium Magnesium Iron TIBC % Saturation Ferritin Total Bilirubin AST Alkaline Phosphatase Ammonia 9.2 Total Protein Albumin Amylase Lipase Vitamin B12 Folate TSH 1.55 Free T4 0.90 Urine Color Urine Appearance Urine pH Ur Specific [place] Urine Protein Urine Glucose (UA) Urine Ketones Urine Blood Urine Nitrite Ur Leukocyte Esterase Urine WBC (Auto) Urine RBC (Auto) Blood Type Antibody Screen 03/16/19 03/16/19 03/16/19 09:05 15:46 15:46 Creatine Kinase 99 CK-MB (CK-2) Troponin I < 0.012 < 0.012 NT-Pro-B Natriuret Pep 39 03/16/19 15:46 Creatine Kinase CK-MB (CK-2) < 0.22 Troponin I NT-Pro-B Natriuret Pep Impressions: Chest X-Ray 03/16/19 09:18 IMPRESSION: NO ACUTE RADIOGRAPHIC FINDING IN THE CHEST. Assessment & Plan - Diagnosis (1) Iron deficiency anemia due to chronic blood loss Is this a current diagnosis for this admission?: Yes Plan: She has iron deficiency anemia due to chronic blood loss from vaginal bleeding it is most likely from gynecologic causes, unlikely to be from hematologic disorders, consultation will be requested from gynecology to manage her vaginal bleeding, she probably have dysfunctional uterine bleeding. The shortness of br eath and the chest pain is most likely from the anemia and not necessarily from lung disease or another medical etiology the first step is to correct the anemia
[2019-03-16] MEDS ORDERED: FERRIC CARBOXYMALTOSE 750 MG in NORMAL SALINE 250 ML IV ONE (20:00)
[2019-03-16] MEDS: OXYCODONE-ACETAMINOPHEN 5-325 MG TABLET PO PRN (21:41)
[2019-03-16] MEDS: NORMAL SALINE 1000 ML 1,000 ML IV PRN (21:44)
[2019-03-16 22:04] LABS: ABSOLUTE EOSINOPHILS # (AUTO) 0.1 10^3/uL (0.0-0.6); ABSOLUTE LYMPHOCYTES (AUTO) 2.1 10^3/uL (0.5-4.7); ABSOLUTE MONOCYTES (AUTO) 0.7 10^3/uL (0.1-1.4); ABSOLUTE NEUT (AUTO) 3.8 10^3/uL (1.7-8.2); BASOPHILS % (AUTO) 0.5 % (0-2); EOSINOPHILS % (AUTO) 1.5 % (0-6); HEMATOCRIT 24.2 % (36.0-47.0); LYMPHOCYTES % (AUTO) 31.3 % (13-45); MEAN CORPUSCULAR HEMOGLOBIN 21.3 pg (27.0-33.4); MEAN CORPUSCULAR HGB CONC 31.8 g/dL (32.0-36.0); MONOCYTES % (AUTO) 10.1 % (3-13); PLATELET COUNT 366 10^3/uL (150-450); RED CELL DISTRIBUTION WIDTH 29.6 % (11.5-14.0); SEGMENTED NEUTROPHILS % (AUTO) 56.6 % (42-78); TOTAL CELLS COUNTED % (AUTO) 100 %; WHITE BLOOD COUNT 6.7 10^3/uL (4.0-10.5)
[2019-03-16 22:09] LABS: HEMOGLOBIN 7.7 g/dL (12.0-15.5)
[2019-03-16 22:10] LABS: MEAN CORPUSCULAR VOLUME 67 fl (80-97)
[2019-03-16 22:46] LABS: ANISOCYTOSIS 4+; HYPOCHROMASIA 2+; PLATELET COMMENT ADEQUATE
[2019-03-16 23:25] LABS: URINE AMPHETAMINES SCREEN NEGATIVE; URINE BARBITURATES SCREEN NEGATIVE; URINE BENZODIAZEPINES SCREEN NEGATIVE; URINE COCAINE SCREEN NEGATIVE; URINE MARIJUANA (THC) SCREEN NEGATIVE; URINE METHADONE SCREEN NEGATIVE; URINE PHENCYCLIDINE SCREEN NEGATIVE
[2019-03-17 04:40] LABS: ABSOLUTE BASOPHILS # (AUTO) 0.1 10^3/uL (0.0-0.2); ABSOLUTE EOSINOPHILS # (AUTO) 0.1 10^3/uL (0.0-0.6); ABSOLUTE MONOCYTES (AUTO) 0.4 10^3/uL (0.1-1.4); ABSOLUTE NEUT (AUTO) 3.3 10^3/uL (1.7-8.2); BASOPHILS % (AUTO) 0.9 % (0-2); EOSINOPHILS % (AUTO) 1.9 % (0-6); HEMOGLOBIN 8.7 g/dL (12.0-15.5); MEAN CORPUSCULAR HEMOGLOBIN 21.7 pg (27.0-33.4); MEAN CORPUSCULAR VOLUME 68 fl (80-97); MONOCYTES % (AUTO) 7.5 % (3-13); PLATELET COUNT 376 10^3/uL (150-450); RED BLOOD COUNT 3.99 10^6/uL (3.72-5.28); RED CELL DISTRIBUTION WIDTH 29.2 % (11.5-14.0); SEGMENTED NEUTROPHILS % (AUTO) 55.7 % (42-78); TOTAL CELLS COUNTED % (AUTO) 100 %; WHITE BLOOD COUNT 5.9 10^3/uL (4.0-10.5)
[2019-03-17 05:03] LABS: ALBUMIN 3.8 g/dL (3.5-5.0); ALKALINE PHOSPHATASE 93 U/L (38-126); ANION GAP 8 (5-19); ASPARTATE AMINO TRANSFERASE 86 U/L (14-36); BILIRUBIN,DIRECT 0.1 mg/dL (0.0-0.4); BILIRUBIN,TOTAL 0.8 mg/dL (0.2-1.3); BLOOD UREA NITROGEN 11 mg/dL (7-20); CARBON DIOXIDE 25 mmol/L (22-30); CHLORIDE 105 mmol/L (98-107); CHOLESTEROL 140.02 mg/dL (0-200); GLUCOSE 87 mg/dL (75-110); POTASSIUM 4.3 mmol/L (3.6-5.0); TOTAL PROTEIN 6.7 g/dL (6.3-8.2); TRIGLYCERIDES 228 mg/dL (<150)
[2019-03-17 05:06] LABS: ANISOCYTOSIS 4+; HYPOCHROMASIA 2+; PLATELET COMMENT ADEQUATE; POIKILOCYTOSIS 1+; POLYCHROMASIA 2+; TEAR DROP CELLS 1+
[2019-03-17 05:15] LABS: DIRECT LDL 88 mg/dL (<100)
[2019-03-17 05:17] LABS: VLDL CHOLESTEROL 45.6 mg/dL (10-31)
[2019-03-17] MEDS ORDERED: ONDANSETRON HCL INJ/PF 4 MG/2 ML SDV IV PRN (06:18)
[2019-03-17 10:06] LABS: HEMATOCRIT 25.1 % (36.0-47.0); MEAN CORPUSCULAR HEMOGLOBIN 21.2 pg (27.0-33.4); MEAN CORPUSCULAR HGB CONC 31.4 g/dL (32.0-36.0); MEAN CORPUSCULAR VOLUME 68 fl (80-97); PLATELET COUNT 336 10^3/uL (150-450); RED BLOOD COUNT 3.71 10^6/uL (3.72-5.28); WHITE BLOOD COUNT 7.2 10^3/uL (4.0-10.5)
[2019-03-17] MEDS: NORMAL SALINE 1000 ML 1,000 ML IV PRN (10:08)
[2019-03-17] MEDS: MEDROXYPROGESTERONE ACET 10 MG TABLET PO SCH ×3 (10:12→17:27)
[2019-03-17 10:40] LABS: HEMOGLOBIN 7.9 g/dL (12.0-15.5)
--- NOTE | 2019-03-17 10:52 | PDOC PROGRESS REPORT ---
Subjective Progress Note for:: 03/17/19 Subjective:: patient states she is feeling much better. She denies any further chest pain or shortness of breath. Indicate that her vaginal bleeding has stopped. We discussed her recent weight loss and this affect on the hypothalmic system that controls the menstrual cycle. Encouraged her to continue with weight loss in order to help regulate her menses and to optimize her health. She expressed some difficulty with exercise due to quick shortness of breath and I encouraged her to do what she can plus discuss further with her medical doctor. I encouraged a healthy diet with low carbohydrates and low fat. 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 She indicates she has an appointment with Dr. Soto's office on March 29 and I encouraged her to keep that appointment if she desires or she is welcome to come to [facility] if she desires. The patient has improved significantly and from a BEEF CATTLE FARMER standpoint is able to discharge home but I defer to Medicine and Hematology to determine if from a medical and hemotologic standpoint she is able to discharge. She does need to continue with Provera 20 mg TID until her follow up with whichever health and safety technician office she chooses. Reason For Visit: ANEMIA,CHEST PAIN,SHORTNESS OF BREATH Physical Exam - Physical Exam Vital Signs: Temp Pulse Resp BP Pulse Ox 98.0 F 74 18 116/68 100 03/17/19 08:37 03/17/19 08:37 03/17/19 08:37 03/17/19 08:37 03/17/19 08:37 Intake & Output 03/16/19 03/17/19 03/18/19 06:59 06:59 06:59 Intake Total 1165 1000 Balance 1165 1000 Weight 147.5 kg General appearance: PRESENT: no acute distress, cooperative - Gynecological Exam Labia: other - declines exam since bleeding is better at this time. will defer until patient is feeling better Result Laboratory Results: 03/17/19 03:45 03/16/19 03/16/19 03/16/19 09:05 09:50 11:27 WBC RBC Hgb Hct MCV MCH MCHC RDW Plt Count Seg Neutrophils % Retic Count (auto) 2.67 Sodium Potassium Chloride Carbon Dioxide Anion Gap BUN Creatinine Est GFR ( Amer) Glucose Calcium Magnesium Iron TIBC % Saturation Ferritin Total Bilirubin AST Alkaline Phosphatase Ammonia Total Protein Albumin Triglycerides Cholesterol LDL Cholesterol Direct VLDL Cholesterol HDL Cholesterol Amylase Lipase Vitamin B12 Folate TSH 2.04 Free T4 0.89 Urine Color Urine Appearance Urine pH Ur Specific [place] Urine Protein Urine Glucose (UA) Urine Ketones Urine Blood Urine Nitrite Ur Leukocyte Esterase Urine WBC (Auto) Urine RBC (Auto) Blood Type O POSITIVE Antibody Screen NEGATIVE 03/16/19 03/16/19 03/16/19 11:27 11:27 13:40 WBC RBC Hgb Hct MCV MCH MCHC RDW Plt Count Seg Neutrophils % Retic Count (auto) Sodium Potassium Chloride Carbon Dioxide Anion Gap BUN Creatinine Est GFR ( Amer) Glucose Calcium Magnesium Iron 16.2 L TIBC 374 % Saturation 4 Ferritin 3.51 L Total Bilirubin 0.5 AST 51 H Alkaline Phosphatase 65 Ammonia Total Protein 6.0 L Albumin 3.6 Triglycerides Cholesterol LDL Cholesterol Direct VLDL Cholesterol HDL Cholesterol Amylase Lipase 39.4 Vitamin B12 354.0 Folate 9.29 TSH Free T4 Urine Color YELLOW Urine Appearance SLIGHTLY-CLOUDY Urine pH 6.0 Ur Specific [place] 1.019 Urine Protein 100 H Urine Glucose (UA) NEGATIVE Urine Ketones NEGATIVE Urine Blood LARGE H Urine Nitrite NEGATIVE Ur Leukocyte Esterase TRACE H Urine WBC (Auto) 9 Urine RBC (Auto) >182 Blood Type Antibody Screen 03/16/19 03/16/19 03/16/19 15:46 15:46 15:46 WBC RBC Hgb Hct MCV MCH MCHC RDW Plt Count Seg Neutrophils % Retic Count (auto) Sodium Potassium Chloride Carbon Dioxide Anion Gap BUN Creatinine Est GFR ( Amer) Glucose Calcium Magnesium 2.0 Iron TIBC % Saturation Ferritin Total Bilirubin AST Alkaline Phosphatase Ammonia 9.2 Total Protein Albumin Triglycerides Cholesterol LDL Cholesterol Direct VLDL Cholesterol HDL Cholesterol Amylase 46 Lipase 36.0 Vitamin B12 Folate TSH 1.55 Free T4 0.90 Urine Color Urine Appearance Urine pH Ur Specific [place] Urine Protein Urine Glucose (UA) Urine Ketones Urine Blood Urine Nitrite Ur Leukocyte Esterase Urine WBC (Auto) Urine RBC (Auto) Blood Type Antibody Screen 03/16/19 03/17/19 03/17/19 21:30 03:45 03:45 WBC 6.7 5.9 RBC 3.60 L 3.99 Hgb 7.7 L 8.7 L Hct 24.2 L 27.0 L MCV 67 L D 68 L MCH 21.3 L 21.7 L MCHC 31.8 L 32.0 RDW 29.6 H 29.2 H Plt Count 366 376 Seg Neutrophils % 56.6 55.7 Retic Count (auto) Sodium 138.3 Potassium 4.3 Chloride 105 Carbon Dioxide 25 Anion Gap 8 BUN 11 Creatinine 0.81 Est GFR ( Amer) > 60 Glucose 87 Calcium 9.0 Magnesium Iron TIBC % Saturation Ferritin Total Bilirubin 0.8 AST 86 H Alkaline Phosphatase 93 Ammonia Total Protein 6.7 Albumin 3.8 Triglycerides 228 H Cholesterol 140.02 LDL Cholesterol Direct 88 VLDL Cholesterol 45.6 H HDL Cholesterol 35 L Amylase Lipase Vitamin B12 Folate TSH Free T4 Urine Color Urine Appearance Urine pH Ur Specific [place] Urine Protein Urine Glucose (UA) Urine Ketones Urine Blood Urine Nitrite Ur Leukocyte Esterase Urine WBC (Auto) Urine RBC (Auto) Blood Type Antibody Screen 03/16/19 03/16/19 03/16/19 09:05 15:46 15:46 Creatine Kinase 99 CK-MB (CK-2) Troponin I < 0.012 < 0.012 NT-Pro-B Natriuret Pep 39 03/16/19 03/16/19 03/16/19 15:46 21:30 21:30 Creatine Kinase 117 CK-MB (CK-2) < 0.22 < 0.22 Troponin I NT-Pro-B Natriuret Pep 03/17/19 03/17/19 03:45 03:45 Creatine Kinase 136 H CK-MB (CK-2) < 0.22 Troponin I NT-Pro-B Natriuret Pep Impressions: Chest X-Ray 03/16/19 09:18 IMPRESSION: NO ACUTE RADIOGRAPHIC FINDING IN THE CHEST. Assessment & Plan - Diagnosis (1) Anemia Qualifiers: Anemia type: iron deficiency Iron deficiency anemia type: chronic blood loss Qualified Code(s): D50.0 - Iron deficiency anemia secondary to blood loss (chronic) Is this a current diagnosis for this admission?: Yes (2) Chest pain Qualifiers: Chest pain type: unspecified Qualified Code(s): R07.9 - Chest pain, unspecified Is this a current diagnosis for this admission?: Yes (4) Iron deficiency anemia due to chronic blood loss Is this a current diagnosis for this admission?: Yes (5) Shortness of breath Is this a current diagnosis for this admission?: Yes (6) Abdominal pain Qualifiers: Abdominal location: lower abdomen, unspecified Qualified Code(s): R10.30 - Lower abdominal pain, unspecified Is this a current diagnosis for this admission?: Yes - Time Time Spent with patient: 15-24 minutes Medications reviewed and adjusted accordingly: Yes Anticipated discharge: Home Within: within 24 hours - Inpatient Certification Based on my medical assessment, after consideration of the patient's comorbidities, presenting symptoms, or acuity I expect that the services needed warrant INPATIENT care.: Yes I certify that my determination is in accordance with my understanding of Medicare's requirements for reasonable and necessary INPATIENT services [42 CFR 412.3e].: Yes - Plan Summary Plan Summary: Plan for discharge with the provera 20 mg TID. Would recommend continued weight loss to normalize hypothalimic axis and therefore optimize health and menstrual cycle. Follow up with Hematology as GI for hematochezia findings.
[2019-03-17] MEDS ORDERED: DIPHENHYDRAMINE HCL 50 MG CAPSULE PO ONE (13:02)
[2019-03-17] MEDS: OXYCODONE-ACETAMINOPHEN 5-325 MG TABLET PO PRN ×2 (13:06→23:11)
[2019-03-17] MEDS ORDERED: FAMOTIDINE INJ/PF 20 MG/2 ML SDV IV ONE (13:45)
[2019-03-17] MEDS ORDERED: METHYLPREDNISOLONE INJ 125 MG/2 ML SDV IV ONE (13:45)
[2019-03-17] MEDS ORDERED: DIPHENHYDRAMINE HCL 50 MG/ML VIAL IV ONE (13:45)
--- NOTE | 2019-03-17 15:42 | RADIOLOGY REPORT (SQ) ---
EXAM DESCRIPTION: CTA CHEST COMPLETED DATE/TIME: 03/17/2019 3:23 pm REASON FOR STUDY: pleurisy chest pain COMPARISON: Two-view chest 03/16/2019 TECHNIQUE: CT scan of the chest performed using helical scanning technique with dynamic intravenous contrast injection. Images reviewed with lung, soft tissue and bone windows. Reconstructed coronal and sagittal MPR images reviewed. Additional 3 dimensional post-processing performed to develop Maximal Intensity Projection images ([place] P). All images stored on PACS. All CT scanners at this facility use dose modulation, iterative reconstruction, and/or weight based d osing when appropriate to reduce radiation dose to as low as reasonably achievable (ALARA). [facility]: Dose Right [facility]: CareDose [facility]: Dose Right [facility]: Teradose 4D [facility]: [employer] CONTRAST TYPE AND DOSE: contrast/concentration: Isovue 350.00 mg/ml; Total Contrast Delivered: 75.0 ml; Total Saline Delivered: 80.0 ml Contrast bolus optimized for the pulmonary arteries and thoracic aorta. RENAL FUNCTION: Creatinine 0.8 RADIATION DOSE: CT Rad equipment meets quality standard of care and radiation dose reduction techniq ues were employed. CTDIvol: 8.3 - 41.8 mGy. DLP: 1234 mGy-cm. . LIMITATIONS: None. FINDINGS: LUNGS AND PLEURA: No masses, infiltrates, or pneumothorax. No pleural effusions or pleura l calcifications. AORTA AND GREAT VESSELS: No aneurysm or thoracic aortic dissection. HEART: No pericardial effusion. No significant coronary artery calcifications. PULMONARY ARTERIES: No emboli visualized in the main pulmonary arteries or the segmental branches. HILAR AND MEDIASTINAL STRUCTURES: No identified masses or abnormal nodes. HARDWARE: None in the chest. UPPER ABDOMEN: No significant findings. Limited exam. THYROID AND OTHER SOFT TISSUES: No masses. No adenopathy. BONES: No acute or significant finding. 3D MIPS: Confirm above findings. OTHER: No other significant finding. IMPRESSION: NORMAL CTA OF THE CHEST. NO PULMONARY EMBOLI. COMMENT: Quality ID # [id number]: Final reports with documentation of one or more dose reduction techniques (e.g., Automated exposure control, adjustment of the mA and/or kV according to patient size, use of iterative reconstruction technique) TECHNICAL DOCUMENTATION: JOB ID: [id number] [employer]- All Rights Reserved Reading location - IP/workstation name: [email or web address]
--- NOTE | 2019-03-17 16:58 | PDOC PROGRESS REPORT ---
Subjective Progress Note for:: 03/17/19 Subjective:: She complained of pleurisy, CTA of the chest was done, negative for PE normal lung, she has reproducible chest pain, she told me that the vaginal bleeding is reduced since being on progesterone, she be discharged home tomorrow, she also received the fourth dose of iron infusion yesterday, Injectafer, she received second dose 7 days apart, she required 2 doses in 1 year Reason For Visit: ANEMIA,CHEST PAIN,SHORTNESS OF BREATH Physical Exam Vital Signs: Temp Pulse Resp BP Pulse Ox 98.4 F 71 18 142/71 H 100 03/17/19 16:45 03/17/19 16:45 03/17/19 16:45 03/17/19 16:45 03/17/19 16:45 Intake & Output 03/16/19 03/17/19 03/18/19 06:59 06:59 06:59 Intake Total 1165 1537 Balance 1165 1537 Weight 147.5 kg General appearance: PRESENT: no acute distress, well-developed, well-nourished Head exam: PRESENT: atraumatic, normocephalic Eye exam: PRESENT: conjunctiva pink, EOMI, PERRLA Ear exam: PRESENT: normal external ear exam Mouth exam: PRESENT: moist, tongue midline Neck exam: PRESENT: full ROM Respiratory exam: PRESENT: clear to auscultation [place] Cardiovascular exam: PRESENT: RRR, +S1, +S2 Pulses: PRESENT: normal dorsalis pedis pul, +2 pedal pulses bilateral Vascular exam: PRESENT: normal capillary refill GI/Abdominal exam: PRESENT: normal bowel sounds, soft Rectal exam: PRESENT: deferred Neurological exam: PRESENT: alert, CN II-XII grossly intact Psychiatric exam: PRESENT: appropriate affect, normal mood Skin exam: PRESENT: dry, intact, warm Results Laboratory Results: 03/17/19 09:25 03/17/19 03:45 03/16/19 03/16/19 03/17/19 09:50 21:30 03:45 WBC 6.7 5.9 RBC 3.60 L 3.99 Hgb 7.7 L 8.7 L Hct 24.2 L 27.0 L MCV 67 L D 68 L MCH 21.3 L 21.7 L MCHC 31.8 L 32.0 RDW 29.6 H 29.2 H Plt Count 366 376 Seg Neutrophils % 56.6 55.7 Sodium Potassium Chloride Carbon Dioxide Anion Gap BUN Creatinine Est GFR ( Amer) Glucose Calcium Total Bilirubin AST Alkaline Phosphatase Total Protein Albumin Triglycerides Cholesterol LDL Cholesterol Direct VLDL Cholesterol HDL Cholesterol Blood Type O POSITIVE Antibody Screen NEGATIVE 03/17/19 03/17/19 03:45 09:25 WBC 7.2 RBC 3.71 L Hgb 7.9 L Hct 25.1 L MCV 68 L MCH 21.2 L MCHC 31.4 L RDW 29.0 H Plt Count 336 Seg Neutrophils % Sodium 138.3 Potassium 4.3 Chloride 105 Carbon Dioxide 25 Anion Gap 8 BUN 11 Creatinine 0.81 Est GFR ( Amer) > 60 Glucose 87 Calcium 9.0 Total Bilirubin 0.8 AST 86 H Alkaline Phosphatase 93 Total Protein 6.7 Albumin 3.8 Triglycerides 228 H Cholesterol 140.02 LDL Cholesterol Direct 88 VLDL Cholesterol 45.6 H HDL Cholesterol 35 L Blood Type Antibody Screen 03/16/19 03/16/19 03/16/19 09:05 15:46 15:46 Creatine Kinase 99 CK-MB (CK-2) Troponin I < 0.012 < 0.012 NT-Pro-B Natriuret Pep 39 03/16/19 03/16/19 03/16/19 15:46 21:30 21:30 Creatine Kinase 117 CK-MB (CK-2) < 0.22 < 0.22 Troponin I NT-Pro-B Natriuret Pep 03/17/19 03/17/19 03:45 03:45 Creatine Kinase 136 H CK-MB (CK-2) < 0.22 Troponin I NT-Pro-B Natriuret Pep Impressions: Chest X-Ray 03/16/19 09:18 IMPRESSION: NO ACUTE RADIOGRAPHIC FINDING IN THE CHEST. Chest/Abdomen CTA 03/17/19 00:00 IMPRESSION: NORMAL CTA OF THE CHEST. NO PULMONARY EMBOLI. Assessment & Plan - Diagnosis (1) Iron deficiency anemia due to chronic blood loss Is this a current diagnosis for this admission?: Yes Plan: Patient hemoglobin is 7, she received 2 more days of red blood cells (2) Chest wall pain Is this a current diagnosis for this admission?: Yes (3) Morbid (severe) obesity due to excess calories Is this a current diagnosis for this admission?: Yes - Time Time Spent with patient: 15-24 minutes
[2019-03-17] MEDS ORDERED: ACETAMINOPHEN 325 MG TABLET PO ONE (19:00)
[2019-03-18 00:21] LABS: HEMATOCRIT 33.1 % (36.0-47.0); MEAN CORPUSCULAR HEMOGLOBIN 22.9 pg (27.0-33.4); PLATELET COUNT 346 10^3/uL (150-450); RED BLOOD COUNT 4.63 10^6/uL (3.72-5.28); RED CELL DISTRIBUTION WIDTH 29.9 % (11.5-14.0); WHITE BLOOD COUNT 9.5 10^3/uL (4.0-10.5)
[2019-03-18 00:31] LABS: HEMOGLOBIN 10.6 g/dL (12.0-15.5); MEAN CORPUSCULAR VOLUME 72 fl (80-97)
[2019-03-18 00:34] LABS: ABSOLUTE LYMPHOCYTES# (MANUAL) 1.1 10^3/uL (0.5-4.7); BASOPHILS % (MANUAL) 0 % (0-2); EOSINOPHILS % (MANUAL) 0 % (0-6); LYMPHOCYTES % (MANUAL) 12 % (13-45); MONOCYTES % (MANUAL) 0 % (3-13); NUCLEATED RED BLOOD CELLS 1 /100 WBC (0); SEGMENTED NEUTROPHILS % (MAN) 88 % (42-78); TOTAL CELLS COUNTED 100
[2019-03-18 00:36] LABS: ANISOCYTOSIS 3+; POIKILOCYTOSIS 3+; TOXIC GRANULATION 1+
[2019-03-18 00:37] LABS: BURR CELLS SLIGHT; HELMET CELLS 1+; OVALOCYTES 2+; PLATELET COMMENT ADEQUATE; SCHISTOCYTES 1+; TEAR DROP CELLS 1+
[2019-03-18 04:27] LABS: HEMATOCRIT 33.7 % (36.0-47.0); HEMOGLOBIN 10.8 g/dL (12.0-15.5); MEAN CORPUSCULAR HEMOGLOBIN 22.9 pg (27.0-33.4); MEAN CORPUSCULAR VOLUME 72 fl (80-97); PLATELET COUNT 343 10^3/uL (150-450); RED CELL DISTRIBUTION WIDTH 29.9 % (11.5-14.0); WHITE BLOOD COUNT 10.7 10^3/uL (4.0-10.5)
[2019-03-18 05:13] LABS: ABSOLUTE LYMPHOCYTES# (MANUAL) 1.3 10^3/uL (0.5-4.7); ABSOLUTE MONOCYTES # (MANUAL) 0.5 10^3/uL (0.1-1.4); BASOPHILS % (MANUAL) 0 % (0-2); EOSINOPHILS % (MANUAL) 0 % (0-6); LYMPHOCYTES % (MANUAL) 12 % (13-45); MONOCYTES % (MANUAL) 5 % (3-13); NUCLEATED RED BLOOD CELLS 3 /100 WBC (0); SEGMENTED NEUTROPHILS % (MAN) 83 % (42-78); TOTAL CELLS COUNTED 100
[2019-03-18 05:15] LABS: TOXIC GRANULATION 1+
[2019-03-18 05:16] LABS: ANISOCYTOSIS 3+; BURR CELLS SLIGHT; HYPOCHROMASIA SLIGHT; OVALOCYTES 2+; PLATELET COMMENT ADEQUATE; POIKILOCYTOSIS 3+; SCHISTOCYTES SLIGHT; TEAR DROP CELLS 1+
[2019-03-18] MEDS: MEDROXYPROGESTERONE ACET 10 MG TABLET PO SCH ×2 (09:50→13:39)
[2019-03-18] MEDS: OXYCODONE-ACETAMINOPHEN 5-325 MG TABLET PO PRN (13:39)
--- NOTE | 2019-03-18 13:52 | PDOC DISCHARGE SUMMARY ---
Impression - Admit/DC Date/PCP Admission Date/Primary Care Provider: 03/16/19 11:41 VIJAY SIDHU MD Discharge Date: 03/18/19 - Discharge Diagnosis (1) Iron deficiency anemia due to chronic blood loss Is this a current diagnosis for this admission?: Yes (2) Chest wall pain Is this a current diagnosis for this admission?: Yes (3) Morbid (severe) obesity due to excess calories Is this a current diagnosis for this admission?: Yes - Additional Information Resuscitation Status: Full Code Referrals: JUAN VAZQUEZ MD [COMMUNITY BASED STAFF] - Follow up as needed Prescriptions: RX: Phentermine HCl 37.5 mg PO DAILY #30 capsule RX: Medroxyprogesterone Acet [Provera 10 mg Tablet] 20 mg PO TID #90 tablet Home Medications: RX: Nitrofurantoin/Nitrofuran Mac [Macrobid 100 mg Capsule] 1 tab PO BID #14 capsule 03/09/19 RX: Albuterol Sulfate [Proair HFA Inhalation Aerosol 8.5 gm MDI] 2 puff IH Q4HP PRN 03/16/19 RX: Medroxyprogesterone Acet [Provera 10 mg Tablet] 20 mg PO TID #90 tablet 03/18/19 RX: Phentermine HCl 37.5 mg PO DAILY #30 capsule 03/18/19 History of Present Illiness History of Present Illness: KOBE ROBERTSON is a 28 year old female, She came to the emergency room for evaluation of symptomatic very severe iron deficiency anemia due to chronic vaginal blood loss.Patient with came to the office for the first time on Tuesday to establish with our office, she told me she has a history of hereditary angioedema she also complained of vaginal blood loss since Thanksgiving she was prescribed combined estrogen- progesterone pill for the condition which she is taking ,she used to see Dr. mae, director special education now but she has not recently seen any director special education for evaluation of the vaginal bleeding. My office immediately made arrangement with for her to see a director special education for evaluation we also took her blood for hemogram evaluation. She is very obese as well ,she told me that the obesity was from using prednisone for the angioedema chronically. The hemogram came back demonstrating very low hemoglobin of 5 , My office tried to reach this patient without success but apparently she went to the emergency room on her own because she was very symptomatic with shortness of breath and chest pain, in the emergency room she was evaluated because of the severity of the anemia and because she symptomatic it was felt that patient needed to be admitted to the hospital Hospital Course Hospital Course: Patient was admitted for the management of severe iron deficiency anemia due to chronic vaginal bleeding, she was transfused with 4 units of packed red blood cells, on admission the hemoglobin was 5, posttransfusion hemoglobin is 10. She was seen by director special education, she was started on Provera for the vaginal bleeding with very good results, the vaginal bleeding stopped 24 hours after taking the Provera. She also was seen by a chargeback specialist she received iron infusion Inje ctafer she is due for second dose of Injectafer in 7 days. She had chest wall pain which was pleuritic in nature a CT angiogram of the chest was done, it was negative for PE or any lung pathology. Patient is very obese the BMI is 49 she is discharged on phentermine in addition to diet and exercise, this was emphasized to the patient, the obesity could alter the hypothalamic gonadal axis. Physical Exam Vital Signs: Temp Pulse Resp BP Pulse Ox 97.3 F 60 18 132/83 H 100 03/18/19 12:13 03/18/19 12:13 03/18/19 12:13 03/18/19 12:13 03/18/19 12:13 Intake & Output 03/17/19 03/18/19 03/19/19 06:59 06:59 06:59 Intake Total 1165 3115 Balance 1165 3115 Weight 147.5 kg 135.4 kg General appearance: PRESENT: no acute distress Eye exam: PRESENT: PERRLA Respiratory exam: PRESENT: clear to auscultation [place] Cardiovascular exam: PRESENT: +S1, +S2 GI/Abdominal exam: PRESENT: soft Neurological exam: PRESENT: alert, CN II-XII grossly intact Results Laboratory Results: WBC 10.7 10^3/uL (4.0-10.5) H 03/18/19 04:04 RBC 4.70 10^6/uL (3.72-5.28) 03/18/19 04:04 Hgb 10.8 g/dL (12.0-15.5) L 03/18/19 04:04 Hct 33.7 % (36.0-47.0) L 03/18/19 04:04 MCV 72 fl (80-97) L 03/18/19 04:04 MCH 22.9 pg (27.0-33.4) L 03/18/19 04:04 MCHC 32.0 g/dL (32.0-36.0) 03/18/19 04:04 RDW 29.9 % (11.5-14.0) H 03/18/19 04:04 Plt Count 343 10^3/uL (150-450) 03/18/19 04:04 Lymph % (Auto) Not Reportable 03/18/19 04:04 [place] % (Auto) Not Reportable 03/18/19 04:04 Eos % (Auto) Not Reportable 03/18/19 04:04 Baso % (Auto) Not Reportable 03/18/19 04:04 Reticulocyte # 0.081 10^6/uL (0.028-0.122) 03/16/19 11:27 Absolute Neuts (auto) Not Reportable 03/18/19 04:04 Absolute Lymphs (auto) Not Reportable 03/18/19 04:04 Absolute Monos (auto) Not Reportable 03/18/19 04:04 Absolute Eos (auto) Not Reportable 03/18/19 04:04 Absolute Basos (auto) Not Reportable 03/18/19 04:04 Total Counted 100 03/18/19 04:04 Seg Neutrophils % Not Reportable 03/18/19 04:04 Seg Neuts % (Manual) 83 % (42-78) H 03/18/19 04:04 Lymphocytes % (Manual) 12 % (13-45) L 03/18/19 04:04 Monocytes % (Manual) 5 % (3-13) 03/18/19 04:04 Eosinophils % (Manual) 0 % (0-6) 03/18/19 04:04 Basophils % (Manual) 0 % (0-2) 03/18/19 04:04 Abs Neuts (Manual) 8.9 10^3/uL (1.7-8.2) H 03/18/19 04:04 Abs Lymphs (Manual) 1.3 10^3/uL (0.5-4.7) 03/18/19 04:04 Abs Monocytes (Manual) 0.5 10^3/uL (0.1-1.4) 03/18/19 04:04 Absolute Eos (Manual) 0.0 10^3/uL (0.0-0.6) 03/18/19 04:04 Abs Basophils (Manual) 0.0 10^3/uL (0.0-0.2) 03/18/19 04:04 Nucleated RBCs 3 /100 WBC (0) 03/18/19 04:04 Toxic Granulation 1+ 03/18/19 04:04 Platelet Comment ADEQUATE 03/18/19 04:04 Polychromasia 2+ 03/17/19 03:45 Hypochromasia SLIGHT 03/18/19 04:04 Poikilocytosis 3+ 03/18/19 04:04 Anisocytosis 3+ 03/18/19 04:04 Microcytosis 2+ 03/17/19 03:45 Tear Drop Cells 1+ 03/18/19 04:04 Ovalocytes 2+ 03/18/19 04:04 Helmet Cells 1+ 03/17/19 23:41 [place] Cells SLIGHT 03/18/19 04:04 Schistocytes SLIGHT 03/18/19 04:04 Retic Count (auto) 2.67 % (0.66-2.85) 03/16/19 11:27 PT 13.0 SEC (11.4-15.4) 03/16/19 15:46 INR 0.98 03/16/19 15:46 APTT 26.3 SEC (23.5-35.8) 03/16/19 15:46 Sodium 138.3 mmol/L (137-145) 03/17/19 03:45 Potassium 4.3 mmol/L (3.6-5.0) 03/17/19 03:45 Chloride 105 mmol/L (98-107) 03/17/19 03:45 Carbon Dioxide 25 mmol/L (22-30) 03/17/19 03:45 Anion Gap 8 (5-19) 03/17/19 03:45 BUN 11 mg/dL (7-20) 03/17/19 03:45 Creatinine 0.81 mg/dL (0.52-1.25) 03/17/19 03:45 Est GFR ( Amer) > 60 (>60) 03/17/19 03:45 Est GFR (MDRD) Non-Af > 60 (>60) 03/17/19 03:45 Glucose 87 mg/dL (75-110) 03/17/19 03:45 Hemoglobin A1c % 5.8 % (4.7-6.0) 03/17/19 03:45 Calcium 9.0 mg/dL (8.4-10.2) 03/17/19 03:45 Magnesium 2.0 mg/dL (1.6-2.3) 03/16/19 15:46 Iron 16.2 ug/dL (37-170) L 03/16/19 11:27 TIBC 374 ug/dL (250-450) 03/16/19 11:27 % Saturation 4 % 03/16/19 11:27 Ferritin 3.51 ng/mL (6.2-137.0) L 03/16/19 11:27 Total Bilirubin 0.8 mg/dL (0.2-1.3) 03/17/19 03:45 Direct Bilirubin 0.1 mg/dL (0.0-0.4) 03/17/19 03:45 Neonat Total Bilirubin Not Reportable 03/17/19 03:45 Neonat Direct Bilirubin Not Reportable 03/17/19 03:45 Neonat Indirect Bili Not Reportable 03/17/19 03:45 AST 86 U/L (14-36) H 03/17/19 03:45 ALT 95 U/L (<35) 03/17/19 03:45 Alkaline Phosphatase 93 U/L (38-126) 03/17/19 03:45 Ammonia 9.2 umol/L (9-33) 03/16/19 15:46 Creatine Kinase 136 U/L (30-135) H 03/17/19 03:45 CK-MB (CK-2) < 0.22 ng/mL (<4.55) 03/17/19 03:45 Troponin I < 0.012 ng/mL 03/16/19 15:46 NT-Pro-B Natriuret Pep 39 pg/mL (<125) 03/16/19 15:46 Total Protein 6.7 g/dL (6.3-8.2) 03/17/19 03:45 Albumin 3.8 g/dL (3.5-5.0) 03/17/19 03:45 Triglycerides 228 mg/dL (<150) H 03/17/19 03:45 Cholesterol 140.02 mg/dL (0-200) 03/17/19 03:45 LDL Cholesterol Direct 88 mg/dL (<100) 03/17/19 03:45 VLDL Cholesterol 45.6 mg/dL (10-31) H 03/17/19 03:45 HDL Cholesterol 35 mg/dL (>40) L 03/17/19 03:45 Amylase 46 U/L (30-110) 03/16/19 15:46 Lipase 36.0 U/L (23-300) 03/16/19 15:46 Vitamin B12 354.0 pg/mL (239-931) 03/16/19 11:27 Folate 9.29 ng/mL (>2.76) 03/16/19 11:27 TSH 1.55 uIU/mL (0.47-4.68) 03/16/19 15:46 Free T4 0.90 ng/dL (0.78-2.19) 03/16/19 15:46 Beta HCG, Quant < 2.39 mIU/mL (0.0-6.15) 03/16/19 09:05 Total Beta HCG NEGATIVE (NEGATIVE) 03/16/19 09:05 Urine Color YELLOW 03/16/19 13:40 Urine Appearance SLIGHTLY-CLOUDY 03/16/19 13:40 Urine pH 6.0 (5.0-9.0) 03/16/19 13:40 Ur Specific [place] 1.019 03/16/19 13:40 Urine Protein 100 mg/dL (NEGATIVE) H 03/16/19 13:40 Urine Glucose (UA) NEGATIVE mg/dL (NEGATIVE) 03/16/19 13:40 Urine Ketones NEGATIVE mg/dL (NEGATIVE) 03/16/19 13:40 Urine Blood LARGE (NEGATIVE) H 03/16/19 13:40 Urine Nitrite NEGATIVE (NEGATIVE) 03/16/19 13:40 Urine Bilirubin NEGATIVE (NEGATIVE) 03/16/19 13:40 Urine Urobilinogen 4.0 mg/dL (<2.0) H 03/16/19 13:40 Ur Leukocyte Esterase TRACE (NEGATIVE) H 03/16/19 13:40 Urine WBC (Auto) 9 /HPF 03/16/19 13:40 Urine RBC (Auto) >182 /HPF 03/16/19 13:40 Squamous Epi Cells Auto <1 /HPF 03/16/19 13:40 Urine Mucus (Auto) RARE /LPF 03/16/19 13:40 Urine Ascorbic Acid 20 (NEGATIVE) H 03/16/19 13:40 POC Stool Occult Blood POSITIVE (NEGATIVE) 03/16/19 13:14 Urine Opiates Screen NEGATIVE 03/16/19 13:40 Urine Methadone Screen NEGATIVE 03/16/19 13:40 Ur Barbiturates Screen NEGATIVE 03/16/19 13:40 Ur Phencyclidine Scrn NEGATIVE 03/16/19 13:40 Ur Amphetamines Screen NEGATIVE 03/16/19 13:40 U Benzodiazepines Scrn NEGATIVE 03/16/19 13:40 Urine Cocaine Screen NEGATIVE 03/16/19 13:40 U Marijuana (THC) Screen NEGATIVE 03/16/19 13:40 Blood Type O POSITIVE 03/16/19 09:50 Blood Type Confirm O POSITIVE 03/16/19 09:50 Antibody Screen NEGATIVE 03/16/19 09:50 Crossmatch See Detail 03/16/19 09:50 03/16/19 03/16/19 03/16/19 09:05 15:46 15:46 CK-MB (CK-2) < 0.22 Troponin I < 0.012 < 0.012 NT-Pro-B Natriuret Pep 39 03/16/19 03/17/19 21:30 03:45 CK-MB (CK-2) < 0.22 < 0.22 Troponin I NT-Pro-B Natriuret Pep Impressions: Chest X-Ray 03/16/19 09:18 IMPRESSION: NO ACUTE RADIOGRAPHIC FINDING IN THE CHEST. Chest/Abdomen CTA 03/17/19 00:00 IMPRESSION: NORMAL CTA OF THE CHEST. NO PULMONARY EMBOLI. Stroke Is this a Stroke Patient?: No Acute Heart Failure - Is this a Heart Failure Patient?: No
[2019-03-18 14:35] VITALS: BP 132/76
[2019-03-20 16:37] LABS: HGB A2 1.6 % (1.8-3.2); HGB SOLUBILITY RESULT Negative (Negative)
== END 2019-03-18 14:53 | disposition home or self-care (01) | DRG 812 ==
LOC: ER 07:50 → EH 11:41 → 5 14:06 → 3N 16:21
PROVIDERS: ADMIT Internal Medicine; ATTEND Internal Medicine
PROC: 30233N1 Transfusion of Nonautologous Red Blood Cells into Peripheral Vein, Percutaneous Approach (ICD-10-PCS; principal; 2019-03-16)
PROC: 3E02340 Introduction of Influenza Vaccine into Muscle, Percutaneous Approach (ICD-10-PCS; 2019-03-18)
DX: D50.0 Iron deficiency anemia secondary to blood loss (chronic) (principal); Z68.43 Body mass index [BMI] 50.0-59.9, adult; K92.1 Melena; R07.89 Other chest pain; E66.01 Morbid (severe) obesity due to excess calories; K21.9 Gastro-esophageal reflux disease without esophagitis; F31.9 Bipolar disorder, unspecified; K59.00 Constipation, unspecified; I10 Essential (primary) hypertension; N93.8 Other specified abnormal uterine and vaginal bleeding; T78.3XXA Angioneurotic edema, initial encounter; Z23 Encounter for immunization; Z87.891 Personal history of nicotine dependence; Z79.899 Other long term (current) drug therapy; Z88.8 Allergy status to other drugs, medicaments and biological substances; Z88.6 Allergy status to analgesic agent; Z91.010 Allergy to peanuts; Z88.0 Allergy status to penicillin; Z91.013 Allergy to seafood
CPT/HCPCS: 36415; 36430; 71046; 71275; 80048; 80053; 80061; 80076; 80307; 81001; 82140; 82150; 82550; 82553; 82607; 82728; 82746; 83020; 83036; 83540; 83550; 83690; 83735; 83880; 84439; 84443; 84484; 84702; 85025; 85045; 85245; 85610; 85730; 86850; 86900; 86901; 86920; 86922; 87040; 90686; 93005; 93010; 99285; J1200; J1439; J2405; J2930; J3490; J7030; J7050; P9016; S0028

== ENCOUNTER 2019-03-29 08:17 | Outpatient (CLI) | payer OTHER ==
[~2019-03-29 08:17] MED LIST: FERRIC CARBOXYMALTOSE 750 MG in NORMAL SALINE 250 ML IV PRN
[2019-03-29 09:22] VITALS: BP 129/79
== END 2019-03-29 10:10 | disposition home or self-care (01) ==
LOC: II 08:17 → 5TH 08:23 → II 10:10
PROVIDERS: ATTEND Internal Medicine
DX: D50.0 Iron deficiency anemia secondary to blood loss (chronic) (principal); N93.9 Abnormal uterine and vaginal bleeding, unspecified
CPT/HCPCS: 96365; J7050; J1439; 96374